=== PATIENT | male | born 1970 | race Caucasian/White ===

== ENCOUNTER 2021-01-07 09:45 | Outpatient (REF) | payer OTHER, SELFPAY ==
--- NOTE | ~2021-01-07 | XR_ITS ---
EXAMINATION: XR CHEST CLINICAL INFORMATION: Cough. R05 - Cough COMPARISON: Chest radiographs 12/25/2011 TECHNIQUE: 2 views of the chest were obtained. FINDINGS: Linear disc atelectasis right middle lobe and bibasilar disc atelectasis. The lungs otherwise clear. The vascularity is normal. There is no lobar or segmental airspace consolidation or effusion. The heart is normal in size. The costophrenic sulci are clear. The hilar and mediastinal contours and visualized bony structures are unremarkable. XR/XR chest 2V IMPRESSION: Subsegmental atelectasis right middle lobe and at both bases.
== END 2021-01-07 09:46 | disposition home or self-care (01) ==
LOC: HO.HMGCX 09:45
PROVIDERS: PCP Physician Assistant; Visit Provider Hospitalist
DX: Z20.822 Contact with and (suspected) exposure to COVID-19 (principal); R05 Cough; B34.9 Viral infection, unspecified
CPT/HCPCS: 71046; U0003; U0005

== ENCOUNTER 2021-07-05 16:06 | Outpatient (REF) | payer OTHER, SELFPAY ==
[2021-07-05 17:00] LABS: Hematocrit 45.2 % (42.0-52.0); Mean Corpuscular HGB Conc 33.2 g/dl (31.0-36.0); Mean Corpuscular Hemoglobin 30.1 pg (27.0-33.0); Mean Corpuscular Volume 90.8 fL (80.0-98.0); Mean Platelet Volume 9.4 fL (9.4-12.4); Platelet Count 375 X10*3/uL (160-400); Red Blood Count 4.98 X10*6/uL (4.60-5.80); White Blood Count 14.5 X10*3/uL (4.8-10.8)
[2021-07-05 17:04] LABS: Estimated Average Glucose 111 mg/dL; Hemoglobin A1c % 5.5 %
[2021-07-05 17:24] LABS: Alanine Aminotransferase 35 U/L (0-40); Albumin Level 4.5 g/dL (3.5-5.0); Alkaline Phosphatase 53 U/L (39-117); Anion Gap 15 (12-20); Aspartate Amino Transferase 15 U/L (5-37); Bilirubin Direct < 0.2 mg/dL (0.0-0.5); Bilirubin Total 0.4 mg/dL (0.0-1.0); Blood Urea Nitrogen 18 mg/dL (9-16); Carbon Dioxide 26 mmol/L (22-29); Chloride 105 mmol/L (96-108); Estimated Glomerular Filt Rate > 60; Glucose Random 117 mg/dL (60-115); Potassium 4.8 mmol/L (3.3-5.1); Sodium 141 mmol/L (135-145); Total Protein 7.7 g/dL (6.5-8.0)
[2021-07-05 17:29] LABS: Calcium 10.3 mg/dL (8.4-10.2)
[2021-07-05 17:40] LABS: TSH reflex Free T4 0.45 uIU/mL (0.32-4.0)
== END 2021-07-05 16:07 | disposition home or self-care (01) ==
LOC: HO.LAB 16:06
PROVIDERS: PCP Physician Assistant; Visit Provider Physician Assistant
DX: A41.9 Sepsis, unspecified organism (principal); R65.21 Severe sepsis with septic shock; J96.01 Acute respiratory failure with hypoxia; I10 Essential (primary) hypertension
CPT/HCPCS: 36415; 80048; 80076; 83036; 84443; 85027

== ENCOUNTER 2021-07-21 14:29 | Outpatient (REF) | payer OTHER, SELFPAY ==
[2021-07-21 16:04] LABS: Hematocrit 42.9 % (42.0-52.0); Hemoglobin 14.7 g/dl (14.0-18.0); Mean Corpuscular HGB Conc 34.3 g/dl (31.0-36.0); Mean Corpuscular Hemoglobin 30.6 pg (27.0-33.0); Mean Corpuscular Volume 89.4 fL (80.0-98.0); Mean Platelet Volume 9.2 fL (9.4-12.4); Platelet Count 279 X10*3/uL (160-400); Red Cell Distribution Width 15.5 % (11.0-16.0)
[2021-07-21 16:15] LABS: Estimated Average Glucose 108 mg/dL; Hemoglobin A1c % 5.4 %
[2021-07-21 16:34] LABS: Alanine Aminotransferase 38 U/L (0-40); Albumin Level 4.2 g/dL (3.5-5.0); Alkaline Phosphatase 68 U/L (39-117); Anion Gap 10 (12-20); Aspartate Amino Transferase 18 U/L (5-37); Bilirubin Total 0.8 mg/dL (0.0-1.0); Blood Urea Nitrogen 14 mg/dL (9-16); Carbon Dioxide 33 mmol/L (22-29); Chloride 105 mmol/L (96-108); Cholesterol 232 mg/dL; Estimated Glomerular Filt Rate > 60; Glucose Fasting 93 mg/dL (60-99); HDL Cholesterol 31 mg/dL; LDL Cholesterol Calculated 134 mg/dl; Potassium 4.4 mmol/L (3.3-5.1); Sodium 144 mmol/L (135-145); Total Protein 6.9 g/dL (6.5-8.0); Triglycerides 337 mg/dL
[2021-07-21 16:39] LABS: Creatinine Urine 400.11 mg/dL; Microalbum/Creatinine Ratio Ur 13.2 ug/mg cr
[2021-07-21 16:54] LABS: Prostate Specific Antigen Scr 1.12 ng/mL (<0.05-4.0); TSH reflex Free T4 0.67 uIU/mL (0.32-4.0)
== END 2021-07-21 14:30 | disposition home or self-care (01) ==
LOC: HO.LAB 14:29
PROVIDERS: Absent Provider Physician Assistant; PCP Physician Assistant; Visit Provider Internal Medicine Pulmonary Disease
DX: Z12.5 Encounter for screening for malignant neoplasm of prostate (principal); I10 Essential (primary) hypertension; R06.00 Dyspnea, unspecified; U09.9 Post COVID-19 condition, unspecified; Z99.81 Dependence on supplemental oxygen
CPT/HCPCS: 36415; 80053; 80061; 82043; 83036; 84153; 84443; 85027

== ENCOUNTER 2021-08-16 16:12 | Outpatient (REF) | payer OTHER, SELFPAY ==
--- NOTE | ~2021-08-16 | CT_ITS ---
EXAMINATION: CT CHEST WITHOUT CONTRAST CLINICAL INFORMATION: Post Covid condition COMPARISON: Previous chest x-rays most recent May 2021 from [facility] TECHNIQUE: Multidetector volumetric CT imaging of the chest was done. Axial MIP volume rendering provided. Sagittal and coronal reformatted images were obtained. This CT examination was performed using dose optimization techniques as appropriate, variously including the following: *Automated exposure control *Adjustment of mA and/or kV according to patient size (this includes techniques or standardized protocols for targeted exams where dose is matched to indication/reason for exam; i.e. extremities or head) *Use of iterative reconstruction technique DLP: 271 mGy-cm FINDINGS: MILL OPERATOR HEAD: Low lung volumes and increased reticular markings LUNGS: The lung volumes are low. There is increased groundglass attenuation, increased linear markings and denser scarring or subsegmental atelectasis seen throughout the lungs. This does not appear appreciably changed from most recent chest x-ray from May 2021. Appearance would be consistent with fibrotic changes post Covid infection. There is a 3 mm calcified right upper lobe pulmonary nodule axial image 174 series 5. No endobronchial or endotracheal lesion is seen. There does not appear to be underlying emphysema. Tracheostomy tube is no longer seen. MEDIASTINUM: The heart is slightly enlarged. There is no pericardial effusion. The thoracic aorta is upper normal in caliber. There are small mediastinal lymph nodes. No enlarged lymph nodes are seen. PLEURA: There is no pleural effusion. No pleural mass or thickening. AXILLA: There are small lateral axillary lymph nodes. No enlarged axillary lymph nodes or chest wall mass is seen. UPPER ABDOMEN: Unremarkable. OSSEOUS STRUCTURES: There are degenerative changes of the spine. CT/CT chest wo con IMPRESSION: Low lung volumes and increased groundglass attenuation, linear markings and denser scarring or subsegmental atelectasis throughout the lungs. Chest CT appearance would be consistent with post Covid fibrotic change. Findings are similar to outside chest x-ray most recent May 2021. Enlarged heart. Fleischner guidelines were followed.
== END 2021-08-16 16:13 | disposition home or self-care (01) ==
LOC: HO.CT 16:12
PROVIDERS: PCP Physician Assistant; Visit Provider Internal Medicine Pulmonary Disease
DX: U09.9 Post COVID-19 condition, unspecified (principal)
CPT/HCPCS: 71250

== ENCOUNTER 2021-08-31 15:06 | Outpatient (REF) | payer OTHER, SELFPAY ==
--- NOTE | ~2021-08-31 | XR_ITS ---
EXAMINATION: XR CHEST CLINICAL INFORMATION: Cough COMPARISON: August 19, 2021 and January 07, 2021 TECHNIQUE: 2 views of the chest were obtained. FINDINGS: There are low lung volumes. Increased interstitial markings are seen bilaterally in were evident to some degree on previous CT scan of August 16, 2021 and are much more prominent than on study of January 07, 2021. There is a more confluent region of disease seen within the mid left lung. No pneumothorax or pleural effusion appreciated. Heart upper limits of normal in size. No evidence of pulmonary edema. XR/XR chest 2V IMPRESSION: Low lung volumes with what appears be some degree of interstitial scarring bilaterally as well as a more confluent region of disease within the mid left lung.
--- NOTE | 2021-08-31 15:21 | ECG_ITS ---
Test Reason : HTN Blood Pressure : / mmHG Vent. Rate : 056 BPM Atrial Rate : 056 BPM P-R Int : 166 ms QRS Dur : 096 ms QT Int : 414 ms P-R-T Axes : 038 017 021 degrees QTc Int : 399 ms Sinus bradycardia Otherwise normal ECG No previous ECGs available Referred By: Soy Connor Electronically Signed By:LEIDY MATUTE
[2021-08-31 16:11] LABS: Cholesterol 231 mg/dL; HDL Cholesterol 36 mg/dL; LDL Cholesterol Calculated 146 mg/dl; Triglycerides 249 mg/dL
[2021-08-31 16:32] LABS: Prostate Specific Antigen Scr 1.39 ng/mL (<0.05-4.0)
== END 2021-08-31 15:07 | disposition home or self-care (01) ==
LOC: HO.XRAY 15:06
PROVIDERS: PCP Physician Assistant; Visit Provider Physician Assistant
DX: I10 Essential (primary) hypertension (principal); R07.89 Other chest pain; R05.9 Cough, unspecified; Z12.5 Encounter for screening for malignant neoplasm of prostate
CPT/HCPCS: 36415; 71046; 80061; 84153; 93005

== ENCOUNTER → 2021-09-06 13:12 | Outpatient (REF) | payer OTHER, SELFPAY ==
--- NOTE | 2021-09-06 13:16 | CA_ITS ---
Transthoracic Echocardiogram Patient (Last, First, Middle): Marksu Cannon, Gender: Male Date of : 1970 Age: 50 Procedure Date: 09/06/2021 Procedure Type: Transthoracic Echocardiogram Location: OP Height: 172.72 cm Weight: 86.18 kg BSA: 2.00 m2 Heart Rate: bpm BP: 152 / 84 mmHg Wharf Hand: VH/OT Referring MD: Pacheco Boyle MD Symptoms: R06.00 - Dyspnea, unspecified Study Quality: Fair ECG Rhythm: Sinus Conclusions: - The left ventricular systolic function is normal. The visually estimated ejection fraction is between 55-60%. - No obvious valvular pathology seen on this study. Findings Left Ventricle Normal left ventricular cavity size. There is normal left ventricular wall thickness. The left ventricular systolic function is normal. The visually estimated ejection fraction is between 55-60%. There is no evidence of regional wall motion abnormalities. E/E prime ratio is between 8 and 15 consistent with indeterminate filling pressures. Evidence suggests grade I (mild) diastolic dysfunction. Right Ventricle Normal right ventricular cavity size and systolic function. Atria Both atria are normal in size. Aortic Valve There is a normal trileaflet aortic valve. There is no aortic valve stenosis. There is no aortic valve regurgitation. Mitral Valve The mitral valve appears normal. There is trace mitral valve regurgitation. There is no mitral valve stenosis. Pulmonic Valve The pulmonic valve was not well visualized. Tricuspid Valve Normal tricuspid valve structure. There is trace tricuspid valve regurgitation. The pulmonary artery systolic pressure is normal. Great Vessels The aortic annulus, sinuses of valsalva, and asc aorta are normal in size. Venous The inferior vena cava is normal in size and collapses greater than 50% with inspiration. Pericardium/Pleural There is no evidence of pericardial effusion. Prior Study Comparison No significant change compared to prior study dated: 09/24/2012. Recommendations, Care & Conclusions No obvious valvular pathology seen on this study. Measurements 2D Linear Measurements Ao Root: 3.20 2.1-3.5 cm LVOT Diam: 2.10 3.0+(-)1.3 cm 2D Systolic Function EF 4C: 43.40 >55% EF 2C: 60.30 >55% EF BiP: 52.80 >55% Mitral Valve MV Pk E: 0.58 MV PK A: 0.71 MV Decel Time: 203.00 E/A: 0.80 E'Lateral: 6.42 E'Medial: 5.22 E/E' Med: 11.10 E/E' Lat: 9.00 PHT: 60.00 MVA PHT: 3.67 Decel Sargent: 2.85 Aortic Valve AoV Pk Oleksandr: 1.23 AoV Mn Oleksandr: 0.85 AoV VTI: 0.26 AoV Pk Grad: 6.00 Aov Mn Grad: 3.00 ANTONIO Cont.VTI: 2.77 LVOT LVOT Pk Oleksandr: 0.98 LVOT Mn Oleksandr: 0.64 LVOT VTI: 0.21 LVOT Pk Grad: 4.00 LVOT Mn Grad: 2.00 LVOT Diam: 2.10 LVOT Area: 3.46 Diastolic Function MV Pk E: 0.58 MV Pk A: 0.71 E/A: 0.80 E'Medial: 5.22 E/E' Med: 11.10 E' Laterial: 6.42 E/E' Lat: 9.00 Right Ventricle TAPSE (mm): 24.00 TVS' Oleksandr: 10.00 Tricuspid Valve TV Pk Oleksandr: 2.00 TR Pk Oleksandr: 16.00 RA Press: 3.00 RVSP: 19.00 Great Vessels Aorta Ao Root-2D: 3.20 2.0-3.7 cm Sinus of Valsalva: 3.10 2.0-3.5 cm Ao Asc: 3.20 2.1-3.4 cm Pulmonary Valve PV Pk Oleksandr: 1.05 Peak PV Grad: 4.00 Updated in Other Vendor System with Status of Final Peter Modi MD electronically signed on 09/06/2021 4:44:01 PM with status of Final
== END ==
LOC: HO.CARD 13:12
PROVIDERS: PCP Physician Assistant; Visit Provider Internal Medicine Pulmonary Disease
DX: R06.00 Dyspnea, unspecified (principal)
CPT/HCPCS: 93306

== ENCOUNTER 2021-09-16 13:52 | Outpatient (REF) | payer OTHER, SELFPAY ==
--- NOTE | 2021-09-16 10:33 | PFT_ITS ---
Forced vital capacity 29%, FEV1 32%. FEV1/FVC ratio is 89. FEF 25/75 is 62% and MVV is 41%. Postbronchodilator therapy, there is some increase in FEF 25/75, but not in other parameters. Total lung capacity 34%. Residual volume 43%. Diffusion capacity 36%. CONCLUSION: These results are consistent with rather severe degree of restrictive pulmonary disorder. No significant obstructive disorder noted. Clinical correlation recommended. MD RIGOBERTO Cameron/MODL / [id number]
== END 2021-09-16 13:53 | disposition home or self-care (01) ==
LOC: HO.RESP 13:52
PROVIDERS: PCP Physician Assistant; Visit Provider Internal Medicine Pulmonary Disease
DX: U09.9 Post COVID-19 condition, unspecified (principal)
CPT/HCPCS: 94060; 94727; 94729

== ENCOUNTER → 2021-10-26 15:14 | Outpatient (BNVA) | payer OTHER, SELFPAY | PROVIDERS: PCP Physician Assistant; Visit Provider Internal Medicine Pulmonary Disease | DX: J84.9 Interstitial pulmonary disease, unspecified (principal) ==

== ENCOUNTER 2021-12-15 15:44 | Outpatient (REF) | payer OTHER, SELFPAY ==
[2021-12-15 15:52] LABS: MANUAL DIFF FLAG NO
[2021-12-15 16:10] LABS: Basophils Percent Auto 0.2 % (0-2); Hematocrit 47.1 % (42.0-52.0); Hemoglobin 16.2 g/dl (14.0-18.0); Imm Gran Abs Auto 0.57 X10*3/uL (0.00-0.03); Imm Gran Pct Auto 2.8 % (0.0-0.4); Lymphocytes Absolute Auto 1.4 X10*3/uL (1.2-4.9); Lymphocytes Percent Auto 6.9 % (20-40); Mean Corpuscular HGB Conc 34.4 g/dl (31.0-36.0); Mean Corpuscular Hemoglobin 29.7 pg (27.0-33.0); Mean Corpuscular Volume 86.3 fL (80.0-98.0); Mean Platelet Volume 9.1 fL (9.4-12.4); Monocytes Absolute Auto 0.6 X10*3/uL (0.1-1.2); Monocytes Percent Auto 3.1 % (2-11); Neutrophils Absolute Auto 17.8 x10*3/uL (2.0-8.3); Platelet Count 304 X10*3/uL (160-400); Red Blood Count 5.46 X10*6/uL (4.60-5.80); Red Cell Distribution Width 15.3 % (11.0-16.0); White Blood Count 20.5 X10*3/uL (4.8-10.8)
[2021-12-15 16:24] LABS: Alanine Aminotransferase 90 U/L (0-40); Albumin Level 4.6 g/dL (3.5-5.0); Alkaline Phosphatase 44 U/L (39-117); Anion Gap 14 (12-20); Aspartate Amino Transferase 25 U/L (5-37); Bilirubin Total 1.2 mg/dL (0.0-1.0); Blood Urea Nitrogen 19 mg/dL (9-16); Calcium 10.2 mg/dL (8.4-10.2); Carbon Dioxide 30 mmol/L (22-29); Chloride 99 mmol/L (96-108); Estimated Glomerular Filt Rate > 60; Glucose Random 138 mg/dL (60-115); Potassium 4.2 mmol/L (3.3-5.1); Sodium 139 mmol/L (135-145); Total Protein 7.1 g/dL (6.5-8.0)
[2021-12-15 16:47] LABS: TSH reflex Free T4 0.22 uIU/mL (0.32-4.0); Vitamin D 25-OH Total 25.8 ng/mL (>30)
[2021-12-15 17:03] LABS: Appearance Urine CLEAR; Color Urine STRAW; Glucose Urine UA NEG (NEG); Leukocyte Esterase Urine NEG (NEG); Nitrite Urine NEG (NEG); PH 7.5 (5.0-8.0); Specific Gravity - Urine <= 1.005 (1.005-1.025); Urine Blood NEG (NEG); Urine Ketones NEG (NEG); Urine Protein NEG (NEG-TRACE)
[2021-12-15 18:13] LABS: Free T4 (Free Thyroxine) 1.04 ng/dL (0.71-1.85)
== END 2021-12-15 15:45 | disposition home or self-care (01) ==
LOC: HO.LAB 15:44
PROVIDERS: Visit Provider Internal Medicine
DX: R53.83 Other fatigue (principal); E55.9 Vitamin D deficiency, unspecified
CPT/HCPCS: 36415; 80053; 81003; 82306; 84439; 84443; 85025

== ENCOUNTER 2022-01-06 13:45 | Outpatient (REF) | payer OTHER, SELFPAY ==
--- NOTE | 2022-01-06 17:34 | PFT_ITS ---
INDICATION: Dyspnea. SPIROMETRY: FEV1 to FVC of 90% with an FEV1 of 1.44, which is 39% predicted, and an FVC of 1.61, which is 34% predicted. No significant response to bronchodilators noted. Maximum voluntary ventilation 52% predicted. LUNG VOLUMES: Total lung capacity 44% predicted with an expiratory reserve volume of 18% predicted. DIFFUSION CAPACITY: DLCO of 45% predicted, and it does correct to normal when corrected for the alveolar volume. COMPARISONS: None. INTERPRETATION: No obstructive ventilatory defects, no significant response to bronchodilators noted. The patient does have a moderate decrease in maximum voluntary ventilation secondary to deconditioning, although cannot rule out neuromuscular conditions. However, the patient does have a restrictive ventilatory defect consistent with severe restrictive lung disease. The etiology is not clear, although partly due to his elevated BMI, although underlying neuromuscular conditions cannot be ruled out. The patient also has a severe diffusion impairment that does correct to 112% predicted when corrected for the alveolar volume suggesting that is not an intrinsic process. Clinical correlation is warranted. MD JESS Guerra/MEL / [id number]
== END 2022-01-06 13:46 | disposition home or self-care (01) ==
LOC: HO.RESP 13:45
PROVIDERS: PCP Physician Assistant; Visit Provider Internal Medicine Pulmonary Disease
DX: J84.9 Interstitial pulmonary disease, unspecified (principal)
CPT/HCPCS: 94060; 94727; 94729

== ENCOUNTER 2022-02-21 14:56 | Outpatient (REF) | payer OTHER, SELFPAY ==
--- NOTE | ~2022-02-21 | XR_ITS ---
EXAMINATION: XR CHEST CLINICAL INFORMATION: Pleurodynia. COMPARISON: Prior chest radiographs, most recently 08/31/2021; CT chest dated 08/16/2021.. TECHNIQUE: Frontal and lateral views of the chest were obtained. FINDINGS: The heart, great vessels and mediastinum are stable. Again, there are diminished lung volumes. There is persistent bilateral increase in predominantly central interstitial markings, and there is a stable patchy opacity seen in the left perihilar region. No pleural effusion or pneumothorax is seen. There is no acute osseous abnormality. XR/XR chest 2V IMPRESSION: Stable abnormal examination. There are again diminished lung volumes with increased bilateral interstitial markings. There is a stable focal opacity in the left perihilar region. No new superimposed infiltrate or congestive heart failure is seen.
== END 2022-02-21 14:57 | disposition home or self-care (01) ==
LOC: HO.XRAY 14:56
PROVIDERS: PCP Physician Assistant; Visit Provider Physician Assistant
DX: R07.81 Pleurodynia (principal)
CPT/HCPCS: 71046

== ENCOUNTER 2022-03-10 15:53 | Outpatient (REF) | payer OTHER, SELFPAY ==
--- NOTE | ~2022-03-10 | XR_ITS ---
EXAMINATION: XR CHEST CLINICAL INFORMATION: Other nonspecific symptoms and signs involving the circulatory and respiratory system. Previous exams indicate post Covid condition. COMPARISON: Previous chest x-rays most recent August and February [address] August 2021 TECHNIQUE: 2 views of the chest were obtained. FINDINGS: The cardiac silhouette is slightly enlarged but stable. Hilar and mediastinal contours are unremarkable. The lung volumes are low. There are interstitial markings similar to previous exam. There is denser airspace disease or infiltrate in the left mid lung/perihilar region. This is similar to recent exams. There is no pleural effusion or pneumothorax. There are degenerative changes of the spine. XR/XR chest 2V IMPRESSION: Stable enlargement of the cardiac silhouette. Low lung volumes and coarse lung markings. Stable left mid lung/perihilar more dense consolidation or infiltrate.
[2022-03-10 19:09] LABS: Influenza A PCR NEGATIVE (Negative); Influenza B PCR NEGATIVE (Negative); Resp Syncy Virus RNA Qual PCR NEGATIVE (Negative); SARS COV2 PCR INHOUSE NEGATIVE (Negative)
== END 2022-03-10 15:54 | disposition home or self-care (01) ==
LOC: HO.XRAY 15:53
PROVIDERS: PCP Physician Assistant; Visit Provider Family Medicine
DX: Z20.822 Contact with and (suspected) exposure to COVID-19 (principal); R09.89 Other specified symptoms and signs involving the circulatory and respiratory systems
CPT/HCPCS: 0241U; 71046

== ENCOUNTER → 2022-03-22 20:30 | Outpatient (REF) | payer OTHER, SELFPAY | LOC: HO.SL 20:30 | PROVIDERS: Visit Provider Nurse Practitioner Family | DX: R06.83 Snoring (principal); R40.0 Somnolence | CPT/HCPCS: 95810 ==

== ENCOUNTER 2022-03-30 12:48 | Outpatient (REF) | payer OTHER, SELFPAY ==
--- NOTE | 2022-03-30 15:13 | PFT_ITS ---
INDICATION: ILD. SPIROMETRY: FEV1 to FVC of 92% with an FEV1 of 1.47 L, which is 40% predicted, FVC 1.59 L which is 34% predicted, maximum voluntary ventilation only 44% predicted. LUNG VOLUMES: Total lung capacity 38% predicted with an expiratory reserve volume of 28% predicted. DIFFUSION CAPACITY: DLCO 42% predicted. To note that it corrects to 125% predicted when correcting for the alveolar volume. COMPARISONS: PFTs from 2021. INTERPRETATION: No obstructive ventilatory defect. No significant response to bronchodilators noted. Of note, there is some evidence of small airways disease. There is also severe decrease in maximum voluntary ventilation secondary to likely deconditioning and/or neuromuscular disease. The patient does have a restrictive ventilatory defect that is consistent with severe restrictive lung disease. In addition to that, the patient does have a decrease in the expiratory reserve volume secondary to an elevated BMI. The diffusion capacity does demonstrate a moderate decrease, although, there is complete correction of the diffusion impairment, when correcting for the alveolar volume. When compared to 2021, there is no significant change in the FVC, no significant change in the FEV1, a trend increase in the total lung capacity, and no significant change in diffusion capacity. Clinical correlation warranted. MD JESS Guerra/MEL / [id number]
== END 2022-03-30 12:49 | disposition home or self-care (01) ==
LOC: HO.RESP 12:48
PROVIDERS: Visit Provider Internal Medicine Pulmonary Disease
DX: J84.9 Interstitial pulmonary disease, unspecified (principal)
CPT/HCPCS: 94060; 94727; 94729

== ENCOUNTER 2022-04-22 10:04 | Outpatient (REF) | payer OTHER, SELFPAY ==
[2022-04-22 11:17] LABS: Hematocrit 45.5 % (42.0-52.0); Hemoglobin 15.4 g/dl (14.0-18.0); Mean Corpuscular HGB Conc 33.8 g/dl (31.0-36.0); Mean Corpuscular Hemoglobin 30.5 pg (27.0-33.0); Mean Corpuscular Volume 90.1 fL (80.0-98.0); Platelet Count 271 X10*3/uL (160-400); Red Blood Count 5.05 X10*6/uL (4.60-5.80); Red Cell Distribution Width 13.4 % (11.0-16.0); White Blood Count 15.5 X10*3/uL (4.8-10.8)
[2022-04-22 11:46] LABS: Alanine Aminotransferase 130 U/L (0-40); Albumin Level 4.2 g/dL (3.5-5.0); Alkaline Phosphatase 51 U/L (39-117); Anion Gap 16 (12-20); Aspartate Amino Transferase 36 U/L (5-37); Bilirubin Total 0.8 mg/dL (0.0-1.0); Blood Urea Nitrogen 18 mg/dL (9-16); Calcium 9.7 mg/dL (8.4-10.2); Carbon Dioxide 29 mmol/L (22-29); Chloride 102 mmol/L (96-108); Cholesterol 241 mg/dL; Estimated Glomerular Filt Rate > 60; Glucose Fasting 96 mg/dL (60-99); HDL Cholesterol 39 mg/dL; LDL Cholesterol Calculated 160 mg/dl; Potassium 3.7 mmol/L (3.3-5.1); Sodium 143 mmol/L (135-145); Total Protein 6.5 g/dL (6.5-8.0); Triglycerides 214 mg/dL
== END 2022-04-22 10:05 | disposition home or self-care (01) ==
LOC: HO.LAB 10:04
PROVIDERS: PCP Physician Assistant; Visit Provider Physician Assistant
DX: J84.9 Interstitial pulmonary disease, unspecified (principal); E78.9 Disorder of lipoprotein metabolism, unspecified
CPT/HCPCS: 36415; 80053; 80061; 84443; 85027

== ENCOUNTER 2022-04-25 15:14 | Outpatient (REF) | payer OTHER, SELFPAY ==
[2022-04-25 15:40] VITALS: O2SAT 95
[2022-04-25 15:58] LABS: ABG Base Excess 3.6 mmol/L; ABG HCO3 27 mmol/L (22-26); ABG pCO2 39 mmHg (32-45); ABG pH 7.45 (7.35-7.45); ABG pO2 99 mmHg (83-108)
[2022-04-25 17:56] LABS: ABG Refer to POC result
== END 2022-04-25 15:15 | disposition home or self-care (01) ==
LOC: HO.LAB 15:14
PROVIDERS: PCP Physician Assistant; Visit Provider Internal Medicine Pulmonary Disease
DX: Z76.82 Awaiting organ transplant status (principal)
CPT/HCPCS: 36600; 82803; 94618

== ENCOUNTER 2022-05-22 15:00 | Outpatient (REF) | payer OTHER, SELFPAY ==
[2022-05-23 13:17] LABS: Influenza A PCR NEGATIVE (Negative); Influenza B PCR NEGATIVE (Negative); Resp Syncy Virus RNA Qual PCR POSITIVE (Negative); SARS COV2 PCR INHOUSE NEGATIVE (Negative)
== END 2022-05-22 15:01 | disposition home or self-care (01) ==
LOC: HO.LAB 15:00
PROVIDERS: Visit Provider Nurse Practitioner Family
DX: R09.89 Other specified symptoms and signs involving the circulatory and respiratory systems (principal); Z20.822 Contact with and (suspected) exposure to COVID-19
CPT/HCPCS: 0241U

== ENCOUNTER → 2022-08-02 14:47 | Outpatient (BNVA) | payer OTHER, SELFPAY | PROVIDERS: PCP Physician Assistant; Visit Provider Nurse Practitioner Family | DX: Z13.89 Encounter for screening for other disorder (principal) ==

== ENCOUNTER → 2022-08-24 13:36 | Outpatient (BNVA) | payer OTHER, SELFPAY | PROVIDERS: PCP Physician Assistant; Visit Provider Internal Medicine Pulmonary Disease | DX: Z13.89 Encounter for screening for other disorder (principal) ==

== ENCOUNTER → 2022-10-24 14:58 | Outpatient (BNVA) | payer OTHER, SELFPAY | PROVIDERS: PCP Physician Assistant; Visit Provider Internal Medicine Pulmonary Disease ==

== ENCOUNTER 2022-11-14 16:55 | Outpatient (REF) | payer OTHER, SELFPAY ==
[2022-11-14 18:36] LABS: Cholesterol 177 mg/dL; HDL Cholesterol 29 mg/dL; LDL Cholesterol Calculated 106 mg/dl; Triglycerides 210 mg/dL
== END 2022-11-14 16:56 | disposition home or self-care (01) ==
LOC: HO.LAB 16:55
PROVIDERS: PCP Physician Assistant; Visit Provider Nurse Practitioner Family
DX: E78.00 Pure hypercholesterolemia, unspecified (principal)
CPT/HCPCS: 36415; 80061

== ENCOUNTER 2023-03-12 11:39 | Outpatient (AMB) | payer OTHER, SELFPAY ==
[2023-03-12 12:14] VITALS: BP 140/80; PULSE 63; TEMP 36.7; O2SAT 98
--- NOTE | 2023-03-12 12:14 | MHC.OFFWIV ---
Intake Vital Signs 03/12/23 12:14 Height 5 ft 8 in Weight 9.072 kg BMI 3.0 BP 140/80 H Blood Pressure Location Rt brachial Position Sitting Pulse 63 Pulse Source Pulse Oximeter Temp 98.0 F Temp Source Temporal Artery Scan Pulse Oximetry (%) 98 Intake Visit Reasons: EST/cut on face/infection? Intake Note: pt is here for c/o cut on face possible infection Patient Tobacco Use Status: Never used Tobacco Allergies bee venom protein (honey bee) Allergy (Intermediate, Verified 03/12/23 12:15) Swelling iv dye Allergy (Unknown, Uncoded 12/13/22 15:35) rash Do you need a note to return to daycare/school/sports/work: Yes HPI EST/cut on face/infection? HPI Details Patient presents with pain and swelling on his chin after nicking himself shaving 3 days ago. Lesion started to developed clear and yellow fluid with increased surrounding erythema and edema and tenderness. He denies fevers were noted purulent drainage. He does his have history of MRSA infections in the past. [facility] Surgical History History of ear surgery History of vasectomy History of wisdom tooth extraction Family History Father No problems noted. Mother Lung cancer Paternal Uncle Diabetes Paternal Aunt Brain cancer Other Mental health disorder Substance use disorder Social History Household Members: Family Housing: House Alcohol intake: current Alcohol intake frequency: holidays/special occasions only Patient Tobacco Use Status: Never used Tobacco e-Cigarette/Vaping Use: Never Used Second Hand Smoke Exposure: Yes (Mother) service: No Current occupational status: employed Cognitive needs: No Hearing needs: No Vision needs: Yes Review of Systems Const Reports as per HPI and Reports no additional complaints Card Reports as per HPI and Reports no additional complaints Resp Reports as per HPI and Reports no additional complaints Skin/Breast Denies lesions Neuro Reports no additional complaints and Reports as per HPI Physical Exam Vital Signs: Last Vital Signs Temp 98.0 F 03/12/23 12:14 Pulse 63 03/12/23 12:14 BP 140/80 H 03/12/23 12:14 Pulse Ox 98 03/12/23 12:14 BMI result Body Mass Index 3.0 Const General: cooperative, comfortable and no acute distress Orientation/consciousness: patient oriented x3 Resp Effort & Inspection: normal respiratory effort Auscultation: clear to auscultation bilaterally Cardio Rate: regular rate Rhythm: regular rhythm Heart sounds: S1 normal heart sound present and S2 normal heart sound present Skin Lesions: lesion noted (5 mm area of scab and serosanguineous discharge) Chin just left of center tender and other (Area of erythema covers chin and below mandible) Neuro General: patient oriented x3 Assessment & Plan Assessment & Plan (1) Facial cellulitis: Code(s): L03.211 - Cellulitis of face Plan: Will treat with 10 day course of Augmentin. Patient advised to monitor return to clinic if symptoms are not improving over the next 24-48 hours or worsen in any way. He may need alternate course of antibiotics especially given his immunocompromised state. Medications: New amoxicillin-pot clavulanate 875-125 mg 1 tab PO Q12H 20 tabs 0RF 10 days Coding Level of Care Code Est Pt Level 3 (78473) Diagnoses Facial cellulitis L03.211
== END 2023-03-12 12:36 | disposition home or self-care (01) ==
PROVIDERS: Visit Provider Physician Assistant
DX: L03.211 Cellulitis of face (principal)
CPT/HCPCS: 99213

== ENCOUNTER 2023-04-05 13:00 | Outpatient (RCR) | payer OTHER, SELFPAY ==
[2022-09-14 13:05] VITALS: BP 124/78; BP 128/66
[2022-09-21 13:44] VITALS: BP 128/70; BP 146/82
[2022-09-26 14:36] VITALS: BP 150/80
[2022-09-28 14:29] VITALS: BP 120/80; BP 138/70
[2022-10-03 13:42] VITALS: BP 114/82; BP 122/80
[2022-10-05 14:34] VITALS: BP 132/90; BP 145/80
[2022-10-10 14:40] VITALS: BP 150/80
[2022-10-12 13:03] VITALS: BP 102/80; BP 122/76
[2022-10-19 13:17] VITALS: BP 126/72; BP 128/78
[2022-10-24 13:27] VITALS: BP 130/82
[2022-10-26 13:26] VITALS: BP 130/70
[2022-10-31 15:05] VITALS: BP 130/80; BP 140/80
[2022-11-02 14:59] VITALS: BP 125/70; BP 135/70
[2022-11-07 14:25] VITALS: BP 120/72; BP 120/74
[2022-11-21 14:38] VITALS: BP 126/68; BP 136/80
[2022-11-23 15:02] VITALS: BP 114/70; BP 122/80
[2022-11-28 15:06] VITALS: BP 140/84; BP 150/92
[2022-12-01 06:50] VITALS: BP 112/72; BP 132/76
[2022-12-05 13:45] VITALS: BP 126/72; BP 140/80
[2022-12-06 07:21] VITALS: BP 140/80; PULSE 64
--- NOTE | 2022-12-06 07:38 | MHC.PR.IN ---
[address] [phone] F: [phone] Pulmonary Rehabilitation Individual Treatment Plan Markus Cannon is a 52 year old (M) who was referred to the Pulmonary Rehabilitation program by Pacheco Boyle. This patient who has a primary diagnosis of Post covid will begin pulmonary rehabilitation with monitored exercise and education to optimize both physical and social performance, autonomy, increase strength and endurance, and control dypsnea. The following information was gathered from the patient: Smoking History Current smoking status: Never Smoked Years smoked: Last time smoked: Quit Date: Assistance with quitting needed: Past Medical History Medical History: Hypertension Pneumonia Anxiety Vision Problems Hearing Problems Surgeries: NO Past Pulmonary Hospitalizations # of hospitalizations in the past year: # of ER vists due to breathing troubles in the past year: Current Pulmonary Medications Allergy History Allergies: Bees/ IV dye Current Oxygen Use Supplemental Oxygen Device Used: Concentrator Cylinders Liter flow: 1L How often: With exercise only Pulmonary History Cough: No Sputum: No Sleep device: No Other pulmonary devices: Peak flow meter: Nebulizer: Suction: No Ventilator: No Secretion clearance: No PEP: No Influenza vaccine: Yes Pneumonia vaccine: No Patient Questionaire Scores MRC Dyspnea Scale (mRC): 1 CAT Score: PHQ-9 Score: 3 Pulmonary Function Test and Vital Signs Pulmonary Function Test Date of PFT FVC Actual % FVC Predicted % FEV1 Actual % FEV1 Predicted % FEV1/FVC Actual % FEV1/FVC Predicted % DLCO Vital Signs Heart Rate 64 Blood Pressure 140/80 SpO2 94% Respiratory Rate 16 Six Minute Walk Test Supplemental Oxygen O2 L/min: 1lpm FiO2: Resting Vitals SpO2: 96% BP: 110/54mmHg HR: 59 bpm Total Distance 835 Number/ Time of Rests (sec) 0 TORO 3 METS 2.22 SpO2 96 HR (bpm) 103 MPH 1.59 Meters/Minute 43 Post-walk Vitals SpO2: BP: 120/58 HR: 66 Performance Observations walked at a moderate pace. No stops. RPD 3 Pulmonary Rehabilitation Plan Topic Problem Goal Plan Comment Education Knowledge deficit of disease self management strategies Ineffective control of dyspnea Verbalize adequate disease self-management skills Effective control of dyspnea Disease overview Home exercise program Hypoxia SpO2 >90 Using oxygen as ordered Monitor oxygen saturation with rest and exercise Educate appropriate use of oxygen at rest and with activity Educate on oxygen safety Using oxygen as prescribed. Psychosocial N/A, PHQ-9 score <5 Review screening results Benefits of exercise Relaxation techniques Coping techniques Pt admits he has had anxiety and depression after rehab, but states he is feeling much better. Pt actively participates in pulmonary rehab. Activities of Daily Living Impaired ADL management ADL management and control of dyspnea ADL performance with pacing and pursed lip breathing Educate on pursed lip breathing and pacing with stairs and activity Pt educated on pursed lip and diaphragmatic breathing Nutrition & Weight Management N/A Prevent further weight gain Tobacco Managment NA never smoked Medication N/A, pt reports compliance w/ prescribed medications Pt reports compliance with prescribed medications Inhaled Medication N/A Secretion Management N/A, pt able to self manage secretions Pt able to manage self secretions. Exercise & Fitness Decreased strength & endurance Pulmonary Rehab 2-3x/week Weight or resistance training 2-3x/week Aerobic Exercise: 30-60mins x 9 weeks Review benefits & core components of exercise program TORO RPD 3-4/10 PT has participated in multiple sessions of pulmonalry rehab. Pt has great effort, and states pulmonary rehab helps him with ADL's and breathing techniques. Diabetes Management Does patient have DM?: No Diabetes Type: Current Blood Glucose Level: Current A1C Level: Self Check: Patient's Goals and Concerns Optimize breathing so that he can be more active.. Blister Rust Eradicator Review I have reviewed the outcome assessment, treatment plan, goals, and problem list. The treatment plan and goals support the patient's needs and abilities, and thereby recommend that the exercise plan be completed as documented. Special precautions or modifications to the treatment plan include:
[2022-12-26 15:54] VITALS: BP 130/82; BP 134/72
[2023-01-02 13:20] VITALS: BP 130/82; BP 132/82
[2023-01-09 14:52] VITALS: BP 138/80; BP 144/82
--- NOTE | 2023-01-10 08:41 | MHC.PR.RE ---
[address] [phone] F: [phone] Pulmonary Rehabilitation Reassessment Maruks Cannon is a 52 year old (M) who was referred to the Pulmonary Rehabilitation program by Pacheco Boyle. This patient who has a primary diagnosis of Post covid has completed 20 sessions of the pulmonary rehabilitation program thus far with monitored exercise and education to optimize both physical and social performance, autonomy, increase strength and endurance, and control dypsnea. They were evaluated on 01/10/23. Reassessment Type: 30-day reassessment Topic Education/ Progress Progress Comments Education Demonstrates disease self-management strategies Using medications as directed Mobilizes secretions successfully Demonstrates strategies for anxiety and depression management Hypoxia Current oxygen Use: Room Air Demonstrates knowledge of O2 prescription at rest & with activity Demonstrates knowledge of O2 safety Pt using per Rx 100% of time Psychosocial PHQ-9 Score: 3 Activities of Daily Living Management of ADL with Control of Dyspnea Goal Met Nutrition & Weight Management Current weight: 180 BMI: Weight change: Weight Stable Goal Met Referral to Structured Weight Management Program Tobacco Stages of Change: Pre-contemplation Tobacco Use: Cigerettes/Day: Any nicotine replacement: Any cessation medication: Smoking quit date: Smokeless tobacco use and amount: Medication Met, taking 100% of time Inhaled Medication Patient verbalizes correct technique of: MDI: Yes DPI: SMI: NEBULIZER: Secretion Management Patient provides adequate return demonstration of: Controlled cough: Yes Dao cough: Acapella/ PEP Device: Yes CPT: Yes Sputum management: No change Exercise & Fitness Aerobic Exercise Frequency: 2X weekly Target heart range: Heart rate range: SpO2 Range: TORO RPD: 3-4 Time (minutes): 65 O2 use with exercise: ra Current HEP: aerobic exercise 30-60 min X9 weeks. Box Feeder Review I have reviewed the outcome re-assessment and treatment plan. The treatment plan and goals support the patient's needs and abilities, and thereby recommend that the exercise plan be completed as documented. Special precautions or modifications to the treatment plan include:
[2023-01-23 14:40] VITALS: BP 128/78; BP 158/78
[2023-01-25 14:56] VITALS: BP 122/78; BP 152/78
--- NOTE | 2023-02-01 13:18 | MHC.PR.RE ---
[address] [phone] F: [phone] Pulmonary Rehabilitation Reassessment Markus Cannon is a 52 year old (M) who was referred to the Pulmonary Rehabilitation program by Pacheco Boyle. This patient who has a primary diagnosis of Post covid has completed 22 sessions of the pulmonary rehabilitation program thus far with monitored exercise and education to optimize both physical and social performance, autonomy, increase strength and endurance, and control dypsnea. They were evaluated on 02/01/23. Reassessment Type: 60-day reassessment Topic Education/ Progress Progress Comments Education Demonstrates disease self-management strategies Using medications as directed Mobilizes secretions successfully Demonstrates strategies for anxiety and depression management Hypoxia Current oxygen Use: RA Demonstrates knowledge of O2 prescription at rest & with activity Demonstrates knowledge of O2 safety Pt using per Rx 100% of time Met. Pt does not require the use of supplemental 02 Psychosocial PHQ-9 Score: 3 Activities of Daily Living Management of ADL with Control of Dyspnea Goal Met Pt has been on vacation for a month and a half. He has restarted his sessions and continued with the exercise time and levels that he had worked up to since the beginning. Nutrition & Weight Management Current weight: 180 BMI: Weight change: Weight Stable Goal Met Referral to Structured Weight Management Program Progressing. Pt would like to lose some weight during the program. The goal will be to increases levels as tolerated. Tobacco Stages of Change: Pre-contemplation Tobacco Use: Cigerettes/Day: Any nicotine replacement: Any cessation medication: Smoking quit date: Smokeless tobacco use and amount: PT is a non smoker Medication Met, taking 100% of time Inhaled Medication Patient verbalizes correct technique of: MDI: Yes DPI: SMI: NEBULIZER: spacer education given. Secretion Management Patient provides adequate return demonstration of: Controlled cough: Yes Dao cough: Acapella/ PEP Device: Yes CPT: Yes Sputum management: No change Exercise & Fitness Aerobic Exercise Frequency: 2X weekly Target heart range: Heart rate range: SpO2 Range: 92%-1--% TORO RPD: 3-4 Time (minutes): 60 O2 use with exercise: RA Current HEP: aerobic exercise 30-60 min X9 weeks. Pt is motivated and increased mets throughout program sessions. Visiting Housekeeper Review I have reviewed the outcome re-assessment and treatment plan. The treatment plan and goals support the patient's needs and abilities, and thereby recommend that the exercise plan be completed as documented. Special precautions or modifications to the treatment plan include:
[2023-02-08 14:58] VITALS: BP 162/79
[2023-02-13 15:03] VITALS: BP 124/80; BP 158/72
[2023-02-15 14:49] VITALS: BP 122/88
[2023-02-20 14:58] VITALS: BP 148/80; BP 164/72
--- NOTE | 2023-02-28 07:34 | MHC.PR.RE ---
[address] [phone] F: [phone] Pulmonary Rehabilitation Reassessment Markus Cannon is a 52 year old (M) who was referred to the Pulmonary Rehabilitation program by Pacheco Boyle. This patient who has a primary diagnosis of Post covid has completed 26 sessions of the pulmonary rehabilitation program thus far with monitored exercise and education to optimize both physical and social performance, autonomy, increase strength and endurance, and control dypsnea. They were evaluated on 02/28/23. Reassessment Type: 90-day reassessment Topic Education/ Progress Progress Comments Education Demonstrates disease self-management strategies Using medications as directed Mobilizes secretions successfully Demonstrates strategies for anxiety and depression management Hypoxia Current oxygen Use: Room Air Demonstrates knowledge of O2 prescription at rest & with activity Demonstrates knowledge of O2 safety Pt using per Rx 100% of time Met. Pt does not require the use of supplemental 02 Psychosocial PHQ-9 Score: 3 Activities of Daily Living Management of ADL with Control of Dyspnea Goal Met Progressing. Pt has been more active at home, and does not require supplemental 02. Nutrition & Weight Management Current weight: 180 BMI: Weight change: Weight Stable Goal Met Referral to Structured Weight Management Program Progressing. Pt would like to lose some weight during the program. The goal will be to increases levels as tolerated. Tobacco Stages of Change: Pre-contemplation Tobacco Use: Cigerettes/Day: Any nicotine replacement: Any cessation medication: Smoking quit date: Smokeless tobacco use and amount: Pt is non smoker. Medication Met, taking 100% of time Inhaled Medication Patient verbalizes correct technique of: MDI: Yes DPI: SMI: NEBULIZER: spacer education given. Secretion Management Patient provides adequate return demonstration of: Controlled cough: Yes Dao cough: Acapella/ PEP Device: Yes CPT: Yes Sputum management: No change Exercise & Fitness Aerobic Exercise Frequency: 2X weekly Target heart range: Heart rate range: SpO2 Range: 92%-1--% TORO RPD: 3-4 Time (minutes): 60 O2 use with exercise: RA Current HEP: aerobic exercise 30-60 min X12 weeks. Pt is motivated and continues to get stronger, and work through SOB diaphragmatic breathing and pursed lip breathing. Wildlife Manager Review I have reviewed the outcome re-assessment and treatment plan. The treatment plan and goals support the patient's needs and abilities, and thereby recommend that the exercise plan be completed as documented. Special precautions or modifications to the treatment plan include:
[2023-03-08 14:45] VITALS: BP 148/88
--- NOTE | 2023-03-30 08:00 | MHC.PR.RE ---
[address] [phone] F: [phone] Pulmonary Rehabilitation Reassessment Markus Cannon is a 52 year old (M) who was referred to the Pulmonary Rehabilitation program by Pacheco Boyle. This patient who has a primary diagnosis of Post covid has completed 27 sessions of the pulmonary rehabilitation program thus far with monitored exercise and education to optimize both physical and social performance, autonomy, increase strength and endurance, and control dypsnea. They were evaluated on 03/30/23. Reassessment Type: 120-day reassessment Topic Education/ Progress Progress Comments Education Demonstrates disease self-management strategies Using medications as directed Mobilizes secretions successfully Demonstrates strategies for anxiety and depression management Hypoxia Current oxygen Use: room Demonstrates knowledge of O2 prescription at rest & with activity Demonstrates knowledge of O2 safety Pt using per Rx 100% of time Met. Pt does not require the use of supplemental 02 Psychosocial PHQ-9 Score: 3 Activities of Daily Living Management of ADL with Control of Dyspnea Goal Met PRogressing. Pt has been more active at home, and does not require supplemental 02. Nutrition & Weight Management Current weight: 180 BMI: Weight change: Weight Stable Goal Met Referral to Structured Weight Management Program Progressing. Pt would like to lose some weight during the program. The goal will be to increases levels as tolerated. Tobacco Stages of Change: Pre-contemplation Tobacco Use: Cigerettes/Day: Any nicotine replacement: Any cessation medication: Smoking quit date: Smokeless tobacco use and amount: Pt is non smoker. Medication Met, taking 100% of time Inhaled Medication Patient verbalizes correct technique of: MDI: Yes DPI: SMI: NEBULIZER: spacer education given. Secretion Management Patient provides adequate return demonstration of: Controlled cough: Yes Dao cough: Acapella/ PEP Device: Yes CPT: Yes Sputum management: No change Exercise & Fitness Aerobic Exercise Frequency: 2X weekly Target heart range: Heart rate range: SpO2 Range: 92%-1--% TORO RPD: 3-4 Time (minutes): 60 O2 use with exercise: RA Current HEP: aerobic exercise 30-60 min X12 weeks. Pt is motivated and continues to get stronger, and work through SOB diaphragmatic breathing and pursed lip breathing. Yield Analyst Review I have reviewed the outcome re-assessment and treatment plan. The treatment plan and goals support the patient's needs and abilities, and thereby recommend that the exercise plan be completed as documented. Special precautions or modifications to the treatment plan include:
== END 2023-05-17 13:07 | disposition home or self-care (01) ==
LOC: HO.PR 13:00
PROVIDERS: Visit Provider Internal Medicine Pulmonary Disease
DX: U09.9 Post COVID-19 condition, unspecified (principal)
CPT/HCPCS: 94625

== ENCOUNTER 2023-06-28 15:04 | Outpatient (AMB) | payer OTHER, SELFPAY ==
[2023-06-28 15:08] VITALS: BP 154/82; PULSE 65; O2SAT 96; BMI 31.0
--- NOTE | 2023-06-28 15:08 | MHC.OFFVIS ---
Intake Vital Signs 06/28/23 15:08 Height 5 ft 8 in Weight 203 lb 14.841 oz BMI 31.0 BP 154/82 H Blood Pressure Location Lt brachial Position Sitting Pulse 65 Pulse Source Doppler Pulse Oximetry (%) 96 Oxygen Delivery Method Room Air Intake Visit Reasons: dyspnea Allergies bee venom protein (honey bee) Allergy (Intermediate, Verified 03/12/23 12:15) Swelling iv dye Allergy (Unknown, Uncoded 12/13/22 15:35) rash HPI dyspnea HPI Details 52-year-old gentleman, nonsmoker, with underlying history of severe COVID starting end of December 2020 requiring VV ECMO for 10 weeks at [facility], status post trach and PEG discharge to [facility] in March of 2021, tracheostomy decannulated end of May 2021, discharged from [facility] being June of 2021 on supplemental oxygen 3 L continuous flow with exertion and 1L at rest.? Treated with prednisone 1 milligram/kilogram with initial improvement in his lung function with improvement that has plateaued since about December of 2021.? His repeat pulmonary function test also shows no further improvement in lung function.? After the last office visit patient continues to work with pulmonary rehab. He only require supplemental oxygen at night at this time. [facility] Surgical History History of ear surgery History of vasectomy History of wisdom tooth extraction Family History Father No problems noted. Mother Lung cancer Paternal Uncle Diabetes Paternal Aunt Brain cancer Other Mental health disorder Substance use disorder Social History Household Members: Family Housing: House Alcohol intake: current Alcohol intake frequency: holidays/special occasions only Patient Tobacco Use Status: Never used Tobacco e-Cigarette/Vaping Use: Never Used Second Hand Smoke Exposure: Yes (Mother) service: No Current occupational status: employed Cognitive needs: No Hearing needs: No Vision needs: Yes Review of Systems Const Denies daytime sleepiness, Denies excessive sweating, Denies fatigue, Denies fever(s), Denies lethargy, Denies malaise, Denies night sweats, Denies snoring and Denies weight loss Eyes Denies blurry vision and Denies itchy eyes ENT Denies nasal congestion, Denies post nasal drip, Denies sinus pain, Denies sinus pressure and Denies other ( Thrush) Card Denies chest pain, Denies pedal edema, Denies dyspnea, Denies orthopnea and Denies paroxysmal nocturnal dyspnea Resp Denies cough, Denies hemoptysis, Denies excessive phlegm production, Denies dyspnea, Denies snoring and Denies wheezing GI Denies abdominal pain and Denies heartburn Musc Denies myalgias, Denies arthralgias and Denies joint swelling Skin/Breast Denies rash Neuro Denies memory loss and Denies seizure-like activity Psych Denies abnormal sleep pattern, Denies anxiety and Denies memory loss Endo Denies excessive sweating, Denies fatigue and Denies heat intolerance [place]/Lymph Denies easy bruising Aller/Immun Denies itchy eyes, Denies seasonal rhinorrhea and Denies wheezing Physical Exam Vital Signs: Last Vital Signs Pulse 65 06/28/23 15:08 BP 154/82 H 06/28/23 15:08 Pulse Ox 96 06/28/23 15:08 Oxygen Delivery Method Room Air 06/28/23 15:08 BMI result Body Mass Index 31.0 Const General: no acute distress and alert Nutritional Appearance: not obese Orientation/consciousness: Other orientation findings ( oriented) HEENT Head: Yes atraumatic Eyes General: appearance normal, both eyes and all related structures Sclerae: sclerae normal EOM: EOMs intact bilaterally Neck Neck: Yes supple Lymphatic: no lymphadenopathy noted Resp Effort & Inspection: normal respiratory effort and no use of accessory muscles Auscultation: clear to auscultation bilaterally Cardio Rate: regular rate Rhythm: regular rhythm Heart sounds: no gallops, no murmurs and no rubs Skin General skin exam: other ( warm) Extrem General: No clubbing, No cyanosis and No edema Assessment & Plan Assessment & Plan (1) ILD (interstitial lung disease): Code(s): J84.9 - Interstitial pulmonary disease, unspecified Plan: Pulmonary fibrosis post ECMO for COVID-19. Now essentially stable. Continue pulmonary rehab. 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 (3) Hypoxia: Code(s): R09.02 - Hypoxemia Plan: Continues on nocturnal oxygen. Continue to maintain O2 sat above 88% Coding Level of Care Code Est Pt Level 4 (57576) Diagnoses ILD (interstitial lung disease) J84.9 [id number]-03 syndrome U09.9 Hypoxia R09.02
== END 2023-06-28 15:25 | disposition home or self-care (01) ==
PROVIDERS: PCP Physician Assistant; Visit Provider Internal Medicine Pulmonary Disease
DX: J84.9 Interstitial pulmonary disease, unspecified (principal); U09.9 Post COVID-19 condition, unspecified; R09.02 Hypoxemia
CPT/HCPCS: 99214

== ENCOUNTER → 2023-06-28 15:04 | Outpatient (BNVA) | payer OTHER, SELFPAY | PROVIDERS: PCP Physician Assistant; Visit Provider Internal Medicine Pulmonary Disease ==

== ENCOUNTER 2023-08-07 15:28 | Outpatient (AMB) | payer OTHER, SELFPAY ==
--- OUTSIDE RECORDS SUMMARY | 2023-08-07 15:29 | XMS_ITS | Patient Health Record ---
[facility] Address [address] [place] [address] Care Team Providers Care Trolley Wire Installer Name Role Phone Soy Connor Primary Care Provider UnavailAndrea Musa Unavailable [phone] ALLERGIES Allergen (clinical drug ingredient) Drug/Non Drug Allergy documented on EMR Reaction Allergy Type Onset Date Status Iodine red blotches Drug Allergy Acti ve REASON FOR REFERRAL No Information MEDICATIONS Medication SIG (Take, Route, Frequency, Duration) Notes Start Date End Date Status Metoprolol Succinate 100 MG 1 capsule Orally Once a day for 30 day(s) Active Zolpidem Tartrate 10 MG 1 tablet at bedt mery as needed Orally prn Active Physical Therapy . . . 2-3x/week for 3- 4 weeks 07/08/2020 Active Baby Aspirin Active Lisinopril-hydroCHLOROthia zide 20-12.5 MG 1 tablet Orally Once a day for 30 day(s) Active Night Splint AFO - L1930 as directed 07/08/2020 Active amLODIPine Besylate 10 MG 1 tablet Orall y Once a day for 30 day(s) Active SOCIAL HISTORY Tobacco Use: Social History Observation Description Date Details (start date - stop date) Never Smoker NA - NA Sex Assigned At : Social History Observation Description Sex Assigned At Unknown Tobacco Use/Smoking Question Answer Notes Are you a: nonsmoker Additional Findings: Tobacco Non-User Current no n-smoker Alcohol Screen Question Answer Notes Did you have a drink containing alcohol in the p ast year? Yes Points 0 Interpretation Negative Tobacco use other than smoking: Question Answer Notes Are you an other tobacco user? No PROBLEMS Problem Type ICD Code Onset Dates Problem Status W/U Status Risk SNOMED Code Notes Problem Primary osteoarthrit is, left ankle and foot (M19.072) Active confirmed Localized, prim maddie osteoarthritis of the ankle and/or foot ([id number]) PLAN OF TREATMENT Pending Test Test Name Order Date X ray : Foot, left 3V 07/08/2020 X ray : Foot, right 3V 07/08/2020 Insurance Providers Payer Name Payer Address Payer Phone Subscriber Number Group Number Insured Name Patient Relationship to Insured Coverage Start Date Coverage End Date [facility] [id number] [address] [place] [phone] [id number] Markus Cannon Self - patient is the insured MEDICAL (GENERAL) HISTORY Medical History History ICD Code Anxiety Anxiety disorder Back,Hip,and Knee pain High blood pressure Kidney disease Scarlet fever Chicken pox Surgical History Surgery Date(Month/Year)
[2023-08-07 15:30] VITALS: BP 190/102; PULSE 63; RESP 17; O2SAT 96; BMI 29.0
--- NOTE | 2023-08-07 15:30 | MHC.PC.OV ---
Vital Signs 08/07/23 15:30 Height 5 ft 8 in Weight 190 lb 11 oz BMI 29.0 BP 190/102 H Blood Pressure Location Lt brachial Position Sitting Respiration 17 Pulse 63 Pulse Source Pulse Oximeter Pulse Oximetry (%) 96 Oxygen Delivery Method Room Air Intake Visit Reasons: high bp Intake Note: The patient is here for a same-day visit due to elevated blood pressure, as advised by the photocomposing machine operator, the last reading was 191/101 recorded today. Questioned Documents Examiner Required: No Accompanied by: Self / Same As Patient Allergies bee venom protein (honey bee) Allergy (Intermediate, Verified 08/08/23 07:24) Swelling iv dye Allergy (Unknown, Uncoded 08/07/23 15:35) rash Medication List - Last Reconciled 08/08/23 by Soy Connor PA-C albuterol sulfate 90 mcg/actuation 1 puff inhalation QID PRN ascorbic acid (vitamin C) 500 mg PO BID doxazosin 2 mg PO DAILY 30 days ferrous sulfate 325 mg PO Q OTHER DAY 90 days furosemide (Lasix) 20 mg PO DAILY hydrochlorothiazide 12.5 mg PO DAILY 30 days hydroxyzine HCl 10 mg PO BEDTIME 30 days lisinopril 40 mg PO DAILY 30 days metoprolol succinate ER 50 mg PO DAILY 90 days quetiapine (Seroquel) 50 mg PO BEDTIME 30 days quetiapine (Seroquel) 100 mg PO BEDTIME 30 days Tobacco use date assessed: 08/07/23 Dental Screening Dental Screen Date: 08/07/23 Did you have a dental visit in the last 12 months?: Yes Did you have a dental problem in the last 6 months where you did not have access to dental care?: No Was dental information given to patient?: Patient has dentist HPI high bp HPI Details Patient is a 52-year-old male here today for urgent walk-in visit. Was found to have elevated blood pressure readings at his pulmonology office and was told to follow with his PCP. Today's blood pressure 190 systolic. Has been under more stress as of lately SSI disability has been discontinued and insurance company requires him to return back to work full-time. He feels he is not able to do this due to a mental reason as he still feels somewhat in a fog in the mornings. From a pulmonary standpoint he is doing fairly well and consider stable. He has now been off of steroids, only using furosemide on an as-needed basis, currently not on supplemental O2 at the moment. We discussed her reason for his fogginess worse in the mornings and discuss Seroquel as a possible culprit. Will reduce his dose of Seroquel down to 50 mg at night and also give him the liberty to try different sleeping medication hydroxyzine 10 mg before bed. Hyperaldosteronism: Has had a long history of hypertension and was previously diagnosed with hyperaldosteronism. He required several different blood pressure medications to manage his blood pressure. He was seeing Nephrology many years back and was told he needed a procedure for vein sampling to find the adrenal secreting gland. Will refer back to Nephrology for further workup on his hyper aldosteronism. [facility] Surgical History History of ear surgery History of vasectomy History of wisdom tooth extraction Family History Father No problems noted. Mother Lung cancer Paternal Uncle Diabetes Paternal Aunt Brain cancer Other Mental health disorder Substance use disorder Social History Household Members: Family Housing: House Alcohol intake: current Alcohol intake frequency: holidays/special occasions only Patient Tobacco Use Status: Never used Tobacco e-Cigarette/Vaping Use: Never Used Second Hand Smoke Exposure: Yes (Mother) service: No Current occupational status: employed Cognitive needs: No Hearing needs: No Vision needs: Yes Questionnaire PHQ-9 Over the last 2 weeks, how often have you been bothered by any of the following problems? 1. Little interest or pleasure in doing things: not at all 2. Feeling down, depressed, or hopeless: not at all 3. Trouble falling or staying asleep, or sleeping too much: not at all 4. Feeling tired or having little energy: not at all 5. Poor appetite or overeating: not at all 6. Feeling bad about yourself - or that you are a failure or have let yourself or your family down: not at all 7. Trouble concentrating on things, such as reading the newspaper or watching television: not at all 8. Moving or speaking so slowly that other people could have noticed. Or the opposite - being so fidgety or restless that you have been moving around a lot more than usual: not at all 9. Thoughts that you would be better off or of hurting yourself in some way: not at all Total score: 0 Depression Screening Interpretation: Negative Depression Screening Done: Yes 72913 - PHQ-9 Billing: Yes Source: Developed by Drs. Ab Pool, Noreen Lucero, Milind Lundberg and colleagues, with an educational luis a from [employer]. Thrive Questionnaire Date Thrive assessed: 08/07/23 I am a: Patient What is your living situation today?: I have a steady place to live Within the past 12 months, did the food you bought not last and you didn't have the money to get more?: Never true Within the past 12 months, did you worry whether your food would run out before you got money to buy more?: Never true Do you have trouble paying for medicines?: No Do you have trouble getting transportation to medical appointments?: No Do you have trouble paying your heating and electricity bill?: No Do you have trouble taking care of your child, family member or friend?: No Do you have trouble with day-to-day activities such as bathing, preparing meals, shopping, managing finances, etc.?: No Are you currently unemployed and looking for a job?: No Are you interested in more education?: No Please select the resources that you would like help with: None Currently or been in a relationship where the following occur: no concerns reported THRIVE Score: 0 AUDIT C Alcohol Use Questionnaire (AUDIT-C) 1. How often do you have a drink containing alcohol?: Never 3. How often do you have six or more drinks on one occasion?: Never Total Score: 0 DANIELLA-7 AMB Questionnaire DANIELLA-7 Date DANIELLA - 7 assessed: 08/07/23 Feeling nervous, anxious, or on edge: 0 = Not at all Not being able to stop or control worryin = Not at all Worrying too much about different things: 0 = Not at all Trouble relaxin = Not at all Being so restless that it is hard to sit still: 0 = Not at all Becoming easily annoyed or irritable: 0 = Not at all Feeling afraid as if something awful might happen: 0 = Not at all Total DANIELLA-7 score (0-4 normal; 5-9 mild; 10-14 moderate; 15-21 severe): 0 Source: Developed by Drs. Ab Pool, Noreen Lucero, Milind Lundberg and colleagues, with an educational luis a from [employer]. DANIELLA-7 Assessment Billing DANIELLA-7 Assessment Tool: DANIELLA-7 Assessment 89507 Review of Systems Const Reports daytime sleepiness, Reports difficulty sleeping, Reports fatigue and Denies headache(s) Eyes Denies loss of vision ENT Denies vertigo, Denies dizziness, Denies headache(s) and Denies sore throat Card Denies chest pain, Denies leg edema and Denies lightheadedness Resp Denies cough, Denies hemoptysis and Denies wheezing GI Denies abdominal pain, Denies melena, Denies constipation, Denies diarrhea and Denies vomiting Denies dysuria, Denies urinary frequency and Denies urinary urgency Musc Denies arthralgias, Denies joint swelling, Denies numbness and Denies tingling Neuro Denies Abnormal speech present, Denies behavioral changes, Denies vertigo, Denies dizziness, Denies headache(s), Denies loss of vision, Denies memory loss, Denies numbness and Denies tingling Psych Denies anxiety, Denies behavioral changes, Denies depression, Denies memory loss and Denies panic attacks Endo Reports fatigue Eleno/Lymph Denies easy bleeding and Denies easy bruising Aller/Immun Denies wheezing Physical exam (Primary Care) Vital Signs: Last Vital Signs Pulse 63 08/07/23 15:30 Resp 17 08/07/23 15:30 BP 190/102 H 08/07/23 15:30 Pulse Ox 96 08/07/23 15:30 Oxygen Delivery Method Room Air 08/07/23 15:30 BMI result Body Mass Index 29.0 Tobacco/Smoking Status: Tobacco use Status Tobacco use date assessed 08/07/23 08/07/23 15:36 Patient Tobacco Use Status Never used Tobacco 08/07/23 15:36 e-Cigarette/Vaping Use Never Used 08/07/23 15:36 PHQ-9: PHQ-9 Score PHQ-9: Total score 0 08/07/23 15:43 Depression Screening Interpretation: Negative Thrive Assessment: Date of Thrive Assessment Date Thrive assessed 08/07/23 08/07/23 15:36 Currently or been in a relationship where the following occur: no concerns reported Const General: healthy appearing, no acute distress, alert and awake Nutritional Appearance: well nourished Orientation/consciousness: oriented to person, oriented to place and oriented to time HENMT Ears: TM's normal bilaterally General nose exam: Normal nasal mucous membranes and turbinates present Eyes Conjunctivae: conjunctivae normal Sclerae: sclerae normal Pupils: Equal, round and reactive pupils present Neck Neck: Yes no lymphadenopathy and Yes no JVD Thyroid: Thyroid normal Carotids: no bruits Resp Effort & Inspection: normal respiratory effort and not tachypneic Auscultation: no crackles, no rales, no rhonchi and no wheezes Cardio Rate: regular rate Rhythm: regular rhythm Heart sounds: no murmurs and normal S1 and S2 GI Palpation (GI): Soft to palpation, nontender, no hepatomegaly and no splenomegaly Auscultation: normal bowel sounds Skin General skin exam: no rashes or lesions noted and dry skin Neuro General: oriented to person, oriented to place and oriented to time Cranial nerves: Yes Equal, round and reactive pupils present Speech: No Abnormal speech present Gait exam (Neuro): Normal gait present Motor exam (neuro): no tremor noted Extrem Right upper extremity: full ROM Left upper extremity: full ROM Right lower extremity: full ROM; no edema Left lower extremity: full ROM; no edema Psych Mental Status: mental status grossly normal Speech and movement: Normal speech and movement present Affect: normal affect Attitude: cooperative Thought process: Normal thought process present Assessment and Plan Assessment & Plan (1) HTN (hypertension): Code(s): I10 - Essential (primary) hypertension Qualifiers: Hypertension type: essential hypertension Qualified Code(s): I10 - Essential (primary) hypertension Plan: Patient's blood pressure elevated today in office. This can be multifactorial due to his history of hyperaldosteronism, increased stress as of late due to returning back to work and he feels he has not ready. Will increase his lisinopril dose to 40 mg maximal dose. Will consider starting spironolactone. Will send for renal ultrasound to rule renal artery stenosis. Will refer back to Nephrology to continue workup on hyper aldosteronism. (2) Hyperaldosteronism: Code(s): E26.9 - Hyperaldosteronism, unspecified Plan: As per HPI patient does have history of hyperaldosteronism. Was diagnosed many years ago. He was told he needed vein sampling procedure though never thus this done. He is now interested in exploring this is again. Will check his renin and aldosterone. Will consider starting spironolactone. Will recheck basic metabolic panel to evaluate for hypokalemia. (3) Fatigue: Code(s): R53.83 - Other fatigue Qualifiers: Fatigue type: postviral fatigue syndrome Qualified Code(s): G93.31 - Postviral fatigue syndrome Plan: Continues to daily fatigue worse in the mornings. Thought to be secondary to his severe viral pneumonia in 2020. (4) Insomnia: Code(s): G47.00 - Insomnia, unspecified Qualifiers: Insomnia type: unspecified Qualified Code(s): G47.00 - Insomnia, unspecified Plan: Continues with the use of Seroquel 50 mg at night. He does report again feelings of tiredness during the morning time. Will try to reduce his dose of Seroquel to 25 mg to see if the morning somnolence gets better. This morning somnolence last for few hours and feels he is not able to perform his job duties. Will transition to hydroxyzine 10 mg as an alternative sleep medication Orders: Orders Lipid Panel 08/07/23 E78.00 - Pure hypercholesterolemia, unspecified Magnesium Today E26.9 - Hyperaldosteronism, unspecified Renin Today E26.9 - Hyperaldosteronism, unspecified US renal doppler 08/07/23 I10 - Essential (primary) hypertension Prostate Specific Antigen Scr 08/07/23 Z12.5 - Encounter for screening for malignant neoplasm of prostate Aldost/Renin Today E26.9 - Hyperaldosteronism, unspecified Referrals Nephrology Referral E26.9 - Hyperaldosteronism, unspecified Medications: New quetiapine (Seroquel) 50 mg PO BEDTIME 30 tabs 3RF 30 days G47.00 - Insomnia, unspecified lisinopril 40 mg PO DAILY 30 tabs 3RF 30 days I10 - Essential (primary) hypertension hydrochlorothiazide 12.5 mg PO DAILY 30 tabs 3RF 30 days I10 - Essential (primary) hypertension hydroxyzine HCl 10 mg PO BEDTIME 30 tabs 1RF 30 days F41.9 - Anxiety disorder, unspecified, G47.00 - Insomnia, unspecified Discontinued lisinopril-hydrochlorothiazide 20-12.5 mg Discontinued Reason: Doctor's Order 1 tab PO DAILY 90 tabs 2RF 90 days I10 - Essential (primary) hypertension, R05 - Cough scopolamine base Discontinued Reason: Doctor's Order 1 patch transdermal Q3D PRN 4 ea 0RF nausea and vomiting potassium chloride ER (Klor-Con M) Discontinued Reason: Doctor's Order 20 mEq PO DAILY 30 tabs 3RF I10 - Essential (primary) hypertension Coding Level of Care Code Est Pt Level 4 (13252) Diagnoses Essential hypertension I10 Hypertension type: essential hypertension Hyperaldosteronism E26.9 Postviral fatigue syndrome G93.31 Fatigue type: postviral fatigue syndrome Insomnia, unspecified type G47.00 Insomnia type: unspecified Additional Codes DANIELLA-7 Assessment Billing - DANIELLA-7 Assessment Tool: DANIELLA-7 Assessment [id number] ([id number])
== END 2023-08-07 16:13 | disposition home or self-care (01) ==
LOC: HO.HMGH 15:28
PROVIDERS: PCP Physician Assistant; Visit Provider Physician Assistant
DX: I10 Essential (primary) hypertension (principal); E26.9 Hyperaldosteronism, unspecified; G93.31 Postviral fatigue syndrome; G47.00 Insomnia, unspecified
CPT/HCPCS: 99214

== ENCOUNTER 2023-08-17 13:02 | Outpatient (REF) | payer OTHER, SELFPAY ==
[2023-08-17 13:49] LABS: Hematocrit 50.6 % (42.0-52.0); Hemoglobin 17.7 g/dl (14.0-18.0); Platelet Count 269 X10*3/uL (160-400); Red Cell Distribution Width 13.3 % (11.0-16.0); White Blood Count 10.7 X10*3/uL (4.8-10.8)
[2023-08-17 14:34] LABS: Alanine Aminotransferase 50 U/L (0-40); Albumin Level 4.3 g/dL (3.5-5.0); Alkaline Phosphatase 79 U/L (39-117); Anion Gap 13 (12-20); Aspartate Amino Transferase 22 U/L (5-37); Bilirubin Total 0.5 mg/dL (0.0-1.0); Blood Urea Nitrogen 14 mg/dL (9-16); Calcium 9.3 mg/dL (8.4-10.2); Carbon Dioxide 27 mmol/L (22-29); Chloride 108 mmol/L (96-108); Cholesterol 171 mg/dL (<200); Estimated Glomerular Filt Rate > 60; Glucose Fasting 82 mg/dL (60-99); HDL Cholesterol 30 mg/dL (>40); Iron 70 mcg/dL (45-160); LDL Cholesterol Calculated 112 mg/dL (<100); Percent Iron Saturation 23 % (15-50); Potassium 3.9 mmol/L (3.3-5.1); Sodium 144 mmol/L (135-145); Total Iron Binding Capacity 303 mcg/dL (228-428); Total Protein 7.4 g/dL (6.5-8.0); Triglycerides 149 mg/dL (<150); Unsaturated Iron Binding 233 ug/dL
[2023-08-17 14:38] LABS: Prostate Specific Antigen Scr 1.83 ng/mL (<0.05-4.0)
[2023-08-17 14:48] LABS: Creatinine Urine 169.07 mg/dL; Microalbum/Creatinine Ratio Ur 23.6 ug/mg cr (<30)
[2023-08-28 08:34] LABS: Renin 0.68 ng/mL/h (0.25-5.82)
[2023-08-28 12:28] LABS: Aldosterone/Renin Ratio 16.9 Ratio (0.9-28.9); Plasma Renin Activity 0.65 ng/mL/h (0.25-5.82)
== END 2023-08-17 13:03 | disposition home or self-care (01) ==
LOC: HO.LAB 13:02
PROVIDERS: PCP Physician Assistant; Visit Provider Physician Assistant
DX: Z12.5 Encounter for screening for malignant neoplasm of prostate (principal); E78.00 Pure hypercholesterolemia, unspecified; E26.9 Hyperaldosteronism, unspecified; G47.30 Sleep apnea, unspecified; I10 Essential (primary) hypertension; D50.9 Iron deficiency anemia, unspecified
CPT/HCPCS: 36415; 80053; 80061; 82043; 82088; 82570; 83540; 83735; 84153; 84244; 85027

== ENCOUNTER 2023-08-17 14:52 | Outpatient (AMB) | payer OTHER, SELFPAY ==
--- NOTE | 2023-08-17 14:58 | HO.NEPHOV_ITS ---
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 He has blood pressure issues for over 30 years. He does not take excessive sodium in the diet. He had edema from amlodipine. It was discontinued and the doxazosin was introduced. He also has taken hydrochlorothiazide. His potassium levels in the blood had been fluctuant and he takes potassium supplements. He had been worked up in the past for secondary etiology for hypertension. Blood work or urine studies were not supportive of aldosteronism. He had severe COVID and was on ECMO. 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 He gets pulmonary rehab. He had been referred to lung transplant team at [facility] in the past. He claimed to be going through a lot of life stressors. His renal functions are normal. He has no history of hypercalcemia, uncontrolled thyroid disorders, sweating, orthostasis, palpitation or diarrhea. He denies history of coronary artery disease, congestive heart failure, CVA, peripheral arterial disease or renal artery stenosis. His renal functions are normal.? [facility] Surgical History History of ear surgery History of vasectomy History of wisdom tooth extraction Family History Father No problems noted. Mother Lung cancer Paternal Uncle Diabetes Paternal Aunt Brain cancer Other Mental health disorder Substance use disorder Social History Household Members: Family Housing: House Alcohol intake: current Alcohol intake frequency: holidays/special occasions only Patient Tobacco Use Status: Never used Tobacco e-Cigarette/Vaping Use: Never Used Second Hand Smoke Exposure: Yes (Mother) service: No Current occupational status: employed Cognitive needs: No Hearing needs: No Vision needs: Yes Vital Signs 08/17/23 15:00 Height 5 ft 8 in Weight 200 lb 8 oz BMI 30.5 BP 162/100 H Blood Pressure Location Rt brachial Position Sitting Pulse 70 Pulse Source Pulse Oximeter Pulse Oximetry (%) 96 Oxygen Delivery Method Room Air Intake Medication List - Last Reconciled 08/17/23 by Blu Pollard MD albuterol sulfate 90 mcg/actuation 1 puff inhalation QID PRN ascorbic acid (vitamin C) 500 mg PO BID cholecalciferol (vitamin D3) 50 mcg PO DAILY doxazosin 2 mg PO DAILY 30 days ferrous sulfate 325 mg PO Q OTHER DAY 90 days furosemide (Lasix) 20 mg PO DAILY PRN hydroxyzine HCl 10 mg PO BEDTIME 30 days lisinopril 40 mg PO DAILY 30 days metoprolol succinate ER 50 mg PO DAILY 90 days quetiapine (Seroquel) 50 mg PO BEDTIME 30 days zinc gluconate 50 mg PO DAILY Physical Exam Vital Signs: Last Vital Signs Pulse 70 08/17/23 15:00 BP 162/100 H 08/17/23 15:00 Pulse Ox 96 08/17/23 15:00 Oxygen Delivery Method Room Air 08/17/23 15:00 BMI result Body Mass Index 30.5 Const General: comfortable and no acute distress Orientation/consciousness: patient oriented x3 HEENT Head: Yes normocephalic Mouth: Normal oral and palatal mucosa present Eyes EOM: EOMs intact bilaterally Neck Neck: Yes supple Resp Auscultation: clear to auscultation bilaterally Cardio Jugular venous distension: no JVD Rate: regular rate GI Palpation (GI): Soft to palpation Auscultation: normal bowel sounds General: Yes no CVA tenderness Back/Spine/Pelvis Back: no CVA tenderness Skin General skin exam: no rashes or lesions noted Neuro General: patient oriented x3 and moves all extremities Extrem General: Yes no pedal edema Assessment & Plan Assessment & Plan (1) Benign essential hypertension: Code(s): I10 - Essential (primary) hypertension Plan Mr Cannon has history of hypertension over 20 years. He had extensive workup in the past rule out secondary etiology which was on yielding at that time . He has developed edema from amlodipine. It was discontinued and was transitioned to doxazosin. I discontinued his hydrochlorothiazide and potassium chloride. He can continue on doxazosin, lisinopril and metoprolol for now. I started him on spironolactone 25 mg daily. He should maintain low-sodium diet. I intend to maximize some of his medications and discontinued doxazosin if at all possible. He is aware of the need for closely monitoring his serum potassium given initiation of spironolactone while being on lisinopril. I did not make any other medication changes today. I will check his electrolytes and renal function after next visit. All questions answered. Follow-up appointment give n. Medications: New spironolactone 25 mg PO DAILY 30 days 30 tabs 3RF Changed From ascorbic acid (vitamin C) 500 mg PO BID To ascorbic acid (vitamin C) 1 g PO DAILY Discontinued hydrochlorothiazide Discontinued Reason: Doctor's Order 12.5 mg PO DAILY 30 days 30 tabs 3RF I10 - Essential (primary) hypertension Coding Level of Care Code New Pt Level 4 (71117) Diagnoses Benign essential hypertension I10 Results Reviewed Nephrology Results: Hgb 17.7 g/dl (14.0-18.0) 08/17/23 WBC 10.7 X10*3/uL (4.8-10.8) 08/17/23 Plt Count 269 X10*3/uL (160-400) 08/17/23 Sodium 144 mmol/L (135-145) 08/17/23 Potassium 3.9 mmol/L (3.3-5.1) 08/17/23 Chloride 108 mmol/L (96-108) 08/17/23 Carbon Dioxide 27 mmol/L (22-29) 08/17/23 BUN 14 mg/dL (9-16) 08/17/23 Creatinine 0.87 mg/dL (0.5-1.4) 08/17/23 Calcium 9.3 mg/dL (8.4-10.2) 08/17/23 Urine Creatinine 169.07 mg/dL 08/17/23
[2023-08-17 15:00] VITALS: BP 162/100; PULSE 70; O2SAT 96; BMI 30.5
== END 2023-08-17 15:44 | disposition home or self-care (01) ==
PROVIDERS: PCP Physician Assistant; Visit Provider Internal Medicine Nephrology
DX: I10 Essential (primary) hypertension (principal)
CPT/HCPCS: 99204

== ENCOUNTER 2023-09-05 08:38 | Outpatient (REF) | payer OTHER, SELFPAY ==
--- NOTE | ~2023-09-05 | US_ITS ---
EXAMINATIONS: 1. ULTRASOUND RENAL BILATERAL 2. ULTRASOUND RENAL WITH DOPPLER CLINICAL INFORMATION: Essential primary hypertension. COMPARISON: None available TECHNIQUE: Real-time grayscale, color Doppler, and duplex Doppler evaluation of the kidneys and renal vasculature was performed. FINDINGS: RENAL MEASUREMENTS: Right: 10.1 x 7.2 x 5.2 cm (Sag x AP x TV) Left: 11.5 x 6.2 x 6.0 cm (Sag x AP x TV) The renal parenchyma appears normal. No hydronephrosis or nephrolithiasis. DOPPLER INTERROGATION: Aorta: 71 cm/sec Right Main Renal Artery: Proximal: 113 cm/sec Mid: 57 cm/sec Distal: 93 cm/sec Left Main Renal Artery: Proximal: 77 cm/sec Mid: 94 cm/sec Distal: 180 cm/sec Renal-Aortic Ratio (RAR): Right: 1.6 Left: 2.5 US/US renal BI IMPRESSION: -No renal calculi or hydronephrosis of either kidney. -Velocities within the distal aspect of the left Main renal artery are elevated measuring up to 180 cm/s. This may be secondary to tortuosity of the vessel or possibly a less than 60% stenosis. Further evaluation can be obtained with CTA of the abdomen. -No ultrasound evidence to suggest hemodynamically significant stenosis of the right renal artery.
--- NOTE | ~2023-09-05 | US_ITS ---
EXAMINATIONS: 1. ULTRASOUND RENAL BILATERAL 2. ULTRASOUND RENAL WITH DOPPLER CLINICAL INFORMATION: Essential primary hypertension. COMPARISON: None available TECHNIQUE: Real-time grayscale, color Doppler, and duplex Doppler evaluation of the kidneys and renal vasculature was performed. FINDINGS: RENAL MEASUREMENTS: Right: 10.1 x 7.2 x 5.2 cm (Sag x AP x TV) Left: 11.5 x 6.2 x 6.0 cm (Sag x AP x TV) The renal parenchyma appears normal. No hydronephrosis or nephrolithiasis. DOPPLER INTERROGATION: Aorta: 71 cm/sec Right Main Renal Artery: Proximal: 113 cm/sec Mid: 57 cm/sec Distal: 93 cm/sec Left Main Renal Artery: Proximal: 77 cm/sec Mid: 94 cm/sec Distal: 180 cm/sec Renal-Aortic Ratio (RAR): Right: 1.6 Left: 2.5 US/US renal doppler IMPRESSION: -No renal calculi or hydronephrosis of either kidney. -Velocities within the distal aspect of the left Main renal artery are elevated measuring up to 180 cm/s. This may be secondary to tortuosity of the vessel or possibly a less than 60% stenosis. Further evaluation can be obtained with CTA of the abdomen. -No ultrasound evidence to suggest hemodynamically significant stenosis of the right renal artery.
== END 2023-09-05 08:39 | disposition home or self-care (01) ==
LOC: HO.US 08:38
PROVIDERS: PCP Physician Assistant; Visit Provider Physician Assistant
DX: I10 Essential (primary) hypertension (principal)
CPT/HCPCS: 76775; 93975

== ENCOUNTER 2023-09-06 14:58 | Outpatient (AMB) | payer OTHER, SELFPAY ==
[2023-09-06 15:23] VITALS: BP 126/82; PULSE 66; O2SAT 96; BMI 31.0
--- NOTE | 2023-09-06 15:23 | HO.NEPHOV_ITS ---
HPI HPI Comments History of Present Illness Details Mr. 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 He has blood pressure issues for over 30 years. He does not take excessive sodium in the diet. He had edema from amlodipine. It was discontinued and the doxazosin was introduced. He also has taken hydrochlorothiazide. His potassium levels in the blood had been fluctuant and he takes potassium supplements. He had been worked up in the past for secondary etiology for hypertension. Blood work or urine studies were not supportive of aldosteronism. He had severe COVID and was on ECMO. 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 He gets pulmonary rehab. He had been referred to lung transplant team at [facility] in the past. He claimed to be going through a lot of life stressors. His renal functions are normal. He has no history of hypercalcemia, uncontrolled thyroid disorders, sweating, orthostasis, palpitation or diarrhea. He denies history of coronary artery disease, congestive heart failure, CVA, peripheral arterial disease or renal artery stenosis. His renal functions are normal. [facility] Surgical History History of ear surgery History of vasectomy History of wisdom tooth extraction Family History Father No problems noted. Mother Lung cancer Paternal Uncle Diabetes Paternal Aunt Brain cancer Other Mental health disorder Substance use disorder Social History Household Members: Family Housing: House Alcohol intake: current Alcohol intake frequency: holidays/special occasions only Patient Tobacco Use Status: Never used Tobacco e-Cigarette/Vaping Use: Never Used Second Hand Smoke Exposure: Yes (Mother) service: No Current occupational status: employed Cognitive needs: No Hearing needs: No Vision needs: Yes Vital Signs 09/06/23 15:23 Height 5 ft 8 in Weight 204 lb 2 oz BMI 31.0 BP 126/82 Blood Pressure Location Lt brachial Position Sitting Pulse 66 Pulse Source Pulse Oximeter Pulse Oximetry (%) 96 Oxygen Delivery Method Room Air Physical Exam Vital Signs: Last Vital Signs Pulse 66 09/06/23 15:23 BP 142/92 H 09/06/23 15:23 Pulse Ox 96 09/06/23 15:23 Oxygen Delivery Method Room Air 09/06/23 15:23 BMI result Body Mass Index 31.0 Const General: comfortable and no acute distress Orientation/consciousness: patient oriented x3 HEENT Head: Yes normocephalic Mouth: Normal oral and palatal mucosa present Eyes EOM: EOMs intact bilaterally Neck Neck: Yes supple Resp Auscultation: clear to auscultation bilaterally Cardio Jugular venous distension: no JVD Rate: regular rate GI Palpation (GI): Soft to palpation Auscultation: normal bowel sounds General: Yes no CVA tenderness Back/Spine/Pelvis Back: no CVA tenderness Skin General skin exam: no rashes or lesions noted Neuro General: patient oriented x3 and moves all extremities Extrem General: Yes no pedal edema Assessment & Plan Assessment & Plan (1) Benign essential hypertension: Code(s): I10 - Essential (primary) hypertension Plan Mr Cannon has history of hypertension over 20 years. He had extensive workup in the past rule out secondary etiology which was on yielding at that time . He has developed edema from amlodipine. It was discontinued and was transitioned to doxazosin. I discontinued his hydrochlorothiazide and potassium chloride. He can continue on doxazosin, lisinopril and metoprolol for now. I started him on spironolactone 25 mg daily at the last visit . He should maintain low-sodium diet. I intend to maximize some of his medications and discontinued doxazosin if at all possible. He is aware of the need for closely monitoring his serum potassium given initiation of spironolactone while being on lisinopril. I did not make any other medication changes today. I will check his electrolytes and renal function after next visit. All questions answered. Follow-up appointment given Coding Level of Care Code Est Pt Level 4 (29520) Diagnoses Benign essential hypertension I10 Results Reviewed Nephrology Results: Hgb 17.7 g/dl (14.0-18.0) 08/17/23 WBC 10.7 X10*3/uL (4.8-10.8) 08/17/23 Plt Count 269 X10*3/uL (160-400) 08/17/23 Sodium 144 mmol/L (135-145) 08/17/23 Potassium 3.9 mmol/L (3.3-5.1) 08/17/23 Chloride 108 mmol/L (96-108) 08/17/23 Carbon Dioxide 27 mmol/L (22-29) 08/17/23 BUN 14 mg/dL (9-16) 08/17/23 Creatinine 0.87 mg/dL (0.5-1.4) 08/17/23 Calcium 9.3 mg/dL (8.4-10.2) 08/17/23 Urine Creatinine 169.07 mg/dL 08/17/23 Renal US 09/05/23
== END 2023-09-06 15:49 | disposition home or self-care (01) ==
PROVIDERS: PCP Physician Assistant; Visit Provider Internal Medicine Nephrology
DX: I10 Essential (primary) hypertension (principal)
CPT/HCPCS: 99214

== ENCOUNTER → 2023-09-06 14:58 | Outpatient (BNVA) | payer OTHER, SELFPAY | PROVIDERS: PCP Physician Assistant; Visit Provider Internal Medicine Nephrology ==

== ENCOUNTER 2023-10-18 14:25 | Outpatient (AMB) | payer OTHER, SELFPAY ==
[2023-10-18 14:30] VITALS: BP 150/90; PULSE 74; O2SAT 96; BMI 30.3
--- NOTE | 2023-10-18 14:30 | A.OFFPC_ITS ---
Vital Signs 10/18/23 14:30 Height 5 ft 8 in Weight 199 lb 6 oz BMI 30.3 BP 150/90 H Blood Pressure Location Lt brachial Position Sitting Pulse 74 Pulse Source Pulse Oximeter Pulse Oximetry (%) 96 Oxygen Delivery Method Room Air Intake Visit Reasons: PE Intake Note: Patient is here today for a physical. Promotional Marketing Analyst Required: No Accompanied by: Self / Same As Patient Allergies bee venom protein (honey bee) Allergy (Intermediate, Verified 10/18/23 14:39) Swelling amlodipine Adverse Reaction (Intermediate, Verified 10/18/23 14:42) Pedal edema iv dye Allergy (Unknown, Uncoded 10/18/23 14:39) rash Medication List - Last Reconciled 10/18/23 by Soy Connor PA-C albuterol sulfate 90 mcg/actuation 1 puff inhalation QID PRN ascorbic acid (vitamin C) 1 g PO DAILY cholecalciferol (vitamin D3) 50 mcg PO DAILY doxazosin 2 mg PO DAILY ferrous sulfate 325 mg PO Q OTHER DAY 90 days hydroxyzine HCl 10 mg PO BEDTIME 30 days lisinopril 40 mg PO DAILY 30 days metoprolol succinate ER 50 mg PO DAILY 90 days quetiapine (Seroquel) 50 mg PO BEDTIME 30 days spironolactone 25 mg PO DAILY 30 days zinc gluconate 50 mg PO DAILY Tobacco use date assessed: 08/07/23 Dental Screening Dental Screen Date: 08/07/23 HPI PE HPI Details patient is a 53-year-old male here today for routine annual physical..? Patient has a past medical history significant for essential hypertension hyperlipidemia, impaired fasting blood sugar, interstitial lung disease, severe post COVID syndrome Concerns--> reports a slightly discolored and thickened having great toenails. Would like treatment for this. .. ?hypertension: patient's blood pressure acceptable today in office.. he reports that home / pulmonary rehab blood pressures have been 120s over 80s. Now seeing a mold repair technician here in [place]. Has noted pedal edema likely due to CCB has been transition to spironolactone and doxazosin. .. ?interstitial lung disease:? secondary to a severe COVID infection requiring intubation and ventilation. , patient now followed by pulmonology and continues with pulmonary rehab.? Continues on daily use of supplemental O2 via nasal. Has been referred to lung transplant team at [facility] and seems to be a candidate for lung transplant. ---> He continues to work part-time and is on short-term disability. He is often unable to complete his full 20 hours of part-time due to his continued brain fog, fatigue and bouts of shortness of breath. He does not believe he is able to work and is contemplating applying for disability .. ? Generalized anxiety disorder; he reports his generalized anxiety has been well controlled and now is off of Lexapro.? Due to personal and employment stress he has been experiencing more anxiety. He is interested in an as needed medication to help him with his stress and anxiety during this time. He continues on Seroquel 100 mg at night with decent affect on helping him sleep.? He reports he still has trouble sleeping at times and he often needs to take seroquel earlier in the afternoon for to work at night.? .. Hyperaldosteronism: Now followed by Nephrology. Has had a long history of hypertension and was previously diagnosed with hyperaldosteronism. He required several different blood pressure medications to manage his blood pressure. He was seeing Nephrology many years back and was told he needed a procedure for vein sampling to find the adrenal secreting gland. Has followed up with Nephrology and has been some adjustments in his blood pressure medication. Has been started on spironolactone and would up titrate per response. Potassium has been stable Colon cancer screening: Is willing to do colonoscopy though is unsure about his insurance going forward due to employment. Vaccines: Up-to-date with COVID vaccine, pneumonia vaccine, needs up-to-date tetanus, considering shingles vaccine. Laboratory Tests 04/22/22 11/14/22 08/17/23 10:14 17:02 13:22 RBC Hgb Creatinine ALT Cholesterol 241 177 LDL Cholesterol, C alc 160 106 PSA Screen Renin Renin Activity Aldosterone Aldosterone/Renin Ratio Urine Microalbumin 40.0 08/17/23 13:24 RBC 6.10 H D Hgb 17.7 Creatinine 0.87 ALT 50 H Cholesterol 171 LDL Cholesterol, C alc 112 H PSA Screen 1.83 Renin 0.68 Renin Activity 0.65 Aldosterone 11 Aldosterone/Renin Ratio 16.9 Urine Microalbumin [facility] Medical History (Updated 10/22/23 @ 07:34 by Soy Connor PA-C) Sepsis with acute hypoxic respiratory failure Surgical History (Updated 10/22/23 @ 07:34 by Soy Connor PA-C) History of ear surgery History of vasectomy History of wisdom tooth extraction Family History (Updated 10/18/23 @ 14:46 by Soy Connor PA-C) Father Prostate cancer Mother Lung cancer Paternal Uncle Diabetes Paternal Aunt Brain cancer Other Mental health disorder Substance use disorder Social History (Updated 10/18/23 @ 14:47 by Soy Connor PA-C) Household Members: Family Housing: House Alcohol intake: current Alcohol intake frequency: holidays/special occasions only Patient Tobacco Use Status: Never used Tobacco e-Cigarette/Vaping Use: Never Used Second Hand Smoke Exposure: Yes (Mother) service: No Current occupational status: employed Cognitive needs: No Hearing needs: No Vision needs: Yes Questionnaire PHQ-9 Over the last 2 weeks, how often have you been bothered by any of the following problems? 1. Little interest or pleasure in doing things: several days 2. Feeling down, depressed, or hopeless: more than half the days 3. Trouble falling or staying asleep, or sleeping too much: several days 4. Feeling tired or having little energy: more than half the days 5. Poor appetite or overeating: several days 6. Feeling bad about yourself - or that you are a failure or have let yourself or your family down: more than half the days 7. Trouble concentrating on things, such as reading the newspaper or watching television: nearly every day 8. Moving or speaking so slowly that other people could have noticed. Or the opposite - being so fidgety or restless that you have been moving around a lot more than usual: more than half the days 9. Thoughts that you would be better off or of hurting yourself in some way: not at all Total score: 14 Depression Screening Interpretation: Positive Depression Screening Follow-up: Existing condition Depression Screening Done: Yes 71468 - PHQ-9 Billing: Yes Source: Developed by Drs. Ab Pool, Noreen Lucero, Milind Lundberg and colleagues, with an educational luis a from [employer]. Thrive Questionnaire Date Thrive assessed: 08/07/23 DANIELLA-7 AMB Questionnaire DANIELLA-7 Date DANIELLA - 7 assessed: 10/18/23 Feeling nervous, anxious, or on edge: 2 = More than half the days Not being able to stop or control worryin = Nearly every day Worrying too much about different things: 3 = Nearly every day Trouble relaxin = Several days Being so restless that it is hard to sit still: 2 = More than half the days Becoming easily annoyed or irritable: 2 = More than half the days Feeling afraid as if something awful might happen: 2 = More than half the days Total DANIELLA-7 score (0-4 normal; 5-9 mild; 10-14 moderate; 15-21 severe): 15 Source: Developed by Drs. Ab Pool, Noreen Lucero, Milind Lundberg and colleagues, with an educational luis a from [employer]. DANIELLA-7 Assessment Billing DANIELLA-7 Assessment Tool: DANIELLA-7 Assessment [id number] Review of Systems Const Denies body aches, Denies chills, Denies excessive sweating, Denies fatigue, Denies fever(s) and Denies headache(s) Eyes Denies blurry vision ENT Denies dysphagia, Denies vertigo, Denies dizziness, Denies headache(s), Denies hearing loss and Denies tinnitus Card Denies chest pain, Denies chest pain with activity, Denies syncope, Denies irregular heart rhythm and Denies dyspnea Resp Denies chest congestion, Denies cough, Denies hemoptysis, Denies dyspnea and Denies wheezing GI Denies abdominal pain, Denies melena, Denies hematochezia, Denies coffee ground emesis, Denies dysphagia, Denies diarrhea, Denies nausea and Denies vomiting Denies difficulty urinating, Denies dysuria, Denies urinary frequency, Denies urinary hesitancy and Denies urinary urgency Musc Denies arthralgias, Denies limited range of motion, Denies muscle cramps and Denies muscle weakness Skin/Breast Denies rash and Denies skin ulcer Neuro Denies Abnormal speech present, Denies confusion, Denies vertigo, Denies dizzine ss, Denies syncope, Denies headache(s), Denies memory loss and Denies seizure- like activity Psych Denies anxiety, Denies confusion, Denies depression, Denies memory loss, Denies panic attacks and Denies paranoia Endo Denies excessive sweating, Denies fatigue, Denies flushing, Denies polydipsia and Denies polyuria Aller/Immun Denies wheezing Physical exam (Primary Care) Vital Signs: Last Vital Signs Pulse 74 10/18/23 14:30 BP 150/90 H 10/18/23 14:30 Pulse Ox 96 10/18/23 14:30 Oxygen Delivery Method Room Air 10/18/23 14:30 BMI result Body Mass Index 30.3 Tobacco/Smoking Status: Tobacco use Status Tobacco use date assessed 08/07/23 10/18/23 14:30 Patient Tobacco Use Status Never used Tobacco 10/18/23 14:47 e-Cigarette/Vaping Use Never Used 10/18/23 14:47 PHQ-9: PHQ-9 Score PHQ-9: Total score 14 10/18/23 14:57 Depression Screening Interpretation: Positive Depression Screening Follow-up: Existing condition Thrive Assessment: Date of Thrive Assessment Date Thrive assessed 08/07/23 10/18/23 14:30 Const General: cooperative, comfortable, no acute distress, alert and awake; No confusion Orientation/consciousness: oriented to person, oriented to place, patient oriented x3 and No confusion HENMT Head: Yes normocephalic Ears: external ears normal and TM's normal bilaterally Face and sinus: No sinus tenderness Mouth: Normal oral and palatal mucosa present and tongue normal Teeth and gingiva: dentition normal and gingiva normal Throat: Yes posterior oropharynx normal, Yes tonsils normal and Yes uvula midline Eyes Conjunctivae: conjunctivae normal Sclerae: sclerae normal Pupils: Equal, round and reactive pupils present EOM: EOMs intact bilaterally Direct Ophthalmoscopy: No no photophobia Neck Neck: Yes no lymphadenopathy, No tender and Yes no JVD Thyroid: Thyroid normal Carotids: no bruits Chest Chest palpation & inspection: no tenderness Resp Effort & Inspection: normal respiratory effort, no audible wheezes, not labored and no stridor Auscultation: no crackles, no rales, no rhonchi and no wheezes Cardio Jugular venous distension: no JVD Rate: regular rate, not bradycardic and not tachycardic Rhythm: regular rhythm Bruits: no carotid bruits Peripheral pulses: Peripheral pulses 2+ throughout GI Inspection: Yes normal to inspection, No abdominal wall ecchymosis and No visible herniation Palpation (GI): Soft to palpation, nontender, no guarding, not rigid and No hepatosplenomegaly present Auscultation: normoactive bowel sounds General: Yes no CVA tenderness Back/Spine/Pelvis Back: no CVA tenderness and No back tenderness Cervical Spine: cervical ROM normal Thoracic/Lumbar Spine: thoracic and lumbar spine normal to inspection, straight leg raise negative bilaterally, No thoraco-lumbar ROM limited and No lumbar spinal tenderness Skin Lesions: no lesions Rashes: no rashes Wounds: no wounds Neuro General: oriented to person, oriented to place, patient oriented x3, CN's II-XI intact bilaterally and No confusion Cranial nerves: Yes Equal, round and reactive pupils present and Yes Normal accommodation reflex present Cognition (Neuro): normal cognition Speech: No Abnormal speech present Gait exam (Neuro): Normal gait present Motor exam (neuro): 5/5 motor strength present throughout Extrem Right upper extremity: full ROM; no cyanosis Left upper extremity: full ROM; no cyanosis Right lower extremity: no edema Left lower extremity: no edema Psych Appearance: grossly normal Mental Status: mental status grossly normal Affect: normal affect Attitude: cooperative Thought process: Normal thought process present Assessment and Plan Assessment & Plan (1) Annual physical exam: Code(s): Z00.00 - Encounter for general adult medical examination without abnormal findings (2) HTN (hypertension): Code(s): I10 - Essential (primary) hypertension Qualifiers: Hypertension type: essential hypertension Qualified Code(s): I10 - Essential (primary) hypertension Plan: Patient's blood pressure elevated today in office. This can be multifactorial due to his history of hyperaldosteronism, increased stress as of late due to returning back to work and he feels he has not ready. Renin and aldosterone testing has been normal. Has followed up with Nephrology and has been started on spironolactone. Blood pressures have been much better, even readings at home have been below 140 systolic. Goal blood pressures to remain below 140/90 (3) ILD (interstitial lung disease): Code(s): J84.9 - Interstitial pulmonary disease, unspecified Plan: As above patient has secondary interstitial lung disease secondary to severe COVID infection requiring ECMO. Continues to go to pulmonary rehab which has been helpful. He was seen in [place] underwriting support specialist and is considering wound transplant. Unfortunately unable to work full-time hours due to his continued fatigue and brain fog secondary to his interstitial lung disease. He is considering applying for disability. (4) Hyperaldosteronism: Code(s): E26.9 - Hyperaldosteronism, unspecified Plan: As per HPI patient does have history of hyperaldosteronism. Was diagnosed many years ago. Now followed by [facility]. We need and aldosterone testing was normal. He has been started on spironolactone. Will watch potassium closely (5) Fatigue: Code(s): R53.83 - Other fatigue Qualifiers: Fatigue type: postviral fatigue syndrome Qualified Code(s): G93.31 - Postviral fatigue syndrome Plan: Continues to daily fatigue worse in the mornings. Thought to be secondary to his severe viral pneumonia in 2020. (6) Insomnia: Code(s): G47.00 - Insomnia, unspecified Qualifiers: Insomnia type: unspecified Qualified Code(s): G47.00 - Insomnia, unspecified Plan: Continues with the use of Seroquel 50 mg at night. He does report again fee lings of tiredness during the morning time. Will try to reduce his dose of Seroquel to 25 mg to see if the morning somnolence gets better. This morning somnolence last for few hours and feels he is not able to perform his job duties. (7) DANIELLA (generalized anxiety disorder): Code(s): F41.1 - Generalized anxiety disorder Plan: Patient's DANIELLA-7 score positive for anxiety which has been existing condition for him. Due to recent news about losing his employment he has been experiencing more anxiety due to financial issues. Considering applying for SSI. He is interested in as needed medication for his stress and anxiety. (8) Raegan onychomycosis: Code(s): B37.2 - Candidiasis of skin and nail (9) Adrenal insufficiency: Code(s): E27.40 - Unspecified adrenocortical insufficiency Plan: Now followed by Nephrology (10) Colon cancer screening: Code(s): Z12.11 - Encounter for screening for malignant neoplasm of colon Plan: Is willing to get colonoscopy though is unsure of what kind of insurance he will have this year due to possibly losing his employment this year. Orders: Orders Comprehensive [place]. Panel Fast 10/18/23 I10 - Essential (primary) hypertension Complete Blood Count no Diff 10/18/23 I10 - Essential (primary) hypertension Hemoglobin A1c 10/18/23 R73.01 - Impaired fasting glucose Lipid Panel 10/18/23 E78.9 - Disorder of lipoprotein metabolism, unspecified Medications: New lorazepam 0.5 mg PO BID PRN 14 tabs 0RF anxiety 7 days F41.1 - Generalized anxiety disorder clotrimazole 1% 1 appl topical BID 30 grams 1RF 30 days B37.2 - Candidiasis of skin and nail Patient Instructions: Goal: Blood pressure to remain below 140/90 Barriers: Adherence to medication, healthy eating habits and physical activity Coding Level of Care Code Est Pt Prev Care 40-64y(55031) Diagnoses Annual physical exam Z00.00 Essential hypertension I10 Hypertension type: essential hypertension ILD (interstitial lung disease) J84.9 Hyperaldosteronism E26.9 Postviral fatigue syndrome G93.31 Fatigue type: postviral fatigue syndrome Insomnia, unspecified type G47.00 Insomnia type: unspecified DANIELLA (generalized anxiety disorder) F41.1 Raegan onychomycosis B37.2 Adrenal insufficiency E27.40 Colon cancer screening Z12.11 Additional Codes DANIELLA-7 Assessment Billing - DANIELLA-7 Assessment Tool: DANIELLA-7 Assessment [id number] ([id number])
== END 2023-10-18 15:19 | disposition home or self-care (01) ==
PROVIDERS: PCP Physician Assistant; Visit Provider Physician Assistant
DX: Z00.00 Encounter for general adult medical examination without abnormal findings (principal); J84.9 Interstitial pulmonary disease, unspecified; E26.9 Hyperaldosteronism, unspecified; E27.40 Unspecified adrenocortical insufficiency; I10 Essential (primary) hypertension; G93.31 Postviral fatigue syndrome; G47.00 Insomnia, unspecified; F41.1 Generalized anxiety disorder; B37.2 Candidiasis of skin and nail; Z12.11 Encounter for screening for malignant neoplasm of colon
CPT/HCPCS: 99396

== ENCOUNTER 2023-10-24 16:09 | Outpatient (AMB) | payer OTHER, SELFPAY ==
[2023-10-24 16:16] VITALS: BP 130/80; PULSE 67; O2SAT 96; BMI 30.4
--- NOTE | 2023-10-24 16:16 | HO.NEPHOV ---
Vital Signs 10/24/23 16:16 Height 5 ft 8 in Weight 200 lb BMI 30.4 BP 130/80 Blood Pressure Location Lt brachial Position Sitting Pulse 67 Pulse Source Pulse Oximeter Pulse Oximetry (%) 96 Oxygen Delivery Method Room Air Intake Visit Reasons: 6 Weeks FU/ LVM Drug Safety Data Management Specialist Required: No Accompanied by: Self / Same As Patient Allergies bee venom protein (honey bee) Allergy (Intermediate, Verified 10/24/23 16:20) Swelling amlodipine Adverse Reaction (Intermediate, Verified 10/24/23 16:20) Pedal edema iv dye Allergy (Unknown, Uncoded 10/18/23 14:39) rash HPI Comments Details: Mr. 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 He has blood pressure issues for over 30 years. He does not take excessive sodium in the diet. He had edema from amlodipine. It was discontinued and the doxazosin was introduced. He also has taken hydrochlorothiazide. His potassium levels in the blood had been fluctuant and he takes potassium supplements. He had been worked up in the past for secondary etiology for hypertension. Blood work or urine studies were not supportive of aldosteronism. He had severe COVID and was on ECMO. 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 He gets pulmonary rehab. He had been referred to lung transplant team at [facility] in the past. He claimed to be going through a lot of life stressors. His renal functions are normal. He has no history of hypercalcemia, uncontrolled thyroid disorders, sweating, orthostasis, palpitation or diarrhea. He denies history of coronary artery disease, congestive heart failure, CVA, peripheral arterial disease or renal artery stenosis. His renal functions are normal. [facility] Medical History (Updated 10/22/23 @ 07:34 by Soy Connor PA-C) Sepsis with acute hypoxic respiratory failure Surgical History History of ear surgery History of vasectomy History of wisdom tooth extraction Family History Father Prostate cancer Mother Lung cancer Paternal Uncle Diabetes Paternal Aunt Brain cancer Other Mental health disorder Substance use disorder Social History Household Members: Family Housing: House Alcohol intake: current Alcohol intake frequency: holidays/special occasions only Patient Tobacco Use Status: Never used Tobacco e-Cigarette/Vaping Use: Never Used Second Hand Smoke Exposure: Yes (Mother) service: No Current occupational status: employed Cognitive needs: No Hearing needs: No Vision needs: Yes Physical Exam Vital Signs: Last Vital Signs Pulse 67 10/24/23 16:16 BP 150/96 H 10/24/23 16:16 Pulse Ox 96 10/24/23 16:16 Oxygen Delivery Method Room Air 10/24/23 16:16 BMI result Body Mass Index 30.4 Const General: comfortable and no acute distress Orientation/consciousness: patient oriented x3 HEENT Head: Yes normocephalic Mouth: Normal oral and palatal mucosa present Eyes EOM: EOMs intact bilaterally Neck Neck: Yes supple Resp Auscultation: clear to auscultation bilaterally Cardio Jugular venous distension: no JVD Rate: regular rate GI Palpation (GI): Soft to palpation Auscultation: normal bowel sounds General: Yes no CVA tenderness Back/Spine/Pelvis Back: no CVA tenderness Skin General skin exam: no rashes or lesions noted Neuro General: patient oriented x3 and moves all extremities Extrem General: Yes no pedal edema Results Reviewed Nephrology Results: Hgb 17.7 g/dl (14.0-18.0) 08/17/23 WBC 10.7 X10*3/uL (4.8-10.8) 08/17/23 Plt Count 269 X10*3/uL (160-400) 08/17/23 Sodium 144 mmol/L (135-145) 08/17/23 Potassium 3.9 mmol/L (3.3-5.1) 08/17/23 Chloride 108 mmol/L (96-108) 08/17/23 Carbon Dioxide 27 mmol/L (22-29) 08/17/23 BUN 14 mg/dL (9-16) 08/17/23 Creatinine 0.87 mg/dL (0.5-1.4) 08/17/23 Calcium 9.3 mg/dL (8.4-10.2) 08/17/23 Urine Creatinine 169.07 mg/dL 08/17/23 Renal US 09/05/23 Assessment & Plan Assessment & Plan (1) Benign essential hypertension: Code(s): I10 - Essential (primary) hypertension Category: Medical Plan Mr Cannon has history of hypertension over 20 years. He had extensive workup in the past rule out secondary etiology which was on yielding at that time . He has developed edema from amlodipine. He can continue on doxazosin, lisinopril and metoprolol for now along with spironolactone 25 mg daily . He should maintain low-sodium diet. I intend to maximize some of his medications and discontinued doxazosin if at all possible in the future .His Doppler of renal arteries showed increased velocity in left renal artery. He is aware of the need for closely monitoring his serum potassium given initiation of spironolactone while being on lisinopril. I did not make any other medication changes today. I will check his electrolytes and renal function . All questions answered. Follow-up appointment given Orders: Orders Blood Urea Nitrogen 1 Month I10 - Essential (primary) hypertension Electrolytes 1 Month I10 - Essential (primary) hypertension Blood Urea Nitrogen 4 Months I10 - Essential (primary) hypertension Calcium Today I10 - Essential (primary) hypertension Creatinine 1 Month I10 - Essential (primary) hypertension Creatinine 4 Months I10 - Essential (primary) hypertension Electrolytes 4 Months I10 - Essential (primary) hypertension Coding Level of Care Code Est Pt Level 4 (86233) Diagnoses Benign essential hypertension I10
== END 2023-10-24 17:01 | disposition home or self-care (01) ==
PROVIDERS: PCP Physician Assistant; Visit Provider Internal Medicine Nephrology
DX: I10 Essential (primary) hypertension (principal)
CPT/HCPCS: 99214

== ENCOUNTER → 2023-10-24 16:09 | Outpatient (BNVA) | payer OTHER, SELFPAY | PROVIDERS: PCP Physician Assistant; Visit Provider Internal Medicine Nephrology ==

== ENCOUNTER 2023-11-15 12:19 | Outpatient (REF) | payer OTHER, SELFPAY ==
[2023-11-15 13:41] LABS: Hematocrit 47.5 % (42.0-52.0); Hemoglobin 16.8 g/dl (14.0-18.0); Mean Corpuscular HGB Conc 35.4 g/dl (31.0-36.0); Mean Corpuscular Hemoglobin 29.6 pg (27.0-33.0); Mean Corpuscular Volume 83.6 fL (80.0-98.0); Mean Platelet Volume 10.2 fL (9.4-12.4); Platelet Count 273 X10*3/uL (160-400); Red Blood Count 5.68 X10*6/uL (4.60-5.80); Red Cell Distribution Width 13.9 % (11.0-16.0); White Blood Count 8.7 X10*3/uL (4.8-10.8)
[2023-11-15 14:14] LABS: Calcium 9.6 mg/dL (8.4-10.2)
[2023-11-15 14:15] LABS: Estimated Average Glucose 103 mg/dL; Hemoglobin A1c % 5.2 % (<6.0)
[2023-11-15 14:23] LABS: Alanine Aminotransferase 52 U/L (0-40); Albumin Level 4.2 g/dL (3.5-5.0); Alkaline Phosphatase 74 U/L (39-117); Anion Gap 13 (12-20); Aspartate Amino Transferase 29 U/L (5-37); Bilirubin Total 0.8 mg/dL (0.0-1.0); Blood Urea Nitrogen 15 mg/dL (9-16); Calcium 9.6 mg/dL (8.4-10.2); Carbon Dioxide 24 mmol/L (22-29); Chloride 109 mmol/L (96-108); Cholesterol 196 mg/dL (<200); Estimated Glomerular Filt Rate > 60; Glucose Fasting 99 mg/dL (60-99); HDL Cholesterol 31 mg/dL (>40); LDL Cholesterol Calculated 133 mg/dL (<100); Potassium 4.2 mmol/L (3.3-5.1); Sodium 142 mmol/L (135-145); Total Protein 7.2 g/dL (6.5-8.0); Triglycerides 164 mg/dL (<150)
== END 2023-11-15 12:20 | disposition home or self-care (01) ==
LOC: HO.LAB 12:19
PROVIDERS: Absent Provider Physician Assistant; PCP Physician Assistant; Visit Provider Internal Medicine Nephrology
DX: I10 Essential (primary) hypertension (principal); E78.9 Disorder of lipoprotein metabolism, unspecified; R73.01 Impaired fasting glucose
CPT/HCPCS: 36415; 80053; 80061; 82310; 83036; 85027

== ENCOUNTER 2024-01-15 15:03 | Outpatient (REF) | payer OTHER, SELFPAY ==
--- NOTE | ~2024-01-15 | US_ITS ---
EXAMINATION: US RETROPERITONEAL LIMITED (RENAL ONLY) CLINICAL INFORMATION: Unspecified abdominal pain. COMPARISON: Renal ultrasound with Doppler 09/05/2023. TECHNIQUE: Real-time imaging of the right kidney. Limited visualization due to bowel gas. FINDINGS: RIGHT KIDNEY: 12.1 x 6.4 x 5.0 cm (SAG x AP x TRV). 0.5 cm lower pole calculus. No hydronephrosis. Lobulated renal contour. Limited visualization. US/US renal RT IMPRESSION: 0.5 cm lower pole calculus. No hydronephrosis.
[2024-01-15 16:17] LABS: Anion Gap 11 (12-20); Blood Urea Nitrogen 13 mg/dL (9-16); Carbon Dioxide 25 mmol/L (22-29); Chloride 106 mmol/L (96-108); Estimated Glomerular Filt Rate > 60; Potassium 3.7 mmol/L (3.3-5.1); Sodium 138 mmol/L (135-145)
[2024-01-15 17:42] LABS: Appearance Urine Clear; Color Urine Yellow; Glucose Urine UA Negative (Negative); Leukocyte Esterase Urine Negative (Negative); Nitrite Urine Negative (Negative); PH 5.5 (5.0-9.0); Urine Blood Negative (Negative); Urine Ketones Negative (Negative); Urine Protein Negative (Neg-Trace)
== END 2024-01-15 15:04 | disposition home or self-care (01) ==
LOC: HO.US 15:03
PROVIDERS: Absent Provider Internal Medicine Nephrology; PCP Physician Assistant; Visit Provider Physician Assistant
DX: R10.9 Unspecified abdominal pain (principal); R30.0 Dysuria; I10 Essential (primary) hypertension
CPT/HCPCS: 36415; 76775; 80051; 81003; 82565; 84520

== ENCOUNTER 2024-01-21 15:34 | Outpatient (AMB) | payer OTHER, SELFPAY ==
--- NOTE | 2024-01-21 15:37 | A.OFFPC_ITS ---
Vital Signs 3 01/21/24 15:42 Height 5 ft 8 in Weight 196 lb 8 oz BMI 29.9 BP 142/90 H Blood Pressure Location Lt brachial Position Sitting Pulse 70 Pulse Source Pulse Oximeter Pulse Oximetry (%) 96 Oxygen Delivery Method Room Air Intake Visit Reasons: f/u ILD/ HTN Research Director Required: No Accompanied by: Self / Same As Patient Allergies bee venom protein (honey bee) Allergy (Intermediate, Verified 01/21/24 15:43) Swelling amlodipine Adverse Reaction (Intermediate, Verified 01/21/24 15:43) Pedal edema hydroxyzine Adverse Reaction (Intermediate, Verified 01/21/24 16:00) ineffective iv dye Allergy (Unknown, Uncoded 01/21/24 15:43) rash Medication List - Last Reconciled 01/21/24 by Soy Connor PA-C albuterol sulfate 90 mcg/actuation 1 puff inhalation QID PRN ascorbic acid (vitamin C) 1 g PO DAILY cholecalciferol (vitamin D3) 50 mcg PO DAILY clotrimazole 1% 1 appl topical BID 30 days doxazosin 2 mg PO DAILY ferrous sulfate 325 mg PO Q OTHER DAY 90 days hydroxyzine HCl 10 mg PO BEDTIME 30 days lisinopril 40 mg PO DAILY 30 days lorazepam 0.5 mg PO BID PRN 7 days metoprolol succinate ER 50 mg PO DAILY 90 days quetiapine (Seroquel) 50 mg PO BEDTIME 30 days spironolactone 25 mg PO DAILY zinc gluconate 50 mg PO DAILY Tobacco use date assessed: 08/07/23 Dental Screening Dental Screen Date: 08/07/23 HPI f/u ILD/ HTN 2 HPI0 Details patient is a 53-year-old male here today for follow-up visit? Patient has a past medical history significant for essential hypertension hyperlipidemia, impaired fasting blood sugar, interstitial lung disease, severe post COVID syndrome Concerns--> recently had symptoms of right flank pain will send for urinalysis without any significant findings for UTI or hematuria. He continues with fairly severe moderate to severe localized right flank pain. He denies any vomiting, diarrhea, constipation or fevers. He has been using ibuprofen which does reduce his pain temporarily though pain returns. He reports the flank pain is worse when lying down which does cause him disruption in his sleep. .. ?hypertension: patient's blood pressure acceptable today in office.. he reports that home / pulmonary rehab blood pressures have been 120s over 80s. Now seeing a craft manager here in [place]. He continues on doxazosin, lisinopril, Aldactone and metoprolol .. ?interstitial lung disease:? secondary to a severe COVID infection requiring intubation and ventilation. , patient now followed by pulmonology and continues with pulmonary rehab.? Continues on daily use of supplemental O2 via nasal. Has been referred to lung transplant team at [facility] and seems to be a candidate for lung transplant. ---> he now does not work as he is been laid off from his job. Was unable to work full-time due to brain fog, fatigue secondary to his severe lung disease. .. ? Generalized anxiety disorder; he reports his generalized anxiety has been well controlled and now is off of Lexapro.? Due to personal and employment stress he has been experiencing more anxiety. We have tried hydroxyzine to help him sleep though reports it was not effective on keeping him sleep the whole night. He reports Seroquel is effective though causes a hangover effect even at 50 mg. He is interested in trying a new medication to help him sleep. Willing to try trazodone 50 mg before bed ? .. Hyperaldosteronism: Now followed by Nephrology. Has had a long history of hypertension and was previously diagnosed with hyperaldosteronism. He required several different blood pressure medications to manage his blood pressure. He was seeing Nephrology many years back and was told he needed a procedure for vein sampling to find the adrenal secreting gland. Has followed up with Nephrology and has been some adjustments in his blood pressure medication. Has been started on spironolactone and would up titrate per response. Potassium has been stable [facility] Medical History (Updated 01/14/24 @ 15:32 by Soy Connor PA-C) Sepsis with acute hypoxic respiratory failure Surgical History History of ear surgery History of vasectomy History of wisdom tooth extraction Family History Father Prostate cancer Mother Lung cancer Paternal Uncle Diabetes Paternal Aunt Brain cancer Other Mental health disorder Substance use disorder Social History Household Members: Family Housing: House Alcohol intake: current Alcohol intake frequency: holidays/special occasions only Patient Tobacco Use Status: Never used Tobacco e-Cigarette/Vaping Use: Never Used Second Hand Smoke Exposure: Yes (Mother) service: No Current occupational status: employed Cognitive needs: No Hearing needs: No Vision needs: Yes Questionnaire Thrive Questionnaire Date Thrive assessed: 08/07/23 DANIELLA-7 AMB Questionnaire DANIELLA-7 Date DANIELLA - 7 assessed: 10/18/23 Source: Developed by Drs. Ab Pool, Noreen Lucero, Milind Lundberg and colleagues, with an educational luis a from [employer]. Review of Systems Const Denies headache(s) Eyes Denies loss of vision ENT Denies vertigo, Denies dizziness, Denies headache(s) and Denies sore throat Card Denies chest pain, Denies leg edema and Denies lightheadedness Resp Denies cough, Denies hemoptysis and Denies wheezing GI Denies abdominal pain, Denies melena, Denies constipation, Denies diarrhea and Denies vomiting Denies dysuria, Denies urinary frequency and Denies urinary urgency Musc Denies arthralgias, Denies joint swelling, Denies numbness and Denies tingling Neuro Denies Abnormal speech present, Denies behavioral changes, Denies vertigo, Denies dizziness, Denies headache(s), Denies loss of vision, Denies memory loss, Denies numbness and Denies tingling Psych Denies anxiety, Denies behavioral changes, Denies depression, Denies memory loss and Denies panic attacks Eleno/Lymph Denies easy bleeding and Denies easy bruising Aller/Immun Denies wheezing Physical exam (Primary Care) Vital Signs: Last Vital Signs Pulse 70 01/21/24 15:42 BP 142/90 H 01/21/24 15:42 Pulse Ox 96 01/21/24 15:42 Oxygen Delivery Method Room Air 01/21/24 15:42 BMI result Body Mass Index 29.9 Tobacco/Smoking Status: Tobacco use Status Tobacco use date assessed 08/07/23 01/21/24 15:37 Patient Tobacco Use Status Never used Tobacco 01/21/24 15:37 e-Cigarette/Vaping Use Never Used 01/21/24 15:37 Thrive Assessment: Date of Thrive Assessment Date Thrive assessed 08/07/23 01/21/24 15:37 Const General: healthy appearing, no acute distress, alert and awake Nutritional Appearance: well nourished Orientation/consciousness: oriented to person, oriented to place and oriented to time HENMT Ears: TM's normal bilaterally General nose exam: Normal nasal mucous membranes and turbinates present Eyes Conjunctivae: conjunctivae normal Sclerae: sclerae normal Pupils: Equal, round and reactive pupils present Neck Neck: Yes no lymphadenopathy and Yes no JVD Thyroid: Thyroid normal Carotids: no bruits Resp Effort & Inspection: normal respiratory effort and not tachypneic Auscultation: no crackles, no rales, no rhonchi and no wheezes Cardio Rate: regular rate Rhythm: regular rhythm Heart sounds: no murmurs and normal S1 and S2 GI Palpation (GI): Soft to palpation, nontender, no hepatomegaly and no splenomegaly Auscultation: normal bowel sounds Abdomen image: 2 1. LOCALIZE PAIN IN THE AREA OUTLINED. NO NOTABLE LUMPS OR ERYTHEMA NOTED IN THE AREA. MODERATE TENDERNESS TO DEEP PALPATION Skin General skin exam: no rashes or lesions noted and dry skin Neuro General: oriented to person, oriented to place and oriented to time Cranial nerves: Yes Equal, round and reactive pupils present Speech: No Abnormal speech present Gait exam (Neuro): Normal gait present Motor exam (neuro): no tremor noted Extrem Right upper extremity: full ROM Left upper extremity: full ROM Right lower extremity: full ROM; no edema Left lower extremity: full ROM; no edema Psych Mental Status: mental status grossly normal Speech and movement: Normal speech and movement present Affect: normal affect Attitude: cooperative Thought process: Normal thought process present Assessment and Plan Assessment & Plan (1) HTN (hypertension): Code(s): I10 - Essential (primary) hypertension Qualifiers: Hypertension type: essential hypertension Qualified Code(s): I10 - Essential (primary) hypertension Plan: Patient's blood pressure acceptable today in office. He is now followed by Nephrology and continues on a regime of antihypertensive medications. Renin and aldosterone testing has been normal. Goal blood pressures to remain below 140/90 (2) ILD (interstitial lung disease): Code(s): J84.9 - Interstitial pulmonary disease, unspecified Plan: As above patient has secondary interstitial lung disease secondary to severe COVID infection requiring ECMO. Continues to go to pulmonary rehab which has been helpful. He was seen in [place] demo event specialist and is considering wound transplant. Unfortunately unable to work full-time hours due to his continued fatigue and brain fog secondary to his interstitial lung disease. He is now laid off from work and on disability. (3) Insomnia: Code(s): G47.00 - Insomnia, unspecified Qualifiers: Insomnia type: unspecified Qualified Code(s): G47.00 - Insomnia, unspecified Plan: Continues with the use of Seroquel 50 mg at night which has been helpful though has a hangover effect in the mornings. He has tried hydroxyzine though found it not effective for sleep. He is still having difficult time staying asleep. He is willing to try trazodone 50 mg before bed to help sleep. (4) Right flank pain: Code(s): R10.9 - Unspecified abdominal pain Plan: Has a month history continued right localized flank pain worse when lying down. He reports the pain is moderate to severe at times. He did get urinalysis without any signs of UTI or hematuria. Still awaiting radiologist read out for his right renal ultrasound to evaluate for nephrolithiasis. He does report ibuprofen is helpful in reducing pain for a temporary time though pain does reoccur. Will supply patient with short-term script to pain medication to help him with his pain. Will try for CT of abdomen to evaluate for any migrating stone in the ureter or kidney mass Orders: Orders 2 CT abdomen w IV con 01/21/24 R10.9 - Unspecified abdominal pain Referrals 2 Gastroenterology Referral Z12.11 - Encounter for screening for malignant neoplasm of colon Medications: New 2 tramadol 50 mg PO BID 7 days 14 tabs 0RF pain R10.9 - Unspecified abdominal pain trazodone 50 mg PO BEDTIME 30 days 30 tabs 2RF G47.00 - Insomnia, unspecified Refilled 2 metoprolol succinate ER 50 mg PO DAILY 90 days 90 tabs 2RF I10 - Essential (primary) hypertension spironolactone 25 mg PO DAILY 90 tabs 1RF doxazosin 2 mg PO DAILY 90 tabs 2RF I10 - Essential (primary) hypertension Discontinued 2 hydroxyzine HCl Discontinued Reason: Doctor's Order 10 mg PO BEDTIME 30 days 30 tabs 1RF F41.9 - Anxiety disorder, unspecified, G47.00 - Insomnia, unspecified Coding Level of Care Code Est Pt Level 4 (37258) Diagnoses Essential hypertension I10 Hypertension type: essential hypertension ILD (interstitial lung disease) J84.9 Insomnia, unspecified type G47.00 Insomnia type: unspecified Right flank pain R10.9
[2024-01-21 15:42] VITALS: BP 142/90; PULSE 70; O2SAT 96; BMI 29.9
== END 2024-01-21 16:16 | disposition home or self-care (01) ==
PROVIDERS: PCP Physician Assistant; Visit Provider Physician Assistant
DX: I10 Essential (primary) hypertension (principal); J84.9 Interstitial pulmonary disease, unspecified; G47.00 Insomnia, unspecified; R10.9 Unspecified abdominal pain
CPT/HCPCS: 99214

== ENCOUNTER 2024-01-28 11:24 | Outpatient (REF) | payer OTHER, SELFPAY | END 2024-01-28 11:25 | disposition home or self-care (01) | LOC: HO.CT 11:24 | PROVIDERS: PCP Physician Assistant; Visit Provider Physician Assistant | DX: Z13.89 Encounter for screening for other disorder (principal) ==

== ENCOUNTER 2024-02-04 14:00 | Outpatient (REF) | payer OTHER, SELFPAY ==
--- NOTE | ~2024-02-04 | CT_ITS ---
EXAMINATION: CT ABDOMEN WITHOUT AND WITH CONTRAST CLINICAL INFORMATION: Abdominal pain. Right flank pain for 3 weeks. COMPARISON: Renal ultrasound from 01/15/2024. TECHNIQUE: Contiguous axial thin section helical images of the abdomen were performed before and after the administration of 85 mL of Omnipaque [address] examination was performed using dose optimization techniques as appropriate, variously including the following: *Automated exposure control *Adjustment of mA and/or kV according to patient size (this includes techniques or standardized protocols for targeted exams where dose is matched to indication/reason for exam; i.e. extremities or head) *Use of iterative reconstruction technique DLP: 794 mGy-cm FINDINGS: LUNG BASES: Scattered peripheral linear opacities of mild atelectasis or scarring in the visualized lung bases. HEPATOBILIARY: Mild hepatomegaly and diffuse hepatic steatosis. Gallbladder is underdistended and grossly normal. No dilated bile ducts. PANCREAS: No edema, pancreatic ductal dilatation or mass. SPLEEN: Normal. ADRENAL GLANDS: Normal. KIDNEYS AND URETERS: Kidneys are normal and enhance symmetrically. No hydronephrosis, hydroureter or perinephric edema. No solid renal masses. 1.5 cm simple cyst of the medial mid right kidney. No renal imaging follow-up is recommended for a simple cyst. There are no stones within the right kidney. A calyceal stone in the medial upper pole of the left kidney is 0.5 cm maximum dimension. It is too small for acquisition of a reliable density measurement. It has a mean density of at least 700 Hounsfield units with maximum pixel value of 1008 Hounsfield units. This stone is located approximately 9 cm deep from the skin surface at the posterior axillary line. BOWEL AND PERITONEUM: Stomach and small bowel are unremarkable. No dilated loops. The appendix is normal. No bowel wall thickening or mesenteric fat stranding. No free fluid or pneumoperitoneum. ABDOMINAL WALL: Unremarkable. VASCULATURE: Abdominal aorta is normal in caliber and its visualized branches are widely patent. Inferior vena cava and renal veins are normal. LYMPH NODES: No pathologic sized lymph nodes. MUSCULOSKELETAL: No acute or suspicious osseous abnormality. CT/CT abdomen wo/w IV con IMPRESSION: * Mild hepatomegaly and diffuse hepatic steatosis. * Simple cyst of the right kidney. No evidence of renal neoplasm. * Small stone of the upper pole of the left kidney. No evidence of ureteral stones or hydroureteronephrosis.
[2024-02-04] MEDS: iohexoL 350 MG/ML 100 ML INFUS..BTL IV (14:39)
== END 2024-02-04 14:01 | disposition home or self-care (01) ==
LOC: HO.CT 14:00
PROVIDERS: PCP Physician Assistant; Visit Provider Physician Assistant
DX: R10.9 Unspecified abdominal pain (principal)
CPT/HCPCS: 74170; Q9967

== ENCOUNTER 2024-02-08 14:33 | Outpatient (AMB) | payer OTHER, SELFPAY ==
[2024-02-08 14:34] VITALS: BP 162/100; PULSE 64; O2SAT 95; BMI 29.8
--- NOTE | 2024-02-08 14:34 | MHC.PC.OV ---
Vital Signs 02/08/24 14:34 Height 5 ft 8 in Weight 196 lb BMI 29.8 BP 162/100 H Blood Pressure Location Lt brachial Position Sitting Pulse 64 Pulse Source Pulse Oximeter Pulse Oximetry (%) 95 Oxygen Delivery Method Room Air Intake Visit Reasons: Ed f/u [facility] 01/31, stich removal rt foot Allergies bee venom protein (honey bee) Allergy (Intermediate, Verified 02/08/24 14:41) Swelling amlodipine Adverse Reaction (Intermediate, Verified 02/08/24 14:41) Pedal edema hydroxyzine Adverse Reaction (Intermediate, Verified 02/08/24 14:41) ineffective iv dye Allergy (Unknown, Uncoded 02/08/24 14:41) rash Medication List - Last Reconciled 02/08/24 by Jackeline Mosqueda PA-C albuterol sulfate 90 mcg/actuation 1 puff inhalation QID PRN ascorbic acid (vitamin C) 1 g PO DAILY cholecalciferol (vitamin D3) 50 mcg PO DAILY clotrimazole 1% 1 appl topical BID 30 days diphenhydramine HCl (Benadryl Allergy) 50 mg PO BEDTIME PRN doxazosin 2 mg PO DAILY ferrous sulfate 325 mg PO Q OTHER DAY 90 days lisinopril 40 mg PO DAILY 90 days lorazepam 0.5 mg PO BID PRN 7 days metoprolol succinate ER 50 mg PO DAILY 90 days prednisone 50 mg orally take 13 hours, 7 hours and 1 hour before the IV contrast procedure; quetiapine (Seroquel) 50 mg PO BEDTIME 30 days spironolactone 25 mg PO DAILY tramadol 50 mg PO BID 7 days trazodone 50 mg PO BEDTIME 30 days zinc gluconate 50 mg PO DAILY Tobacco use date assessed: 08/07/23 Dental Screening Dental Screen Date: 08/07/23 HPI Ed f/u [facility] 01/31, stich removal rt foot HPI Details 53-year-old male with past medical history of hyper aldosteronism, hypertension, GERD, generalized anxiety disorder, impaired glucose tolerance, hypercholesterolemia last seen by PA coming in hospital follow up.? In review of the notes, patient was seen in the [facility] ED 02/01/2024 for left foot laceration.? Patient had 13 sutures placed in left foot to be ruled moved in 7-10 days and given antibiotic. Patient states he was doing wood working in flip flops when he dropping the router on his left foot which lead to a large laceration requiring 13 stitches. X-rays were negative however he was told he had ligamentous injury. Advised to follow up with ortho in the next 2 weeks. He does still continue to have pain and tenderness but denies fevers or erythema around the wound. [facility] Medical History Sepsis with acute hypoxic respiratory failure Surgical History History of ear surgery History of vasectomy History of wisdom tooth extraction Family History Father Prostate cancer Mother Lung cancer Paternal Uncle Diabetes Paternal Aunt Brain cancer Other Mental health disorder Substance use disorder Social History Household Members: Family Housing: House Alcohol intake: current Alcohol intake frequency: holidays/special occasions only Patient Tobacco Use Status: Never used Tobacco Tobacco use type: Cigarette e-Cigarette/Vaping Use: Never Used Second Hand Smoke Exposure: Yes (Mother) service: No Current occupational status: employed Cognitive needs: No Hearing needs: No Vision needs: Yes Questionnaire PHQ-9 Over the last 2 weeks, how often have you been bothered by any of the following problems? 1. Little interest or pleasure in doing things: several days 2. Feeling down, depressed, or hopeless: more than half the days 3. Trouble falling or staying asleep, or sleeping too much: several days 4. Feeling tired or having little energy: more than half the days 5. Poor appetite or overeating: several days 6. Feeling bad about yourself - or that you are a failure or have let yourself or your family down: more than half the days 7. Trouble concentrating on things, such as reading the newspaper or watching television: nearly every day 8. Moving or speaking so slowly that other people could have noticed. Or the opposite - being so fidgety or restless that you have been moving around a lot more than usual: more than half the days 9. Thoughts that you would be better off or of hurting yourself in some way: not at all Total score: 14 Depression Screening Interpretation: Positive Depression Screening Follow-up: Existing condition Depression Screening Done: Yes [id number] - PHQ-9 Billing: Yes Source: Developed by Drs. Ab Pool, Milind Murguia and colleagues, with an educational luis a from [employer]. Thrive Questionnaire Date Thrive assessed: 08/07/23 AUDIT C Alcohol Use Questionnaire (AUDIT-C) 1. How often do you have a drink containing alcohol?: Never 3. How often do you have six or more drinks on one occasion?: Never Total Score: 0 DANIELLA-7 AMB Questionnaire DANIELLA-7 Date DANIELLA - 7 assessed: 10/18/23 Source: Developed by Drs. Ab Pool, Milind Murguia and colleagues, with an educational luis a from [employer]. Review of Systems Const Denies body aches, Denies chills, Denies fever(s) and Denies poor appetite Eyes Reports no additional complaints ENT Reports no additional complaints Card Denies chest pain and Denies dyspnea Resp Denies dyspnea GI Reports no additional complaints Reports no additional complaints Musc Reports as per HPI and Reports abnormal gait Skin/Breast Reports as per HPI Neuro Reports abnormal gait Psych Reports no additional complaints Physical exam (Primary Care) Vital Signs: Last Vital Signs Pulse 64 02/08/24 14:34 BP 162/100 H 02/08/24 14:34 Pulse Ox 95 02/08/24 14:34 Oxygen Delivery Method Room Air 02/08/24 14:34 BMI result Body Mass Index 29.8 Tobacco/Smoking Status: Tobacco use Status Tobacco use date assessed 08/07/23 02/08/24 14:34 Patient Tobacco Use Status Never used Tobacco 02/08/24 14:34 Tobacco use type Cigarette 02/08/24 14:44 e-Cigarette/Vaping Use Never Used 02/08/24 14:34 PHQ-9: PHQ-9 Score PHQ-9: Total score 14 02/08/24 14:44 Depression Screening Interpretation: Positive Depression Screening Follow-up: Existing condition Thrive Assessment: Date of Thrive Assessment Date Thrive assessed 08/07/23 02/08/24 14:34 Const General: cooperative, healthy appearing, comfortable and no acute distress Orientation/consciousness: patient oriented x3 HENMT Head: Yes normocephalic Ears: hearing grossly normal bilaterally General nose exam: Normal external nose present Eyes General: appearance normal, both eyes and all related structures Conjunctivae: conjunctivae normal Neck Neck: Yes full ROM and Yes no lymphadenopathy Resp Effort & Inspection: normal respiratory effort Auscultation: clear to auscultation bilaterally, no crackles, no rales, no rhonchi and no wheezes Cardio Rate: regular rate Rhythm: regular rhythm Skin General skin exam: no rashes or lesions noted Neuro General: patient oriented x3 Gait exam (Neuro): Normal gait present Extrem Other: Laceration is clean dry and intact with mild bruising around the laceration. No evidence of drainage, erythema or warmth. Foot is not tender to palpation except around laceration. Thirteen sutures intact. General: Yes normal to inspection, Yes full ROM and No edema Psych Affect: normal affect Attitude: cooperative Insight: Good insight present (Psych) Judgement: Good judgement present (Psych) Assessment and Plan Assessment & Plan (1) Laceration of left foot: Code(s): S91.312A - Laceration without foreign body, left foot, initial encounter Plan: Laceration is clean dry and intact with no evidence of infection. Thirteen sutures were removed today successfully without complication. Patient tolerated this well. Advised patient to follow up if he develops any signs of infection and to follow up with ortho. Referral placed for [facility] to follow up as soon as possible for ligamentous injury per hospital recommendation. Plan This note was constructed using voice recognition software. While every effort has been made to ensure accuracy and research and development chemist, still areas may have been included sometimes these areas may affect the content or meeting of the given symptoms. Total time spent caring for the patient today was 30 minutes. This includes time spent before the visit reviewing the chart, time spent during the visit, and time spent after the visit and documentation. Orders: Referrals Orthopedics Referral S91.312A - Laceration without foreign body, left foot, initial encounter Coding Level of Care Code Est Pt Level 4 (58030) Diagnoses Laceration of left foot S91.312A
== END 2024-02-08 16:04 | disposition home or self-care (01) ==
PROVIDERS: PCP Physician Assistant
DX: S91.312A Laceration without foreign body, left foot, initial encounter (principal); Z48.02 Encounter for removal of sutures
CPT/HCPCS: 15853; 99214

== ENCOUNTER 2024-02-13 10:18 | Outpatient (AMB) | payer OTHER, SELFPAY ==
[2024-02-13 10:21] VITALS: BP 124/78; PULSE 62; O2SAT 94; BMI 30.3
--- NOTE | 2024-02-13 10:21 | MHC.OFFVIS ---
Vital Signs 02/13/24 10:21 Height 5 ft 8 in Weight 199 lb 8.293 oz BMI 30.3 BP 124/78 Blood Pressure Location Rt brachial Position Sitting Pulse 62 Pulse Source Doppler Pulse Oximetry (%) 94 Oxygen Delivery Method Room Air Intake Visit Reasons: dyspnea Allergies bee venom protein (honey bee) Allergy (Intermediate, Verified 02/13/24 10:25) Swelling amlodipine Adverse Reaction (Intermediate, Verified 02/13/24 10:25) Pedal edema hydroxyzine Adverse Reaction (Intermediate, Verified 02/13/24 10:25) ineffective iv dye Allergy (Unknown, Uncoded 02/08/24 14:41) rash HPI HPI dyspnea: Details: 53-year-old gentleman, nonsmoker, with underlying history of severe COVID starting end of December 2020 requiring VV ECMO for 10 weeks at [facility], status post trach and PEG discharge to [facility] in March of 2021, tracheostomy decannulated end of May 2021, discharged from [facility] being June of 2021 on supplemental oxygen 3 L continuous flow with exertion and 1L at rest.? Treated with prednisone 1 milligram/kilogram with initial improvement in his lung function with improvement that has plateaued since about December of 2021.? Today patient complains of cough productive of small amount of whitish phlegm. His exercise tolerance improved after pulmonary rehab, however he still intermittently requires supplemental oxygen and uses supplemental oxygen at night. [facility] Medical History Sepsis with acute hypoxic respiratory failure Surgical History History of ear surgery History of vasectomy History of wisdom tooth extraction Family History Father Prostate cancer Mother Lung cancer Paternal Uncle Diabetes Paternal Aunt Brain cancer Other Mental health disorder Substance use disorder Social History Household Members: Family Housing: House Alcohol intake: current Alcohol intake frequency: holidays/special occasions only Patient Tobacco Use Status: Never used Tobacco Tobacco use type: Cigarette e-Cigarette/Vaping Use: Never Used Second Hand Smoke Exposure: Yes (Mother) service: No Current occupational status: employed Cognitive needs: No Hearing needs: No Vision needs: Yes Review of Systems Const Denies daytime sleepiness, Denies excessive sweating, Denies fatigue, Denies fever(s), Denies lethargy, Denies malaise, Denies night sweats, Denies snoring and Denies weight loss Eyes Denies blurry vision and Denies itchy eyes ENT Denies nasal congestion, Denies post nasal drip, Denies sinus pain, Denies sinus pressure and Denies other ( Thrush) Card Denies chest pain, Denies pedal edema, Denies dyspnea, Denies orthopnea and Denies paroxysmal nocturnal dyspnea Resp Denies cough, Denies hemoptysis, Denies excessive phlegm production, Denies dyspnea, Denies snoring and Denies wheezing GI Denies abdominal pain and Denies heartburn Musc Denies myalgias, Denies arthralgias and Denies joint swelling Skin/Breast Denies rash Neuro Denies memory loss and Denies seizure-like activity Psych Denies abnormal sleep pattern, Denies anxiety and Denies memory loss Endo Denies excessive sweating, Denies fatigue and Denies heat intolerance [place]/Lymph Denies easy bruising Aller/Immun Denies itchy eyes, Denies seasonal rhinorrhea and Denies wheezing Physical Exam Vital Signs: Last Vital Signs Pulse 62 02/13/24 10:21 BP 124/78 02/13/24 10:21 Pulse Ox 94 02/13/24 10:21 Oxygen Delivery Method Room Air 02/13/24 10:21 BMI result Body Mass Index 30.3 Const General: no acute distress and alert Nutritional Appearance: not obese Orientation/consciousness: Other orientation findings ( oriented) HEENT Head: Yes atraumatic Eyes General: appearance normal, both eyes and all related structures Sclerae: sclerae normal EOM: EOMs intact bilaterally Neck Neck: Yes supple Lymphatic: no lymphadenopathy noted Resp Effort & Inspection: normal respiratory effort and no use of accessory muscles Auscultation: clear to auscultation bilaterally Cardio Rate: regular rate Rhythm: regular rhythm Heart sounds: no gallops, no murmurs and no rubs Skin General skin exam: other ( warm) Extrem General: No clubbing, No cyanosis and No edema Assessment & Plan Assessment & Plan (1) ILD (interstitial lung disease): Code(s): J84.9 - Interstitial pulmonary disease, unspecified Category: Medical Plan: Secondary to prolonged hospitalization requiring ECMO and tracheostomy for COVID. Will repeat CT chest and pulmonary function test to assess for changes. (2) Supplemental oxygen dependent: Code(s): Z99.81 - Dependence on supplemental oxygen Category: Medical Plan: Continues on internal oxygen and as needed during the daytime. Will assess for portable oxygen concentrator. Orders: Orders PFT pulmonary function test Today J84.9 - Interstitial pulmonary disease, unspecified AMB 6 minute walk Today J84.9 - Interstitial pulmonary disease, unspecified CT chest wo IV con Today J84.9 - Interstitial pulmonary disease, unspecified Medications: New azithromycin For 250 mg dose pack: take 500 mg today (day 1), then 250 mg for 4 days (days 2-5) PO 6 tabs 0RF J84.9 - Interstitial pulmonary disease, unspecified Coding Level of Care Code Est Pt Level 4 (93441) Complex EM visit Add On G2211 Diagnoses ILD (interstitial lung disease) J84.9 Supplemental oxygen dependent Z99.81
== END 2024-02-13 10:36 | disposition home or self-care (01) ==
PROVIDERS: PCP Physician Assistant; Visit Provider Internal Medicine Pulmonary Disease
DX: J84.9 Interstitial pulmonary disease, unspecified (principal); Z99.81 Dependence on supplemental oxygen
CPT/HCPCS: 99214; G2211

== ENCOUNTER → 2024-02-13 10:18 | Outpatient (BNVA) | payer OTHER, SELFPAY | PROVIDERS: PCP Physician Assistant; Visit Provider Internal Medicine Pulmonary Disease | DX: J84.9 Interstitial pulmonary disease, unspecified (principal); Z99.81 Dependence on supplemental oxygen | CPT/HCPCS: 99212 ==

== ENCOUNTER 2024-02-20 11:03 | Outpatient (AMB) | payer OTHER, SELFPAY ==
--- NOTE | 2024-02-20 11:20 | MHC.OFFVIS ---
Vital Signs 02/20/24 11:23 Height 5 ft 8 in BP 158/84 H Blood Pressure Location Rt brachial Position Sitting Pulse 70 Pulse Source Pulse Oximeter Pulse Oximetry (%) 96 Oxygen Delivery Method Room Air Intake Visit Reasons: 6MW (Inogen) Allergies bee venom protein (honey bee) Allergy (Intermediate, Verified 02/20/24 11:24) Swelling amlodipine Adverse Reaction (Intermediate, Verified 02/20/24 11:24) Pedal edema hydroxyzine Adverse Reaction (Intermediate, Verified 02/20/24 11:24) ineffective iv dye Allergy (Unknown, Uncoded 02/20/24 11:24) rash Medication List - Last Reconciled 02/20/24 by Maryann Forrester LPN albuterol sulfate 90 mcg/actuation 1 puff inhalation QID PRN ascorbic acid (vitamin C) 1 g PO DAILY azithromycin For 250 mg dose pack: take 500 mg today (day 1), then 250 mg for 4 days (days 2-5) PO cholecalciferol (vitamin D3) 50 mcg PO DAILY clotrimazole 1% 1 appl topical BID 30 days diphenhydramine HCl (Benadryl Allergy) 50 mg PO BEDTIME PRN doxazosin 2 mg PO DAILY ferrous sulfate 325 mg PO Q OTHER DAY 90 days lisinopril 40 mg PO DAILY 90 days lorazepam 0.5 mg PO BID PRN 7 days metoprolol succinate ER 50 mg PO DAILY 90 days prednisone 50 mg orally take 13 hours, 7 hours and 1 hour before the IV contrast procedure; quetiapine (Seroquel) 50 mg PO BEDTIME 30 days spironolactone 25 mg PO DAILY tramadol 50 mg PO BID 7 days trazodone 50 mg PO BEDTIME 30 days zinc gluconate 50 mg PO DAILY [facility] Medical History Sepsis with acute hypoxic respiratory failure Surgical History History of ear surgery History of vasectomy History of wisdom tooth extraction Family History Father Prostate cancer Mother Lung cancer Paternal Uncle Diabetes Paternal Aunt Brain cancer Other Mental health disorder Substance use disorder Social History Household Members: Family Housing: House Alcohol intake: current Alcohol intake frequency: holidays/special occasions only Patient Tobacco Use Status: Never used Tobacco Tobacco use type: Cigarette e-Cigarette/Vaping Use: Never Used Second Hand Smoke Exposure: Yes (Mother) service: No Current occupational status: employed Cognitive needs: No Hearing needs: No Vision needs: Yes Physical Exam Vital Signs: Last Vital Signs Pulse 70 02/20/24 11:23 BP 158/84 H 02/20/24 11:23 Pulse Ox 96 02/20/24 11:23 Oxygen Delivery Method Room Air 02/20/24 11:23 Office Procedures 6 Minute Walk Time:: 11:10 SPO2 % at rest: 96 Pulse at rest: 70 SPO2 % during excercise: 87 Pulse during excercise: 80 SPO2 % after excercise: 95 Pulse after excercise: 70 Distance in yards walked: 240 Rhina Score: 3 Performance Observations:: Markus walked on level ground with out assistance, he walked on room air for 100 yards before his SPO2 decreased to 87% Pulsed O2 started at setting 2 and his SPO2 recovered to 95%. He maintained his SPO2 94-95% on pulsed O2 setting 2 for the remainder of the walk. 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 Orders: Orders AMB 6 minute walk 04/25/22 Z76.82 - Awaiting organ transplant status Coding Level of Care Code Established Pt Est Pt Level 1 (06094) Patient Type Established Diagnoses [id number] syndrome U09.9 CPT Codes Coding ([id number]) Comment NURSE VISIT ONLY
[2024-02-20 11:23] VITALS: BP 158/84; PULSE 70; O2SAT 96
== END 2024-02-20 11:17 | disposition home or self-care (01) ==
PROVIDERS: PCP Physician Assistant; Visit Provider Internal Medicine Pulmonary Disease
DX: U09.9 Post COVID-19 condition, unspecified (principal)
CPT/HCPCS: 94618

== ENCOUNTER → 2024-02-20 11:03 | Outpatient (BNVA) | payer OTHER, SELFPAY | PROVIDERS: PCP Physician Assistant; Visit Provider Internal Medicine Pulmonary Disease | DX: U09.9 Post COVID-19 condition, unspecified (principal); Z76.82 Awaiting organ transplant status | CPT/HCPCS: 94618; 99211 ==

== ENCOUNTER 2024-02-23 08:10 | Outpatient (REF) | payer OTHER, SELFPAY ==
--- NOTE | 2024-02-23 08:00 | PFT_ITS ---
Flows: FEV1: 70 % of predicted at 2.52 L FVC: 64 % of predicted at 2.92 L FEV1/FVC: 86 % Bronchodilator response: Absent Volumes: Total lung capacity: 59 % of predicted at 3.96 L Residual volume: 51 % of predicted at 0.94 L Slow vital capacity: 61 % of predicted at 3.02 L Expiratory reserve volume: 43 % of predicted at 0.55 L Diffusion capacity: Normal Impression: Moderate restrictive ventilatory defect with no bronchodilator response. MTDD
[2024-02-23 10:10] VITALS: PULSE 66; RESP 16; O2SAT 97
== END 2024-02-23 08:11 | disposition home or self-care (01) ==
LOC: HO.RESP 08:10
PROVIDERS: PCP Physician Assistant; Visit Provider Internal Medicine Pulmonary Disease
DX: J84.9 Interstitial pulmonary disease, unspecified (principal)
CPT/HCPCS: 94010; 94640; 94727; 94729

== ENCOUNTER 2024-03-14 14:25 | Outpatient (REF) | payer OTHER, SELFPAY ==
--- NOTE | ~2024-03-14 | CT_ITS ---
EXAMINATION: CT CHEST WITHOUT CONTRAST CLINICAL INFORMATION: Interstitial pulmonary disease. COMPARISON: CT chest dated August 16, 2021 TECHNIQUE: Multidetector volumetric CT imaging of the chest was done. Axial MIP volume rendering provided. Sagittal and coronal reformatted images were obtained. This CT examination was performed using dose optimization techniques as appropriate, variously including the following: *Automated exposure control *Adjustment of mA and/or kV according to patient size (this includes techniques or standardized protocols for targeted exams where dose is matched to indication/reason for exam; i.e. extremities or head) *Use of iterative reconstruction technique DLP: 291 mGy-cm FINDINGS: Submitted for interpretation on May 16, 2024. Low lung volume, bilaterally. Linear/paraseptal and interseptal attenuation with associated pulmonary groundglass involving mostly the upper lobes and to a lesser extent the lower lobes. No honeycombing. No bronchiectasis. No pleural effusion. No pneumothorax. No gross pulmonary nodules. No lymphadenopathy, mediastinum or perihilar. No axillary lymphadenopathy. No thoracic aortic aneurysm. Calcified plaques in the thoracic aortic arch and to the coronary arteries. No pericardial effusion. Decreased attenuation throughout the liver parenchyma. Gallbladder is contracted. Calcifications in the region of the thyroid isthmus. Multilevel thoracic and lower cervical spine spondylosis. No acute fracture or listhesis. No lytic or blastic lesions. CT/CT chest wo IV con IMPRESSION: Concerning interstitial lung disease involving mostly the upper lung lobes without gross acute airspace disease. Differential diagnostic considerations include sarcoidosis versus hypersensitivity pneumonitis versus pulmonary fibrosis. Fleischner guidelines were followed. Electronically signed by: Newton Frey MD 05/16/2024 01:19 PM [facility]
== END 2024-03-14 14:26 | disposition home or self-care (01) ==
LOC: HO.CT 14:25
PROVIDERS: PCP Physician Assistant; Visit Provider Internal Medicine Pulmonary Disease
DX: J84.9 Interstitial pulmonary disease, unspecified (principal)
CPT/HCPCS: 71250

== ENCOUNTER → 2024-03-14 14:27 | Outpatient (BNV) | payer OTHER, SELFPAY | PROVIDERS: PCP Physician Assistant; Visit Provider Radiology Diagnostic Radiology | DX: J84.9 Interstitial pulmonary disease, unspecified (principal) | CPT/HCPCS: 71250 ==

== ENCOUNTER 2024-03-26 14:23 | Outpatient (AMB) | payer OTHER, SELFPAY ==
[2024-03-26 14:24] VITALS: BP 138/82; PULSE 69; O2SAT 96; BMI 29.3
--- NOTE | 2024-03-26 14:24 | A.OFFVIS_ITS ---
Vital Signs 03/26/24 14:24 Height 5 ft 8 in Weight 192 lb 14.472 oz BMI 29.3 BP 138/82 Blood Pressure Location Lt brachial Position Sitting Pulse 69 Pulse Source Doppler Pulse Oximetry (%) 96 Oxygen Delivery Method Room Air Intake Visit Reasons: Dyspnea Allergies bee venom protein (honey bee) Allergy (Intermediate, Verified 02/20/24 11:24) Swelling amlodipine Adverse Reaction (Intermediate, Verified 02/20/24 11:24) Pedal edema hydroxyzine Adverse Reaction (Intermediate, Verified 02/20/24 11:24) ineffective iv dye Allergy (Unknown, Uncoded 02/20/24 11:24) rash HPI HPI Dyspnea: Details: 53-year-old gentleman, nonsmoker, with underlying history of severe COVID starting end of December 2020 requiring VV ECMO for 10 weeks at [facility], status post trach and PEG discharge to [facility] in March of 2021, tracheostomy decannulated end of May 2021, discharged from [place] being June of 2021 on supplemental oxygen 3 L continuous flow with exertion and 1L at rest.? Treated with prednisone 1 milligram/kilogram with initial improvement in his lung function with improvement that has plateaued since about December of 2021.?His exercise tolerance improved after pulmonary rehab, however he still intermittently requires supplemental oxygen and uses supplemental oxygen at night. His PFT showed improved TLC and FVC on his CT chest also shows less fibrosis. [facility] Medical History Sepsis with acute hypoxic respiratory failure Surgical History History of ear surgery History of vasectomy History of wisdom tooth extraction Family History Father Prostate cancer Mother Lung cancer Paternal Uncle Diabetes Paternal Aunt Brain cancer Other Mental health disorder Substance use disorder Social History Household Members: Family Housing: House Alcohol intake: current Alcohol intake frequency: holidays/special occasions only Patient Tobacco Use Status: Never used Tobacco Tobacco use type: Cigarette e-Cigarette/Vaping Use: Never Used Second Hand Smoke Exposure: Yes (Mother) service: No Current occupational status: employed Cognitive needs: No Hearing needs: No Vision needs: Yes Review of Systems Const Denies daytime sleepiness, Denies excessive sweating, Denies fatigue, Denies fever(s), Denies lethargy, Denies malaise, Denies night sweats, Denies snoring and Denies weight loss Eyes Denies blurry vision and Denies itchy eyes ENT Denies nasal congestion, Denies post nasal drip, Denies sinus pain, Denies sinus pressure and Denies other ( Thrush) Card Denies chest pain, Denies pedal edema, Denies dyspnea, Denies orthopnea and Denies paroxysmal nocturnal dyspnea Resp Denies cough, Denies hemoptysis, Denies excessive phlegm production, Denies dyspnea, Denies snoring and Denies wheezing GI Denies abdominal pain and Denies heartburn Musc Denies myalgias, Denies arthralgias and Denies joint swelling Skin/Breast Denies rash Neuro Denies memory loss and Denies seizure-like activity Psych Denies abnormal sleep pattern, Denies anxiety and Denies memory loss Endo Denies excessive sweating, Denies fatigue and Denies heat intolerance Eleno/Lymph Denies easy bruising Aller/Immun Denies itchy eyes, Denies seasonal rhinorrhea and Denies wheezing Physical Exam Vital Signs: Last Vital Signs Pulse 69 03/26/24 14:24 BP 138/82 03/26/24 14:24 Pulse Ox 96 03/26/24 14:24 Oxygen Delivery Method Room Air 03/26/24 14:24 BMI result Body Mass Index 29.3 Const General: no acute distress and alert Nutritional Appearance: not obese Orientation/consciousness: Other orientation findings ( oriented) HEENT Head: Yes atraumatic Eyes General: appearance normal, both eyes and all related structures Sclerae: sclerae normal EOM: EOMs intact bilaterally Neck Neck: Yes supple Lymphatic: no lymphadenopathy noted Resp Effort & Inspection: normal respiratory effort and no use of accessory muscles Auscultation: clear to auscultation bilaterally Cardio Rate: regular rate Rhythm: regular rhythm Heart sounds: no gallops, no murmurs and no rubs Skin General skin exam: other ( warm) Extrem General: No clubbing, No cyanosis and No edema Assessment & Plan Assessment & Plan (1) ILD (interstitial lung disease): Code(s): J84.9 - Interstitial pulmonary disease, unspecified Category: Medical Plan: Residual post COVID fibrosis with some improvement on PFT/CT chest. Continue to monitor clinically. (2) Supplemental oxygen dependent: Code(s): Z99.81 - Dependence on supplemental oxygen Category: Medical Plan: Continues on supplemental oxygen to maintain O2 saturation above 88%. Coding Level of Care Code Est Pt Level 4 (03846) Complex EM visit Add On G2211 Diagnoses ILD (interstitial lung disease) J84.9 Supplemental oxygen dependent Z99.81
== END 2024-03-26 14:48 | disposition home or self-care (01) ==
PROVIDERS: PCP Physician Assistant; Visit Provider Internal Medicine Pulmonary Disease
DX: J84.9 Interstitial pulmonary disease, unspecified (principal); Z99.81 Dependence on supplemental oxygen
CPT/HCPCS: 99214; G2211

== ENCOUNTER → 2024-03-26 14:23 | Outpatient (BNVA) | payer OTHER, SELFPAY | PROVIDERS: PCP Physician Assistant; Visit Provider Internal Medicine Pulmonary Disease | DX: J84.9 Interstitial pulmonary disease, unspecified (principal); Z99.81 Dependence on supplemental oxygen; Z86.16 Personal history of COVID-19 | CPT/HCPCS: 99212 ==

== ENCOUNTER 2024-04-23 10:35 | Outpatient (AMB) | payer OTHER, SELFPAY ==
--- NOTE | 2024-04-23 10:39 | HO.NEPHOV ---
Vital Signs 04/23/24 10:43 Height 5 ft 8 in Weight 192 lb 4 oz BMI 29.2 BP 130/80 Blood Pressure Location Lt brachial Position Sitting Pulse 64 Pulse Source Pulse Oximeter Pulse Oximetry (%) 96 Oxygen Delivery Method Room Air Intake Visit Reasons: Benign essential hypertension/6 MO FU Parking Station Attendant Required: No Accompanied by: Self / Same As Patient Allergies bee venom protein (honey bee) Allergy (Intermediate, Verified 04/23/24 10:43) Swelling amlodipine Adverse Reaction (Intermediate, Verified 04/23/24 10:43) Pedal edema hydroxyzine Adverse Reaction (Intermediate, Verified 04/23/24 10:43) ineffective iv dye Allergy (Unknown, Uncoded 02/20/24 11:24) rash HPI Comments Details: Mr. 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 He has blood pressure issues for over 30 years. He does not take excessive sodium in the diet. He had edema from amlodipine. It was discontinued and the doxazosin was introduced. He also has taken hydrochlorothiazide. His potassium levels in the blood had been fluctuant and he takes potassium supplements. He had been worked up in the past for secondary etiology for hypertension. Blood work or urine studies were not supportive of aldosteronism. He had severe COVID and was on ECMO. 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 He gets pulmonary rehab. He had been referred to lung transplant team [facility] in the past. He claimed to be going through a lot of life stressors. His renal functions are normal. He has no history of hypercalcemia, uncontrolled thyroid disorders, sweating, orthostasis, palpitation or diarrhea. He denies history of coronary artery disease, congestive heart failure, CVA, peripheral arterial disease or renal artery stenosis. His renal functions are normal [facility] Medical History Sepsis with acute hypoxic respiratory failure Surgical History History of ear surgery History of vasectomy History of wisdom tooth extraction Family History Father Prostate cancer Mother Lung cancer Paternal Uncle Diabetes Paternal Aunt Brain cancer Other Mental health disorder Substance use disorder Social History Household Members: Family Housing: House Alcohol intake: current Alcohol intake frequency: holidays/special occasions only Patient Tobacco Use Status: Never used Tobacco Tobacco use type: Cigarette e-Cigarette/Vaping Use: Never Used Second Hand Smoke Exposure: Yes (Mother) service: No Current occupational status: employed Cognitive needs: No Hearing needs: No Vision needs: Yes Review of Systems Const All systems reviewed & are unremarkable except as noted in HPI and below Physical Exam Const General: comfortable and no acute distress Orientation/consciousness: patient oriented x3 HEENT Head: Yes normocephalic Mouth: Normal oral and palatal mucosa present Eyes EOM: EOMs intact bilaterally Neck Neck: Yes supple Resp Auscultation: clear to auscultation bilaterally Cardio Jugular venous distension: no JVD Rate: regular rate GI Palpation (GI): Soft to palpation Auscultation: normal bowel sounds General: Yes no CVA tenderness Back/Spine/Pelvis Back: no CVA tenderness Skin General skin exam: no rashes or lesions noted Neuro General: patient oriented x3 and moves all extremities Extrem General: Yes no pedal edema Results Reviewed Nephrology Results: No Data to Display Assessment & Plan Assessment & Plan (1) HTN (hypertension): Code(s): I10 - Essential (primary) hypertension Category: Medical Qualifiers: Hypertension type: essential hypertension Qualified Code(s): I10 - Essential (primary) hypertension Plan Mr Cannon has history of hypertension over 20 years. He had extensive workup in the past rule out secondary etiology which was on yielding at that time . He has developed edema from amlodipine. He can continue on doxazosin, lisinopril and metoprolol for now along with spironolactone 25 mg daily . He should maintain low-sodium diet. I intend to maximize some of his medications and discontinued doxazosin if at all possible in the future .His Doppler of renal arteries showed increased velocity in left renal artery. He is aware of the need for closely monitoring his serum potassium given initiation of spironolactone while being on lisinopril. I did not make any other medication changes today. I will check his electrolytes and renal function . All questions answered. Follow-up appointment given Orders: Orders Creatinine 6 Months I10 - Essential (primary) hypertension Blood Urea Nitrogen 6 Months I10 - Essential (primary) hypertension Electrolytes 6 Months I10 - Essential (primary) hypertension Coding Level of Care Code Est Pt Level 4 (27670) Diagnoses Essential hypertension I10 Hypertension type: essential hypertension
[2024-04-23 10:43] VITALS: BP 130/80; PULSE 64; O2SAT 96; BMI 29.2
== END 2024-04-23 10:54 | disposition home or self-care (01) ==
LOC: HO.HKA 10:36
PROVIDERS: PCP Physician Assistant; Visit Provider Internal Medicine Nephrology
DX: I10 Essential (primary) hypertension (principal)
CPT/HCPCS: 99214

== ENCOUNTER → 2024-04-23 10:35 | Outpatient (BNVA) | payer OTHER, SELFPAY | PROVIDERS: PCP Physician Assistant; Visit Provider Internal Medicine Nephrology | DX: I10 Essential (primary) hypertension (principal); J84.9 Interstitial pulmonary disease, unspecified; M54.50 Low back pain, unspecified; E78.5 Hyperlipidemia, unspecified; Z79.899 Other long term (current) drug therapy; Z23 Encounter for immunization | CPT/HCPCS: 90471; 90656; 99212 ==

== ENCOUNTER 2024-04-23 11:06 | Outpatient (AMB) | payer OTHER, SELFPAY ==
[2024-04-23 11:50] VITALS: BP 160/72; PULSE 62; O2SAT 95; BMI 29.2
--- NOTE | 2024-04-23 11:50 | MHC.PC.OV ---
Vital Signs 04/23/24 11:50 Height 5 ft 8 in Weight 192 lb 4 oz BMI 29.2 BP 160/72 H Blood Pressure Location Lt brachial Position Sitting Pulse 62 Pulse Source Pulse Oximeter Pulse Oximetry (%) 95 Oxygen Delivery Method Room Air Intake Visit Reasons: f/u HTN Social Media Senior Associate Required: No Accompanied by: Self / Same As Patient Allergies bee venom protein (honey bee) Allergy (Intermediate, Verified 04/23/24 11:54) Swelling amlodipine Adverse Reaction (Intermediate, Verified 04/23/24 11:54) Pedal edema hydroxyzine Adverse Reaction (Intermediate, Verified 04/23/24 11:54) ineffective iv dye Allergy (Unknown, Uncoded 04/23/24 11:54) rash Medication List - Last Reconciled 04/23/24 by Soy Connor PA-C albuterol sulfate 90 mcg/actuation 1 puff inhalation QID PRN ascorbic acid (vitamin C) 1 g PO DAILY cholecalciferol (vitamin D3) 50 mcg PO DAILY diphenhydramine HCl (Benadryl Allergy) 50 mg PO BEDTIME PRN doxazosin 2 mg PO DAILY lisinopril 40 mg PO DAILY 90 days lorazepam 0.5 mg PO BID PRN 7 days metoprolol succinate ER 50 mg PO DAILY 90 days omega-3 fatty acids 1,000 mg PO DAILY potassium chloride (Klor-Con) 20 mEq PO DAILY quetiapine (Seroquel) 50 mg PO BEDTIME 30 days spironolactone 25 mg PO DAILY tramadol 50 mg PO BID PRN zinc gluconate 50 mg PO DAILY Tobacco use date assessed: 08/07/23 Dental Screening Dental Screen Date: 08/07/23 HPI f/u HTN HPI Details patient is a 53-year-old male here today for follow-up visit? Patient has a past medical history significant for essential hypertension hyperlipidemia, impaired fasting blood sugar, interstitial lung disease, severe post COVID syndrome Concerns--> has noted some lower back pain that wraps around into his abdomen over the last few weeks. He attributes this to his mattress in his saving up money to get a new mattress. He denies any trauma to his lower back. .. ?hypertension: Patient's blood pressure today in office elevated, blood pressure at Nephrology office today was normal. he reports that home / pulmonary rehab blood pressures have been 120s over 80s. He continues on doxazosin, lisinopril, Aldactone and metoprolol .. ?interstitial lung disease:? secondary to a severe COVID infection requiring intubation and ventilation. , patient now followed by pulmonology and continues with pulmonary rehab.? Still using supplemental oxygen as needed particularly on exertional activities. Has been referred to lung transplant team at [facility] and seems to be a candidate for lung transplant. ---> he now does not work as he is been laid off from his job. Was unable to work full-time due to brain fog, fatigue secondary to his severe lung disease. His recent pulmonary function testing showing improved lung capacity .. ? Generalized anxiety disorder; he reports his generalized anxiety has been well controlled and now is off of Lexapro.? Due to personal and employment stress he has been experiencing more anxiety. We have tried hydroxyzine to help him sleep though reports it was not effective on keeping him sleep the whole night. He reports Seroquel 50 mg has been working fairly decent for his sleep .. [facility] Medical History Sepsis with acute hypoxic respiratory failure Surgical History History of ear surgery History of vasectomy History of wisdom tooth extraction Family History Father Prostate cancer Mother Lung cancer Paternal Uncle Diabetes Paternal Aunt Brain cancer Other Mental health disorder Substance use disorder Social History Household Members: Family Housing: House Alcohol intake: current Alcohol intake frequency: holidays/special occasions only Patient Tobacco Use Status: Never used Tobacco Tobacco use type: Cigarette e-Cigarette/Vaping Use: Never Used Second Hand Smoke Exposure: Yes (Mother) service: No Current occupational status: employed Cognitive needs: No Hearing needs: No Vision needs: Yes Questionnaire Thrive Questionnaire Date Thrive assessed: 08/07/23 DANIELLA-7 AMB Questionnaire DANIELLA-7 Date DANIELLA - 7 assessed: 10/18/23 Source: Developed by Drs. Ab Pool, Noreen Lucero, Milind Lundberg and colleagues, with an educational luis a from [employer]. Review of Systems Const Denies headache(s) Eyes Denies loss of vision ENT Denies vertigo, Denies dizziness, Denies headache(s) and Denies sore throat Card Denies chest pain, Denies leg edema and Denies lightheadedness Resp Denies cough, Denies hemoptysis and Denies wheezing GI Denies abdominal pain, Denies melena, Denies constipation, Denies diarrhea and Denies vomiting Denies dysuria, Denies urinary frequency and Denies urinary urgency Musc Denies arthralgias, Denies joint swelling, Denies numbness and Denies tingling Neuro Denies Abnormal speech present, Denies behavioral changes, Denies vertigo, Denies dizziness, Denies headache(s), Denies loss of vision, Denies memory loss, Denies numbness and Denies tingling Psych Denies anxiety, Denies behavioral changes, Denies depression, Denies memory loss and Denies panic attacks Eleno/Lymph Denies easy bleeding and Denies easy bruising Aller/Immun Denies wheezing Physical exam (Primary Care) Vital Signs: Last Vital Signs Pulse 62 04/23/24 11:50 BP 160/72 H 04/23/24 11:50 Pulse Ox 95 04/23/24 11:50 Oxygen Delivery Method Room Air 04/23/24 11:50 BMI result Body Mass Index 29.2 Tobacco/Smoking Status: Tobacco use Status Tobacco use date assessed 08/07/23 04/23/24 11:51 Patient Tobacco Use Status Never used Tobacco 04/23/24 11:51 Tobacco use type Cigarette 04/23/24 11:51 e-Cigarette/Vaping Use Never Used 04/23/24 11:51 Thrive Assessment: Date of Thrive Assessment Date Thrive assessed 08/07/23 04/23/24 11:51 Const General: healthy appearing, no acute distress, alert and awake Nutritional Appearance: well nourished Orientation/consciousness: oriented to person, oriented to place and oriented to time HENMT Ears: TM's normal bilaterally General nose exam: Normal nasal mucous membranes and turbinates present Eyes Conjunctivae: conjunctivae normal Sclerae: sclerae normal Pupils: Equal, round and reactive pupils present Neck Neck: Yes no lymphadenopathy and Yes no JVD Thyroid: Thyroid normal Carotids: no bruits Resp Effort & Inspection: normal respiratory effort and not tachypneic Auscultation: no crackles, no rales, no rhonchi and no wheezes Cardio Rate: regular rate Rhythm: regular rhythm Heart sounds: no murmurs and normal S1 and S2 GI Palpation (GI): Soft to palpation, nontender, no hepatomegaly and no splenomegaly Auscultation: normal bowel sounds Skin General skin exam: no rashes or lesions noted and dry skin Neuro General: oriented to person, oriented to place and oriented to time Cranial nerves: Yes Equal, round and reactive pupils present Speech: No Abnormal speech present Gait exam (Neuro): Normal gait present Motor exam (neuro): no tremor noted Extrem Right upper extremity: full ROM Left upper extremity: full ROM Right lower extremity: full ROM; no edema Left lower extremity: full ROM; no edema Psych Mental Status: mental status grossly normal Speech and movement: Normal speech and movement present Affect: normal affect Attitude: cooperative Thought process: Normal thought process present Office Procedures Flu Questionnaire Does the patient have a severe egg allergy?: No Does the patient have severe life threatening allergies?: No Does the patient have a fever or illness today?: No Has the patient ever had Guillain-[place] Syndrome?: No Has the patient ever had any past reaction to a flu shot?: No Immunizations Fluarix Triv [id number] (PF) 45 mcg (15 mcg x 3)/0.5 mL IM syringe Performing Provider: Soy Connor PA-C [facility] Administered by: KELLI Quinones on 04/23/24 11:51 Dose Route Admin Location Dispensed Lot Number Expiration Date [facility] [employer] Research Analyst 0.5 mL IM Left Deltoid 0.5 mL [id number] 12/15/24 11775-583-36 [employer] VIS Given Date VIS Provided VIS Publication Date 04/23/24 Single Vaccine 21 Eligibility Eligibility Date Funding Source Not [facility] Eligible 04/23/24 Private Coding Level of Care Code Est Pt Level 4 (56148) Diagnoses Benign essential hypertension I10 ILD (interstitial lung disease) J84.9 Acute bilateral low back pain without sciatica M54.50 Chronicity: acute Back pain laterality: bilateral Sciatica presence: without sciatica Assessment & Plan Assessment & Plan (1) Benign essential hypertension: Code(s): I10 - Essential (primary) hypertension Category: Medical Plan: Patient's blood pressure slightly elevated today in office. At his Nephrology office his blood pressure stable. He reports blood pressures have been normal at home. He continues on 4 different antihypertensives and is interested in getting off of doxazosin as blood pressure continues to stabilize. (2) ILD (interstitial lung disease): Code(s): J84.9 - Interstitial pulmonary disease, unspecified Category: Medical Plan: Patient continues to follow [facility] pulmonology. Does use oxygen on an as needed basis. He has been able to be more physically active as of late. Most recent pulmonary function tests showed better pulmonary function. He is very happy and glad about this. (3) Lower back pain: Code(s): M54.50 - Low back pain, unspecified Category: Medical Qualifiers: Chronicity: acute Back pain laterality: bilateral Sciatica presence: without sciatica Qualified Code(s): M54.50 - Low back pain, unspecified Plan: Patient reporting a few weeks of lower back pain that is worse when lying down. He attributes his pain to maybe having a bad mattress. Will send for x-ray and will refer to physical therapy for treatment. Patient willing to try a muscle relaxer at night to help him relax and sleep. Orders: Orders Influenza [id number] Immunization Today Z23 - Encounter for immunization XR lumbar spine 2-3V Today M54.50 - Low back pain, unspecified PT Evaluation and Treatment Today M54.50 - Low back pain, unspecified Comprehensive [place]. Panel Fast Today I10 - Essential (primary) hypertension Lipid Panel Today E78.9 - Disorder of lipoprotein metabolism, unspecified Hemoglobin A1c Today R73.01 - Impaired fasting glucose Complete Blood Count no Diff Today I10 - Essential (primary) hypertension Medications: New cyclobenzaprine 5 mg PO BEDTIME 10 days 10 tabs 0RF M54.50 - Low back pain, unspecified
== END 2024-04-23 12:15 | disposition home or self-care (01) ==
LOC: HO.HMCH 11:06
PROVIDERS: PCP Physician Assistant; Visit Provider Physician Assistant
DX: I10 Essential (primary) hypertension (principal); J84.9 Interstitial pulmonary disease, unspecified; M54.50 Low back pain, unspecified; Z23 Encounter for immunization

== ENCOUNTER 2024-05-09 14:18 | Outpatient (REF) | payer OTHER, SELFPAY | END 2024-05-09 14:19 | disposition home or self-care (01) | LOC: HO.XRAY 14:18 | PROVIDERS: PCP Physician Assistant; Visit Provider Physician Assistant | DX: M54.50 Low back pain, unspecified (principal) | CPT/HCPCS: 72100 ==

== ENCOUNTER 2024-07-31 10:31 | Outpatient (REF) | payer OTHER, SELFPAY ==
--- OUTSIDE RECORDS SUMMARY | 2024-07-31 12:09 | XMS_ITS | Clinical Summary ---
Author Organization [facility] Address [address] [place] [address] Care Team Providers Care Spray Dry Operator Name Role Phone Unavailable Primary Care Provider [...] this topic Medical Devices Explanted Type Area Production Control Analyst Device Identifier Shelf Expiration Date Model / Serial / Lot Sealant Fibrin Vistaseal 4ml [facility]-[employer] [id number] - [id number] Explanted:Qt y: 1 on 02/16/2021 [place] [facility] [place] Hemostatic Agent Anterior: Trachea [employer] 08/31/2022 [id number] / [id number] / [id number] Advance Directives For more information, please contact: [phone] Latest Code Status on File Code Status Date Activated Date Inactivated Comments Full Code 01/31/2021 6:40 PM 04/07/2021 11:01 PM Thi s code status was ascertained in the following way: discussion with healthcare call center support representative .
--- OUTSIDE RECORDS SUMMARY | 2024-07-31 12:09 | XMS_ITS | Clinical Summary ---
Author Organization [address] Address [address] [place] [phone] Care Team Providers Care Math Teacher Name Role Phone Soy Connor Primary Care [...] patient's age to complete this topic Insurance [facility] Care Teams Math Teacher Relationship Specialty Start Date End Date Soy Connor PA PCP - General 06/01/21
--- OUTSIDE RECORDS SUMMARY | 2024-07-31 12:09 | XMS_ITS | Clinical Summary ---
Author Organization [facility] Address [address] [place] [address], [place] [address] Care Team Providers Care Valve Lapper Name Role Phone Unavailable Primary Care Provider [...] age to complete this topic Insurance ) [id number] [employer] O ([id number])
--- OUTSIDE RECORDS SUMMARY | 2024-07-31 12:09 | XMS_ITS | Clinical Summary ---
Author Organization [facility] [address] [place] [address] Care Team Providers Care Director Enterprise Sales Name Role Phone Unavailable Primary Care Provider [...] Documents on File Type Date Recorded Patient Live Games Dealer Expl anation Health Care Decision (hx) 01/15/2021 AD NILAM DIRECTIVE
[2024-07-31 12:24] LABS: Influenza A PCR NEGATIVE (Negative); Influenza B PCR NEGATIVE (Negative); Resp Syncy Virus RNA Qual PCR NEGATIVE (Negative); SARS COV2 PCR INHOUSE NEGATIVE (Negative)
== END 2024-07-31 10:32 | disposition home or self-care (01) ==
LOC: HO.LAB 10:31
PROVIDERS: PCP Physician Assistant
DX: J06.9 Acute upper respiratory infection, unspecified (principal); J84.9 Interstitial pulmonary disease, unspecified; R09.81 Nasal congestion
CPT/HCPCS: 0241U; 96127; 99212

== ENCOUNTER 2024-07-31 10:31 | Outpatient (AMB) | payer OTHER, SELFPAY ==
--- NOTE | 2024-07-31 10:44 | MHC.PC.OV ---
Vital Signs 07/31/24 10:45 Height 5 ft 8 in Weight 195 lb 6 oz BMI 29.7 BP 122/70 Blood Pressure Location Lt brachial Position Sitting Pulse 77 Pulse Source Pulse Oximeter Temp 98.8 F Temp Source Oral Pulse Oximetry (%) 96 Oxygen Delivery Method Room Air Intake Visit Reasons: pulmonary disease/lung infection Cook Helper Pastry Required: No Accompanied by: Self / Same As Patient Allergies bee venom protein (honey bee) Allergy (Intermediate, Verified 07/31/24 10:46) Swelling amlodipine Adverse Reaction (Intermediate, Verified 07/31/24 10:46) Pedal edema hydroxyzine Adverse Reaction (Intermediate, Verified 07/31/24 10:46) ineffective iv dye Allergy (Unknown, Uncoded 07/31/24 10:46) rash Medication List - Last Reconciled 07/31/24 by RASHAD Galaviz albuterol sulfate 90 mcg/actuation 1 puff inhalation QID PRN ascorbic acid (vitamin C) 1 g PO DAILY cholecalciferol (vitamin D3) 50 mcg PO DAILY cyclobenzaprine 5 mg PO BEDTIME 10 days diphenhydramine HCl (Benadryl Allergy) 50 mg PO BEDTIME PRN doxazosin 2 mg PO DAILY lisinopril 40 mg PO DAILY 90 days lorazepam 0.5 mg PO BID PRN 7 days metoprolol succinate ER 50 mg PO DAILY 90 days omega-3 fatty acids 1,000 mg PO DAILY potassium chloride (Klor-Con) 20 mEq PO DAILY quetiapine (Seroquel) 50 mg PO BEDTIME 30 days spironolactone 25 mg PO DAILY zinc gluconate 50 mg PO DAILY Tobacco use date assessed: 07/31/24 Dental Screening Dental Screen Date: 07/31/24 Did you have a dental visit in the last 12 months?: Yes Did you have a dental problem in the last 6 months where you did not have access to dental care?: No Was dental information given to patient?: Patient has dentist HPI pulmonary disease/lung infection HPI Details patient is a 53-year-old male here today for follow-up visit? Patient has a past medical history significant for essential hypertension hyperlipidemia, impaired fasting blood sugar, interstitial lung disease, severe post COVID syndrome reports that 4 days ago he had (runny nose, tiredness, itchiness in the throat, the past 2 days, coughing worse at night. Coughing yellow/green secretion, he could almost taste the bacteria from the secretion in his mouth. Reports that he has not been tested for any respiratory infection. Mild sore intermittent, denies fever, reports that his girlfriend has been sick (with runny nose and feeling tired) reports that he has not been sick in a while Patient reports that when he gets sick, he usually has to gets antibiotics due to his chronic lung condition Reports flu vaccine, reports covid vaccines, but has not taken the last 2 boasters. Reports been waking up with a sticky feeling in his eyes The patient is not taking his benadryl or hydroxyzine-discused withe patient the potential reaction [facility] Medical History Sepsis with acute hypoxic respiratory failure Surgical History History of ear surgery History of vasectomy History of wisdom tooth extraction Family History Father Prostate cancer Mother Lung cancer Paternal Uncle Diabetes Paternal Aunt Brain cancer Other Mental health disorder Substance use disorder Social History Household Members: Family Housing: House Alcohol intake: current Alcohol intake frequency: holidays/special occasions only Patient Tobacco Use Status: Never used Tobacco Tobacco use type: Cigarette e-Cigarette/Vaping Use: Never Used Second Hand Smoke Exposure: Yes (Mother) service: No Current occupational status: employed Cognitive needs: No Hearing needs: No Vision needs: Yes Questionnaire PHQ-9 Over the last 2 weeks, how often have you been bothered by any of the following problems? 1. Little interest or pleasure in doing things: several days 2. Feeling down, depressed, or hopeless: more than half the days 3. Trouble falling or staying asleep, or sleeping too much: several days 4. Feeling tired or having little energy: more than half the days 5. Poor appetite or overeating: several days 6. Feeling bad about yourself - or that you are a failure or have let yourself or your family down: more than half the days 7. Trouble concentrating on things, such as reading the newspaper or watching television: nearly every day 8. Moving or speaking so slowly that other people could have noticed. Or the opposite - being so fidgety or restless that you have been moving around a lot more than usual: more than half the days 9. Thoughts that you would be better off or of hurting yourself in some way: not at all Total score: 14 Depression Screening Interpretation: Positive Depression Screening Follow-up: Existing condition Depression Screening Done: Yes 98900 - PHQ-9 Billing: Yes Source: Developed by Drs. Ab Pool, Noreen Lucero, Milind Lundberg and colleagues, with an educational luis a from [employer]. Thrive Questionnaire Date Thrive assessed: 07/31/24 I am a: Patient What is your living situation today?: I have a steady place to live Within the past 12 months, did the food you bought not last and you didn't have the money to get more?: Never true Within the past 12 months, did you worry whether your food would run out before you got money to buy more?: Never true Do you have trouble paying for medicines?: No Do you have trouble getting transportation to medical appointments?: No Do you have trouble paying your heating and electricity bill?: No Do you have trouble taking care of your child, family member or friend?: No Do you have trouble with day-to-day activities such as bathing, preparing meals, shopping, managing finances, etc.?: No Are you currently unemployed and looking for a job?: No Are you interested in more education?: No Please select the resources that you would like help with: None Currently or been in a relationship where the following occur: No concerns reported THRIVE Score: 0 AUDIT C Alcohol Use Questionnaire (AUDIT-C) 1. How often do you have a drink containing alcohol?: Never 3. How often do you have six or more drinks on one occasion?: Never Total Score: 0 DANIELLA-7 AMB Questionnaire DANIELLA-7 Date DANIELLA - 7 assessed: 07/31/24 Feeling nervous, anxious, or on edge: 0 = Not at all Not being able to stop or control worryin = Not at all Worrying too much about different things: 0 = Not at all Trouble relaxin = Not at all Being so restless that it is hard to sit still: 0 = Not at all Becoming easily annoyed or irritable: 0 = Not at all Feeling afraid as if something awful might happen: 0 = Not at all Total DANIELLA-7 score (0-4 normal; 5-9 mild; 10-14 moderate; 15-21 severe): 0 Source: Developed by Drs. Ab Pool, Noreen Lucero, Milind Lundberg and colleagues, with an educational luis a from [employer]. DANIELLA-7 Assessment Billing DANIELLA-7 Assessment Tool: DANIELLA-7 Assessment 01490 Review of Systems Const Details: Denies chills, Denies fatigue, Denies fever(s), Denies headache(s) and Denies weakness HEENT Denies change in vision, Denies dizziness, Denies headache(s), Denies hearing loss, + nasal congestion, Denies sinus pain, Denies sinus pressure and + mild sore throat Reports watery eyes with sticky feeling in the mornings Card Denies chest pain, Denies lightheadedness, Denies dyspnea and Denies other (palpitations) Resp + productive cough yellowish-greenish secretion, Denies dyspnea and Denies wheezing GI Denies abdominal pain, Denies melena, Denies hematochezia, Denies change in bowel habits, Denies dyspepsia and Denies nausea Denies hematuria and Denies dysuria Musc Denies abnormal gait, Denies myalgias, Denies arthralgias, Denies numbness and Denies tingling Skin/Breast Denies rash, Denies unusual bruising and Denies wounds Neuro Denies abnormal gait, Denies dizziness, Denies headache(s), Denies memory loss, Denies numbness, Denies Sensory deficit (Neuro), Denies tingling and Denies weakness Psych Denies anxiety, Denies depression and Denies memory loss Endo Denies cold intolerance, Denies fatigue, Denies heat intolerance, Denies polydipsia and Denies polyuria Eleno/Lymph Denies easy bleeding and Denies easy bruising Aller/Immun Denies wheezing Physical exam (Primary Care) Vital Signs: Last Vital Signs Temp 98.8 F 07/31/24 10:45 Pulse 77 07/31/24 10:45 BP 122/70 07/31/24 10:45 Pulse Ox 96 07/31/24 10:45 Oxygen Delivery Method Room Air 07/31/24 10:45 BMI result Body Mass Index 29.7 Tobacco/Smoking Status: Tobacco use Status Tobacco use date assessed 07/31/24 07/31/24 10:49 Patient Tobacco Use Status Never used Tobacco 07/31/24 10:49 Tobacco use type Cigarette 07/31/24 10:49 e-Cigarette/Vaping Use Never Used 07/31/24 10:49 PHQ-9: PHQ-9 Score PHQ-9: Total score 14 07/31/24 10:49 Depression Screening Interpretation: Positive Depression Screening Follow-up: Existing condition Thrive Assessment: Date of Thrive Assessment Date Thrive assessed 07/31/24 07/31/24 10:49 Currently or been in a relationship where the following occur: No concerns reported Const Other: General: no acute distress, well developed, alert and awake Nutritional Appearance: well nourished Orientation/consciousness: patient oriented x3 HENMT Head: Yes normocephalic and Yes atraumatic Ears: hearing grossly normal bilaterally and TM's normal bilaterally General nose exam: Normal external nose present and bilateral nares erythema with boggy turbinates Mouth: Normal oral and palatal mucosa present and moist mucous membranes Teeth and gingiva: dentition normal Throat: Yes oropharynx normal Eyes Pupils: Equal, round and reactive pupils present and Pupil accommodation reflex normal EOM: EOMs intact bilaterally Neck Neck: Yes normal visual inspection, Yes no lymphadenopathy and Yes trachea midline Thyroid: Thyroid normal Carotids: no bruits Lymphatic: no lymphadenopathy noted Chest Chest palpation & inspection: normal inspection of the chest Resp Effort & Inspection: normal respiratory effort Auscultation: clear to auscultation bilaterally Cardio Rate: regular rate Rhythm: regular rhythm Heart sounds: S1 normal heart sound present, S2 normal heart sound present, no gallops, no murmurs and no rubs GI Palpation (GI): No Abdominal aortic bruit present, Soft to palpation, nontender, No hepatosplenomegaly present and No Rebound tenderness present Auscultation: normal bowel sounds General: Yes no CVA tenderness Skin General: warm and dry. Normal skin color. Normal skin turgor Lesions: no lesions Nails: normal Results Reviewed Results Reviewed: Laboratory Tests 07/31/24 11:39 Influenza Type A (PCR) NEGATIVE Influenza Type B (PCR) NEGATIVE RSV RNA Qual (PCR) NEGATIVE SARS-CoV-2 RNA (RT-PCR) NEGATIVE Coding Level of Care Code Est Pt Level 4 (62363) Diagnoses Upper respiratory tract infection, unspecified type J06.9 URI type: unspecified URI ILD (interstitial lung disease) J84.9 [id number] syndrome U09.9 Nasal sinus congestion R09.81 Additional Codes DANIELLA-7 Assessment Billing - DANIELLA-7 Assessment Tool: DANIELLA-7 Assessment 59041 ([id number]) PHQ-9 - 49773 - PHQ-9 Billing: Yes ([id number]) Time Spent (min) 36 Assessment & Plan Assessment & Plan (1) Upper respiratory infection: Code(s): J06.9 - Acute upper respiratory infection, unspecified Category: Medical Qualifiers: URI type: unspecified URI Qualified Code(s): J06.9 - Acute upper respiratory infection, unspecified Plan: Patient has interstitial lung disease, post COVID-19 syndrome. Patient requires intermittent oxygen. Recurrent lung infection Z-Sukh ordered. Send the patient for respiratory panel (2) ILD (interstitial lung disease): Code(s): J84.9 - Interstitial pulmonary disease, unspecified Category: Medical Plan: Supplemental oxygen dependent Continue albuterol sulfate 90 mcg/actuation 1 puff inhalation q.i.d. p.r.n. Follow up with pulmonology as scheduled (3) Adgm-ZEESE-44 syndrome: Code(s): U09.9 - Post COVID-19 condition, unspecified Category: Medical Plan: Patient has longstanding lung condition after COVID infection requiring oxygen supplementation Patient is followed by pulmonology, follow up as scheduled (4) Nasal sinus congestion: Code(s): R09.81 - Nasal congestion Category: Medical Plan: Fluticasone propionate 50 mcg/actuation intranasally and loratadine 10 mg ordered Patient has Benadryl 50 mg does with the patient that she she did take the loratadine along with the Benadryl. Patient reports that he has not been taking Benadryl, he used to use it a while back for sleep Orders: Orders SARS-CoV2/FLU/RSV 07/31/24 J06.9 - Acute upper respiratory infection, unspecified Medications: New azithromycin For 250 mg dose pack: take 500 mg today (day 1), then 250 mg for 4 days (days 2-5) PO 6 tabs 0RF fluticasone propionate 50 mcg/actuation administer into each nostril 1 spray intranasal BID 16 grams 0RF loratadine (Allergy Relief (loratadine)) 10 mg PO DAILY PRN 30 tabs 0RF allergy symptoms
[2024-07-31 10:45] VITALS: BP 122/70; PULSE 77; TEMP 37.1; O2SAT 96; BMI 29.7
--- OUTSIDE RECORDS SUMMARY | 2024-07-31 11:14 | XMS_ITS | Patient Health Record ---
[facility] Address [address] [place] [address] Care Team Providers Care Organic Search Lead Name Role Phone Soy Connor Primary Care Provider Unavailab Andrea Moran Unavailable [phone] Allergies Allergen (clinical drug ingredient) Drug/Non Drug Allergy documented on EMR Reaction Allergy Type Onset Date Status Iodine red blotches Drug Allergy Acti ve Reason For Referral No Information Medications Medication SIG (Take, Route, Frequency, Duration) Notes [...] Once a day for 30 day(s) Active Social History Tobacco Use: Social History Observation Description Date Details (start date - stop date) Never Smoker NA - NA Tobacco Use/Smoking Question Answer Notes Are you a: nonsmoker Additional Findings: Tobacco Non-User Current no n-smoker Alcohol Screen Question Answer Notes Did you have a drink containing alcohol in the p ast year? Yes Points 0 Interpretation Negative Tobacco use other than smoking: Question Answer Notes Are you an other tobacco user? No Problems Problem Type SNOMED Code ICD Code Onset Dates Problem Status W/U Status Risk Notes Problem Localized, primary osteoarthritis of the ankle and/or foot ([id number]) Primary osteoarthrit is, left ankle and foot (M19.072) Active confirmed Plan Of Treatment Pending Test Test Name Order Date X ray : Foot, left 3V 07/08/2020 X ray : Foot, right 3V 07/08/2020 Insurance Providers Payer Name Payer Address Payer Phone Subscriber Number Group Number Insured Name Patient Relationship to Insured Coverage Start Date Coverage End Date [facility] [id number] [address] [place] [phone] [id number] Markus Cannon Self - patient is the insured Medical (General) History Medical History History ICD Code Anxiety Anxiety disorder Back,Hip,and Knee pain High blood pressure Kidney disease Scarlet fever Chicken pox Surgical History Surgery Date(Month/Year)
--- OUTSIDE RECORDS SUMMARY | 2024-07-31 11:14 | XMS_ITS | Clinical Summary ---
Author Organization [facility] Address [address] [place] [address] Care Team Providers Care Roller Inspector Name Role Phone Unavailable Primary Care Provider Unavailabl e Allergies Active Allergy Reactions Criticality Noted Date Comments Iodinated Contrast Media 02/01/2021 Medications Medication Sig Dispensed Refills Start Date End Date Status acetaminophen (TYLENOL) 325 MG tablet Take 2 tablets (650 mg total) by mouth every 6 (six) hours as needed. 120 tablet 0 04/07/2021 Active bisacodyl (DULCOLAX) [address] 1 suppository (10 mg total) rectally daily as needed. 12 suppository 0 04/07/2021 Active busPIRone (BUSPAR) 10 MG tablet Take 1 tablet (10 mg total) by mouth 2 (two) times a day. 90 tablet 0 04/07/2021 Active cloNIDine (CATAPRES) tablet 0.1 mg Take 1 tablet (0.1 mg total) by mouth every 8 (eight) hours. 60 tablet 0 04/07/2021 Active diphenhydrAMINE (BENADRYL) 50 MG/ML injection Inject 0.5 mL (25 mg total) into the vein every night at bedtime as needed for sleep. 10 mL 0 04/07/2021 Active escitalopram (LEXAPRO) tablet 20 mg Take 1 tablet (20 mg total) by mouth daily. 30 tablet 0 04/08/2021 Active famotidine (PEPCID) 20 MG tablet Take 1 tablet (20 mg total) by mouth 2 (two) times a day. 60 tablet 0 04/07/2021 Active furosemide (LASIX) 10 MG/ML injection Inject 2 mL (20 mg total) into the vein 2 (two) times a day. 4 mL 0 04/07/2021 Active Heparin Sodium, Porcine, (heparin, porcine,) 5000 UNIT/ML injection Inject 1 mL (5,000 Units total) under the skin every 8 (eight) hours. 1 mL 0 04/07/2021 Active hydrALAZINE (APRESOLINE) 20 MG/ML injection Inject 1 mL (20 mg total) into the vein every 6 (six) hours as needed. 1 mL 0 04/07/2021 Active ipratropium-albut buster (DUO-NEB) 0.5-2.5 mg/mL nebulizer Inhale 3 mL into the lungs every 4 (four) hours as needed. 360 mL 0 04/07/2021 Active ipratropium-albut buster (DUO-NEB) 0.5-2.5 mg/mL nebulizer Inhale 3 mL into the lungs every 4 (four) hours. 360 mL 0 04/07/2021 Active Iron-Vitamin C 65-125 MG TABS Take 1 tablet by mouth 3 (three) times a day. 1 tablet 0 04/07/2021 Active loperamide (IMODIUM) 2 MG capsule Take 1 capsule (2 mg total) by mouth every 4 (four) hours as needed for diarrhea. 30 capsule 0 04/07/2021 Active LORazepam (ATIVAN) 0.5 MG tablet Take 1 tablet (0.5 mg total) by mouth every 8 (eight) hours. 30 tablet 0 04/07/2021 Active magnesium hydroxide (MILK OF MAGNESIA) 400 MG/5ML suspension Take 30 mL by mouth 3 (three) times a day as needed for constipation. 360 mL 0 04/07/2021 Active melatonin 3 MG TABS tablet Take 1 tablet (3 mg total) by mouth every night at bedtime as needed (sleep). 1 tablet 0 04/07/2021 Active ondansetron (ZOFRAN) 4 MG/2ML injection Inject 2 mL (4 mg total) into the vein every 6 (six) hours as needed. 20 mL 0 04/07/2021 Active QUEtiapine (SEROquel) 300 MG tablet Take 1 tablet (300 mg total) by mouth every night at bedtime. 60 tablet 0 04/07/2021 Active QUEtiapine (SEROquel) [address] 1 tablet (100 mg total) into G Tube 2 (two) times a day. 60 tablet 0 04/07/2021 Active propranolol (INDERAL) 40 MG tablet Take 1 tablet (40 mg total) by mouth 2 (two) times a day. 90 tablet 0 04/07/2021 Active predniSONE (DELTASONE) 5 mg tablet Take 2 tablets (10 mg total) by mouth daily. 1 tablet 0 04/08/2021 Active potassium chloride (KLOR-CON) 20 MEQ packet Take 20 mEq by mouth 2 (two) times a day. 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 Social History Tobacco Use Types Packs/Day Years Used Date Smoking Tobacco: Never Assessed Sex and Gender Information Value Date Recorded Sex Assigned at Male 01/31/2021 2:07 PM EDT Gender Identity Not on file Sexual Orientation Not on file Job Start Date Occupation Industry Not on file Not on file Not on file Last Filed Vital Signs Vital Sign Reading Time Taken Comments Blood Pressure 121/84 04/07/2021 3:00 PM EDT Pulse 61 04/07/2021 4:00 PM EDT Temperature 36.9 ??C (98.4 ??F) 04/07/2021 12:00 PM E DT Respiratory Rate 23 04/07/2021 4:00 PM EDT Oxygen Saturation 96% 04/07/2021 4:15 PM EDT Inhaled Oxygen Concentration - - Weight 82 kg (180 lb 12.4 oz) 04/02/2021 5:00 AM EDT Height 172.7 cm (5' 8 ) 03/10/2021 2:00 AM EDT Body Mass Index 27.49 03/10/2021 2:00 AM EDT Plan of Treatment Health Maintenance Due Date Last Done Comments Hepatitis B Vaccines (1 of 3 - 3-dose series) 1970 Hepatitis C Screening 1970 COVID-19 Vaccine (#1) 03/26/1971 Pneumococcal Vaccine (1 of 2 - PCV) 1976 Depression Screening 1982 BMI Counseling 1988 Preventative Health Evaluation 1988 DTap / Tdap / Td (1 - Tdap) 1989 Colon Cancer Screening (Colonoscopy) 09/25/2015 Shingrix-Zoster Vaccine (1 of 2) 2020 Influenza Vaccine (#1) 2024 RSV Ped < 20 months Aged Out No longe r eligible based on patient's age to complete this topic Medical Devices Explanted Type Area Order Booker Device Identifier Shelf Expiration Date Model / Serial / Lot Sealant Fibrin Vistaseal 4ml [facility] [id number] - [id number] Explanted:Qt y: 1 on 02/16/2021 by Ab Goncalves MD at [facility] [place] and Med Hemostatic Agent Anterior: Trachea [employer] 08/31/2022 [id number] / [id number] / [id number] Advance Directives For more information, please contact: [phone] Latest Code Status on File Code Status Date Activated Date Inactivated Comments Full Code 01/31/2021 6:40 PM 04/07/2021 11:01 PM Thi s code status was ascertained in the following way: discussion with healthcare agency service representative .
--- OUTSIDE RECORDS SUMMARY | 2024-07-31 11:14 | XMS_ITS | Clinical Summary ---
Author Organization [facility] Address [address] [place] [address], [place] [address] Care Team Providers Care Tree Feller Name Role Phone Unavailable Primary Care Provider Unavailabl e Allergies Active Allergy Reactions Criticality Noted Date Comments Atorvastatin Other (see comments) 08/14/2020 Iodinated Contrast Media Other (see comments) 0 08/14/2020 Medications amLODIPine (NORVASC) 10 MG tablet Take 1 tablet by mouth 1 (one) time each day 08/11/2013 Active aspirin 81 MG chewable tablet 1 tablet 1 (one) time each day Active lisinopril-hydro CHLOROthiazide (PRINZIDE,ZESTOR ETIC) 20-12.5 MG per tablet Take 1 tablet by mouth 1 (one) time each day 08/11/2013 Active metoprolol succinate XL (TOPROL-XL) 100 MG 24 hr tablet Acti ve spironolactone (ALDACTONE) 25 MG tablet Take 1 tablet by mouth 1 (one) time each day 06/22/2020 Active zolpidem (AMBIEN) 10 MG tablet Take 1 tablet by mouth every night Active Active Problems Problem Noted Date Diagnosed Date Essential hypertension 08/14/2020 Family History Medical History Relation Comments Diabetes Father Cancer Mother lung cancer Relation Status Comments Father Mother Social History Tobacco Use Types Packs/Day Years Used Date Smoking Tobacco: Never Alcohol Use Standard Drinks/Week Comments Yes 0 (1 standard drink = 0.6 oz pure alcohol) Alcoholic Drinks/day: 3 or more drinks per day Sex and Gender Information Value Date Recorded Sex Assigned at Not on file Legal Sex Male 5:09 PM EST Gender Identity Not on file Sexual Orientation Not on file Plan of Treatment Health Maintenance Due Date Last Done Comments Hepatitis B Vaccine (1 of 3 - 19+ 3-dose series) 1989 Colorectal Cancer Screening: Annual FOBT 09/25/2019 Colorectal Cancer Screening: Colonoscopy 09/25/2019 Colorectal Cancer Screening: Sigmoidoscopy 09/25/2019 Influenza Vaccine (#1) 2024 Pneumococcal Vaccine: Pediat rics (0 to 5 Years) and At-Risk Patients (6 to 64 Years) Aged Out No longer eligible b ased on patient's age to complete this topic Insurance ) [id number] [employer] O ([id number])
--- OUTSIDE RECORDS SUMMARY | 2024-07-31 11:14 | XMS_ITS | Clinical Summary ---
[facility] [address] [place] [address] Care Team Providers Care Commercial Development Manager Name Role Phone Unavailable Primary Care Provider Unavailabl e Social History Tobacco Use Types Packs/Day Years Used Date Smoking Tobacco: Never Assessed Sex and Gender Information Value Date Recorded Sex Assigned at Not on file Legal Sex Male 9:55 AM EST Gender Identity Not on file Sexual Orientation Not on file Plan of Treatment Health Maintenance Due Date Last Done Comments DTaP,Tdap,and Td Vaccines (1 - Tdap) 1989 Hepatitis B Vaccines (1 of 3 - 19+ 3-dose series) 1989 Pneumococcal Vaccine: 50+ Ye ars (1 of 1 - PCV) 2020 Zoster Vaccines (1 of 2) 2020 Cholesterol Screening (Lipid Panel) 05/16/2022 Colorectal Cancer Screening: Colonoscopy 05/16/2022 Depression Screening 05/16/2022 HIV Screening 05/16/2022 Hepatitis C Screening 05/16/2022 Social Influencers of Health Screening 05/16/2022 COVID-19 Vaccine ( - 2023-2 5 season) 2024 Influenza Vaccine (#1) 2024 HIB Vaccines Aged Out No longer eligi ble based on patient's age to complete this topic HPV Vaccines Aged Out No longer eligi ble based on patient's age to complete this topic Hepatitis A Vaccines Aged Out No long er eligible based on patient's age to complete this topic IPV Vaccines Aged Out No longer eligi ble based on patient's age to complete this topic MMR Vaccines Aged Out No longer eligi ble based on patient's age to complete this topic Meningococcal ACWY Vaccine Aged Out N o longer eligible based on patient's age to complete this topic Meningococcal B Vacine Aged Out No lo nger eligible based on patient's age to complete this topic Pneumococcal Vaccine: Pediat rics (0 to 5 Years) and At-Risk Patients (6 to 64 Years) Aged Out No longer eligible b ased on patient's age to complete this topic RSV Immunization Patients Un marlo 20 months Aged Out No longer eligible b ased on patient's age to complete this topic Varicella Vaccines Aged Out No longer eligible based on patient's age to complete this topic Advance Directives Documents on File Type Date Recorded Patient Ambulance Assistant Expl anation Health Care Decision (hx) 01/15/2021 AD NILAM DIRECTIVE
--- OUTSIDE RECORDS SUMMARY | 2024-07-31 11:14 | XMS_ITS | Clinical Summary ---
Author Organization [address] Address [address] [place] [id number] Care Team Providers Care Housing And Residence Life Director Name Role Phone Soy Connor Primary Care Provider + Social History Tobacco Use Types Packs/Day Years Used Date Smoking Tobacco: Never Assessed Sex and Gender Information Value Date Recorded Sex Assigned at Not on file Legal Sex Male 8:34 AM EST Gender Identity Not on file Sexual Orientation Not on file Plan of Treatment Health Maintenance Due Date Last Done Comments HIV screening 09/25/1983 Hepatitis C screening 1988 Tetanus adult (Td q 10,TDAP once) 1990 Lipid disorder screening 2010 Colon cancer screening, Colonoscopy 09/25/2015 Diabetes screening 09/25/2015 Shingles vaccine (Shingrix) (1 of 2 - Shingrix (RZV) 2 Dose Standard Series) 2020 Influenza vaccine 01/17/2024 Covid-19 vaccine series ( - 2023-25 season) 2024 RSV Discussion (1 - 1-dose 7 5+ series) 2045 Meningococcal Vaccine Aged Out No forrest grant eligible based on patient's age to complete this topic Pneumococcal Vaccine Aged Out No long er eligible based on patient's age to complete this topic Insurance [facility] Care Teams Housing And Residence Life Director Relationship Specialty Start Date End Date Soy Connor PA PCP - General 06/01/21
== END 2024-07-31 11:21 | disposition home or self-care (01) ==
PROVIDERS: PCP Physician Assistant
DX: J06.9 Acute upper respiratory infection, unspecified (principal); J84.9 Interstitial pulmonary disease, unspecified; U09.9 Post COVID-19 condition, unspecified; R09.81 Nasal congestion

== ENCOUNTER 2024-09-08 14:17 | Outpatient (AMB) | payer OTHER, SELFPAY ==
--- NOTE | 2024-09-08 15:14 | AM.OFFWIN_ITS ---
Intake Vital Signs 09/08/24 15:16 Height 5 ft 8 in Weight 197 lb BMI 30.0 BP 138/90 H Blood Pressure Location Lt brachial Position Sitting Pulse 55 Pulse Source Pulse Oximeter Pulse Oximetry (%) 99 Oxygen Delivery Method Room Air Intake Visit Reasons: EP Fall, pain in rt hip (WC) Intake Note: Patient here for for a fall that happened almost 2 weeks ago and is now having right sided hip pain that radiates to the ankle. Patient Tobacco Use Status: Never used Tobacco Allergies bee venom protein (honey bee) Allergy (Intermediate, Verified 09/08/24 15:17) Swelling amlodipine Adverse Reaction (Intermediate, Verified 09/08/24 15:17) Pedal edema hydroxyzine Adverse Reaction (Intermediate, Verified 09/08/24 15:17) ineffective iv dye Allergy (Unknown, Uncoded 09/08/24 15:17) rash Do you need a note to return to daycare/school/sports/work: Yes HPI HPI Comments History of Present Illness Details History of Present Illness - The patient is a 53-year-old male pres enting with right hip pain following a fall in the basement about 2 weeks ago, impacting the right buttocks and thigh. - The pain is described as sharp and jenae oting, and it is aggravated by sudden movements and coughing. - The patient experiences constant disco mfort, affecting sleep and balance upon standing quickly. - The previous sensation of tingling in the feet feels comparable to the current hip issue. - Self-treatment has included Tylenol an d ibuprofen, with a noted history of prednisone use for lung issues, usually takes 40mg per day when he is prescribed it. Physical Exam General: Cooperative, healthy appearing, comfortable, no acute distress and well developed Orientation: Patient oriented x3 Limitations: No limitations Head: Normal to inspection Ears: Hearing grossly normal bilaterally Nose: Normal External nose present Face and sinus: Normal facial exam Eyes: Appearance normal, both eyes and all related structures Neck: Normal visual inspection and Yes full ROM Respiratory: Normal respiratory effort and able to speak in complete sentences. Skin: No rashes or lesions noted Neuro: Patient oriented x3 Back/Spine: no tenderness to palpation of the cervical spine, the thoracic or lumbar spine, tenderness to palpation of the right upper buttock and right lumbar back. Extremities: Normal to inspection, positive straight leg test on the right side [facility] Medical History Sepsis with acute hypoxic respiratory failure Surgical History History of ear surgery History of vasectomy History of wisdom tooth extraction Family History Father Prostate cancer Mother Lung cancer Paternal Uncle Diabetes Paternal Aunt Brain cancer Other Mental health disorder Substance use disorder Social History Household Members: Family Housing: House Alcohol intake: current Alcohol intake frequency: holidays/special occasions only Patient Tobacco Use Status: Never used Tobacco Tobacco use type: Cigarette e-Cigarette/Vaping Use: Never Used Second Hand Smoke Exposure: Yes (Mother) service: No Current occupational status: employed Cognitive needs: No Hearing needs: No Vision needs: Yes Review of Systems Const All systems reviewed & are unremarkable except as noted in HPI and below Physical Exam Vital Signs: Last Vital Signs Pulse 55 09/08/24 15:16 BP 138/90 H 09/08/24 15:16 Pulse Ox 99 09/08/24 15:16 Oxygen Delivery Method Room Air 09/08/24 15:16 BMI result Body Mass Index 30.0 Assessment & Plan Assessment & Plan (1) Left-sided low back pain with left-sided sciatica: Code(s): M54.42 - Lumbago with sciatica, left side Qualifiers: Chronicity: acute Qualified Code(s): M54.42 - Lumbago with sciatica, left side Plan: The patient's condition is assessed as sciatica secondary to fall-related trauma. Prednisone 50 mg orally each morning will be initiated to reduce nerve inflammation. The importance of avoiding nighttime doses to prevent insomnia was discussed. Aleve may be utilized for relief this evening before prednisone initiation. The patient was cautioned against concomitant use of Aleve and prednisone due to GI bleed risk, but reported no history of GI bleeding. The need for emergency intervention should bladder or bowel incontinence develop was emphasized. Patient was informed and verbally consented to the use of an ambient scribe for clinic note documentation during this visit. Medications: New prednisone 50 mg PO QAM 5 tabs 0RF Coding Level of Care Code Est Pt Level 3 (69161) Diagnoses Acute left-sided low back pain with left-sided sciatica M54.42 Chronicity: acute
[2024-09-08 15:16] VITALS: BP 138/90; PULSE 55; O2SAT 99
== END 2024-09-08 15:46 | disposition home or self-care (01) ==
PROVIDERS: PCP Physician Assistant; Visit Provider Physician Assistant
DX: M54.42 Lumbago with sciatica, left side (principal)

== ENCOUNTER → 2024-09-08 14:17 | Outpatient (BNVA) | payer OTHER, SELFPAY | PROVIDERS: PCP Physician Assistant; Visit Provider Physician Assistant | DX: M54.42 Lumbago with sciatica, left side (principal) | CPT/HCPCS: 99212 ==

== ENCOUNTER 2024-09-09 14:36 | Outpatient (AMB) | payer OTHER, SELFPAY ==
--- NOTE | 2024-09-09 14:38 | A.OFFVIS_ITS ---
Vital Signs 09/09/24 14:52 Height 5 ft 8 in Weight 197 lb BMI 30.0 BP 132/74 Blood Pressure Location Rt brachial Position Sitting Pulse 62 Pulse Source Pulse Oximeter Pulse Oximetry (%) 96 Oxygen Delivery Method Room Air Intake Visit Reasons: [place] consult Intake Note: NEW PATIENT for repeat colo. Pt did see Dr. Smyth once in 2011. Has not seen GI since then. Recall was sent out 2021, no response from patient. Chief Complaint; Pt denies any GI concerns at this time. Ultimate Hoops Referee Required: No Accompanied by: Self / Same As Patient Allergies bee venom protein (honey bee) Allergy (Intermediate, Verified 09/09/24 14:39) Swelling Iodinated Contrast Media Allergy (Unknown, Verified 09/09/24 14:40) Rash amlodipine Adverse Reaction (Intermediate, Verified 09/09/24 14:39) Pedal edema hydroxyzine Adverse Reaction (Intermediate, Verified 09/09/24 14:39) ineffective HPI HPI [place] consult: Details: 53 year old? male with past medical history of sciatica, upper respiratory infection, respiratory distress, adrenal insufficiency, hypercholesteremia, hypertension, interstitial lung disease, respiratory failure due to COVID infection in 2020 is here today for pre colonoscopy screening.? Patient was sent to us by his PCP.? Last colonoscopy when he was 45 for symptoms of rectal bleed. Normal colonoscopy then.? Patient denies any gastrointestinal symptoms in the past or at present.? Denies any personal or family history of gastrointestinal disease, colon polyps, or CRC.? Denies history of difficulty with sedation or anesthesia in the past.? Negative for history of sleep apnea.? Denies any history of cardiac, renal or hepatic disease.?? Patient denies any shortness of breath or discomfort at this time. Currently is following up with his warehouse helper every 6 months. As mentioned above patient had respiratory failure due to COVID. Patient was trached and placed on ECMO for 3 months. Currently patient is using oxygen as needed. Occasionally uses during the day after he exerts himself and also sometimes at night time.. No history of infectious? diseases like hepatitis HIV or tuberculosis.? Patient is not on any anticoagulation [facility] Medical History Sepsis with acute hypoxic respiratory failure Surgical History (Updated 09/09/24 @ 14:53 by KELLI Dahl) Hx of colonoscopy S/P emergency tracheotomy for assistance in breathing History of ear surgery History of vasectomy History of wisdom tooth extraction Family History Father Prostate cancer Mother Lung cancer Paternal Uncle Diabetes Paternal Aunt Brain cancer Other Mental health disorder Substance use disorder Social History Household Members: Family Housing: House Alcohol intake: current Alcohol intake frequency: holidays/special occasions only Patient Tobacco Use Status: Never used Tobacco Tobacco use type: Cigarette e-Cigarette/Vaping Use: Never Used Second Hand Smoke Exposure: Yes (Mother) service: No Current occupational status: employed Cognitive needs: No Hearing needs: No Vision needs: Yes Physical Exam Vital Signs: Last Vital Signs Pulse 62 09/09/24 14:52 BP 132/74 09/09/24 14:52 Pulse Ox 96 09/09/24 14:52 Oxygen Delivery Method Room Air 09/09/24 14:52 BMI result Body Mass Index 30.0 Const General: healthy appearing, no acute distress and well developed Nutritional Appearance: well nourished and obese Orientation/consciousness: patient oriented x3 Resp Effort & Inspection: normal respiratory effort, able to speak in complete sentences, no tracheal deviation and symmetric chest movement Auscultation: clear to auscultation bilaterally Cardio Rate: regular rate GI Inspection: Yes normal to inspection, No distended and Yes obesity Palpation (GI): Soft to palpation, not firm, nontender and No hepatosplenomegaly present Auscultation: normal bowel sounds General: Yes no CVA tenderness Back/Spine/Pelvis Back: no CVA tenderness Skin General skin exam: elasticity normal, turgor normal and dry skin Neuro General: patient oriented x3 Psych Appearance: grossly normal Mental Status: mental status grossly normal Assessment & Plan Assessment & Plan (1) Colon cancer screening: Code(s): Z12.11 - Encounter for screening for malignant neoplasm of colon Category: Medical Plan Denies any issues with anesthesia in the past.? Denies any history of sleep apnea.? No history infectious diseases in the past or present.? Not on any anticoagulation therapy.? Patient had COVID in 2020, and did with respiratory failure, emergency trach. Patient was on ECMO for about 3 months. Patient reports shortness of breath with exertion. Uses p.r.n. oxygen at night time and during the day when needed. No family or personal history of colon cancer or polyps.? Patient denies melena, hematochezia, unintentional weight loss or ribbon like stools.? Discussed at length the pre-procedure,? prep, diet & medications as well as what to expect prior, during and after the procedure.?? Stressed the importance of good bowel prep.? Recommended the use of Vaseline or Calmoseptine OTC & baby wipes with bowel movements to promote comfort.? ?Patient verbalizes understanding and agrees to plan of care.? He was given the opportunity to ask questions and all questions answered.? We will see him after the procedure.? Medications: New bisacodyl (Dulcolax (bisacodyl)) take 4 tabs at noon the day before your colonoscopy 20 mg (4 x 5 mg) PO ONCE 1 day 4 tabs 0RF Z12.11 - Encounter for screening for malignant neoplasm of colon polyethylene glycol 3350 (Miralax) As directed by gastro[facility]ology department at [facility] 238 grams PO ONCE 238 grams 0RF Z12.11 - Encounter for screening for malignant neoplasm of colon Coding Level of Care Code New Pt Level 3 (75720) Diagnoses Colon cancer screening Z12.11 Time Spent (min) 40 Comment 30 minutes spent with patient and additional 10 minutes spent reviewing his records
[2024-09-09 14:52] VITALS: BP 132/74; PULSE 62; O2SAT 96
--- OUTSIDE RECORDS SUMMARY | 2024-09-09 18:20 | XMS_ITS | Patient Health Record ---
[facility] Address [address] [place] [address] Care Team Providers Care Membership Coordinator Name Role Phone Soy Connor Primary Care Provider Unavailab Andrea Moran Unavailable [phone] Allergies Allergen (clinical drug ingredient) Drug/Non Drug [...] primary osteoarthritis of the ankle and/or foot ([id number]) Primary osteoarthrit is, left ankle and foot (M19.072) Active confirmed Plan Of Treatment Pending Test Test Name Order Date X ray : Foot, left 3V 07/08/2020 X ray : Foot, right 3V 07/08/2020 Insurance Providers Payer Name Payer Address Payer Phone Subscriber Number Group Number Insured Name Patient Relationship to Insured Coverage Start Date Coverage End Date [facility] [id number] [address] [place] [address] [id number] Markus Cannon Self - patient is the insured Medical (General) History Medical History History ICD Code Anxiety Anxiety disorder Back,Hip,and Knee pain High blood pressure Kidney disease Scarlet fever Chicken pox Surgical History Surgery Date(Month/Year)
--- OUTSIDE RECORDS SUMMARY | 2024-09-09 18:20 | XMS_ITS | Clinical Summary ---
Author Organization [facility] Address [address] [place] [address] Care Team Providers Care Coordinate Measuring Machine Programmer Name Role Phone Unavailable Primary Care Provider [...] Documents on File Type Date Recorded Patient Digital Imager Expl anation Health Care Decision (hx) 01/15/2021 AD NILAM DIRECTIVE
--- OUTSIDE RECORDS SUMMARY | 2024-09-09 18:20 | XMS_ITS | Clinical Summary ---
Author Organization [facility] Address [address] [place] [address], [place] [address] Care Team Providers Care Design Painter Name Role Phone Unavailable Primary Care Provider [...] age to complete this topic Insurance ) [id number] [employer] O ([id number])
--- OUTSIDE RECORDS SUMMARY | 2024-09-09 18:20 | XMS_ITS | Clinical Summary ---
Author Organization [address] Address [address] [place] [phone] Care Team Providers Care Dye Box Operator Name Role Phone Soy Cononr Primary Care Provider + Social History Tobacco [...] 2020 Influenza vaccine 01/17/2024 Covid-19 vaccine series (1 - 2023-25 season) 2024 Pneumococcal Vaccine (50+ ye ars) (1 of 1 - PCV) 09/25/2035 RSV Immunization (1 - 1-dose 75+ series) 2045 Meningococcal Vaccine Aged Out No forrest grant eligible based on patient's age to complete this topic Pneumococcal Vaccine (2 - 49 years) Aged Out No longer eligible based on patient's age to complete this topic Insurance [facility] Care Teams Dye Box Operator Relationship Specialty Start Date End Date Soy Connor PA PCP - General 06/01/21
--- OUTSIDE RECORDS SUMMARY | 2024-09-09 18:20 | XMS_ITS | Clinical Summary ---
Author Organization [facility] Address [address] [place] [address] Care Team Providers Care Soup Person Name Role Phone Unavailable Primary Care Provider [...] this topic Medical Devices Explanted Type Area Gill Box Operator Device Identifier Shelf Expiration Date Model / Serial / Lot Sealant Fibrin Vistaseal 4ml [facility]-[employer] [id number] - [id number] Explanted:Qt y: 1 on 02/16/2021 by Ab Goncalves MD at [facility] [place] and Med Hemostatic Agent Anterior: Trachea [employer] 08/31/2022 [id number] / [id number] / [id number] Advance Directives For more information, please contact: [phone] Latest Code Status on File Code Status Date Activated Date Inactivated Comments Full Code 01/31/2021 6:40 PM 04/07/2021 11:01 PM Thi s code status was ascertained in the following way: discussion with healthcare pharmaceutical representative .
== END 2024-09-09 15:32 | disposition home or self-care (01) ==
LOC: HO.HGI 14:37
PROVIDERS: PCP Physician Assistant; Visit Provider Nurse Practitioner Family
DX: Z01.818 Encounter for other preprocedural examination (principal); Z12.11 Encounter for screening for malignant neoplasm of colon
CPT/HCPCS: 99202

== ENCOUNTER → 2024-09-09 14:36 | Outpatient (BNVA) | payer OTHER, SELFPAY | PROVIDERS: PCP Physician Assistant; Visit Provider Nurse Practitioner Family | DX: Z01.818 Encounter for other preprocedural examination (principal) | CPT/HCPCS: 99202 ==

== ENCOUNTER 2024-10-07 13:45 | Outpatient (AMB) | payer OTHER, SELFPAY ==
[2024-10-07 13:48] VITALS: BP 168/100; PULSE 65; O2SAT 95; BMI 30.4
--- NOTE | 2024-10-07 13:48 | A.OFFVIS_ITS ---
Vital Signs 10/07/24 13:48 Height 5 ft 8 in Weight 200 lb BMI 30.4 BP 168/100 H Blood Pressure Location Lt brachial Position Sitting Pulse 65 Pulse Source Doppler Pulse Oximetry (%) 95 Oxygen Delivery Method Room Air Intake Visit Reasons: dyspnea Allergies bee venom protein (honey bee) Allergy (Intermediate, Verified 09/09/24 14:39) Swelling Iodinated Contrast Media Allergy (Unknown, Verified 09/09/24 14:40) Rash amlodipine Adverse Reaction (Intermediate, Verified 09/09/24 14:39) Pedal edema hydroxyzine Adverse Reaction (Intermediate, Verified 09/09/24 14:39) ineffective HPI HPI dyspnea: Details: 54-year-old gentleman, nonsmoker, with underlying history of severe COVID starting end of December 2020 requiring VV ECMO for 10 weeks at [facility], status post trach and PEG discharge to [facility] in March of 2021, tracheostomy decannulated end of May 2021, discharged from [facility] being June of 2021 on supplemental oxygen 3 L continuous flow with exertion and 1L at rest.? Treated with prednisone 1 milligram/kilogram with initial improvement in his lung function with improvement that has plateaued since about December of 2021.?His exercise tolerance improved after pulmonary rehab, however he still intermittently requires supplemental oxygen and uses supplemental oxygen at night. He denies recent exacerbations. [facility] Medical History Sepsis with acute hypoxic respiratory failure Surgical History (Updated 09/09/24 @ 14:53 by KELLI Dahl) Hx of colonoscopy S/P emergency tracheotomy for assistance in breathing History of ear surgery History of vasectomy History of wisdom tooth extraction Family History Father Prostate cancer Mother Lung cancer Paternal Uncle Diabetes Paternal Aunt Brain cancer Other Mental health disorder Substance use disorder Social History Household Members: Family Housing: House Alcohol intake: current Alcohol intake frequency: holidays/special occasions only Patient Tobacco Use Status: Never used Tobacco Tobacco use type: Cigarette e-Cigarette/Vaping Use: Never Used Second Hand Smoke Exposure: Yes (Mother) service: No Current occupational status: employed Cognitive needs: No Hearing needs: No Vision needs: Yes Review of Systems Const Denies daytime sleepiness, Denies excessive sweating, Denies fatigue, Denies fever(s), Denies lethargy, Denies malaise, Denies night sweats, Denies snoring and Denies weight loss Eyes Denies blurry vision and Denies itchy eyes ENT Denies nasal congestion, Denies post nasal drip, Denies sinus pain, Denies sinus pressure and Denies other ( Thrush) Card Denies chest pain, Denies pedal edema, Denies dyspnea, Denies orthopnea and Denies paroxysmal nocturnal dyspnea Resp Denies cough, Denies hemoptysis, Denies excessive phlegm production, Denies dyspnea, Denies snoring and Denies wheezing GI Denies abdominal pain and Denies heartburn Musc Denies myalgias, Denies arthralgias and Denies joint swelling Skin/Breast Denies rash Neuro Denies memory loss and Denies seizure-like activity Psych Denies abnormal sleep pattern, Denies anxiety and Denies memory loss Endo Denies excessive sweating, Denies fatigue and Denies heat intolerance Eleno/Lymph Denies easy bruising Aller/Immun Denies itchy eyes, Denies seasonal rhinorrhea and Denies wheezing Physical Exam Vital Signs: Last Vital Signs Pulse 65 10/07/24 13:48 BP 168/100 H 10/07/24 13:48 Pulse Ox 95 10/07/24 13:48 Oxygen Delivery Method Room Air 10/07/24 13:48 BMI result Body Mass Index 30.4 Const General: no acute distress and alert Nutritional Appearance: not obese Orientation/consciousness: Other orientation findings ( oriented) HEENT Head: Yes atraumatic Eyes General: appearance normal, both eyes and all related structures Sclerae: sclerae normal EOM: EOMs intact bilaterally Neck Neck: Yes supple Lymphatic: no lymphadenopathy noted Resp Effort & Inspection: normal respiratory effort and no use of accessory muscles Auscultation: clear to auscultation bilaterally Cardio Rate: regular rate Rhythm: regular rhythm Heart sounds: no gallops, no murmurs and no rubs Skin General skin exam: other ( warm) Extrem General: No clubbing, No cyanosis and No edema Assessment & Plan Assessment & Plan (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 Continues to intermittently require oxygen during the day and essentially at night. Symptoms are stable at this time. Repeat PFT and CT chest in March of 2025. Orders: Orders PFT pulmonary function test 04/08/25 J84.9 - Interstitial pulmonary disease, unspecified CT chest wo IV con 04/08/25 J84.9 - Interstitial pulmonary disease, unspecified Coding Level of Care Code Est Pt Level 4 (74238) Complex EM visit Add On G2211 Diagnoses [id number] syndrome U09.9 ILD (interstitial lung disease) J84.9 Supplemental oxygen dependent Z99.81
--- OUTSIDE RECORDS SUMMARY | 2024-10-07 16:23 | XMS_ITS | Patient Health Record ---
[facility] Address [address] [place] [address] Care Team Providers Care Corporate Services Manager Name Role Phone Soy Connor Primary Care Provider Unavailab Andrea Moran Unavailable [phone] Allergies Allergen (clinical drug ingredient) Drug/Non Drug [...] primary osteoarthritis of the ankle and/or foot (830615980) Primary osteoarthrit is, left ankle and foot (M19.072) Active confirmed Plan Of Treatment Pending Test Test Name Order Date X ray : Foot, left 3V 07/08/2020 X ray : Foot, right 3V 07/08/2020 Insurance Providers Payer Name Payer Address Payer Phone Subscriber Number Group Number Insured Name Patient Relationship to Insured Coverage Start Date Coverage End Date [facility] [id number] [address] [place] [address] [id number] Markus Cannon Self - patient is the insured Medical (General) History Medical History History ICD Code Anxiety Anxiety disorder Back,Hip,and Knee pain High blood pressure Kidney disease Scarlet fever Chicken pox Surgical History Surgery Date(Month/Year)
--- OUTSIDE RECORDS SUMMARY | 2024-10-07 16:23 | XMS_ITS | Clinical Summary ---
[facility] Address [address] [place] [address] Care Team Providers Care Roll Edge Machine Operator Name Role Phone Unavailable Primary Care [...] - 2023-2 5 season) 2024 Influenza Vaccine (Season Ended) 2025 HIB Vaccines Aged Out No longer eligi [...] age to complete this topic Meningococcal B Vaccine Aged Out No l onger eligible based on patient's age to complete [...] Documents on File Type Date Recorded Patient Adjunct Instructor Expl anation Health Care Decision (hx) 01/15/2021 AD NILAM DIRECTIVE
--- OUTSIDE RECORDS SUMMARY | 2024-10-07 16:23 | XMS_ITS | Clinical Summary ---
Author Organization [address] Address [address] [place] [id number] Care Team Providers Care Pointer Helper Name Role Phone Soy Connor Primary Care [...] cancer screening, Colonoscopy 09/25/2015 Diabetes screening 09/25/2015 Pneumococcal Vaccine (50+ ye ars) (1 of 1 - PCV) 2020 Shingles vaccine (Shingrix) (1 of 2 - Shingrix (RZV) 2 Dose Standard Series) 2020 Covid-19 vaccine series (1 - 2023-25 season) 2024 Influenza vaccine 02/16/2025 RSV Immunization (1 - 1-dose 75+ series) 2045 Meningococcal Vaccine Aged Out No forrest grant eligible based on patient's age to complete this topic Pneumococcal Vaccine (2 - 49 years) Aged Out No longer eligible based on patient's age to complete this topic Insurance [facility] Care Teams Pointer Helper Relationship Specialty Start Date End Date Soy Connor PA PCP - General 06/01/21
--- OUTSIDE RECORDS SUMMARY | 2024-10-07 16:23 | XMS_ITS | Clinical Summary ---
Author Organization [facility] Address [address] [place] [address], [place] [address] Care Team Providers Care Securities Research Analyst Name Role Phone Unavailable Primary Care Provider [...] (1 of 3 - 19+ 3-dose series) 09/24 Colorectal Cancer Screening: Annual FOBT 09/25/2019 Colorectal Cancer Screening: Colonoscopy 09/25/2019 Colorectal Cancer Screening: Sigmoidoscopy 09/25/2019 Pneumococcal Vaccine: 50+ Years (1 of 1 - PCV) 021 Influenza Vaccine (Season Ended) 2025 Insurance [facility] Choice O ([id number]) [facility] Choice O ([id number])
--- OUTSIDE RECORDS SUMMARY | 2024-10-07 16:23 | XMS_ITS | Clinical Summary ---
Author Organization [facility] Address [address] [place] [address] Care Team Providers Care Test And Balance Engineer Name Role Phone Unavailable Primary Care Provider [...] this topic Medical Devices Explanted Type Area Cellar Worker Device Identifier Shelf Expiration Date Model / Serial / Lot Sealant Fibrin Vistaseal 4ml [facility] [id number] - [id number] Explanted:Qt y: 1 on 02/16/2021 by Ab Goncalves [place] [facility] Hemostatic Agent Anterior: Trachea [employer] 08/31/2022 [id number] / [id number] / [id number] Advance Directives For more information, please contact: [phone] Latest Code Status on File Code Status Date Activated Date Inactivated Comments Full Code 01/31/2021 6:40 PM 04/07/2021 11:01 PM Thi s code status was ascertained in the following way: discussion with healthcare inside sales account representative .
== END 2024-10-07 14:02 | disposition home or self-care (01) ==
LOC: HO.HPS 13:46
PROVIDERS: PCP Physician Assistant; Visit Provider Internal Medicine Pulmonary Disease
DX: U09.9 Post COVID-19 condition, unspecified (principal); J84.9 Interstitial pulmonary disease, unspecified; Z99.81 Dependence on supplemental oxygen
CPT/HCPCS: 99214; G2211

== ENCOUNTER → 2024-10-07 13:45 | Outpatient (BNVA) | payer OTHER, SELFPAY | PROVIDERS: PCP Physician Assistant; Visit Provider Internal Medicine Pulmonary Disease | DX: U09.9 Post COVID-19 condition, unspecified (principal); J84.9 Interstitial pulmonary disease, unspecified; Z99.81 Dependence on supplemental oxygen | CPT/HCPCS: 99212 ==

== ENCOUNTER 2024-10-10 10:44 | Outpatient (REF) | payer OTHER, SELFPAY ==
--- NOTE | ~2024-10-10 | XR_ITS ---
EXAMINATION: XR LUMBOSACRAL SPINE CLINICAL INFORMATION: M54.42 - Lumbago with sciatica, left side COMPARISON: 05/09/2024. TECHNIQUE: 6 views of the lumbar spine, inclusive of bilateral oblique views, were obtained. FINDINGS: There is no scoliosis. There is mild straightening of the normal lordosis. There is no subluxation. There are no compression deformities, fractures, or suspicious bone lesions. There is moderate to severe disc degeneration focally at L5-S1. There is otherwise mild disc degeneration T12-L3. There is normal facet alignment. There are mild facet degenerative changes L4-S1. Oblique views demonstrate no evidence of pars defects. The sacrum and SI joints appear normal. No soft tissue abnormalities. XR/XR lumbar spine 4V min IMPRESSION: 1. No acute bony abnormalities. 2. Mild to moderate lumbar spondylosis most significant at L5-S1. No significant interval change from 05/09/2024. Electronically signed by: Ankush Cooper MD 10/13/2024 02:40 PM EDT
--- NOTE | ~2024-10-10 | XR_ITS ---
EXAMINATION: XR HIP, RIGHT CLINICAL INFORMATION: M54.42 - Lumbago with sciatica, left side COMPARISON: 04/17/2016. TECHNIQUE: AP pelvis, and 2 views of the right hip. FINDINGS: No fracture, dislocation, or suspicious bone lesion. There is normal alignment. Preserved joint space. There is posterior acetabular over coverage in both hips, finding which can be associated with pincer-type CAMPBELL. Otherwise, there is only minimal degenerative arthritis in both hip joints. The sacrum and SI joints appear normal. The lower lumbar spine appears grossly normal. No soft tissue abnormalities. XR/XR hip RT w PEL1V IMPRESSION: No acute findings right hip. Posterior acetabular over-coverage of both hips, an incidental finding which can be associated with pincer-type CAMPBELL. Electronically signed by: Ankush Cooper MD 10/13/2024 02:33 PM EDT
--- OUTSIDE RECORDS SUMMARY | 2024-10-10 11:28 | XMS_ITS | Clinical Summary ---
Author Organization [facility] Address [address] [place] [address], [place] [address] Care Team Providers Care Risk Control Consultant Name Role Phone Unavailable Primary Care Provider [...] 021 Influenza Vaccine (Season Ended) 2025 Insurance [facility] Choice O ([id number]) [facility] Choice O ([id number])
--- OUTSIDE RECORDS SUMMARY | 2024-10-10 11:28 | XMS_ITS | Clinical Summary ---
Author Organization [address] Address [address] [place] [address] Care Team Providers Care Computer Operations Supervisor Name Role Phone Soy Connor Primary Care [...] patient's age to complete this topic Insurance [facility] Care Teams Computer Operations Supervisor Relationship Specialty Start Date End Date Soy Connor PA PCP - General 06/01/21
--- OUTSIDE RECORDS SUMMARY | 2024-10-10 11:28 | XMS_ITS | Clinical Summary ---
[facility] Address [address] [place] [address] Care Team Providers Care Director Of Market Analysis Name Role Phone Unavailable Primary Care Provider [...] Documents on File Type Date Recorded Patient Natural Resource Specialist Expl anation Health Care Decision (hx) 01/15/2021 AD NILAM DIRECTIVE
--- OUTSIDE RECORDS SUMMARY | 2024-10-10 11:28 | XMS_ITS | Clinical Summary ---
Author Organization [facility] Address [address] [place] [address] Care Team Providers Care Fitness Coordinator Name Role Phone Unavailable Primary Care Provider [...] this topic Medical Devices Explanted Type Area Vein Access Technician Device Identifier Shelf Expiration Date Model / Serial / Lot Sealant Fibrin Vistaseal 4ml [facility] [id number] - [id number] Explanted:Qt y: 1 on 02/16/2021 by Ab Goncalves MD at [facility] [place] [place] Hemostatic Agent Anterior: Trachea [employer] 08/31/2022 [id number] / [id number] / [id number] Advance Directives For more information, please contact: [phone] Latest Code Status on File Code Status Date Activated Date Inactivated Comments Full Code 01/31/2021 6:40 PM 04/07/2021 11:01 PM Thi s code status was ascertained in the following way: discussion with healthcare access services representative .
--- OUTSIDE RECORDS SUMMARY | 2024-10-10 11:29 | XMS_ITS | Patient Health Record ---
[facility] Address [address] [place] [address] Care Team Providers Care Washcloth Folder Name Role Phone Soy Connor Primary Care Provider UnavailAndrea Musa Unavailable [phone] Allergies Allergen (clinical drug ingredient) Drug/Non Drug [...] primary osteoarthritis of the ankle and/or foot (479166593) Primary osteoarthrit is, left ankle and foot (M19.072) Active confirmed Plan Of Treatment Pending Test Test Name Order Date X ray : Foot, left 3V 07/08/2020 X ray : Foot, right 3V 07/08/2020 Insurance Providers Payer Name Payer Address Payer Phone Subscriber Number Group Number Insured Name Patient Relationship to Insured Coverage Start Date Coverage End Date [facility] [id number] [address] [place] [address] [id number] Markus Cannon Self - patient is the insured Medical (General) History Medical History History ICD Code Anxiety Anxiety disorder Back,Hip,and Knee pain High blood pressure Kidney disease Scarlet fever Chicken pox Surgical History Surgery Date(Month/Year)
== END 2024-10-10 10:45 | disposition home or self-care (01) ==
LOC: HO.XRAY 10:44
PROVIDERS: PCP Physician Assistant; Visit Provider Physician Assistant
DX: M54.42 Lumbago with sciatica, left side (principal); M25.551 Pain in right hip
CPT/HCPCS: 72110; 73502

== ENCOUNTER → 2024-10-10 10:48 | Outpatient (BNV) | payer OTHER, SELFPAY | PROVIDERS: PCP Physician Assistant; Visit Provider Radiology Diagnostic Radiology | DX: M47.816 Spondylosis without myelopathy or radiculopathy, lumbar region (principal); Q65.89 Other specified congenital deformities of hip | CPT/HCPCS: 72110; 73502 ==

== ENCOUNTER 2024-10-21 16:02 | Outpatient (AMB) | payer OTHER, SELFPAY ==
[2024-10-21 16:05] VITALS: BP 152/100; PULSE 65; TEMP 36.2; O2SAT 93; BMI 30.6
--- NOTE | 2024-10-21 16:05 | A.OFFPC_ITS ---
Vital Signs 10/21/24 16:05 Height 5 ft 8 in Weight 201 lb 8 oz BMI 30.6 BP 152/100 H Blood Pressure Location Lt brachial Position Sitting Pulse 65 Pulse Source Pulse Oximeter Temp 97.1 F Temp Source Temporal Artery Scan Pulse Oximetry (%) 93 Oxygen Delivery Method Room Air Intake Visit Reasons: annual exam Relay Shop Supervisor Required: No Accompanied by: Self / Same As Patient Allergies bee venom protein (honey bee) Allergy (Intermediate, Verified 10/21/24 16:25) Swelling Iodinated Contrast Media Allergy (Unknown, Verified 10/21/24 16:25) Rash amlodipine Adverse Reaction (Intermediate, Verified 10/21/24 16:25) Pedal edema hydroxyzine Adverse Reaction (Intermediate, Verified 10/21/24 16:25) ineffective Medication List - Last Reconciled 10/21/24 by Soy Connor PA-C albuterol sulfate 90 mcg/actuation 1 puff inhalation QID PRN ascorbic acid (vitamin C) 1 g PO DAILY bisacodyl (Dulcolax (bisacodyl)) 20 mg (4 x 5 mg) PO ONCE 1 day cholecalciferol (vitamin D3) 50 mcg PO DAILY cyclobenzaprine 5 mg PO BEDTIME 10 days diphenhydramine HCl (Benadryl Allergy) 50 mg PO BEDTIME PRN doxazosin 2 mg PO DAILY fluticasone propionate 50 mcg/actuation 1 spray intranasal BID lisinopril 40 mg PO DAILY 90 days loratadine (Allergy Relief (loratadine)) 10 mg PO DAILY PRN lorazepam 0.5 mg PO BID PRN 7 days metoprolol succinate ER 50 mg PO DAILY 90 days omega-3 fatty acids 1,000 mg PO DAILY polyethylene glycol 3350 (Miralax) 238 grams PO ONCE potassium chloride (Klor-Con) 20 mEq PO DAILY quetiapine (Seroquel) 50 mg PO BEDTIME 30 days spironolactone 25 mg PO DAILY zinc gluconate 50 mg PO DAILY Tobacco use date assessed: 07/31/24 Dental Screening Dental Screen Date: 07/31/24 HPI annual exam HPI Details patient is a 54-year-old male here today for routine annual physical. ? Patient has a past medical history significant for essential hypertension hyperlipidemia, impaired fasting blood sugar, interstitial lung disease, severe post COVID syndrome Concerns--> he reports he has fallen about 6-8 weeks ago injuring his right hip. He was seen at urgent care and was given prednisone which did immediately reduce his pain and radicular symptoms down right lateral lower extremity. Fidelina rodriguez continues to have pretty debilitating right lateral hip pain, lateral thigh pain that radiates down into his foot. X-rays of his hip were essentially stable and lower back did show spondylosis of L5-S1. Signs and symptoms concerning for a disc herniation particularly in the L5-S1 region .. Chest pain: He does also report continuing to have a bit more frequent episodes of vague dull chest pain over his left upper chest. PLAN: In the setting of chronic high blood pressure will try to send for nuclear stress test to evaluate for cardiac ischemia on physical exertion. .. ?hypertension: Patient's blood pressure today in office elevated, blood pressure at Nephrology office today was normal. He reports being under some stress at this time due to financial issues. He reports normally his blood pressures at home are 130 systolic he reports that home / pulmonary rehab blood pressures have been 120s over 80s. He continues on doxazosin, lisinopril, Aldactone and metoprolol .. ?interstitial lung disease:? secondary to a severe COVID infection requiring intubation and ventilation. , patient now followed by pulmonology and continues with pulmonary rehab.? Still using supplemental oxygen as needed particularly on exertional activities. Has been referred to lung transplant team at [facility] and seems to be a candidate for lung transplant. ---> he now does not work as he is been laid off from his job. Was unable to work full-time due to brain fog, fatigue secondary to his severe lung disease. His recent pulmonary function testing showing improved lung capacity .. ? Generalized anxiety disorder; he reports his generalized anxiety has been well controlled and now is off of Lexapro.? Due to personal and employment stress he has been experiencing more anxiety. We have tried hydroxyzine to help him sleep though reports it was not effective on keeping him sleep the whole night. He reports Seroquel 50 mg has been working fairly decent for his sleep. Colon cancer screening: Has upcoming appointment for colonoscopy Vaccines: Up-to-date with COVID vaccine, pneumonia vaccine, needs up-to-date tetanus, considering shingles vaccine. [facility] Medical History Sepsis with acute hypoxic respiratory failure Surgical History Hx of colonoscopy S/P emergency tracheotomy for assistance in breathing History of ear surgery History of vasectomy History of wisdom tooth extraction Family History Father Prostate cancer Mother Lung cancer Paternal Uncle Diabetes Paternal Aunt Brain cancer Other Mental health disorder Substance use disorder Social History Household Members: Family Housing: House Alcohol intake: current Alcohol intake frequency: holidays/special occasions only Patient Tobacco Use Status: Never used Tobacco Tobacco use type: Cigarette e-Cigarette/Vaping Use: Never Used Second Hand Smoke Exposure: Yes (Mother) service: No Current occupational status: employed Cognitive needs: No Hearing needs: No Vision needs: Yes Questionnaire PHQ-9 Over the last 2 weeks, how often have you been bothered by any of the following problems? 1. Little interest or pleasure in doing things: not at all 2. Feeling down, depressed, or hopeless: not at all 3. Trouble falling or staying asleep, or sleeping too much: nearly every day 4. Feeling tired or having little energy: nearly every day 5. Poor appetite or overeating: not at all 6. Feeling bad about yourself - or that you are a failure or have let yourself or your family down: not at all 7. Trouble concentrating on things, such as reading the newspaper or watching television: nearly every day 8. Moving or speaking so slowly that other people could have noticed. Or the opposite - being so fidgety or restless that you have been moving around a lot more than usual: not at all 9. Thoughts that you would be better off or of hurting yourself in some way: not at all Total score: 9 Depression Screening Interpretation: Positive Depression Screening Follow-up: Existing condition Depression Screening Done: Yes 73728 - PHQ-9 Billing: Yes Source: Developed by Drs. Ab Pool, Noreen Lucero, Milind Lundberg and colleagues, with an educational luis a from [employer]. Thrive Questionnaire Date Thrive assessed: 10/21/24 I am a: Patient What is your living situation today?: I choose not to answer this question Within the past 12 months, did the food you bought not last and you didn't have the money to get more?: I choose not to answer this question Within the past 12 months, did you worry whether your food would run out before you got money to buy more?: I choose not to answer this question Do you have trouble paying for medicines?: I choose not to answer this question Do you have trouble getting transportation to medical appointments?: I choose not to answer this question Do you have trouble paying your heating and electricity bill?: Yes Do you have trouble taking care of your child, family member or friend?: I choose not to answer this question Do you have trouble with day-to-day activities such as bathing, preparing meals, shopping, managing finances, etc.?: I choose not to answer this question Are you currently unemployed and looking for a job?: Yes Are you interested in more education?: Yes Please select the resources that you would like help with: Utilities and Education Currently or been in a relationship where the following occur: No concerns reported THRIVE Score: 1 AUDIT C Alcohol Use Questionnaire (AUDIT-C) 1. How often do you have a drink containing alcohol?: Never 3. How often do you have six or more drinks on one occasion?: Never Total Score: 0 DANIELLA-7 AMB Questionnaire DANIELLA-7 Date DANIELLA - 7 assessed: 10/21/24 Feeling nervous, anxious, or on edge: 2 = More than half the days Not being able to stop or control worryin = More than half the days Worrying too much about different things: 2 = More than half the days Trouble relaxin = Several days Being so restless that it is hard to sit still: 1 = Several days Becoming easily annoyed or irritable: 1 = Several days Feeling afraid as if something awful might happen: 1 = Several days Total DANIELLA-7 score (0-4 normal; 5-9 mild; 10-14 moderate; 15-21 severe): 10 Source: Developed by Drs. Ab Pool, Noreen Lucero, Milind Lundberg and colleagues, with an educational luis a from [employer]. DANIELLA-7 Assessment Billing DANIELLA-7 Assessment Tool: DANIELLA-7 Assessment 20404 Review of Systems Const Denies excessive sweating, Denies fatigue and Denies headache(s) Eyes Denies loss of vision ENT Denies vertigo, Denies dizziness, Denies headache(s) and Denies sore throat Card Denies chest pain, Denies leg edema and Denies lightheadedness Resp Denies cough, Denies hemoptysis and Denies wheezing GI Denies abdominal pain, Denies melena, Denies constipation, Denies diarrhea and Denies vomiting Denies dysuria, Denies urinary frequency and Denies urinary urgency Musc Denies arthralgias, Denies joint swelling, Denies numbness and Denies tingling Skin/Breast Denies rash and Denies skin ulcer Neuro Denies Abnormal speech present, Denies behavioral changes, Denies vertigo, Denies dizziness, Denies headache(s), Denies loss of vision, Denies memory loss, Denies numbness and Denies tingling Psych Denies anxiety, Denies behavioral changes, Denies depression, Denies memory loss and Denies panic attacks Endo Denies excessive sweating, Denies fatigue, Denies flushing, Denies polydipsia and Denies polyuria Eleno/Lymph Denies easy bleeding and Denies easy bruising Aller/Immun Denies wheezing Physical exam (Primary Care) Vital Signs: Last Vital Signs Temp 97.1 F 10/21/24 16:05 Pulse 65 10/21/24 16:05 BP 152/100 H 10/21/24 16:05 Pulse Ox 93 10/21/24 16:05 Oxygen Delivery Method Room Air 10/21/24 16:05 BMI result Body Mass Index 30.6 Tobacco/Smoking Status: Tobacco use Status Tobacco use date assessed 07/31/24 10/21/24 16:07 Patient Tobacco Use Status Never used Tobacco 10/21/24 16:07 Tobacco use type Cigarette 10/21/24 16:07 e-Cigarette/Vaping Use Never Used 10/21/24 16:07 PHQ-9: PHQ-9 Score PHQ-9: Total score 9 10/21/24 16:30 Depression Screening Interpretation: Positive Depression Screening Follow-up: Existing condition Thrive Assessment: Date of Thrive Assessment Date Thrive assessed 10/21/24 10/21/24 16:07 Currently or been in a relationship where the following occur: No concerns reported Const General: healthy appearing, no acute distress, alert and awake Nutritional Appearance: well nourished Orientation/consciousness: oriented to person, oriented to place and oriented to time HENMT Head: Yes normocephalic Ears: TM's normal bilaterally General nose exam: Normal nasal mucous membranes and turbinates present Face and sinus: No sinus tenderness Mouth: Normal oral and palatal mucosa present and tongue normal Teeth and gingiva: dentition normal and gingiva normal Throat: Yes posterior oropharynx normal, Yes tonsils normal and Yes uvula midline Eyes Conjunctivae: conjunctivae normal Sclerae: sclerae normal Pupils: Equal, round and reactive pupils present EOM: EOMs intact bilaterally Direct Ophthalmoscopy: No no photophobia Neck Neck: Yes no lymphadenopathy and Yes no JVD Thyroid: Thyroid normal Carotids: no bruits Chest Chest palpation & inspection: no tenderness Resp Effort & Inspection: normal respiratory effort and not tachypneic Auscultation: no crackles, no rales, no rhonchi and no wheezes Cardio Jugular venous distension: no JVD Rate: regular rate Rhythm: regular rhythm Heart sounds: no murmurs and normal S1 and S2 Bruits: no carotid bruits Peripheral pulses: Peripheral pulses 2+ throughout GI Inspection: Yes normal to inspection, No abdominal wall ecchymosis and No v isible herniation Palpation (GI): Soft to palpation, nontender, no hepatomegaly and no splenomegaly Auscultation: normal bowel sounds General: Yes no CVA tenderness Back/Spine/Pelvis Back: no CVA tenderness and No back tenderness Cervical Spine: cervical ROM normal Thoracic/Lumbar Spine: thoracic and lumbar spine normal to inspection, straight leg raise negative bilaterally, No thoraco-lumbar ROM limited and No lumbar spinal tenderness Skin General skin exam: no rashes or lesions noted and dry skin Lesions: no lesions Rashes: no rashes Wounds: no wounds Neuro General: oriented to person, oriented to place and oriented to time Cranial nerves: Yes Equal, round and reactive pupils present Cognition (Neuro): normal cognition Speech: No Abnormal speech present Gait exam (Neuro): Normal gait present Motor exam (neuro): no tremor noted Extrem Right upper extremity: full ROM Left upper extremity: full ROM Right lower extremity: full ROM; no edema Left lower extremity: full ROM; no edema Psych Appearance: grossly normal Mental Status: mental status grossly normal Speech and movement: Normal speech and movement present Affect: normal affect Attitude: cooperative Thought process: Normal thought process present Coding Level of Care Code Est Pt Prev Care 40-64y(05905) Diagnoses Annual physical exam Z00.00 Lumbar radiculopathy M54.16 Onychomycosis B35.1 Hordeolum externum of right upper eyelid H00.011 Eyelid: upper Laterality: right Chest pain, unspecified type R07.9 Chest pain type: unspecified Benign essential hypertension I10 ILD (interstitial lung disease) J84.9 Additional Codes DANIELLA-7 Assessment Billing - DANIELLA-7 Assessment Tool: DANIELLA-7 Assessment 13452 ([id number]) PHQ-9 - 12930 - PHQ-9 Billing: Yes ([id number]) Assessment & Plan Assessment & Plan (1) Annual physical exam: Code(s): Z00.00 - Encounter for general adult medical examination without abnormal findings Category: Medical Plan: As per HPI (2) Lumbar radiculopathy: Code(s): M54.16 - Radiculopathy, lumbar region Category: Medical Plan: Undergo MRI to assess further disc complications. Initiate physical therapy and consider pain management intervention for persisting symptoms. (3) Onychomycosis: Code(s): B35.1 - Tinea unguium Category: Medical Plan: Will have patient assessed by Podiatry. (4) Hordeolum external: Code(s): H00.019 - Hordeolum externum unspecified eye, unspecified eyelid Category: Medical Qualifiers: Eyelid: upper Laterality: right Qualified Code(s): H00.011 - Hordeolum externum right upper eyelid Plan: Will supply patient with the erythromycin ointment (5) Chest pain: Code(s): R07.9 - Chest pain, unspecified Category: Medical Qualifiers: Chest pain type: unspecified Qualified Code(s): R07.9 - Chest pain, unspecified Plan: In the setting of chronic high blood pressure will try to send for nuclear str ess test to evaluate for cardiac ischemia on physical exertion. We did discuss perhaps starting additional blood pressure medication isosorbide for reports of angina though will like to hold off and work cardiac workup. (6) Benign essential hypertension: Code(s): I10 - Essential (primary) hypertension Category: Medical Plan: Patient's blood pressure slightly elevated today in office. At his Nephrology office his blood pressure stable. He reports blood pressures have been normal at home 130 systolic. He continues on 4 different antihypertensives and is interested in getting off of doxazosin as blood pressure continues to stabilize. (7) ILD (interstitial lung disease): Code(s): J84.9 - Interstitial pulmonary disease, unspecified Category: Medical Plan: Patient continues to follow [place] pulmonology. Does use oxygen on an as needed basis. still has daily fatigue secondary to his pulmonary disease. Most recent pulmonary function tests showed better pulmonary function. He is very happy and glad about this. Orders: Orders MR lumbar spine wo con 10/21/24 M54.16 - Radiculopathy, lumbar region NM cardiolite stress test 10/21/24 R07.9 - Chest pain, unspecified Prostate Specific Antigen Scr 10/21/24 Z12.5 - Encounter for screening for malignant neoplasm of prostate PT Evaluation and Treatment 10/21/24 M70.61 - Trochanteric bursitis, right hip CA lexiscan stress w joya 10/21/24 R07.9 - Chest pain, unspecified Referrals Pain Management Referral M54.16 - Radiculopathy, lumbar region Podiatry Referral B35.1 - Tinea unguium Medications: New prednisone Take 3 tablets x3 days, 2 tablets x3 days, 1 tablet x3 days 10 mg PO DIRECTED 18 tabs 0RF 9 days M54.16 - Radiculopathy, lumbar region erythromycin 1 appl ophthalmic (eye) DAILY 3.5 grams 1RF 4 weeks H00.019 - Hordeolum externum unspecified eye, unspecified eyelid Patient Instructions: Goal: Blood pressure to be below 140/90 on home readings Barriers: Adherence to physical activity and healthy eating habits
--- OUTSIDE RECORDS SUMMARY | 2024-10-21 17:01 | XMS_ITS | Patient Health Record ---
[facility] Address [address] [place] [address] Care Team Providers Care Cable Ferry Operator Name Role Phone Soy Connor Primary Care Provider Unavailab Andrea Moran Unavailable [phone] Allergies Allergen (clinical drug ingredient) Drug/Non Drug [...] primary osteoarthritis of the ankle and/or foot ([id number]) Primary osteoarthrit is, left ankle and foot (M19.072) Active confirmed Plan Of Treatment Pending Test Test Name Order Date X ray : Foot, left 3V 07/08/2020 X ray : Foot, right 3V 07/08/2020 Insurance Providers Payer Name Payer Address Payer Phone Subscriber Number Group Number Insured Name Patient Relationship to Insured Coverage Start Date Coverage End Date [facility] [id number] [address] [place] [address] [id number] Markus Cannon Self - patient is the insured Medical (General) History Medical History History ICD Code Anxiety Anxiety disorder Back,Hip,and Knee pain High blood pressure Kidney disease Scarlet fever Chicken pox Surgical History Surgery Date(Month/Year)
--- OUTSIDE RECORDS SUMMARY | 2024-10-21 17:01 | XMS_ITS | Clinical Summary ---
Author Organization [facility] Address [address] [place] [address] Care Team Providers Care Special Crimes Investigator Name Role Phone Unavailable Primary Care Provider [...] this topic Medical Devices Explanted Type Area Slaughterer Religious Ritual Device Identifier Shelf Expiration Date Model / Serial / Lot Sealant Fibrin Vistaseal 4ml [facility] [id number] - [id number] Explanted:Qt y: 1 on 02/16/2021 by Ab Goncalves MD at [facility] and Med Hemostatic Agent Anterior: Trachea [employer] 08/31/2022 [id number] / [id number] / [id number] Advance Directives For more information, please contact: [phone] Latest Code Status on File Code Status Date Activated Date Inactivated Comments Full Code 01/31/2021 6:40 PM 04/07/2021 11:01 PM Thi s code status was ascertained in the following way: discussion with healthcare quality control representative .
--- OUTSIDE RECORDS SUMMARY | 2024-10-21 17:01 | XMS_ITS | Clinical Summary ---
Author Organization [address] Address [address] [place] [id number] Care Team Providers Care Darklight Inspector Name Role Phone Soy Connor Primary Care [...] patient's age to complete this topic Insurance [facility] Care Teams Darklight Inspector Relationship Specialty Start Date End Date Soy Connor PA PCP - General 06/01/21
--- OUTSIDE RECORDS SUMMARY | 2024-10-21 17:01 | XMS_ITS | Clinical Summary ---
[facility] Address [address] [place] [address] Care Team Providers Care Tobacco Feeder Catcher Name Role Phone Unavailable Primary Care Provider [...] Documents on File Type Date Recorded Patient Data Control Assistant Expl anation Health Care Decision (hx) 01/15/2021 AD NILAM DIRECTIVE
--- OUTSIDE RECORDS SUMMARY | 2024-10-21 17:01 | XMS_ITS | Clinical Summary ---
Author Organization [facility] Address [address] [place] [address], [place] [address] Care Team Providers Care Calculus Tutor Name Role Phone Unavailable Primary Care Provider [...] 021 Influenza Vaccine (Season Ended) 2025 Insurance [facility] Choice O ([id number]) [facility] Choice O ([id number])
== END 2024-10-21 17:13 | disposition home or self-care (01) ==
LOC: HO.HMCH 16:03
PROVIDERS: PCP Physician Assistant; Visit Provider Physician Assistant
DX: Z00.00 Encounter for general adult medical examination without abnormal findings (principal); M54.16 Radiculopathy, lumbar region; J84.9 Interstitial pulmonary disease, unspecified; B35.1 Tinea unguium; H00.011 Hordeolum externum right upper eyelid; R07.9 Chest pain, unspecified; I10 Essential (primary) hypertension

== ENCOUNTER → 2024-10-21 16:02 | Outpatient (BNVA) | payer OTHER, SELFPAY | PROVIDERS: PCP Physician Assistant; Visit Provider Physician Assistant | DX: Z00.00 Encounter for general adult medical examination without abnormal findings (principal); M54.16 Radiculopathy, lumbar region; B35.1 Tinea unguium; H00.011 Hordeolum externum right upper eyelid; R07.9 Chest pain, unspecified; I10 Essential (primary) hypertension; J84.9 Interstitial pulmonary disease, unspecified | CPT/HCPCS: 96127; 99396 ==

== ENCOUNTER 2024-10-27 13:23 | Outpatient (REF) | payer OTHER, SELFPAY ==
--- NOTE | ~2024-10-27 | MR_ITS ---
EXAMINATION: MR LUMBAR SPINE WITHOUT CONTRAST CLINICAL INFORMATION: Radiculopathy, lumbar region. COMPARISON: Correlated to x-ray dated October 10, 2024. TECHNIQUE: MRI of the lumbar spine was obtained using routine sequences without contrast. FINDINGS: Last rib-bearing vertebra labeled T12. Disc desiccation, L4-5. Marginal osteophyte formation from T11-12 to L2-3. There is normal alignment. The conus medullaris ends at pedicle of L1 with normal signal. T12-L1: No herniated disc. No neuroforamina stenosis. L1-2: No herniated disc. No neuroforamina stenosis. L2-3: Bilateral facet joint hypertrophy. Broad-based disc bulging. No compression upon neural elements. L3-4: Broad-based disc bulging. Facet joint hypertrophy. No compression upon neural elements. L4-5: Right subarticular and foraminal broad-based herniated disc compressing the right L5 nerve root on its lateral recess. Facet joint hypertrophy. No neuroforamina stenosis. L5-S1: Central broad-based herniated disc abutting the S1 nerve roots on the lateral recesses. Bilateral facet joint hypertrophy resulting in bilateral neuroforamina narrowing encroaching the L5 exiting nerve roots. No prevertebral compartment hematoma, mass or fluid collection. Exophytic hyperintense T2 cystic lesion in the right kidney. MR/MR lumbar spine wo con IMPRESSION: Right subarticular and foraminal broad-based disc herniation L4-5 encroaching the right L5 nerve root. Central broad-based herniated disc at L5-S1 abutting the S1 nerve roots. Multilevel spondylosis resulting in bilateral neuroforamina stenosis L5-S1. Electronically signed by: Newton Frey MD 10/27/2024 02:21 PM EDT
--- OUTSIDE RECORDS SUMMARY | 2024-10-27 13:43 | XMS_ITS | Clinical Summary ---
Author Organization [facility] Address [address] [place] [address], [place] [address] Care Team Providers Care Fruit Packer Face And Fill Name Role Phone Unavailable Primary Care Provider [...] 021 Influenza Vaccine (Season Ended) 2025 Insurance [facility] Choice O ([id number]) [facility] Choice O ([id number])
--- OUTSIDE RECORDS SUMMARY | 2024-10-27 13:43 | XMS_ITS | Clinical Summary ---
Author Organization [facility] Address [address] [place] [address] Care Team Providers Care Financial Management Name Role Phone Unavailable Primary Care Provider [...] this topic Medical Devices Explanted Type Area Sub Acute Care Nurse Device Identifier Shelf Expiration Date Model / Serial / Lot Sealant Fibrin Vistaseal 4ml [facility]-Ethi [id number] - [id number] Explanted:Qt y: 1 on 02/16/2021 by Ab Goncalves [place] [facility] and [place] Hemostatic Agent Anterior: Trachea [employer] 08/31/2022 [id number] / [id number] / [id number] Advance Directives For more information, please contact: [phone] Latest Code Status on File Code Status Date Activated Date Inactivated Comments Full Code 01/31/2021 6:40 PM 04/07/2021 11:01 PM Thi s code status was ascertained in the following way: discussion with healthcare outbound sales representative .
--- OUTSIDE RECORDS SUMMARY | 2024-10-27 13:43 | XMS_ITS | Clinical Summary ---
Author Organization [address] Address [address] [place] [id number] Care Team Providers Care Zone Maintenance Technician Name Role Phone Soy Connor Primary Care [...] patient's age to complete this topic Insurance [facility] Care Teams Zone Maintenance Technician Relationship Specialty Start Date End Date Soy Connor PA PCP - General 06/01/21
--- OUTSIDE RECORDS SUMMARY | 2024-10-27 13:43 | XMS_ITS | Patient Health Record ---
[facility] Address [address] [place] [address] Care Team Providers Care Laminating Machine Operator Helper Name Role Phone Soy Connor Primary Care Provider UnavailAndrea Musa Unavailable [phone] Allergies Allergen (clinical drug ingredient) Drug/Non Drug [...] Problem Status W/U Status Risk Notes Problem Primary osteoarthritis , left ankle and foot (M19.072) Active confirmed Plan Of Treatment Pending Test Test Name Order Date X ray : Foot, left 3V 07/08/2020 X ray : Foot, right 3V 07/08/2020 Insurance Providers Payer Name Payer Address Payer Phone Subscriber Number Group Number Insured Name Patient Relationship to Insured Coverage Start Date Coverage End Date [facility] [id number] [address] [place] [address] [id number] Markus Cannon Self - patient is the insured Medical (General) History Medical History History ICD Code Anxiety Anxiety disorder Back,Hip,and Knee pain High blood pressure Kidney disease Scarlet fever Chicken pox Surgical History Surgery Date(Month/Year)
--- OUTSIDE RECORDS SUMMARY | 2024-10-27 13:43 | XMS_ITS | Clinical Summary ---
Author Organization [address] [place] [address] Address [address] [place] [address] Phone Care Team Providers Care Scroll Shear Operator Name Role Phone Unavailable Primary Care [...] Influencers of Health Screening 05/16/2022 COVID-19 Vaccine (2023-2 5 season) 2024 Influenza Vaccine (Season Ended) [...] patient's age to complete this topic Insurance MED[place] - [place] [facility] PLAN Advance Directives Documents on File Type Date Recorded Patient Senior Analysis Specialist Expl anation Health Care Decision (hx) 01/15/2021 AD DEMARCO DIRECTIVE
== END 2024-10-27 13:24 | disposition home or self-care (01) ==
LOC: HO.MRI 13:23
PROVIDERS: PCP Physician Assistant; Visit Provider Physician Assistant
DX: M54.16 Radiculopathy, lumbar region (principal)
CPT/HCPCS: 72148

== ENCOUNTER → 2024-10-27 13:31 | Outpatient (BNV) | payer OTHER, SELFPAY | PROVIDERS: PCP Physician Assistant; Visit Provider Radiology Diagnostic Radiology | DX: M54.16 Radiculopathy, lumbar region (principal) | CPT/HCPCS: 72148 ==

== ENCOUNTER 2024-10-29 13:11 | Outpatient (AMB) | payer OTHER, SELFPAY ==
--- OUTSIDE RECORDS SUMMARY | 2024-10-29 13:27 | XMS_ITS | Clinical Summary ---
Author Organization [facility] Facility Address [address] [place] [address], [place] [address] Care Team Providers Care Train Electronic Technician Name Role Phone Unavailable Primary Care Provider [...] 021 Influenza Vaccine (Season Ended) 2025 Insurance [facility] Choice O ([id number]) [facility] Choice O ([id number])
--- OUTSIDE RECORDS SUMMARY | 2024-10-29 13:27 | XMS_ITS | Clinical Summary ---
Author Organization [address] Address [address] [place] [id number] Care Team Providers Care Bark Press Operator Name Role Phone Soy Connor Primary [...] patient's age to complete this topic Insurance [facility] Care Teams Bark Press Operator Relationship Specialty Start Date End Date Soy Connor PA PCP - General 06/01/21
--- OUTSIDE RECORDS SUMMARY | 2024-10-29 13:27 | XMS_ITS | Clinical Summary ---
Author Organization [address] [place] [address] Address [address] [place] [address] Phone Care Team Providers Care Director Of Pupil Personnel Program Name Role Phone Unavailable Primary Care Provider [...] complete this topic Insurance MEDICAID - [place] [facility] PL[facility] Advance Directives Documents on File Type Date Recorded Patient Marketing Operations Assistant Expl anation Health Care Decision (hx) 01/15/2021 AD DEMARCO DIRECTIVE
--- OUTSIDE RECORDS SUMMARY | 2024-10-29 13:27 | XMS_ITS | Clinical Summary ---
Author Organization [facility] Address [address] [place] [address] Care Team Providers Care Furniture Assembler And Installer Name Role Phone Unavailable Primary Care Provider [...] this topic Medical Devices Explanted Type Area Business Objects Report Developer Device Identifier Shelf Expiration Date Model / Serial / Lot Sealant Fibrin Vistaseal 4ml [facility]-Ethi [id number] - [id number] Explanted:Qt y: 1 on 02/16/2021 by Ab Goncalves MD at [facility] and Med Hemostatic Agent Anterior: Trachea [employer] 08/31/2022 [id number] / [id number] / [id number] Advance Directives For more information, please contact: [phone] Latest Code Status on File Code Status Date Activated Date Inactivated Comments Full Code 01/31/2021 6:40 PM 04/07/2021 11:01 PM Thi s code status was ascertained in the following way: discussion with healthcare wholesale representative .
--- OUTSIDE RECORDS SUMMARY | 2024-10-29 13:27 | XMS_ITS | Patient Health Record ---
[facility] Address [address] [place] [address] Care Team Providers Care Auditor Internal Name Role Phone Soy Connor Primary Care Provider UnavailAndrea Musa Unavailable [phone] Allergies Allergen (clinical drug ingredient) Drug/Non Drug [...] Insured Coverage Start Date Coverage End Date [facility] [id number] [address] [place] [address] [id number] Markus Cannon Self - patient is the insured Medical (General) History Medical History History ICD Code Anxiety Anxiety disorder Back,Hip,and Knee pain High blood pressure Kidney disease Scarlet fever Chicken pox Surgical History Surgery Date(Month/Year)
[2024-10-29 13:30] VITALS: BP 148/100; PULSE 75; TEMP 36.3; O2SAT 95; BMI 30.6
--- NOTE | 2024-10-29 13:30 | MHC.PC.OV ---
Vital Signs 10/29/24 13:30 Height 5 ft 8 in Weight 201 lb 8 oz BMI 30.6 BP 148/100 H Blood Pressure Location Lt brachial Position Sitting Pulse 75 Pulse Source Pulse Oximeter Temp 97.3 F Temp Source Temporal Artery Scan Pulse Oximetry (%) 95 Oxygen Delivery Method Room Air Intake Visit Reasons: left ear cleaning Allergies bee venom protein (honey bee) Allergy (Intermediate, Verified 10/21/24 16:25) Swelling Iodinated Contrast Media Allergy (Unknown, Verified 10/21/24 16:25) Rash amlodipine Adverse Reaction (Intermediate, Verified 10/21/24 16:25) Pedal edema hydroxyzine Adverse Reaction (Intermediate, Verified 10/21/24 16:25) ineffective Tobacco use date assessed: 07/31/24 Dental Screening Dental Screen Date: 07/31/24 HPI left ear cleaning HPI Details Patient is a 54-year-old male here today for ear cleaning. He has had left ear decreased hearing in sensation of clogging for the last several weeks he does report significant drainage from the left ear quite often has to remove a lot of ear wax.. Today we performed a ear lavage which was fairly successful. Does seem to have an otitis externa which we will supply drops for Lumbar radiculopathy-- > recent MRI of lower lumbar spine showing--> Right subarticular and foraminal broad-based disc herniation L4-5 encroaching the right L5 nerve root. Central broad-based herniated disc at L5-S1 abutting the S1 nerve roots. Multilevel spondylosis resulting in bilateral neuroforamina stenosis L5-S1. PLAN: will refer patient to neurosurgery to see if there is a surgical option. He has upcoming appointment with pain management for pain reduction modality discussion. Will supply patient with a muscle relaxer to use at night to help reduce his lower lumbar spine pain [facility] Medical History Sepsis with acute hypoxic respiratory failure Surgical History Hx of colonoscopy S/P emergency tracheotomy for assistance in breathing History of ear surgery History of vasectomy History of wisdom tooth extraction Family History Father Prostate cancer Mother Lung cancer Paternal Uncle Diabetes Paternal Aunt Brain cancer Other Mental health disorder Substance use disorder Social History Household Members: Family Housing: House Alcohol intake: current Alcohol intake frequency: holidays/special occasions only Patient Tobacco Use Status: Never used Tobacco Tobacco use type: Cigarette e-Cigarette/Vaping Use: Never Used Second Hand Smoke Exposure: Yes (Mother) service: No Current occupational status: employed Cognitive needs: No Hearing needs: No Vision needs: Yes Questionnaire Thrive Questionnaire Date Thrive assessed: 10/20/24 I am a: Patient What is your living situation today?: I choose not to answer this question Within the past 12 months, did the food you bought not last and you didn't have the money to get more?: I choose not to answer this question Within the past 12 months, did you worry whether your food would run out before you got money to buy more?: I choose not to answer this question Do you have trouble paying for medicines?: I choose not to answer this question Do you have trouble getting transportation to medical appointments?: I choose not to answer this question Do you have trouble paying your heating and electricity bill?: Yes Do you have trouble taking care of your child, family member or friend?: I choose not to answer this question Do you have trouble with day-to-day activities such as bathing, preparing meals, shopping, managing finances, etc.?: I choose not to answer this question Are you currently unemployed and looking for a job?: Yes Are you interested in more education?: Yes Currently or been in a relationship where the following occur: No concerns reported THRIVE Score: 1 DANIELLA-7 AMB Questionnaire DANIELLA-7 Date DANIELLA - 7 assessed: 10/21/24 Source: Developed by Drs. Ab Pool, Noreen Lucero, Milind Lundberg and colleagues, with an educational luis a from [employer]. Review of Systems Const Denies headache(s) Eyes Denies loss of vision ENT Denies vertigo, Denies dizziness, Denies headache(s) and Denies sore throat Card Denies chest pain, Denies leg edema and Denies lightheadedness Resp Denies cough, Denies hemoptysis and Denies wheezing GI Denies abdominal pain, Denies melena, Denies constipation, Denies diarrhea and Denies vomiting Denies dysuria, Denies urinary frequency and Denies urinary urgency Musc Denies arthralgias, Denies joint swelling, Denies numbness and Denies tingling Neuro Denies Abnormal speech present, Denies behavioral changes, Denies vertigo, Denies dizziness, Denies headache(s), Denies loss of vision, Denies memory loss, Denies numbness and Denies tingling Psych Denies anxiety, Denies behavioral changes, Denies depression, Denies memory loss and Denies panic attacks Eleno/Lymph Denies easy bleeding and Denies easy bruising Aller/Immun Denies wheezing Physical exam (Primary Care) Vital Signs: Last Vital Signs Temp 97.3 F 10/29/24 13:30 Pulse 75 10/29/24 13:30 BP 148/100 H 10/29/24 13:30 Pulse Ox 95 10/29/24 13:30 Oxygen Delivery Method Room Air 10/29/24 13:30 BMI result Body Mass Index 30.6 Tobacco/Smoking Status: Tobacco use Status Tobacco use date assessed 07/31/24 10/29/24 13:35 Patient Tobacco Use Status Never used Tobacco 10/29/24 13:35 Tobacco use type Cigarette 10/29/24 13:35 e-Cigarette/Vaping Use Never Used 10/29/24 13:35 Thrive Assessment: Date of Thrive Assessment Date Thrive assessed 10/20/24 10/29/24 13:35 Currently or been in a relationship where the following occur: No concerns reported Const General: healthy appearing, no acute distress, alert and awake Nutritional Appearance: well nourished Orientation/consciousness: oriented to person, oriented to place and oriented to time [facility] Other: LEFT EAR: EXTERNAL CANAL SLIGHTLY EDEMATOUS WITH WHITISH DISCHARGE NOTED Ears: TM's normal bilaterally General nose exam: Normal nasal mucous membranes and turbinates present Eyes Conjunctivae: conjunctivae normal Sclerae: sclerae normal Pupils: Equal, round and reactive pupils present Neck Neck: Yes no lymphadenopathy and Yes no JVD Thyroid: Thyroid normal Carotids: no bruits Resp Effort & Inspection: normal respiratory effort and not tachypneic Auscultation: no crackles, no rales, no rhonchi and no wheezes Cardio Rate: regular rate Rhythm: regular rhythm Heart sounds: no murmurs and normal S1 and S2 GI Palpation (GI): Soft to palpation, nontender, no hepatomegaly and no splenomegaly Auscultation: normal bowel sounds Skin General skin exam: no rashes or lesions noted and dry skin Neuro General: oriented to person, oriented to place and oriented to time Cranial nerves: Yes Equal, round and reactive pupils present Speech: No Abnormal speech present Gait exam (Neuro): Normal gait present Motor exam (neuro): no tremor noted Extrem Right upper extremity: full ROM Left upper extremity: full ROM Right lower extremity: full ROM; no edema Left lower extremity: full ROM; no edema Psych Mental Status: mental status grossly normal Speech and movement: Normal speech and movement present Affect: normal affect Attitude: cooperative Thought process: Normal thought process present Office Procedures Cerumen Removal From which ear canal was the cerumen removed: left Removal: irrigation and otoscope w/curette Notes: patient tolerated procedure well [id number] Irrigation/Lavage Coding Level of Care Code Est Pt Level 3 (61858) Diagnoses Other infective chronic otitis externa of left ear H60.392 Chronicity: chronic Laterality: left Otitis externa type: other infective Lumbar radiculopathy M54.16 CPT Codes Office Procedure - CPT: 87983-Rjb Irrigation/Lavage ([id number]) Assessment & Plan Assessment & Plan (1) Otitis externa: Code(s): H60.90 - Unspecified otitis externa, unspecified ear Category: Medical Qualifiers: Chronicity: chronic Laterality: left Otitis externa type: other infective Qualified Code(s): H60.392 - Other infective otitis externa, left ear Plan: Patient is a ear flush today, only minimal cerumen. On otoscopic exam seems to have edematous and whitish discharge. Will supply patient with ear drops for an otitis externa (2) Lumbar radiculopathy: Code(s): M54.16 - Radiculopathy, lumbar region Category: Medical Plan: As per HPI patient does have disc herniation and lower lumbar spine likely causing his right lower extremity numbness, weakness and continued pain. Medications: New cyclobenzaprine 10 mg PO BID 10 days 20 tabs 0RF M54.16 - Radiculopathy, lumbar region clotrimazole 1% 5 drops into effected ear topically 2 times a day; 4 weeks 30 mL 0RF H60.90 - Unspecified otitis externa, unspecified ear Discontinued cyclobenzaprine Discontinued Reason: Doctor's Order 5 mg PO BEDTIME 10 days 10 tabs 0RF M54.50 - Low back pain, unspecified
== END 2024-10-29 14:21 | disposition home or self-care (01) ==
LOC: HO.HMCH 13:11
PROVIDERS: PCP Physician Assistant; Visit Provider Physician Assistant
DX: M54.16 Radiculopathy, lumbar region (principal); H60.392 Other infective otitis externa, left ear; H61.22 Impacted cerumen, left ear

== ENCOUNTER → 2024-10-29 13:11 | Outpatient (BNVA) | payer OTHER, SELFPAY | PROVIDERS: PCP Physician Assistant; Visit Provider Physician Assistant | DX: H60.392 Other infective otitis externa, left ear (principal); M54.16 Radiculopathy, lumbar region | CPT/HCPCS: 69210; 99212 ==

== ENCOUNTER 2024-11-03 13:07 | Outpatient (AMB) | payer OTHER, SELFPAY ==
--- OUTSIDE RECORDS SUMMARY | 2024-11-03 13:11 | XMS_ITS | Clinical Summary ---
Author Organization [facility] Address [address] [place] [address] Care Team Providers Care Television Analyzer Name Role Phone Unavailable Primary Care Provider [...] this topic Medical Devices Explanted Type Area Thoracic Medicine Specialist Device Identifier Shelf Expiration Date Model / Serial / Lot Sealant Fibrin Vistaseal 4ml [facility] [id number] - [id number] Explanted:Qt y: 1 on 02/16/2021 by Ab Goncalves MD at [facility] and Med Hemostatic Agent Anterior: Trachea [employer] 08/31/2022 VST04 / [id number] / [id number] Advance Directives For more information, please contact: [phone] Latest Code Status on File Code Status Date Activated Date Inactivated Comments Full Code 01/31/2021 6:40 PM 04/07/2021 11:01 PM Thi s code status was ascertained in the following way: discussion with healthcare employment program representative .
--- OUTSIDE RECORDS SUMMARY | 2024-11-03 13:11 | XMS_ITS | Patient Health Record ---
[facility] Address [address] [place] [address] Care Team Providers Care Journeyman Carpenter Name Role Phone Soy Connor Primary Care Provider Unavailab Andrea Moran Unavailable [phone] Allergies Allergen (clinical drug ingredient) Drug/Non Drug [...] primary osteoarthritis of the ankle and/or foot (409799613) Primary osteoarthrit is, left ankle and foot (M19.072) Active confirmed Plan Of Treatment Pending Test Test Name Order Date X ray : Foot, left 3V 07/08/2020 X ray : Foot, right 3V 07/08/2020 Insurance Providers Payer Name Payer Address Payer Phone Subscriber Number Group Number Insured Name Patient Relationship to Insured Coverage Start Date Coverage End Date [facility] [id number] [id number] [place] [address] [id number] Markus Cannon Self - patient is the insured Medical (General) History Medical History History ICD Code Anxiety Anxiety disorder Back,Hip,and Knee pain High blood pressure Kidney disease Scarlet fever Chicken pox Surgical History Surgery Date(Month/Year)
--- OUTSIDE RECORDS SUMMARY | 2024-11-03 13:11 | XMS_ITS | Clinical Summary ---
Author Organization [address] Address [address] [place] [address] Care Team Providers Care Patient Case Coordinator Name Role Phone Soy Connor Primary [...] to complete this topic Insurance [facility] Care Teams Patient Case Coordinator Relationship Specialty Start Date End Date Soy Connor PA PCP - General 06/01/21
--- OUTSIDE RECORDS SUMMARY | 2024-11-03 13:11 | XMS_ITS | Clinical Summary ---
Author Organization [facility] Facility Address [address] [place] [address], [place] [address] Care Team Providers Care Spare Hand Carding Name Role Phone Unavailable Primary Care Provider [...] 021 Influenza Vaccine (Season Ended) 2025 Insurance [facility] Choice O ([id number]) [facility] Choice O ([id number])
--- OUTSIDE RECORDS SUMMARY | 2024-11-03 13:11 | XMS_ITS | Clinical Summary ---
Author Organization [address] [place] [address] Address [address] [place] [address] Phone Care Team Providers Care Tube Blower Name Role Phone Unavailable Primary Care Provider [...] complete this topic Insurance [place] - [place] [facility] Advance Directives Documents on File Type Date Recorded Patient Account Manager Relief Expl anation Health Care Decision (hx) 01/15/2021 AD DEMARCO DIRECTIVE
--- NOTE | 2024-11-03 13:13 | HO.SPINEOV ---
Vital Signs 11/03/24 13:14 Height 5 ft 8 in Weight 200 lb BMI 30.4 Intake Visit Reasons: LBP Intake Note: Mr. Cannon is here today c/o low back pain that radiates down the right leg to the foot. Development Educator Required: No Allergies bee venom protein (honey bee) Allergy (Intermediate, Verified 11/03/24 14:01) Swelling Iodinated Contrast Media Allergy (Unknown, Verified 11/03/24 14:01) Rash amlodipine Adverse Reaction (Intermediate, Verified 11/03/24 14:01) Pedal edema hydroxyzine Adverse Reaction (Intermediate, Verified 11/03/24 14:01) ineffective Physical Exam Vital Signs: BMI result Body Mass Index 30.4 Assessment & Plan Assessment & Plan (1) Lumbar radiculopathy: Code(s): M54.16 - Radiculopathy, lumbar region Category: Medical Plan Dear colleague, Thank you for referring Deny to our office today. He is a pleasant 54-year-old male who comes in today with a chief complaint of right leg pain. He reports that this has been ongoing for about 2 months and can identify an inciting incident of a fall while working on a ladder in his basement. He reports that he developed fairly significant right hip pain afterwards, and began having shooting pains down his right legs 1-2 weeks after that. When describing the pain he states that it starts in his right posterior buttocks shoots over the lateral aspect of his right hip into his right lateral thigh in all the way down the lateral aspect of his right leg terminating near the right calf. He denies any significant numbness/tingling/weakness associated with the pain. He denies any bowel or bladder issues, or perineal numbness. He reports that since the incident he has tried utilizing Tylenol in the leave to help control the pain, however he has acute flare-ups of pain throughout the day which he rates at about an 8/10. He reports that lying down in his back causes him in the worst pain, and that standing up and walking around helps to alleviate some of his pain. He has not attempted physical therapy or cortisone injections as of yet, but has been doing some at-home stretching/exercise. PMH: Hx severe COVID starting end of December 2020 requiring VV ECMO for 10 weeks at [facility] (on supplemental oxygen at home), Trochanteric bursitis of the right hip, hypercholesterolemia, hypertension, interstitial lung disease, generalized anxiety disorder, insomnia, GERD. Social hx: The patient does not smoke, reports no substance use. Medications: See Taggo list. Allergies: Contrast dye. Physical exam: The patient has about 4/5 strength with right-sided iliopsoas testing which may be confounded by pain when attempting to engage this muscle. The rest of his strength in his upper and lower extremities is 5/5. He has no significant sensational deficits to light touch on examination. He ambulates well without a notably antalgic gait. He rises from a seated position without much difficulty and gets up onto the examination table without trouble. (+) right-sided straight leg raise. (-) Morris's, (-) clonus. Imaging review: MRI of the lumbar spine completed here at [facility] shows a disc herniation at L4-5 causing moderate-severe right-sided foraminal stenosis at this level. There is also a disc herniation at L5-S1, which is paracentral in nature but is causing moderate bilateral foraminal stenosis in his migrating slightly cranially along the thecal sac. Impression: Deny is a pleasant 54 year old male who comes in today with a chief complaint of right-sided leg pain. This pain has been ongoing since and identified inciting incident of a fall while working on a ladder in his basement. I believe that Deny is most likely symptomatic from the disc herniation at L4-5 causing moderate-severe right-sided foraminal stenosis. This would best match the dermatomal distribution of his pain. He has not attempted physical therapy or other conservative measures at this time, therefore I think this is a good place to start for him. I would like to send him for a course of physical therapy and have him follow up with our colleagues in pain management to consider cortisone injections at the L4-5 segment. He already has a referral to pain management and reports he will be seeing them later today. I will place an order for PT. He may come back and see us after PT / cortisone injections if his pain persists. He was also educated on red flag low back pain symptoms, and understands that he should seek emergency services if he develops any issues with bowel/bladder incontinence, severely worsening right leg pain, or perineal numbness. Thank you for allowing us to care for your patient. The total time spent with this visit with this patient was 45 minutes reviewing history, physical exam, MRI imaging review, and implementation of treatment plan or further diagnostic testing Eliezer Ruelas MD,PhD [facility] Orders: Orders PT Evaluation and Treatment Today M54.16 - Radiculopathy, lumbar region Coding Level of Care Code New Pt Level 4 (98213) Diagnoses Lumbar radiculopathy M54.16
[2024-11-03 13:14] VITALS: BMI 30.4
== END 2024-11-03 14:42 | disposition home or self-care (01) ==
LOC: HO.HNS 13:08
PROVIDERS: PCP Physician Assistant; Referring Provider Physician Assistant; Visit Provider Physician Assistant
DX: M54.16 Radiculopathy, lumbar region (principal)
CPT/HCPCS: 99204

== ENCOUNTER → 2024-11-03 13:07 | Outpatient (BNVA) | payer OTHER, SELFPAY | PROVIDERS: PCP Physician Assistant; Referring Provider Physician Assistant; Visit Provider Physician Assistant | DX: M25.551 Pain in right hip (principal); M51.16 Intervertebral disc disorders with radiculopathy, lumbar region; M54.50 Low back pain, unspecified; M79.604 Pain in right leg | CPT/HCPCS: 99202 ==

== ENCOUNTER 2024-11-03 13:44 | Outpatient (AMB) | payer OTHER, SELFPAY ==
--- OUTSIDE RECORDS SUMMARY | 2024-11-03 13:47 | XMS_ITS | Clinical Summary ---
Author Organization [facility] Address [address] [place] [address] Care Team Providers Care Financial Professional Name Role Phone Unavailable Primary Care Provider [...] this topic Medical Devices Explanted Type Area Adhesion Tester Device Identifier Shelf Expiration Date Model / Serial / Lot Sealant Fibrin Vistaseal 4ml [facility] [id number] - [id number] Explanted:Qt y: 1 on 02/16/2021 by Ab Goncalves MD at [facility] and Med Hemostatic Agent Anterior: Trachea [employer] 08/31/2022 VST04 / [id number] / [id number] Advance Directives For more information, please contact: [phone] Latest Code Status on File Code Status Date Activated Date Inactivated Comments Full Code 01/31/2021 6:40 PM 04/07/2021 11:01 PM Thi s code status was ascertained in the following way: discussion with healthcare manufacturers representative .
--- OUTSIDE RECORDS SUMMARY | 2024-11-03 13:47 | XMS_ITS | Clinical Summary ---
Author Organization [facility] Facility Address [address] [place] [address], [place] [address] Care Team Providers Care Welder Assistant Name Role Phone Unavailable Primary Care Provider [...] 021 Influenza Vaccine (Season Ended) 2025 Insurance [facility] Choice O ([id number]) [facility] Choice O ([id number])
--- OUTSIDE RECORDS SUMMARY | 2024-11-03 13:47 | XMS_ITS | Clinical Summary ---
Author Organization [address] [place] [address] Address [address] [place] [address] Phone Care Team Providers Care Dramatic Critic Name Role Phone Unavailable Primary Care Provider [...] complete this topic Insurance MEDICAID - [place] [facility] PL[facility] Advance Directives Documents on File Type Date Recorded Patient Organic Section Technical Lead Expl anation Health Care Decision (hx) 01/15/2021 AD DEMARCO DIRECTIVE
--- OUTSIDE RECORDS SUMMARY | 2024-11-03 13:47 | XMS_ITS | Clinical Summary ---
Author Organization [address] Address [address] [place] [phone] Care Team Providers Care Geological Manager Name Role Phone Soy Connor Primary [...] to complete this topic Insurance [facility] HEALTHCARE Care Teams Geological Manager Relationship Specialty Start Date End Date Soy Connor PA PCP - General 06/01/21
--- NOTE | 2024-11-03 13:57 | MHC.OFFVIS ---
Vital Signs 11/03/24 14:01 Height 5 ft 8 in Weight 202 lb 6 oz BMI 30.8 BP 169/91 H Blood Pressure Location Rt brachial Position Sitting Pulse 61 Pulse Source Pulse Oximeter Pulse Oximetry (%) 100 Oxygen Delivery Method Room Air Intake Visit Reasons: Lumbar Radiculopathy Intake Note: Pain today 11/25 Application Technical Designer Required: No Accompanied by: Self / Same As Patient Allergies bee venom protein (honey bee) Allergy (Intermediate, Verified 11/03/24 14:01) Swelling Iodinated Contrast Media Allergy (Unknown, Verified 11/03/24 14:01) Rash amlodipine Adverse Reaction (Intermediate, Verified 11/03/24 14:01) Pedal edema hydroxyzine Adverse Reaction (Intermediate, Verified 11/03/24 14:01) ineffective HPI HPI Lumbar Radiculopathy: Location: right lower back radiates down right leg Duration: 2 months Characteristics of symptom or complaint: aching Aggravating or associated factors: laying down, sitting Relieving factors: aleve, movement Treatment: aleve HPI Comments Details: The patient is a 54-year-old male presenting with acute low back pain and right-sided radiculopathy, following a fall from a ladder in his basement two months prior. Since the fall, he developed significant right hip pain radiating to the lateral thigh and right leg and ankle, with intermittent numbness in his right dorsal mid foot. The pain worsens with movement and evaluation is sought due to its impact on daily activities and quality of life. MRI findings indicate a right subarticular and foraminal disc herniation at L4-L5 with right L5 nerve root compression, and an additional bulging disc centrally at L5-S1 affecting the S1 nerve roots. Multilevel spondylosis with neuroforaminal stenosis at L5-S1 is also noted. Denies previous spine surgery or injections. Patient was seen by [facility] [place] [place] [facility] today and they recommend injection at L4-L5 level and physical therapy. The patient has a history of chronic fatigue and pulmonary fibrosis post ECMO for severe COVID-19 in 2020 which required over 2 months hospitalization and tracheostomy and PEG tube with reversal and continued requirement of supplemental O2, h/o previous kidney stones, and mild degenerative arthritis in both hips. His elevated blood pressure remains unchecked and may exacerbate under stress. - Onset: 2 months ago, post-fall - Quality: Sharp, shooting, pinching, dull, sore, hurting, aching, heavy pain - Primary Location: Right low back - Radiation: Shoots down right leg, lateral thigh, side of calf, ankle; stops at top of the right foot - Severity: 8-9/10 in morning, 6-8/10 midday - Exacerbating factors: Movements, bending, twisting, prolonged sitting or walking, sleeping, changing positions, lying down - Alleviating factors: Some relief with Tylenol, Aleve, and heat - Interference: Sleep, lifting, walking - Affect: Pain significantly affects sleep and function - Analgesia: Using Tylenol, Aleve, and Prednisone; moderate pain relief; current pain levels 810 reducing to - Adverse Effects: Not explicitly discussed - Activities of Daily Living: Difficulty with lifting, disrupted sleep, limited walking due to pain - Aberrant Drug Related Behaviors: None reported Oswestry Low Back Pain Disability Score=19 [facility] Medical History (Updated 11/03/24 @ 15:52 by MARY Pettit) ILD (interstitial lung disease) Fatigue Daytime somnolence Restless legs syndrome [id number] syndrome GERD (gastroesophageal reflux disease) Left SNHL Impaired fasting glucose Pure hypercholesterolemia Borderline high cholesterol Chest pain HTN (hypertension) DANIELLA (generalized anxiety disorder) Sepsis with acute hypoxic respiratory failure Surgical History Hx of colonoscopy S/P emergency tracheotomy for assistance in breathing History of ear surgery History of vasectomy History of wisdom tooth extraction Family History Father Prostate cancer Mother Lung cancer Paternal Uncle Diabetes Paternal Aunt Brain cancer Other Mental health disorder Substance use disorder Social History Household Members: Family Housing: House Alcohol intake: current Alcohol intake frequency: holidays/special occasions only Patient Tobacco Use Status: Never used Tobacco Tobacco use type: Cigarette e-Cigarette/Vaping Use: Never Used Second Hand Smoke Exposure: Yes (Mother) service: No Current occupational status: employed Cognitive needs: No Hearing needs: No Vision needs: Yes Review of Systems Const Details: - Musculoskeletal: Reports acute low back pain, right-sided radiculopathy, leg pain - Neurological: Reports intermittent right ankle and foot numbness; denies weakness; fatigue post-COVID - Genitourinary: Denies urinary or bowel incontinence, saddle anesthesia or foot drop - Constitutional: Reports chronic fatigue All systems reviewed & are unremarkable except as noted in HPI and below Physical Exam Vital Signs: Last Vital Signs Pulse 61 11/03/24 14:01 BP 169/91 H 11/03/24 14:01 Pulse Ox 100 11/03/24 14:01 Oxygen Delivery Method Room Air 11/03/24 14:01 BMI result Body Mass Index 30.8 General: Appears afebrile. Alert and oriented. Mood and affect appropriate. Follows and participates in conversation appropriately. Respiratory effort is unlabored. No cough. Able to transition from sit to stand unassisted. Ambulates with bilaterally normal heel strike and toe off, increased pain with heel/toe standing on the right. General: Yes no CVA tenderness Back/Spine/Pelvis Other: Patient is able to walk and stand on heels and tip toes with mild difficulty on the right otherwise demonstrating good motor tone. Mildly antalgic gait with limping. Lumbar flexion and bending reproduces moderate-severe pain, lumbar extension reproduces mild pain. Demonstrates 5/5 left and 4/5 right strength of quadriceps bilaterally as well as flexion/dorsiflexion of bilateral feet against resistance. 2+ pedal pulses bilaterally. Straight leg rise with dorsiflexion positive on the right. +2 left +1 right patellar and achilles reflexes bilaterally. Facet loading test positive bilaterally. Drew sign, Del?s, Gaenslen, Pelvic compression and Stinchfield tests are positive on the right. No groin pain with I/E hip rotations. Valsalva maneuver positive. Back: no CVA tenderness Cervical Spine: cervical ROM normal, cervical muscular tenderness, No Cervical spine tenderness and No step off deformity Thoracic/Lumbar Spine: thoracic and lumbar spine normal to inspection, No Thoracic/lumbar spine scar(s), Lasegue's sign positive on the right and localized, pain with thoraco-lumbar ROM, paraspinal muscle tenderness, thoraco-lumbar ROM limited, No thoracic spinal tenderness and lumbar spinal tenderness (L4-S1) Pelvis: buttock tenderness on the right Sacroiliac joints: bilaterally tender to palpation Extrem General: Yes capillary refill normal, Yes no clubbing, cyanosis or edema and Yes no calf tenderness Results Reviewed Results Reviewed: MR LUMBAR SPINE WITHOUT CONTRAST 10/27/24 CLINICAL INFORMATION: Radiculopathy, lumbar region. COMPARISON: Correlated to x-ray dated October 10, 2024. TECHNIQUE: MRI of the lumbar spine was obtained using routine sequences without contrast. FINDINGS: Last rib-bearing vertebra labeled T12. Disc desiccation, L4-5. Marginal osteophyte formation from T11-12 to L2-3. There is normal alignment. The conus medullaris ends at pedicle of L1 with normal signal. T12-L1: No herniated disc. No neuroforamina stenosis. L1-2: No herniated disc. No neuroforamina stenosis. L2-3: Bilateral facet joint hypertrophy. Broad-based disc bulging. No compression upon neural elements. L3-4: Broad-based disc bulging. Facet joint hypertrophy. No compression upon neural elements. L4-5: Right subarticular and foraminal broad-based herniated disc compressing the right L5 nerve root on its lateral recess. Facet joint hypertrophy. No neuroforamina stenosis. L5-S1: Central broad-based herniated disc abutting the S1 nerve roots on the lateral recesses. Bilateral facet joint hypertrophy resulting in bilateral neuroforamina narrowing encroaching the L5 exiting nerve roots. No prevertebral compartment hematoma, mass or fluid collection. Exophytic hyperintense T2 cystic lesion in the right kidney. IMPRESSION: Right subarticular and foraminal broad-based disc herniation L4-5 encroaching the right L5 nerve root. Central broad-based herniated disc at L5-S1 abutting the S1 nerve roots. Multilevel spondylosis resulting in bilateral neuroforamina stenosis L5-S1. XR HIP, RIGHT 10/10/24 CLINICAL INFORMATION: M54.42 - Lumbago with sciatica, left side COMPARISON: 04/17/2016. TECHNIQUE: AP pelvis, and 2 views of the right hip. FINDINGS: No fracture, dislocation, or suspicious bone lesion. There is normal alignment. Preserved joint space. There is posterior acetabular over coverage in both hips, finding which can be associated with pincer-type CAMPBELL. Otherwise, there is only minimal degenerative arthritis in both hip joints. The sacrum and SI joints appear normal. The lower lumbar spine appears grossly normal. No soft tissue abnormalities. IMPRESSION: No acute findings right hip. Posterior acetabular over-coverage of both hips, an incidental finding which can be associated with pincer-type CAMPBELL. XR LUMBOSACRAL SPINE 10/10/24 CLINICAL INFORMATION: M54.42 - Lumbago with sciatica, left side COMPARISON: 05/09/2024. TECHNIQUE: 6 views of the lumbar spine, inclusive of bilateral oblique views, were obtained. FINDINGS: There is no scoliosis. There is mild straightening of the normal lordosis. There is no subluxation. There are no compression deformities, fractures, or suspicious bone lesions. There is moderate to severe disc degeneration focally at L5-S1. There is otherwise mild disc degeneration T12-L3. There is normal facet alignment. There are mild facet degenerative changes L4-S1. Oblique views demonstrate no evidence of pars defects. The sacrum and SI joints appear normal. No soft tissue abnormalities. IMPRESSION: 1. No acute bony abnormalities. 2. Mild to moderate lumbar spondylosis most significant at L5-S1. No significant interval change from 05/09/2024. Assessment & Plan Assessment & Plan (1) Right hip pain: Code(s): M25.551 - Pain in right hip Category: Medical (2) Lumbar radiculopathy: Code(s): M54.16 - Radiculopathy, lumbar region Category: Medical (3) Lumbar disc herniation with radiculopathy: Code(s): M51.16 - Intervertebral disc disorders with radiculopathy, lumbar region Category: Medical (4) Low back pain radiating to right leg: Code(s): M54.50 - Low back pain, unspecified; M79.604 - Pain in right leg Category: Medical Plan The patient's acute low back pain and radicular symptoms will be managed with a multimodal approach, integrating physical therapy and pharmacotherapy including NSAIDs and therapeutic injection to maximize pain relief and improve functioning. We will be scheduling a right L4-L5 TFESI injection with local anesthesia at local OR (h/o iodinated contrast media allergery), under fluoroscopic guidance and oral Ativan, contingent upon insurance approval, to alleviate nerve root compression symptoms due to disc herniation. Patient is aware to call if pain worsens or if he develops any red flag symptoms to seek emergency care. Patient denies any cauda equina syndrome symptoms at this time. All questions and concerns have been answered and patient agreed with the plan. Follow up after injection to evaluate treatment efficacy and adjustment needs. Patient was informed and verbally consented to the use of an ambient scribe for clinic note documentation during this visit. Patient Instructions: I discussed with the patient the findings from his MRI, indicating disc herniation at L4-L5 consistent with his symptoms. Management options include physical therapy, oral and topical medications, and interventional procedures like therapeutic PEYTON injections. I explained the procedural benefits, risks, and alternatives, emphasizing conservative measures initially, followed by injections under fluoroscopy. Follow-up for a post-injection evaluation is planned in one month, with further diagnostics or surgical consultations considered if significant relief is not achieved. - Attend physical therapy sessions as planned. - Take prescribed medications such as Tylenol and Aleve for pain relief. - Stay active but avoid activities that exacerbate pain, like heavy lifting. - Monitor blood pressure regularly; reduce dietary salt and stress. - Follow up within a month to assess treatment progress. - Seek medical care if symptoms noticeably worsen or new symptoms develop. Coding Level of Care Code New Pt Level 4 (55650) Diagnoses Right hip pain M25.551 Lumbar radiculopathy M54.16 Lumbar disc herniation with radiculopathy M51.16 Low back pain radiating to right leg M54.50; M79.604
[2024-11-03 14:01] VITALS: BP 169/91; PULSE 61; O2SAT 100; BMI 30.8
== END 2024-11-03 14:38 | disposition home or self-care (01) ==
LOC: HO.PMC 13:45
PROVIDERS: PCP Physician Assistant; Referring Provider Physician Assistant; Visit Provider Nurse Practitioner Family
DX: M25.551 Pain in right hip (principal); M51.16 Intervertebral disc disorders with radiculopathy, lumbar region; M54.50 Low back pain, unspecified; M79.604 Pain in right leg
CPT/HCPCS: 99204

== ENCOUNTER 2024-11-04 10:52 | Outpatient (REF) | payer OTHER, SELFPAY ==
--- OUTSIDE RECORDS SUMMARY | 2024-11-04 12:09 | XMS_ITS | Clinical Summary ---
Author Organization [address] Address [address] [place] [id number] Care Team Providers Care Spd Manager Name Role Phone Soy Connor Primary [...] patient's age to complete this topic Insurance [facility] HEALTHCARE Care Teams Spd Manager Relationship Specialty Start Date End Date Soy Connor PA PCP - General 06/01/21
--- OUTSIDE RECORDS SUMMARY | 2024-11-04 12:09 | XMS_ITS | Clinical Summary ---
Author Organization [address] [place] [address] Address [address] [place] [address] Phone Care Team Providers Care Commercial Mortgage Broker Name Role Phone Unavailable Primary Care Provider [...] complete this topic Insurance [place] - [place] [facility] Advance Directives Documents on File Type Date Recorded Patient State Fire Marshal Expl anation Health Care Decision (hx) 01/15/2021 AD DEMARCO DIRECTIVE
--- OUTSIDE RECORDS SUMMARY | 2024-11-04 12:09 | XMS_ITS | Clinical Summary ---
Author Organization [facility] Address [address] [place] [address], [place] [address] Care Team Providers Care Manufacturing Business Analyst Name Role Phone Unavailable Primary Care [...] 021 Influenza Vaccine (Season Ended) 2025 Insurance [facility] Choice O ([id number]) [facility] Choice O ([id number])
--- OUTSIDE RECORDS SUMMARY | 2024-11-04 12:09 | XMS_ITS | Clinical Summary ---
Author Organization [facility] Address [address] [place] [address] Care Team Providers Care Rope Maker Name Role Phone Unavailable Primary Care Provider [...] this topic Medical Devices Explanted Type Area Records Management Director Device Identifier Shelf Expiration Date Model / Serial / Lot Sealant Fibrin Vistaseal 4ml [facility]-Ethi [id number] - [id number] Explanted:Qt y: 1 on 02/16/2021 by Ab Goncalves MD at [facility] Med Hemostatic Agent Anterior: Trachea [employer] 08/31/2022 [id number] / [id number] / [id number] Advance Directives For more information, please contact: [phone] Latest Code Status on File Code Status Date Activated Date Inactivated Comments Full Code 01/31/2021 6:40 PM 04/07/2021 11:01 PM Thi s code status was ascertained in the following way: discussion with healthcare sales representative printing .
--- OUTSIDE RECORDS SUMMARY | 2024-11-04 12:09 | XMS_ITS | Patient Health Record ---
[facility] Address [address] [place] [address] Care Team Providers Care Athletic Turf Worker Name Role Phone Soy Connor Primary Care Provider UnavailAndrea Musa Unavailable [phone] Allergies Allergen (clinical drug ingredient) Drug/Non Drug [...] Insured Coverage Start Date Coverage End Date [employer] re-[id number] [address] [place] [address] [id number] Markus Cannon Self - patient is the insured Medical (General) History Medical History History ICD Code Anxiety Anxiety disorder Back,Hip,and Knee pain High blood pressure Kidney disease Scarlet fever Chicken pox Surgical History Surgery Date(Month/Year)
[2024-11-04 12:10] LABS: Hemoglobin 16.8 g/dl (14.0-18.0); Mean Corpuscular HGB Conc 33.6 g/dl (31.0-36.0); Mean Corpuscular Hemoglobin 29.6 pg (27.0-33.0); Mean Corpuscular Volume 88.2 fL (80.0-98.0); Platelet Count 239 X10*3/uL (160-400); Red Blood Count 5.67 X10*6/uL (4.60-5.80); Red Cell Distribution Width 13.8 % (11.0-16.0); White Blood Count 8.3 X10*3/uL (4.8-10.8)
[2024-11-04 12:12] LABS: Estimated Average Glucose 105 mg/dL; Hemoglobin A1C 149.0818 umol/L; Hemoglobin A1c % 5.3 % (<6.0); Total Hemoglobin (HGBA1C) 4286.0986 umol/L
[2024-11-04 12:59] LABS: Alanine Aminotransferase 77 U/L (0-40); Albumin Level 4.3 g/dL (3.5-5.0); Alkaline Phosphatase 61 U/L (39-117); Anion Gap 8 (12-20); Aspartate Amino Transferase 32 U/L (5-37); Bilirubin Total 0.7 mg/dL (0.0-1.0); Blood Urea Nitrogen 14 mg/dL (9-16); Calcium 9.2 mg/dL (8.4-10.2); Carbon Dioxide 26 mmol/L (22-29); Chloride 108 mmol/L (96-108); Cholesterol 219 mg/dL (<200); Estimated Glomerular Filt Rate > 60; Glucose Fasting 96 mg/dL (60-99); HDL Cholesterol 28 mg/dL (>40); LDL Cholesterol Calculated 119 mg/dL (<100); Potassium 4.2 mmol/L (3.3-5.1); Sodium 138 mmol/L (135-145); Triglycerides 361 mg/dL (<150)
[2024-11-04 13:08] LABS: Prostate Specific Antigen Scr 2.91 ng/mL (<0.05-4.0)
== END 2024-11-04 10:53 | disposition home or self-care (01) ==
LOC: HO.LAB 10:52
PROVIDERS: Absent Provider Internal Medicine Nephrology; PCP Physician Assistant; Visit Provider Physician Assistant
DX: I10 Essential (primary) hypertension (principal); Z12.5 Encounter for screening for malignant neoplasm of prostate; E78.9 Disorder of lipoprotein metabolism, unspecified; R73.01 Impaired fasting glucose
CPT/HCPCS: 36415; 80053; 80061; 83036; 84153; 85027

== ENCOUNTER 2024-11-07 11:07 | Outpatient (AMB) | payer OTHER, SELFPAY ==
--- NOTE | 2024-11-07 11:23 | HO.NEPHOV ---
Vital Signs 11/07/24 11:24 Height 5 ft 8 in Weight 202 lb 6 oz BMI 30.8 BP 110/70 Blood Pressure Location Lt brachial Position Sitting Pulse 65 Pulse Source Pulse Oximeter Pulse Oximetry (%) 96 Oxygen Delivery Method Room Air Intake Visit Reasons: 6mon follow up-[facility] Optimization Engineer Required: No Accompanied by: Self / Same As Patient Allergies bee venom protein (honey bee) Allergy (Intermediate, Verified 11/07/24 11:24) Swelling Iodinated Contrast Media Allergy (Unknown, Verified 11/07/24 11:24) Rash amlodipine Adverse Reaction (Intermediate, Verified 11/07/24 11:24) Pedal edema hydroxyzine Adverse Reaction (Intermediate, Verified 11/07/24 11:24) ineffective HPI Comments Details: Mr. 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 He has blood pressure issues for over 30 years. He does not take excessive sodium in the diet. He had edema from amlodipine. It was discontinued and the doxazosin was introduced. He also has taken hydrochlorothiazide. His potassium levels in the blood had been fluctuant and he takes potassium supplements. He had been worked up in the past for secondary etiology for hypertension. Blood work or urine studies were not supportive of aldosteronism. He had severe COVID and was on ECMO. 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 He gets pulmonary rehab. He had been referred to lung transplant team at [facility] in the past. He claimed to be going through a lot of life stressors. His renal functions are normal. He has no history of hypercalcemia, uncontrolled thyroid disorders, sweating, orthostasis, palpitation or diarrhea. He denies history of coronary artery disease, congestive heart failure, CVA, peripheral arterial disease or renal artery stenosis. His renal functions are normal [facility] Medical History (Updated 11/03/24 @ 15:52 by MARY Pettit) ILD (interstitial lung disease) Fatigue Daytime somnolence Restless legs syndrome [id number] syndrome GERD (gastroesophageal reflux disease) Left SNHL Impaired fasting glucose Pure hypercholesterolemia Borderline high cholesterol Chest pain HTN (hypertension) DANIELLA (generalized anxiety disorder) Sepsis with acute hypoxic respiratory failure Surgical History Hx of colonoscopy S/P emergency tracheotomy for assistance in breathing History of ear surgery History of vasectomy History of wisdom tooth extraction Family History Father Prostate cancer Mother Lung cancer Paternal Uncle Diabetes Paternal Aunt Brain cancer Other Mental health disorder Substance use disorder Social History Household Members: Family Housing: House Alcohol intake: current Alcohol intake frequency: holidays/special occasions only Patient Tobacco Use Status: Never used Tobacco Tobacco use type: Cigarette e-Cigarette/Vaping Use: Never Used Second Hand Smoke Exposure: Yes (Mother) service: No Current occupational status: employed Cognitive needs: No Hearing needs: No Vision needs: Yes Review of Systems Const All systems reviewed & are unremarkable except as noted in HPI and below Physical Exam Vital Signs: Last Vital Signs Pulse 65 11/07/24 11:24 BP 110/70 11/07/24 11:24 Pulse Ox 96 11/07/24 11:24 Oxygen Delivery Method Room Air 11/07/24 11:24 BMI result Body Mass Index 30.8 Const General: comfortable and no acute distress Orientation/consciousness: patient oriented x3 HEENT Head: Yes normocephalic Mouth: Normal oral and palatal mucosa present Eyes EOM: EOMs intact bilaterally Neck Neck: Yes supple Resp Auscultation: clear to auscultation bilaterally Cardio Jugular venous distension: no JVD Rate: regular rate GI Palpation (GI): Soft to palpation Auscultation: normal bowel sounds General: Yes no CVA tenderness Back/Spine/Pelvis Back: no CVA tenderness Skin General skin exam: no rashes or lesions noted Neuro General: patient oriented x3 and moves all extremities Extrem General: Yes no pedal edema Results Reviewed Nephrology Results: Hgb 16.8 g/dl (14.0-18.0) 11/04/24 WBC 8.3 X10*3/uL (4.8-10.8) 11/04/24 Plt Count 239 X10*3/uL (160-400) 11/04/24 Sodium 138 mmol/L (135-145) 11/04/24 Potassium 4.2 mmol/L (3.3-5.1) 11/04/24 Chloride 108 mmol/L (96-108) 11/04/24 Carbon Dioxide 26 mmol/L (22-29) 11/04/24 BUN 14 mg/dL (9-16) 11/04/24 Creatinine 0.88 mg/dL (0.5-1.4) 11/04/24 Calcium 9.2 mg/dL (8.4-10.2) 11/04/24 Assessment & Plan Assessment & Plan (1) HTN (hypertension): Code(s): I10 - Essential (primary) hypertension Category: Medical Qualifiers: Hypertension type: essential hypertension Qualified Code(s): I10 - Essential (primary) hypertension Plan Mr Cannon has history of hypertension over 20 years. He had extensive workup in the past rule out secondary etiology which was on yielding at that time . He has developed edema from amlodipine. He can continue on doxazosin, lisinopril and metoprolol for now along with spironolactone 25 mg daily . He should maintain low-sodium diet. I intend to maximize some of his medications and discontinued doxazosin if at all possible in the future .His Doppler of renal arteries showed increased velocity in left renal artery. He is aware of the need for closely monitoring his serum potassium given initiation of spironolactone while being on lisinopril. I did not make any other medication changes today. All questions answered. Follow-up appointment given Orders: Orders Electrolytes 10 Months I10 - Essential (primary) hypertension Creatinine 10 Months I10 - Essential (primary) hypertension Blood Urea Nitrogen 10 Months I10 - Essential (primary) hypertension Coding Level of Care Code Est Pt Level 4 (97621) Diagnoses Essential hypertension I10 Hypertension type: essential hypertension
[2024-11-07 11:24] VITALS: BP 110/70; PULSE 65; O2SAT 96; BMI 30.8
== END 2024-11-07 11:49 | disposition home or self-care (01) ==
LOC: HO.HKA 11:07
PROVIDERS: PCP Physician Assistant; Visit Provider Internal Medicine Nephrology
DX: I10 Essential (primary) hypertension (principal)
CPT/HCPCS: 99214

== ENCOUNTER → 2024-11-07 11:07 | Outpatient (BNVA) | payer OTHER, SELFPAY | PROVIDERS: PCP Physician Assistant; Visit Provider Internal Medicine Nephrology | DX: I10 Essential (primary) hypertension (principal) | CPT/HCPCS: 99212 ==

== ENCOUNTER 2024-11-21 08:51 | Day surgery (SDC) | payer OTHER, SELFPAY ==
[2024-11-19 14:15] VITALS: BMI 30.7
--- NOTE | 2024-11-20 10:54 | HO.ANESPROP2 ---
HPI - Anesthesia Eval Consult details Narrative: 54yo M for Right L4-L5 Transformainal Epidural Steroid Injection PMFSH Active Problems Active Problems: All Active Problems Low back pain radiating to right leg (Acute) Lumbar disc herniation with radiculopathy (Acute) Otitis externa (Acute) Hordeolum external (Acute) Onychomycosis (Acute) Lumbar radiculopathy (Acute) Greater trochanteric bursitis of right hip (Acute) Right hip pain (Acute) Left-sided low back pain with left-sided sciatica (Acute) Nasal sinus congestion (Acute) Upper respiratory infection (Acute) Respiratory distress (Acute) Lower back pain (Acute) Laceration of left foot (Acute) Right flank pain (Acute) Annual physical exam (Acute) Raegan onychomycosis (Acute) Left otitis media (Acute) Otalgia (Acute) Hepatitis B immune (Acute) Need for MMR vaccine (Acute) Lung transplant candidate (Acute) Abnormal lung sounds (Acute) Chest congestion (Acute) Pleuritic pain (Acute) Snoring (Acute) long-term (current) use of systemic steroids (Acute) Obesity (BMI 30-39.9) (Acute) Benign essential hypertension (Acute) Sleep-disordered breathing (Acute) Chest discomfort (Acute) Supplemental oxygen dependent (Acute) Dyspnea on exertion (Acute) Hypoxia (Acute) Folliculitis barbae (Acute) Physical deconditioning (Acute) Viral syndrome (Acute) Cough (Acute) Colon cancer screening (Acute) Insomnia (Acute) Insomnia (Acute) Chest pain (Acute) Restless legs syndrome (Acute) Pure hypercholesterolemia (Acute) Impaired fasting glucose (Acute) Fatigue (Acute) Daytime somnolence (Acute) ILD (interstitial lung disease) (Acute) Borderline high cholesterol (Acute) 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) Left SNHL (Acute) DANIELLA (generalized anxiety disorder) (Acute) GERD (gastroesophageal reflux disease) (Acute) HTN (hypertension) (Acute) Past Medical History Medical History (Updated 11/19/24 @ 14:18 by Florecita Guzman RN) History of home oxygen therapy Chest pain Restless legs syndrome Pure hypercholesterolemia Impaired fasting glucose Fatigue Daytime somnolence ILD (interstitial lung disease) Borderline high cholesterol 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 DANIELLA (generalized anxiety disorder) Sepsis with acute hypoxic respiratory failure GERD (gastroesophageal reflux disease) HTN (hypertension) Family History Family History Father Prostate cancer Mother Lung cancer Paternal Uncle Diabetes Paternal Aunt Brain cancer Other Mental health disorder Substance use disorder Surgical History Surgical History Hx of colonoscopy S/P emergency tracheotomy for assistance in breathing History of ear surgery History of vasectomy History of wisdom tooth extraction Social History Social History Household Members: Family Housing: House Alcohol intake: current Alcohol intake frequency: holidays/special occasions only Patient Tobacco Use Status: Never used Tobacco Tobacco use type: Cigarette e-Cigarette/Vaping Use: Never Used Second Hand Smoke Exposure: Yes (Mother) service: No Current occupational status: employed Cognitive needs: No Hearing needs: No Vision needs: Yes Meds Allergies Allergy/AdvReac Type Severity Reaction Status Date / Time bee venom protein (honey bee) Allergy Intermediate Swelling Verified 11/07/24 11:24 Iodinated Contrast Media Allergy Unknown Rash Verified 11/07/24 11:24 amlodipine AdvReac Intermediate Pedal edema Verified 11/07/24 11:24 hydroxyzine AdvReac Intermediate ineffective Verified 11/07/24 11:24 Home Medications ?Medication ?Instructions ?Recorded ?Confirmed ?Last Taken ?Type ascorbic acid (vitamin C) 1,000 mg 1 g PO DAILY 08/17/23 10/21/24 Unknown History tablet cholecalciferol (vitamin D3) 50 50 mcg PO DAILY 08/17/23 10/21/24 Unknown History mcg (2,000 unit) capsule zinc gluconate 50 mg tablet 50 mg PO DAILY 08/17/23 10/21/24 Unknown History omega-3 fatty acids 1,000 mg 1,000 mg PO DAILY 04/23/24 10/21/24 Unknown History capsule potassium chloride 20 mEq oral 20 meq PO DAILY 04/23/24 10/21/24 Unknown History packet (Jannette-Brannon) Exam Height,Weight and Vital Signs: Height 5 ft 8 in Weight 91.626 kg
--- NOTE | ~2024-11-21 | FL_ITS ---
EXAMINATION: XR FLUOROSCOPY WITH IMAGES CLINICAL INFORMATION: L4-5 right transforaminal epidural steroid injection. COMPARISON: None available. TECHNIQUE: Fluoroscopy provided to: Dr. Camacho Fluoroscopy time: 20.3 seconds DAP: 2.6779 Gycm2 Images: 3 FINDINGS: 3 fluoroscopic spot images of the lower lumbar spine during L4-5 right transforaminal epidural steroid injection. Please refer to the full procedural report for details. FL/FL guidance in OR IMPRESSION: Fluoroscopic guidance. Electronically signed by: Ankush Cooper MD 11/21/2024 12:35 PM EDT
[2024-11-21 09:16] VITALS: BMI 29.8
--- NOTE | 2024-11-21 10:55 | MHC.SHP ---
Pre-Procedural Eval Section A - 24 Hr Update-Section A only Date of Service: 11/21/24 The patient is an INPATIENT: No Changes since office visit: Yes Patient answered all questions The patient has been examined within 24 hours of the surgical procedure. The History & Physical has been completed within 30 days and I have reviewed it.: No Section B - Complete if H&P > 30 days Chief Complaint: Intervertebral disc disorders with radiculopathy, Details of Present Illness: as above Relevant Family History (Specify if Yes): No Relevant Social History: None Present Medications: see Short Stay Collaborative assessment Medical History: No relevant PMH History of Previous Operations: No relevant previous surgery Allergies: Allergies Allergy/AdvReac Type Severity Reaction Status Date / Time bee venom protein (honey bee) Allergy Intermediate Swelling Verified 11/07/24 11:24 Iodinated Contrast Media Allergy Unknown Rash Verified 11/07/24 11:24 amlodipine AdvReac Intermediate Pedal edema Verified 11/07/24 11:24 hydroxyzine AdvReac Intermediate ineffective Verified 11/07/24 11:24 Review of Systems Sugical H&P ROS: Negative: Cardiovascular, Respiratory, Psychiatric, Hem-Onc, Allergic/Immunologic, Gastrointestinal, Genitourinary, Integumentary, Endocrine and Eyes/Ears/Nose/Throat and Yes, Specify: Constitution (obesity), Neurological (restless legs syndrome) and Musculoskeletal (disc degeneration lumbar, ) Exam Surgical H&P Exam: Normal: HEENT, Normal: Heart, Normal: Lungs, Normal: Extremities, Normal: Abdomen, Normal: Skin and Normal: Neurological Plan Diagnosis/Plan: Unchanged I have reviewed the history and physical and performed a pertinent physical examination on my patient. No changes have occurred unless specified. Time Spent With Patient Time: Total time managing care of this patient today __10__ minutes.
[2024-11-21] MEDS: Lactated Ringers 1,000 ML 50 ML IVCONT (11:03)
[2024-11-21] MEDS: dexAMETHasone sod phosphate 4 MG/ML VIAL IVPUSH (11:06)
[2024-11-21] MEDS: diphenhydrAMINE HCL 50 MG/ML VIAL 25 MG IVPUSH (11:09)
--- NOTE | 2024-11-21 11:38 | P.BOP_ITS ---
Brief Operative Note Date of Service: 11/21/24 Pre-op diagnosis: radiculopathy lumbar Post-op diagnosis: same Procedure: Right L4- L5 transforaminal epidural steroid injection. Surgeon: Casey Camacho MD Anesthesia: local Was an Reducing Salon Attendant used for this Procedure?: No Estimated blood loss (mL): 0 Condition: stable Disposition: PACU
[2024-11-21 11:40] VITALS: BP 125/66; PULSE 50; RESP 16; TEMP 37.1
--- NOTE | 2024-11-21 11:42 | W.PM.OPN ---
Operative Note Operative Note Date of Service: 11/21/24 Narrative: Right L4-5 transforaminal epidural steroid injection Informed consent was thoroughly explained to the patient before the procedure.? he reported allergy to IV contrast dye. The allergic response was full body rash. He preoperatively was administered intravenously 25 mg of Benadryl and 4 mg of Decadron. After that the patient came to the operating room.? He was positioned prone on operating table with a pillow under his abdomen.? Time-out was performed delineating correct site and side of the procedure, nature of the injection, name and date of of the patient. The lower back of the patient was prepped with ChloraPrep and draped with sterile utility towels.? C-arm was brought over the operating field and sq picture of L4 vertebra was demonstrated on the screen.? The right side was chosen as the side of the injection.? Tilting machine ipsilateral to the left at the level of L4 the most prominent picture of the right pedicle was obtained on the screen.? 3 mm below the level of the lowest point of the pedicle projection to the skin small amount of lidocaine 1% 3-4 cc was injected to anesthetize the skin.? After that 5 in 22 gauge Quincke point needle was inserted through the skin wheal and was advanced toward L4-5 foramina on the right under anterior posterior , lateral and oblique views intermittently.? Injection of the Isovue M contrast not more than 0.1 mL was performed demonstrating epidural spread of the contrast mostly in anterior epidural space on the lateral view. No intravascular nor intrathecal spread of the contrast was noted. After that preservative-free lidocaine 1% 4 mL mixed with Kenalog 40 mg was injected into the needle. Upon completion of the injection needle was withdrawn sterile Band-Aid was applied. Patient tolerated procedure well he was taken outside of the operating room where he recovered uneventfully.? He went home without immediate complications.
== END 2024-11-21 11:57 | disposition home or self-care (01) ==
PROVIDERS: PCP Physician Assistant; Visit Provider Anesthesiology
PROC: 3E0R33Z Introduction of Anti-inflammatory into Spinal Canal, Percutaneous Approach (ICD-10-PCS; CPT 64483; principal; 2024-11-21 12:00)
DX: M51.16 Intervertebral disc disorders with radiculopathy, lumbar region (principal); M79.604 Pain in right leg; M25.551 Pain in right hip; R20.0 Anesthesia of skin; Z91.81 History of falling; G25.81 Restless legs syndrome; R26.2 Difficulty in walking, not elsewhere classified; R53.82 Chronic fatigue, unspecified; J84.9 Interstitial pulmonary disease, unspecified; J84.10 Pulmonary fibrosis, unspecified; R73.01 Impaired fasting glucose; I10 Essential (primary) hypertension; E78.00 Pure hypercholesterolemia, unspecified; F41.1 Generalized anxiety disorder; H90.42 Sensorineural hearing loss, unilateral, left ear, with unrestricted hearing on the contralateral side; Z79.51 Long term (current) use of inhaled steroids; Z79.899 Other long term (current) drug therapy; Z88.8 Allergy status to other drugs, medicaments and biological substances; Z91.041 Radiographic dye allergy status; Z98.890 Other specified postprocedural states; Z87.891 Personal history of nicotine dependence
CPT/HCPCS: 64483; J1100; J1200; J2003; J2795; J3301; Q9967

== ENCOUNTER → 2024-11-21 08:51 | Outpatient (BNV) | payer OTHER, SELFPAY | PROVIDERS: PCP Physician Assistant; Visit Provider Anesthesiology | DX: M54.16 Radiculopathy, lumbar region (principal) | CPT/HCPCS: 64483 ==

== ENCOUNTER → 2024-12-16 09:29 | Outpatient (REF) | payer OTHER, SELFPAY ==
--- NOTE | ~2024-12-16 | NM_ITS ---
Lexiscan Myocardial perfusion study Indication: Chest pain to evaluate for myocardial ischemia Technique: The patient was brought in for a Lexiscan perfusion study on December 16, 2024 and was injected 0.4 mg of Lexiscan intravenously. Within a minute of this injection 30 mCi of sestamibi was given intravenously. Images were obtained using the SPECT gamma camera interlaced with the gating device. Images were obtained in supine position. Resting perfusion study was performed on December 23, 2024. Patient was administered 30 mCi of sestamibi intravenously at rest. Images were then obtained in supine position. Images obtained without without CT attenuation. Total DLP 180 mGy-cm. Images were processed with the software and compared side to side in short axis, horizontal long axis and vertical long axis views. Findings: The stress perfusion study showed nonattenuated images show large area of mildly to moderately reduced uptake in the anterior, lateral as well as inferolateral wall of the LV myocardium. Remainder of the LV myocardium is normally perfused. Attenuated corrected images show mildly reduced uptake in the distal anterior and apical wall of the LV myocardium.. The gated study shows normal LV systolic function with calculated LVEF of 66%. LV cavity is mildly dilated in size. The gated study shows normal wall thickening and contraction of segments. Resting study shows attenuated corrected images show normal uptake of radiotracer in all segments of the LV myocardium. Attenuated corrected images show mildly reduced uptake in the distal anterior and apical wall of the LV myocardium.. Gating at rest reveals normal systolic wall motion with ejection fraction at 62%. The findings are consistent with discrepant findings on nonattenuated images show a large area of reversible defect of mild to moderate intensity pain to left distribution and LAD and circumflex territory. Attenuated corrected images prior shows normalized uptake. Discrepant finding could be due to shifting arm attenuation artifact between stress and rest imaging, although this is difficult to see on raw images. NM/NM cardiolite stress test Impression: 1. Myocardial perfusion imaging study shows possible large area of mild to moderate intensity ischemia in the LAD and circumflex territory. Clinical correlation suggested 2. Gated LVEF is 66% 3. Transient ischemic dilatation present Nondiagnostic changes on EKG. Electronically signed by: Nahum Miller MD 12/24/2024 03:29 PM EDT
--- NOTE | 2024-12-16 09:31 | CA_ITS ---
Acquisition Time: 2024-12-16 09:41:18 Total Exercise Time: 00:02:00 Test Indications: CP Medications: SEE H&P Protocol: LEXISCAN Max HR: 100 BPM 60% of Pred: 166 BPM Max BP: 138/82 mmHG Max Work Load: 1.6 METS Pharmacological stress test with Lexiscan while pt walked slowly on treadmill, with reports of SOB, fatigue and lightheadedness, without any arrythmias, with normotensive response to injection. Nondiagnostic EKG for ischemia. In recovery, pt treated with Aminophylline 75 mg to reverse Lexiscan after which pt feeling back to baseline. Nuclear images pending. Test reviewed with Dr. Miller. Referred By: Soy Connor Electronically Signed By: Amol Rowland
--- OUTSIDE RECORDS SUMMARY | 2024-12-16 10:09 | XMS_ITS | Clinical Summary ---
Author Organization [facility] Facility Address [address] [place] [address], [place] [address] Care Team Providers Care Army Helicopter Pilot Name Role Phone Unavailable Primary Care Provider [...] 021 Influenza Vaccine (Season Ended) [address] [facility] Choice O ([id number]) [facility] Choice O ([id number])
--- OUTSIDE RECORDS SUMMARY | 2024-12-16 10:09 | XMS_ITS ---
Author Name [facility] Organization Unknown Care Team Organization Name Specialty Phone Email Start Date End [facility] 05/09/2021 05/09/2021
--- OUTSIDE RECORDS SUMMARY | 2024-12-16 10:09 | XMS_ITS | Clinical Summary ---
Author Organization [address] [place] [address] Address [address] [place] [address] Phone Care Team Providers Care Senior Controls Analyst Name Role Phone Unavailable Primary Care Provider Unavailabl e Social History Tobacco Use Types Packs/Day Years Used Date Smoking Tobacco: Never Assessed Sex and Gender Information Value Date Recorded Sex Assigned at Not on file Legal Sex Male 9:55 AM EST Gender Identity Not on file Sexual Orientation Not on file Plan of Treatment Upcoming Encounters Date Type Department Care Team ([facility] Contact Info) Description 01/26/2025 10:30 AM EDT Office Visit Orthopedic Surgery [place] [address] [address] Buck Wong, DPM [address] [address] Health Maintenance Due Date Last Done Comments [...] Influencers of Health Screening 05/16/2022 COVID-19 Vaccine (1 - 2023-2 5 season) 2024 Influenza Vaccine [...] complete this topic Insurance MEDICA[place] - [place] [facility] Advance Directives Documents on File Type Date Recorded Patient Handstitching Machine Armhole Feller Expl anation Health Care Decision (hx) 01/15/2021 AD DEMARCO DIRECTIVE
--- OUTSIDE RECORDS SUMMARY | 2024-12-16 10:09 | XMS_ITS | Clinical Summary ---
Author Organization [facility] Address [address] [place] [address] Care Team Providers Care Office Communication Professor Name Role Phone Unavailable Primary Care Provider [...] 61 04/07/2021 4:00 PM EDT Temperature 36.9 C (98.4 F) 04/07/2021 12:00 PM EDT Respiratory Rate 23 04/07/2021 4:00 PM EDT [...] Vaccine (1 of 2) 2020 Influenza Vaccine (Season Ended) 2025 RSV Ped < 20 months Aged Out No longe r eligible based on patient's age to complete this topic Medical Devices Explanted Type Area Vp Home Health Device Identifier Shelf Expiration Date Model / Serial / Lot Sealant Fibrin Vistaseal 4ml [facility] [id number] - [id number] Explanted:Qt y: 1 on 02/16/2021 by Ab Goncalves MD at [facility] [place] [facility] and Med Hemostatic Agent Anterior: Trachea [facility] [employer] 08/31/2022 [id number] / [id number] / [id number] Advance Directives For more information, please contact: [phone] Latest Code Status on File Code Status Date Activated Date Inactivated Comments Full Code 01/31/2021 6:40 PM 04/07/2021 11:01 PM Thi s code status was ascertained in the following way: discussion with healthcare sales account representative .
--- OUTSIDE RECORDS SUMMARY | 2024-12-16 10:09 | XMS_ITS | Patient Health Record ---
[facility] Address [address] [place] [address] Care Team Providers Care Sternman Name Role Phone Soy Connor Primary Care Provider Unavailab Andrea Moran Unavailable [phone] Allergies Allergen (clinical drug ingredient) Drug/Non Drug Allergy documented on EMR Reaction Allergy Type Onset Date Status Information temporarily unavailable Iodine red blotches Drug Allergy Active Reason For Referral No Information Medications Medication SIG (Take, Route, Frequency, Duration) Notes Start Date End Date Status Metoprolol Succinate 100 MG 1 capsule Orally Once a day; Duration: 30 day(s) Active Zolpidem Tartrate 10 MG 1 tablet at bedt mery as needed Orally prn Active Physical Therapy . . . 2-3x/week; Durat ion: 3-4 weeks 07/08/2020 Active Baby Aspirin Active Lisinopril-hydroCHLOROthia zide 20-12.5 MG 1 tablet Orally Once a day; Duration: 30 day(s) Active Night Splint AFO - L1930 as directed 07/08/2020 Active amLODIPine Besylate 10 MG 1 tablet Orall y Once a day; Duration: 30 day(s) Active Social History Tobacco Use: [...] Insured Coverage Start Date Coverage End Date [facility] [id number] [place] [address] [id number] Markus Cannon Self - patient is the insured Medical (General) History Medical History History ICD Code Anxiety Anxiety disorder Back,Hip,and Knee pain High blood pressure Kidney disease Scarlet fever Chicken pox Surgical History Surgery Date(Month/Year)
--- OUTSIDE RECORDS SUMMARY | 2024-12-16 10:09 | XMS_ITS | Patient Health Record ---
Author Organization [facility] Address [address] [place] [id number] Care Team Providers Care Grey Percher Name Role Phone Akhil (RETIRED) Mike BENNETT Primary Care Provide Ab Bales Unavailable [phone] Allergies Allergen (clinical drug ingredient) Drug/Non Drug Allergy documented on EMR Reaction Allergy Type Onset Date Status IVP Dye (uncoded) Unknown Allergy Ac tive Reason For Referral No Information Medications Medication SIG (Take, Route, Fr equency, Duration) Notes Start Date End Date Status Ambien 06/18/2024 06/18/2024 Active Zoloft 06/18/2024 06/18/2024 Active hydroCHLOROthiazide 06/18/2024 1 Active Problems Problem Type SNOMED Code ICD Code Onset Dates Problem Status W/U Status Risk Notes Problem Blood in stool (183670705) Blood in stool (578.1) Active confirmed Problem Elevated liver enzymes level (964853825) Elevated liver function tests (790.6) Active confirmed Plan Of Treatment Pending Test Test Name Order Date LIVER PROFILE 04/05/2012 Future Test Test Name Order Date COLONOSCOPY 04/05/2012 Insurance Providers Payer Name Payer Address Payer Phone Subscriber Number Group Number Insured Name Patient Relationship to Insured Coverage Start Date Coverage End Date [facility] [address] [place], [place] [id number] [phone] [id number] DAV[address] SINAN) Self - patient is the insured Medical (General) History Medical History History ICD Code hypertension Denies ID,DM,CVA,Lung disease,renal dise ase Anxiety
--- OUTSIDE RECORDS SUMMARY | 2024-12-16 10:09 | XMS_ITS | Clinical Summary ---
Author Organization [address] Address [address] [place] [phone] Care Team Providers Care Agricultural Equipment Design Engineer Name Role Phone Soy Connor Primary Care [...] age to complete this topic Insurance [facility] Care Teams Agricultural Equipment Design Engineer Relationship Specialty Start Date End Date Soy Connor PA PCP - General 06/01/21
== END ==
LOC: HO.CARD 09:29
PROVIDERS: PCP Physician Assistant; Visit Provider Physician Assistant
DX: R07.9 Chest pain, unspecified (principal)
CPT/HCPCS: 78452; 93017; A9500; J0280; J2785

== ENCOUNTER → 2024-12-16 09:31 | Outpatient (BNV) | payer OTHER, SELFPAY | PROVIDERS: PCP Physician Assistant | DX: R06.02 Shortness of breath (principal); R42 Dizziness and giddiness | CPT/HCPCS: 78452; 93016; 93018 ==

== ENCOUNTER 2024-12-29 10:26 | Outpatient (AMB) | payer OTHER, SELFPAY ==
--- NOTE | 2024-12-29 10:28 | MHC.OFFVIS ---
Vital Signs 12/29/24 10:33 Height 5 ft 8 in Weight 194 lb 6 oz BMI 29.6 BP 153/83 H Blood Pressure Location Rt brachial Position Sitting Pulse 55 Pulse Source Pulse Oximeter Pulse Oximetry (%) 100 Oxygen Delivery Method Room Air Intake Visit Reasons: S/p (R) L4-L5 TFESI 11/21/24 Intake Note: Pain today 3/10 [facility] Administrator Required: No Accompanied by: Self / Same As Patient Allergies bee venom protein (honey bee) Allergy (Intermediate, Verified 12/29/24 10:34) Swelling Iodinated Contrast Media Allergy (Unknown, Verified 12/29/24 10:34) Rash amlodipine Adverse Reaction (Intermediate, Verified 12/29/24 10:34) Pedal edema hydroxyzine Adverse Reaction (Intermediate, Verified 12/29/24 10:34) ineffective HPI Comments Details: The patient is a 54-year-old male presenting with lumbar radiculopathy. He received an L4-L5 transforaminal steroid injection on 11/21/[address] Camacho. Post-injection, he experienced significant pain relief, with pain levels reducing to 3/10, and reported an 80% improvement for the first two weeks, followed by a 70% improvement thereafter. He reports persistent muscle tightness and tingling in the foot, primarily affecting the right leg and hip. He is currently undergoing physical therapy and prefers to avoid surgical intervention, although it remains a consideration if symptoms worsen. Patient reports post injections he notes partial improvement in his daily functioning, mobility and sleep. Denies any recent cough, cold, infection, fever or any significant changes in medical history since last office visit. Past Procedures: 11/21/24: Right L4-L5 TFESI-70% ongoing pain relief PRIOR: The patient is a 54-year-old male presenting with acute low back pain and right-sided radiculopathy, following a fall from a ladder in his basement two months prior. Since the fall, he developed significant right hip pain radiating to the lateral thigh and right leg and ankle, with intermittent numbness in his right dorsal mid foot. The pain worsens with movement and evaluation is sought due to its impact on daily activities and quality of life. MRI findings indicate a right subarticular and foraminal disc herniation at L4-L5 with right L5 nerve root compression, and an additional bulging disc centrally at L5-S1 affecting the S1 nerve roots. Multilevel spondylosis with neuroforaminal stenosis at L5-S1 is also noted. Denies previous spine surgery or injections. Patient was seen by [facility] today and they recommend injection at L4-L5 level and physical therapy. The patient has a history of chronic fatigue and pulmonary fibrosis post ECMO for severe COVID-19 in 2020 which required over 2 months hospitalization and tracheostomy and PEG tube with reversal and continued requirement of supplemental O2, h/o previous kidney stones, and mild degenerative arthritis in both hips. His elevated blood pressure remains unchecked and may exacerbate under stress. - Onset: 2 months ago, post-fall - Quality: Sharp, shooting, pinching, dull, sore, hurting, aching, heavy pain - Primary Location: Right low back - Radiation: Shoots down right leg, lateral thigh, side of calf, ankle; stops at top of the right foot - Severity: 8-9/10 in morning, 6-8/10 midday - Exacerbating factors: Movements, bending, twisting, prolonged sitting or walking, sleeping, changing positions, lying down - Alleviating factors: Some relief with Tylenol, Aleve, and heat - Interference: Sleep, lifting, walking - Affect: Pain significantly affects sleep and function - Analgesia: Using Tylenol, Aleve, and Prednisone; moderate pain relief; current pain levels 8-9/10 reducing to 6-8/10 - Adverse Effects: Not explicitly discussed - Activities of Daily Living: Difficulty with lifting, disrupted sleep, limited walking due to pain - Aberrant Drug Related Behaviors: None reported Oswestry Low Back Pain Disability Score=19 PFSH Medical History Feeding by G-tube History of home oxygen therapy Chest pain Restless legs syndrome Pure hypercholesterolemia Impaired fasting glucose Fatigue Daytime somnolence ILD (interstitial lung disease) Borderline high cholesterol 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 Left SNHL DANIELLA (generalized anxiety disorder) Sepsis with acute hypoxic respiratory failure GERD (gastroesophageal reflux disease) HTN (hypertension) Surgical History Hx of colonoscopy S/P emergency tracheotomy for assistance in breathing History of ear surgery History of vasectomy History of wisdom tooth extraction Family History Father Prostate cancer Mother Lung cancer Paternal Uncle Diabetes Paternal Aunt Brain cancer Other Mental health disorder Substance use disorder Social History Household Members: Family Housing: House Alcohol intake: current Alcohol intake frequency: holidays/special occasions only Comment: tolerable Patient Tobacco Use Status: Former Tobacco user Tobacco use type: Cigarette e-Cigarette/Vaping Use: Never Used Second Hand Smoke Exposure: Yes (Mother) service: No Current occupational status: employed Cognitive needs: No Hearing needs: No Vision needs: Yes Review of Systems Const All systems reviewed & are unremarkable except as noted in HPI and below Physical Exam Vital Signs: Last Vital Signs Pulse 55 12/29/24 10:33 BP 153/83 H 12/29/24 10:33 Pulse Ox 100 12/29/24 10:33 Oxygen Delivery Method Room Air 12/29/24 10:33 BMI result Body Mass Index 29.6 General: Appears afebrile. Alert and oriented. Mood and affect appropriate. Follows and participates in conversation appropriately. Respiratory effort is unlabored. No cough. Able to transition from sit to stand unassisted. Ambulates with bilaterally normal heel strike and toe off, increased pain with heel/toe standing on the right. Back/Spine/Pelvis Other: Lumbar flexion and bending reproduces mild pain. Demonstrates 5/5 left and 4/5 right strength of quadriceps bilaterally as well as flexion/dorsiflexion of bilateral feet against resistance. 2+ pedal pulses bilaterally. Straight leg rise with dorsiflexion positive on the right. +2 left +1 right patellar and achilles reflexes bilaterally. Facet loading test positive bilaterally. No groin pain with I/E hip rotations. Cervical Spine: cervical ROM normal, cervical muscular tenderness and No Cervical spine tenderness Thoracic/Lumbar Spine: thoracic and lumbar spine normal to inspection, No Thoracic/lumbar spine scar(s), Lasegue's sign positive on the right and localized, pain with thoraco-lumbar ROM, paraspinal muscle tenderness, thoraco-lumbar ROM limited, No thoracic spinal tenderness and lumbar spinal tenderness (L4-S1) Sacroiliac joints: bilaterally tender to palpation Results Reviewed Results Reviewed: MR LUMBAR SPINE WITHOUT CONTRAST 10/27/24 CLINICAL INFORMATION: Radiculopathy, lumbar region. COMPARISON: Correlated to x-ray dated October 10, 2024. TECHNIQUE: MRI of the lumbar spine was obtained using routine sequences without contrast. FINDINGS: Last rib-bearing vertebra labeled T12. Disc desiccation, L4-5. Marginal osteophyte formation from T11-12 to L2-3. There is normal alignment. The conus medullaris ends at pedicle of L1 with normal signal. T12-L1: No herniated disc. No neuroforamina stenosis. L1-2: No herniated disc. No neuroforamina stenosis. L2-3: Bilateral facet joint hypertrophy. Broad-based disc bulging. No compression upon neural elements. L3-4: Broad-based disc bulging. Facet joint hypertrophy. No compression upon neural elements. L4-5: Right subarticular and foraminal broad-based herniated disc compressing the right L5 nerve root on its lateral recess. Facet joint hypertrophy. No neuroforamina stenosis. L5-S1: Central broad-based herniated disc abutting the S1 nerve roots on the lateral recesses. Bilateral facet joint hypertrophy resulting in bilateral neuroforamina narrowing encroaching the L5 exiting nerve roots. No prevertebral compartment hematoma, mass or fluid collection. Exophytic hyperintense T2 cystic lesion in the right kidney. IMPRESSION: Right subarticular and foraminal broad-based disc herniation L4-5 encroaching the right L5 nerve root. Central broad-based herniated disc at L5-S1 abutting the S1 nerve roots. Multilevel spondylosis resulting in bilateral neuroforamina stenosis L5-S1. XR HIP, RIGHT 10/10/24 CLINICAL INFORMATION: M54.42 - Lumbago with sciatica, left side COMPARISON: 04/17/2016. TECHNIQUE: AP pelvis, and 2 views of the right hip. FINDINGS: No fracture, dislocation, or suspicious bone lesion. There is normal alignment. Preserved joint space. There is posterior acetabular over coverage in both hips, finding which can be associated with pincer-type CAMPBELL. Otherwise, there is only minimal degenerative arthritis in both hip joints. The sacrum and SI joints appear normal. The lower lumbar spine appears grossly normal. No soft tissue abnormalities. IMPRESSION: No acute findings right hip. Posterior acetabular over-coverage of both hips, an incidental finding which can be associated with pincer-type CAMPBELL. XR LUMBOSACRAL SPINE 10/10/24 CLINICAL INFORMATION: M54.42 - Lumbago with sciatica, left side COMPARISON: 05/09/2024. TECHNIQUE: 6 views of the lumbar spine, inclusive of bilateral oblique views, were obtained. FINDINGS: There is no scoliosis. There is mild straightening of the normal lordosis. There is no subluxation. There are no compression deformities, fractures, or suspicious bone lesions. There is moderate to severe disc degeneration focally at L5-S1. There is otherwise mild disc degeneration T12-L3. There is normal facet alignment. There are mild facet degenerative changes L4-S1. Oblique views demonstrate no evidence of pars defects. The sacrum and SI joints appear normal. No soft tissue abnormalities. IMPRESSION: 1. No acute bony abnormalities. 2. Mild to moderate lumbar spondylosis most significant at L5-S1. No significant interval change from 05/09/2024. Assessment & Plan Assessment & Plan (1) Lumbar radiculopathy: Code(s): M54.16 - Radiculopathy, lumbar region Category: Medical (2) Lumbar disc herniation with radiculopathy: Code(s): M51.16 - Intervertebral disc disorders with radiculopathy, lumbar region Category: Medical (3) Low back pain radiating to right leg: Code(s): M54.50 - Low back pain, unspecified; M79.604 - Pain in right leg Category: Medical Plan The patient will continue with physical therapy to manage lumbar radiculopathy and muscle tightness, aiming to avoid surgical intervention if possible. If pain levels increase to baseline or become unmanageable, a second steroid injection may be considered. The patient is encouraged to use Tylenol Arthritis for pain management, and to avoid NSAIDs due to potential cardiovascular risks. Magnesium glycinate is recommended for muscle spasms. Patient is aware to call if pain worsens or if he develops any red flag symptoms to seek emergency care. Patient denies any cauda equina syndrome symptoms at this time. All questions and concerns have been answered and patient agreed with the plan. Follow up as needed. Patient was informed and verbally consented to the use of an ambient scribe for clinic note documentation during this visit. Patient Instructions: - Continue physical therapy sessions. - Monitor pain levels and contact the clinic if pain returns to baseline. - Follow a low-sodium diet and avoid strenuous activities. - Use Tylenol Arthritis for pain relief, especially at bedtime. - Take magnesium glycinate for muscle spasms. Coding Level of Care Code Est Pt Level 3 (64050) Complex EM visit Add On G2211 Diagnoses Lumbar radiculopathy M54.16 Lumbar disc herniation with radiculopathy M51.16 Low back pain radiating to right leg M54.50; M79.604
[2024-12-29 10:33] VITALS: BP 153/83; PULSE 55; O2SAT 100; BMI 29.6
--- OUTSIDE RECORDS SUMMARY | 2024-12-29 11:11 | XMS_ITS | Clinical Summary ---
Author Organization [facility] Address [address] [place] [address] Care Team Providers Care Head Of Marketing Analytics Name Role Phone Unavailable Primary Care Provider [...] (1 of 2) 2020 Influenza Vaccine (#1) 2025 RSV Ped < 20 months Aged Out No longe r eligible based on patient's age to complete this topic Medical Devices Explanted Type Area Fire Extinguisher Sprinkler Inspector Device Identifier Shelf Expiration Date Model / Serial / Lot Sealant Fibrin Vistaseal 4ml [facility] [id number] - [id number] Explanted:Qt y: 1 on 02/16/2021 by Ab Goncalves MD at [facility] and Med Hemostatic Agent Anterior: Trachea [facility] [employer] 08/31/2022 [id number] / [id number] / [id number] Advance Directives For more information, please contact: [phone] Latest Code Status on File Code Status Date Activated Date Inactivated Comments Full Code 01/31/2021 6:40 PM 04/07/2021 11:01 PM Thi s code status was ascertained in the following way: discussion with healthcare assistance representative .
--- OUTSIDE RECORDS SUMMARY | 2024-12-29 11:11 | XMS_ITS | Clinical Summary ---
Author Organization [address] Address [address] [place] [id number] Care Team Providers Care Disintegrator Feeder Name Role Phone Soy Connor Primary Care [...] patient's age to complete this topic Insurance [facility] Care Teams Disintegrator Feeder Relationship Specialty Start Date End Date Soy Connor PA PCP - General 06/01/21
--- OUTSIDE RECORDS SUMMARY | 2024-12-29 11:11 | XMS_ITS | Patient Health Record ---
Author Organization [facility] Address [address] [place] [id number] Care Team Providers Care Tanker Truck Driver Name Role Phone Akhil (RETIRED) Mike BENNETT Primary Care Provide Ab Bales Unavailable [phone] Allergies Allergen (clinical drug ingredient) Drug/Non Drug [...] Status Risk Notes Problem Blood in stool (759442604) Blood in stool (578.1) Active confirmed Problem Elevated liver enzymes level (298359250) Elevated liver function tests (790.6) Active confirmed Plan Of Treatment Pending Test Test Name Order Date LIVER PROFILE 04/05/2012 Future Test Test Name Order Date COLONOSCOPY 04/05/2012 Insurance Providers Payer Name Payer Address Payer Phone Subscriber Number Group Number Insured Name Patient Relationship to Insured Coverage Start Date Coverage End Date [facility] [address] [place], [place] [id number] SINAN) Self - patient is the insured Medical (General) History Medical History History ICD Code hypertension Denies HI,DM,CVA,Lung disease,renal dise ase Anxiety
--- OUTSIDE RECORDS SUMMARY | 2024-12-29 11:12 | XMS_ITS | Clinical Summary ---
Author Organization [facility] Address [address] [place] [address], [place] [address] Care Team Providers Care Operational Risk Manager Name Role Phone Unavailable Primary Care [...] of 1 - PCV) 021 Influenza Vaccine (#1) 2025 Insurance ) [facility] Choice O ([id number])
--- OUTSIDE RECORDS SUMMARY | 2024-12-29 11:12 | XMS_ITS | Clinical Summary ---
Author Organization [address] [place] [address] Address [address] [place] [address] Phone Care Team Providers Care Service Sprinkler Helper Name Role Phone Unavailable Primary Care Provider Unavailabl e Social History Tobacco Use Types Packs/Day Years Used Date Smoking Tobacco: Never Assessed Sex and Gender Information Value Date Recorded Sex Assigned at Not on file Legal Sex Male 9:55 AM EST Gender Identity Not on file Sexual Orientation Not on file Plan of Treatment Upcoming Encounters Date Type Department Care Team ([facility] Contact Info) Description 01/26/2025 10:30 AM EDT Office Visit Orthopedic Surgery [place] [id number] [address] Buck Wong, DPM [address] [address] Health Maintenance Due Date Last Done Comments [...] 2023-2 5 season) 2024 Influenza Vaccine (#1) 2025 HIB Vaccines Aged Out No longer [...] complete this topic Insurance [place] - [place] [facility] Advance Directives Documents on File Type Date Recorded Patient Brain Wave Technician Expl anation Health Care Decision (hx) 01/15/2021 AD NILAM DIRECTIVE
--- OUTSIDE RECORDS SUMMARY | 2024-12-29 11:13 | XMS_ITS | Patient Health Record ---
Author Organization [facility] Address [address] [place] [address] Care Team Providers Care Viscose Department Worker Name Role Phone Soy Connor Primary Care Provider Unavailab Andrea Moran Unavailable [phone] Allergies Allergen (clinical drug ingredient) Drug/Non Drug [...] primary osteoarthritis of the ankle and/or foot (004520548) Primary osteoarthrit is, left ankle and foot (M19.072) Active confirmed Plan Of Treatment Pending Test Test Name Order Date X ray : Foot, left 3V 07/08/2020 X ray : Foot, right 3V 07/08/2020 Insurance Providers Payer Name Payer Address Payer Phone Subscriber Number Group Number Insured Name Patient Relationship to Insured Coverage Start Date Coverage End Date [facility] [id number] [address] [place] [phone] [id number] Markus Cannon Self - patient is the insured Medical (General) History Medical History History ICD Code Anxiety Anxiety disorder Back,Hip,and Knee pain High blood pressure Kidney disease Scarlet fever Chicken pox Surgical History Surgery Date(Month/Year)
== END 2024-12-29 10:44 | disposition home or self-care (01) ==
LOC: HO.PMC 10:27
PROVIDERS: PCP Physician Assistant; Visit Provider Nurse Practitioner Family
DX: M51.16 Intervertebral disc disorders with radiculopathy, lumbar region (principal); M54.50 Low back pain, unspecified; M79.604 Pain in right leg
CPT/HCPCS: 99213; G2211

== ENCOUNTER → 2024-12-29 10:26 | Outpatient (BNVA) | payer OTHER, SELFPAY | PROVIDERS: PCP Physician Assistant; Visit Provider Nurse Practitioner Family | DX: M51.16 Intervertebral disc disorders with radiculopathy, lumbar region (principal); M54.50 Low back pain, unspecified; M79.604 Pain in right leg | CPT/HCPCS: 99212 ==

== ENCOUNTER 2025-01-02 08:40 | Outpatient (AMB) | payer OTHER, SELFPAY ==
[2025-01-02 08:42] VITALS: BP 128/76; PULSE 58; BMI 29.2
--- NOTE | 2025-01-02 08:42 | MHC.OFFVIS ---
Vital Signs 01/02/25 08:42 Height 5 ft 8 in Weight 191 lb 12.835 oz BMI 29.2 BP 128/76 Blood Pressure Location Lt brachial Position Sitting Pulse 58 Intake Visit Reasons: new abnormal test results Intake Note: New patient dx chest stress test Back Filler Operator Required: No Allergies bee venom protein (honey bee) Allergy (Intermediate, Verified 12/29/24 10:34) Swelling Iodinated Contrast Media Allergy (Unknown, Verified 12/29/24 10:34) Rash amlodipine Adverse Reaction (Intermediate, Verified 12/29/24 10:34) Pedal edema hydroxyzine Adverse Reaction (Intermediate, Verified 12/29/24 10:34) ineffective Medication List - Last Reconciled 01/02/25 by Nahum Miller MD albuterol sulfate 90 mcg/actuation 1 puff inhalation QID PRN ascorbic acid (vitamin C) 1 g PO DAILY cholecalciferol (vitamin D3) 50 mcg PO DAILY clotrimazole 1% 5 drops into effected ear topically 2 times a day; 4 weeks cyclobenzaprine 10 mg PO BID 10 days diphenhydramine HCl (Benadryl Allergy) 50 mg PO BEDTIME PRN doxazosin 2 mg PO DAILY fluticasone propionate 50 mcg/actuation 1 spray intranasal BID lisinopril 40 mg PO DAILY 90 days loratadine (Allergy Relief (loratadine)) 10 mg PO DAILY PRN lorazepam 0.5 mg PO BID PRN 7 days metoprolol succinate ER 50 mg PO DAILY 90 days omega-3 fatty acids 1,000 mg PO DAILY potassium chloride (Klor-Con) 20 mEq PO DAILY rosuvastatin (Crestor) 10 mg PO DAILY 30 days spironolactone 25 mg PO DAILY zinc gluconate 50 mg PO DAILY HPI Comments Details: Thank you for referring Deny in his cardiology consultation today for chest pain. 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 He does have exertional shortness of breath. However he also complains of precordial chest pain which she describes as pressure radiating left arm. This is present almost constantly. He says symptoms can get worse with stress and also with some kind of woman like getting out of bed. There was no reproducible nature to the chest pain. His main concern currently is exertional shortness of breath. Because of recurrent chest pain he underwent a myocardial perfusion imaging recently we just suggestive of two-vessel ischemia. Says highly concerning although he does not have clear exertional chest pain. In the recent past he has had significant issues with elevated blood pressure and this has been managed by Nephrology team and now his blood pressure is much better controlled on current regimen with systolic blood pressure between 120 and 130 mm Hg with diastolic blood pressure of 80 mm Hg. He denies any prolonged palpitation irregular heartbeat. Denies any clear orthopnea, PND, leg edema. He was recently started on rosuvastatin therapy after the myocardial perfusion imaging testing and mildly elevated LDL in the 117 range. He is currently not on aspirin therapy. He said he has mild chest pressure today and EKGs with mild chest pressure is completely within normal limits. He said he is very anxious and a lot of stress given his medical issues as well as his personal issues. 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 Left SNHL DANIELLA (generalized anxiety disorder) Sepsis with acute hypoxic respiratory failure GERD (gastroesophageal reflux disease) HTN (hypertension) Surgical History Hx of colonoscopy S/P emergency tracheotomy for assistance in breathing History of ear surgery History of vasectomy History of wisdom tooth extraction Family History Father Prostate cancer Mother Lung cancer Paternal Uncle Diabetes Paternal Aunt Brain cancer Other Mental health disorder Substance use disorder Social History Household Members: Family Housing: House Alcohol intake: current Alcohol intake frequency: holidays/special occasions only Comment: tolerable Patient Tobacco Use Status: Former Tobacco user Tobacco use type: Cigarette e-Cigarette/Vaping Use: Never Used Second Hand Smoke Exposure: Yes (Mother) service: No Current occupational status: employed Cognitive needs: No Hearing needs: No Vision needs: Yes Review of Systems Const Denies chills, Denies daytime sleepiness, Denies fatigue, Denies fever(s), Denies frequent falls, Denies poor appetite, Denies snoring, Denies stops breathing during sleep, Denies weakness, Denies weight gain and Denies weight loss Eyes Denies loss of vision ENT Denies dizziness and Denies hearing loss Card Reports chest pain, Denies claudication, Denies leg edema, Denies lightheadedness, Denies palpitations, Denies dyspnea, Denies dyspnea on exertion and Denies orthopnea Resp Denies cough, Denies excessive phlegm production, Denies dyspnea, Denies dyspnea on exertion, Denies snoring and Denies wheezing GI Denies abdominal pain, Denies hematochezia, Denies change in bowel habits, Denies nausea and Denies vomiting Denies dysuria and Denies urinary frequency Musc Denies arthralgias, Denies muscle weakness, Denies numbness and Denies other (frequent falls) Skin/Breast Denies nail changes and Denies rash Neuro Denies Abnormal speech present, Denies dizziness, Denies frequent falls, Denies loss of vision, Denies memory loss, Denies numbness and Denies weakness Psych Denies depression and Denies memory loss Endo Denies fatigue and Denies palpitations Eleno/Lymph Reports easy bruising and Reports other (anemia) Aller/Immun Denies wheezing Physical Exam Vital Signs: Last Vital Signs Pulse 58 01/02/25 08:42 BP 128/76 01/02/25 08:42 BMI result Body Mass Index 29.2 Const General: cooperative, comfortable, no acute distress, alert, awake and anxious Nutritional Appearance: overweight Orientation/consciousness: patient oriented x3 Limitations: no limitations HEENT Head: Yes normocephalic and Yes atraumatic Neck Neck: Yes trachea midline, Yes supple and Yes no JVD Resp Effort & Inspection: normal respiratory effort Auscultation: clear to auscultation bilaterally Cardio Jugular venous distension: no JVD Rate: regular rate Rhythm: regular rhythm Heart sounds: S1 normal heart sound present, S2 normal heart sound present, no click, no gallops, no murmurs and no rubs GI Auscultation: normal bowel sounds Skin General skin exam: no rashes or lesions noted Neuro General: patient oriented x3 and no focal motor deficits Speech: No Abnormal speech present Extrem General: Yes no clubbing, cyanosis or edema Psych Appearance: grossly normal Office Procedures EKG Details: EKG shows sinus bradycardia at 58 beats per minute [id number], Complete Assessment & Plan Assessment & Plan (1) Atypical chest pain: Code(s): R07.89 - Other chest pain Category: Medical Plan: Patient is referred here for chest pain which is fairly atypical given constant nature of the chest pain although it gets worse under stressful situation. He does have abnormal looking stress test with two-vessel ischemia and could represent left main disease. His risk factors include mild hyperlipidemia and hypertension. Although his EKGs with chest pain is within normal limits. It is possible the stress test could be false-positive. He needs further evaluation with coronary anatomic evaluation. This needs to be done soon given the amount of ischemia on the myocardial perfusion imaging. This was discussed with him. We discussed 2 approaches including noninvasive coronary CTA as well as invasive cardiac catheterization. Pros and cons of each approach were discussed in details with him. We discussed in details given the length of time that requires to get a noninvasive coronary CTA to pursue invasive cardiac catheterization. We discussed the procedure of cardiac catheterization details including risks, benefits, alternatives. He understands agrees. Will also obtain echocardiogram to evaluate for other potential etiology of chest pain although less likely including hypertensive heart disease and pulmonary hypertension. Will follow up in the clinic after above-mentioned test. Thank you for allowing me to partake in his care Orders: Orders CT Cardiac Coronary Angio 1 Week R07.89 - Other chest pain, R94.39 - Abnormal result of other cardiovascular function study Cardiac Cath LT w PCI 1 Week R07.89 - Other chest pain, R94.39 - Abnormal result of other cardiovascular function study Prothrombin Time INR Today R07.89 - Other chest pain Complete Blood Count no Diff Today R07.89 - Other chest pain CA echo transthoracic complete Today R07.89 - Other chest pain Basic Metabolic Panel Today R07.89 - Other chest pain Coding Level of Care Code New Pt Level 4 (36614) Complex EM visit Add On G2211 Diagnoses Atypical chest pain R07.89 CPT Codes EKG - CPT: 02096-[id number], Complete ([id number])
--- OUTSIDE RECORDS SUMMARY | 2025-01-02 08:44 | XMS_ITS | Clinical Summary ---
Author Organization [facility] Address [address] [place] [address], [place] [address] Care Team Providers Care Mobility Developer Name Role Phone Unavailable Primary Care Provider [...] 021 Influenza Vaccine (#1) 2025 Insurance ) [facility] Choice O ([id number])
--- OUTSIDE RECORDS SUMMARY | 2025-01-02 08:44 | XMS_ITS | Patient Health Record ---
Author Organization [facility] Address [address] [place] [address] Care Team Providers Care Liquid Waste Treatment Plant Operator Name Role Phone Akhil (RETIRED) Mike BENNETT Primary Care Provide Ab Bales Unavailable [phone] Allergies Allergen (clinical drug ingredient) Drug/Non Drug [...] Status Risk Notes Problem Blood in stool (883283683) Blood in stool (578.1) Active confirmed Problem Elevated liver enzymes level (611875943) Elevated liver function tests (790.6) Active confirmed Plan Of Treatment Pending Test Test Name Order Date LIVER PROFILE 04/05/2012 Future Test Test Name Order Date COLONOSCOPY 04/05/2012 Insurance Providers Payer Name Payer Address Payer Phone Subscriber Number Group Number Insured Name Patient Relationship to Insured Coverage Start Date Coverage End Date [facility] [address] [place], [place] [id number] [phone] [id number] JUAN DAVID SINAN) Self - patient is the insured Medical (General) History Medical History History ICD Code hypertension Denies [place],DM,CVA,Lung disease,renal dise ase Anxiety
--- OUTSIDE RECORDS SUMMARY | 2025-01-02 08:44 | XMS_ITS | Clinical Summary ---
Author Organization [facility] Address [address] [place] [address] Care Team Providers Care Biology Specialist Name Role Phone Unavailable Primary Care Provider [...] this topic Medical Devices Explanted Type Area Pipeline Welder Device Identifier Shelf Expiration Date Model / Serial / Lot Sealant Fibrin Vistaseal 4ml [facility]i [id number] - [id number] Explanted:Qt y: 1 on 02/16/2021 by Ab Goncalves MD at [facility] [place] and Med Hemostatic Agent Anterior: Trachea [facility] [employer] 08/31/2022 [id number] / [id number] / [id number] Advance Directives For more information, please contact: [phone] Latest Code Status on File Code Status Date Activated Date Inactivated Comments Full Code 01/31/2021 6:40 PM 04/07/2021 11:01 PM Thi s code status was ascertained in the following way: discussion with healthcare outside industrial sales representative .
--- OUTSIDE RECORDS SUMMARY | 2025-01-02 08:44 | XMS_ITS | Clinical Summary ---
Author Organization [address] [place] [address] Address [address] [place] [address] Phone Care Team Providers Care Wheelman Name Role Phone Unavailable Primary Care Provider Unavailabl e Social History Tobacco Use Types Packs/Day Years Used Date Smoking Tobacco: Never Assessed Sex and Gender Information Value Date Recorded Sex Assigned at Not on file Legal Sex Male 9:55 AM EST Gender Identity Not on file Sexual Orientation Not on file Plan of Treatment Upcoming Encounters Date Type Department Care Team ([facility] Contact Info) Description 01/26/2025 10:30 AM EDT Office Visit Orthopedic Surgery [place] [phone] [address] Buck Wong, DPM [address] [address] Health Maintenance Due Date Last Done Comments [...] complete this topic Insurance [place] - [place] [facility] Advance Directives Documents on File Type Date Recorded Patient Senior Analyst Market Intelligence Expl anation Health Care Decision (hx) 01/15/2021 AD NILAM DIRECTIVE
--- OUTSIDE RECORDS SUMMARY | 2025-01-02 08:44 | XMS_ITS | Patient Health Record ---
Author Organization [facility] Address [address] [place] [address] Care Team Providers Care Second Mate Name Role Phone Soy Connor Primary Care Provider Unavailab Andrea Moran Unavailable [phone] Allergies Allergen (clinical drug ingredient) Drug/Non Drug [...] Insured Coverage Start Date Coverage End Date [facility] [id number] [address] [place] [phone] [id number] Markus Cannon Self - patient is the insured Medical (General) History Medical History History ICD Code Anxiety Anxiety disorder Back,Hip,and Knee pain High blood pressure Kidney disease Scarlet fever Chicken pox Surgical History Surgery Date(Month/Year)
--- OUTSIDE RECORDS SUMMARY | 2025-01-02 08:44 | XMS_ITS | Encounter Summary ---
Author Organization [facility] Address [address] [place] [address] Phone Care Team Providers Care Ground Equipment Mechanic Name Role Phone Soy Connor Primary Care Provider + Pacheco Boyle MD Unavailable Unavailable Encounter Details Date Type Department Care Team (Late st Contact Info) Description 07/13/2022 Procedure Pass [facility] Cardiac Cocoa Milling Machine Operator [address] [place] [address] Social History Tobacco Use Types Packs/Day Years Used Date Smoking Tobacco: Never Assessed Sex and Gender Information Value Date Recorded Sex Assigned at Male 05/01/2022 4:22 PM EST Legal Sex Male 4:10 PM EST Gender Identity Male 05/01/2022 4:22 PM EST Sexual Orientation Straight 05/01/2022 4: 22 PM EST documented as of this encounter Plan of Treatment Not on file documented as of this encounter Visit Diagnoses Not on filedocumented in this encounter Additional Health Concerns Assessment Noted Time PHQ-2 Depression Total Score: 0 05/15/20 22 11:12 AM EST documented as of this encounter Care Teams Ground Equipment Mechanic Relationship Specialty Start Date End Date Soy Connor PA [address] [place] [address] PCP - General 05/01/22 Pacheco Boyle MD [address] [place] [address] Referring Physician Intensive Care 05/03/22 documented as of this encounter Additional Source Comments The information contained in this document represents components of the legal health record. It is not the complete legal health record.[facility]
--- OUTSIDE RECORDS SUMMARY | 2025-01-02 08:44 | XMS_ITS | Clinical Summary ---
Author Organization [address] Address [address] [place] [address] Care Team Providers Care Business Banker Name Role Phone Soy Connor Primary Care [...] patient's age to complete this topic Insurance [facility] Care Teams Business Banker Relationship Specialty Start Date End Date Soy Connor PA PCP - General 06/01/21
== END 2025-01-02 09:36 | disposition home or self-care (01) ==
LOC: HO.HCS 08:41
PROVIDERS: PCP Physician Assistant; Visit Provider Internal Medicine Cardiovascular Disease
DX: R07.89 Other chest pain (principal)
CPT/HCPCS: 93010; 99214; G2211

== ENCOUNTER → 2025-01-02 08:40 | Outpatient (BNVA) | payer OTHER, SELFPAY | PROVIDERS: PCP Physician Assistant; Visit Provider Internal Medicine Cardiovascular Disease | DX: R07.89 Other chest pain (principal) | CPT/HCPCS: 93005; 99212 ==

== ENCOUNTER 2025-01-07 12:05 | Outpatient (REF) | payer OTHER, SELFPAY ==
--- OUTSIDE RECORDS SUMMARY | 2025-01-07 12:44 | XMS_ITS | Patient Health Record ---
Author [facility] Address [address] [place] [address] Care Team Providers Care Craps Manager Name Role Phone Soy Connor Primary Care Provider Unavailab Andrea Moran Unavailable [phone] Allergies Allergen (clinical drug ingredient) Drug/Non Drug [...] Insured Coverage Start Date Coverage End Date [facility] [id number] [address] [place] [id number] Markus Cannon Self - patient is the insured Medical (General) History Medical History History ICD Code Anxiety Anxiety disorder Back,Hip,and Knee pain High blood pressure Kidney disease Scarlet fever Chicken pox Surgical History Surgery Date(Month/Year)
--- OUTSIDE RECORDS SUMMARY | 2025-01-07 12:44 | XMS_ITS | Clinical Summary ---
Author Organization [address] [place] [address] Address [address] [place] [address] Phone Care Team Providers Care Live In Caregiver Name Role Phone Unavailable Primary Care Provider Unavailabl e Social History Tobacco Use Types Packs/Day Years Used Date Smoking Tobacco: Never Assessed Sex and Gender Information Value Date Recorded Sex Assigned at Not on file Legal Sex Male 9:55 AM EST Gender Identity Not on file Sexual Orientation Not on file Plan of Treatment Upcoming Encounters Date Type Department Care Team ([facility] Contact Info) Description 01/26/2025 10:30 AM EDT Office Visit Orthopedic Surgery [place] [address] [address] Buck Wong, DPM [address] [address] Health Maintenance Due Date Last Done Comments DTaP,Tdap,and Td Vaccines (1 - Tdap) 1989 Hepatitis B Vaccines (1 of 3 - 19+ 3-dose series) 1989 Pneumococcal Vaccine: 50+ Ye ars (1 of 1 - PCV) 2020 Zoster Vaccines (1 of 2) 2020 Cholesterol Screening (Lipid Panel) 05/16/2022 Colorectal Cancer Screening: Colonoscopy 05/16/2022 HIV Screening 05/16/2022 Hepatitis C Screening 05/16/2022 Social Influencers of Health Screening 05/16/2022 COVID-19 Vaccine (1 - 2023-2 5 season) 2024 Depression Screening 06/18/2024 Influenza Vaccine (#1) 2025 HIB Vaccines Aged [...] complete this topic Insurance [place] - [place] [facility] Advance Directives Documents on File Type Date Recorded Patient Bar Machine Operator Production Expl anation Health Care Decision (hx) 01/15/2021 AD NILAM DIRECTIVE
--- OUTSIDE RECORDS SUMMARY | 2025-01-07 12:44 | XMS_ITS | Encounter Summary ---
Author Organization [facility] Address [address] [place] [address] Phone Care Team Providers Care Heel Nail Rasper Name Role Phone Soy Connor Primary Care Provider + Pacheco Boyle MD Unavailable [phone] Encounter Details Date Type Department Care Team (Late st Contact Info) Description 07/13/2022 Procedure Pass [facility] Cardiac Mock Up Builder [address] [place] [address] Social History Tobacco Use Types Packs/Day Years [...] documented as of this encounter Care Teams Heel Nail Rasper Relationship Specialty Start Date End Date Soy Connor PA [address] [place] [address] PCP - General 05/01/22 Pacheco Boyle MD [address] [place] [address] Referring Physician Intensive Care 05/03/22 documented as of this encounter Additional Source Comments The information contained in this document represents components of the legal health record. It is not the complete legal health record.[facility]
--- OUTSIDE RECORDS SUMMARY | 2025-01-07 12:44 | XMS_ITS | Clinical Summary ---
Author Organization [facility] Address [address] [place] [address], [place] [address] Care Team Providers Care Restaurant Kitchen And Service Manager Name Role Phone Unavailable Primary Care [...] 021 Influenza Vaccine (#1) 2025 Insurance ) [facility] Choice O ([id number])
--- OUTSIDE RECORDS SUMMARY | 2025-01-07 12:44 | XMS_ITS | Patient Health Record ---
Author Organization [facility] Address [address] [place] [address] Care Team Providers Care Erosion Control Coordinator Name Role Phone Akhil (RETIRED) Mike BENNETT Primary Care Provide Ab Bales Unavailable [phone] Allergies Allergen (clinical drug ingredient) Drug/Non Drug [...] Status Risk Notes Problem Blood in stool (262475093) Blood in stool (578.1) Active confirmed Problem Elevated liver enzymes level (529934345) Elevated liver function tests (790.6) Active confirmed Plan Of Treatment Pending Test Test Name Order Date LIVER PROFILE 04/05/2012 Future Test Test Name Order Date COLONOSCOPY 04/05/2012 Insurance Providers Payer Name Payer Address Payer Phone Subscriber Number Group Number Insured Name Patient Relationship to Insured Coverage Start Date Coverage End Date [facility] [address] [place], [place] [id number] JU[address] DAVID SINAN) Self - patient is the insured Medical (General) History Medical History History ICD Code hypertension Denies [place],DM,CVA,Lung disease,renal dise ase Anxiety
--- OUTSIDE RECORDS SUMMARY | 2025-01-07 12:44 | XMS_ITS | Clinical Summary ---
Author Organization [facility] Address [address] [place] [address] Care Team Providers Care Steam Tank Operator Name Role Phone Unavailable Primary Care [...] this topic Medical Devices Explanted Type Area Turbo Operator Device Identifier Shelf Expiration Date Model / Serial / Lot Sealant Fibrin Vistaseal 4ml [facility] [id number] - [id number] Explanted:Qt y: 1 on 02/16/2021 by Ab Goncalves MD at [facility] and Med Hemostatic Agent Anterior: Trachea [facility] [employer] 08/31/2022 [id number] / [id number] / [id number] Advance Directives For more information, please contact: [phone] Latest Code Status on File Code Status Date Activated Date Inactivated Comments Full Code 01/31/2021 6:40 PM 04/07/2021 11:01 PM Thi s code status was ascertained in the following way: discussion with healthcare telecommunications sales representative .
--- OUTSIDE RECORDS SUMMARY | 2025-01-07 12:44 | XMS_ITS | Clinical Summary ---
Author Organization [address] Address [address] [place] [address] Care Team Providers Care Discharge Rn Name Role Phone Soy Connor Primary Care [...] patient's age to complete this topic Insurance [facility] Care Teams Discharge Rn Relationship Specialty Start Date End Date Soy Connor PA PCP - General 06/01/21
[2025-01-07 12:55] LABS: Hematocrit 45.3 % (42.0-52.0); Hemoglobin 16.0 g/dl (14.0-18.0); Mean Corpuscular HGB Conc 35.3 g/dl (31.0-36.0); Mean Corpuscular Hemoglobin 29.8 pg (27.0-33.0); Mean Corpuscular Volume 84.4 fL (80.0-98.0); NRBC Abs Auto 0.000 X10*3/uL (0.0-0.012); NRBC Pct Auto 0.0 /100WBC (0.0-0.2); Platelet Count 249 X10*3/uL (160-400); Red Blood Count 5.37 X10*6/uL (4.60-5.80); White Blood Count 8.9 X10*3/uL (4.8-10.8)
[2025-01-07 13:05] LABS: INTERNATIONAL NORM RATIO 1.1 (0.9-1.1); Prothrombin Time 12.2 SEC (10.9-12.4)
[2025-01-07 14:08] LABS: Anion Gap 10 (12-20); Blood Urea Nitrogen 19 mg/dL (9-16); Carbon Dioxide 24 mmol/L (22-29); Chloride 109 mmol/L (96-108); Estimated Glomerular Filt Rate > 60; Potassium 3.9 mmol/L (3.3-5.1); Sodium 139 mmol/L (135-145)
[2025-01-07 14:23] LABS: Anion Gap 13 (12-20); Blood Urea Nitrogen 19 mg/dL (9-16); Calcium 9.3 mg/dL (8.4-10.2); Carbon Dioxide 24 mmol/L (22-29); Chloride 107 mmol/L (96-108); Estimated Glomerular Filt Rate > 60; Potassium 4.0 mmol/L (3.3-5.1); Sodium 140 mmol/L (135-145)
== END 2025-01-07 12:06 | disposition home or self-care (01) ==
LOC: HO.LAB 12:05
PROVIDERS: Internal Medicine Nephrology; PCP Physician Assistant; Visit Provider Internal Medicine Cardiovascular Disease
DX: R07.89 Other chest pain (principal); I10 Essential (primary) hypertension
CPT/HCPCS: 36415; 80048; 80051; 82565; 84520; 85027; 85610

== ENCOUNTER 2025-01-19 13:00 | Outpatient (RCR) | payer OTHER, SELFPAY ==
[2024-11-28 13:04] VITALS: BP 119/68; PULSE 65
--- NOTE | 2024-11-28 13:55 | MHC.PT.EP ---
[facility] [place] Office [place] Office [place] Office [address] Anthony Luong [address] [phone] F: [phone] F: [phone] F: [phone] F: [phone] Physical Therapy Plan of Care Date of Evaluation: 11/28/24 Date of Surgery: NA Diagnosis: Radiculopathy, lumbar region Assessment: Markus Faust) is a 54 year old male who is referred to PT for radiculopathy, lumbar region . He reports of having sudden onset of back pain about 3 months back. Per Deny he thinks this could be secondary to fall on R hip at home. He had a steroid injection for the same 1 week back. On PT examination he presented with no TTP, 6/10 pain in R buttock which radiates down to R ankle with bending, sitting and supine lying, decreased lumbar ROM, decreases muscle strength, altered posture and gait. He is independent with all ADLS but has pain with dressing lower body and activities requiring him to bend. He is currently unemployed. He would benefit from skilled PT to address the aforementioned impairments and improve tolerance to functional activities. Frequency and Duration: The patient will be seen 2/week for 5 weeks Short Term Goals: 1. Pt will demonstrate good awareness of posture and will be able assess and self correct posture every 30 minutes in 2 weeks 2. Pt will present with centralized symptoms in 3 weeks Care Home Goals: 1. Pt will be able to move trunk through all planes of motion without pain which will enable him to dress his lower body in 4 weeks 2. Pt will demonstrate an increase in muscle strength by 1 grade which will enable him to perform all ADLS without pain in 5 weeks 3. Pt will be independent with all HEP for symptom management and maintenance following d/c in 5 weeks Treatment Plan: Modalities to reduce pain, spasms and effusion. Manual therapy to restore motion and function. Therapeutic exercise to improve strength and flexibility. Neuromuscular re-education for posture and balance. Therapeutic activities to return to functional activities of daily living. Electronically signed by: Tatianna Newby PT DPT Please sign and return to therapist. Thank you for your referral.
--- NOTE | 2025-02-09 08:15 | MHC.PT.DC ---
[facility] [place] [facility] [place] [facility] [place] Office [address] Anthony Luong [address] [phone] F: [phone] F: [phone] F: [phone] F: [phone] Physical Therapy Discharge Report Diagnosis: Radiculopathy, lumbar region Date of Surgery: NA Date of Evaluation: 11/28/24 Date of Discharge: 02/09/25 Treatments to Date: 8 Cancellations to Date: 2 No Shows to Date: 0 Discharge Status: Achieved Goals Improved Function Independent with HEP Discharge Summary: Deny attended 8 PT visits and made significant improvements with PT. He is independent with all HEP and has achieved all goals set for him. He is therefore being d/c from PT. Electronically signed by: Tatianna Newby, PT DPT Please sign and return to therapist. Thank you for your referral.
== END 2025-02-09 08:16 | disposition home or self-care (01) ==
LOC: HO.PT 13:00
PROVIDERS: PCP Physician Assistant; Visit Provider Physician Assistant
DX: M54.16 Radiculopathy, lumbar region (principal)
CPT/HCPCS: 97110; 97112; 97140; 97161; 97530

== ENCOUNTER → 2025-02-09 13:49 | Outpatient (REF) | payer OTHER, SELFPAY ==
--- OUTSIDE RECORDS SUMMARY | 2025-02-07 23:59 | XMS_ITS | Continuity of Care Document ---
Author Organization [facility] ter Address [address] [place] [id number]- Care Team Providers Care Clutch Rebuilder Name Role Phone Soy Slater Primary Care Physician [phone] [facility] [place]/05/25 - 02/07/[address] [address] Attending Physician: Nahum Miller MD Admitting Physician: Nahum Miller MD Referring Physician: Nahum Miller MD Encounter Type: Pre-Outpt Allergies, Adverse Reactions, Alerts Substance Criticality Severity Reaction Reaction Severity Status Bee Stings Hydroxyzine Amlodipine Active Contrast Dye Unable to assess criticality Persistent Moderate Active Immunizations Given and Recorded Vaccine Date Status Refusal Reason tetanus/diphtheria/pertussis, acel(Tdap) 02/01/24 Given Medications Ambien 10 mg oral tablet 1 tablet = 10 mg, By Mouth, Daily at bedtime, PRN for sleep, # 15 tablet, 0 Refills, Maintenance, 10/04/10 12:29:12 PM EDT, Tablet Start Date: 10/04/10 Status: Ordered Quantity: 15.0 Unit: tablet Repeat number: 1 amlodipine 5 mg oral tablet 1 tablet = 5 mg, By Mouth, Daily, # 30 tablet, 3 Refills, Maintenance, 10/04/10 12:28:26 PM EDT, Tablet, [facility]/pharmacy #[id number] Start Date: 10/04/10 Status: Ordered Quantity: 30.0 Unit: tablet Repeat number: 4 Home Blood Pressure Monitor See Instructions, # 1 each, Maintenance, as directed, 10/04/10 12:32:45 PM EDT Start Date: 10/04/10 Status: Ordered Quantity: 1.0 Unit: each Repeat number: 1 ibuprofen 400 mg oral tablet 400 mg, 1, tablet, By Mouth, Every 6 hours, PRN, # 60 tablet, Refills 0, Tot. Refills 0, Maintenance, for pain, 02/02/24 12:02:00 AM EDT, Route to Pharmacy Electronically, [id number], Partial fill upon patient request if the prescription is for a schedule II opioid drug., 174, cm, 02/01/24 17:43:00 EDT, Height, 90, kg, 02/01/24 17:43:00 EDT, Dry Weight Start Date: 02/02/24 Status: Ordered Quantity: 60.0 Unit: tablet Repeat number: 1 ibuprofen 800 mg oral tablet 1 tablet = 800 mg, By Mouth, 3 times a day, PRN Pain, # 30 tablet, 0 Refills, Maintenance, 08/10/10 1:53:24 PM EST, Tablet, [id number] Start Date: 08/10/10 Status: Ordered Quantity: 30.0 Unit: tablet Repeat number: 1 Tylenol 325 mg oral tablet 650 mg, 2, tablet, By Mouth, Every 6 hours, PRN, # 50 tablet, Refills 0, Tot. Refills 0, Maintenance, for pain, 02/02/24 12:02:00 AM EDT, Route to Pharmacy Electronically, [id number], Partial fill upon patient request if the prescription is for a schedule II opioid drug., 174, cm, 02/01/24 17:43:00 EDT, Height, 90, kg, 02/01/24 17:43:00 EDT, Dry Weight Start Date: 02/02/24 Status: Ordered Quantity: 50.0 Unit: tablet Repeat number: 1 Xylocaine Viscous 2% solution 1 application, Topically, 4 times a day, PRN for mouth sore pain, # 100 mL, 0 Refills, Maintenance,10/04/10 12:27:24 PM EDT, Solution, [id number] Start Date: 10/04/10 Status: Ordered Quantity: 100.0 Unit: mL Repeat number: 1 Problem List Condition Confirmation Course Effective Dates Status Health St atus Informant Renal stone(Spontaneousl y passed) Confirmed Active Patient Care team information Care Team Personnel Name: Bobby Dsouza MD Position: [facility] Renal MD Member Role: Lifetime Consulting Physician Address: [address] [facility] [place] [address]- Telecom: Name: Soy Slater Position: Reference Physician Member Role: PCP Address: [address] [place] [address]- Telecom: Care Team Related Persons Name: REESE GEORGE Name: EDWARDO RUGGIERO Insurance Providers Guarantor name: JUAN DAVID [facility] IIIMOBI Plan Information #: 1 Payer: [employer] Payer Identifier: NA Member Number: [id number] Group Number: [id number] Subscriber Identifier: [id number] Relationship to Subscriber: self Coverage Type: NA Coverage Verification Date: NA Telecom: NA Address: NA
--- NOTE | 2025-02-09 13:52 | CA_ITS ---
Transthoracic Echocardiogram Patient (Last, First, Middle): Markus Cannon, Gender: M Date of : 1970 Age: 54 Procedure Date: 02/09/2025 Procedure Type: Transthoracic Echocardiogram Location: OP Height: 172.72 cm Weight: 86.64 kg BSA: 2.00 m2 Heart Rate: bpm BP: 128 / 76 mmHg Record Changer Assembler: OKSANA Referring MD: Nahum Miller MD Symptoms: R07.89 - Other chest pain Study Quality: Adequate ECG Rhythm: Sinus Conclusions: - The left ventricular systolic function is normal. The calculated ejection fraction is 63% by biplane method. - No obvious valvular pathology seen on this study. Findings Left Ventricle Normal left ventricular cavity size. The left ventricular systolic function is normal. The calculated ejection fraction is 63% by biplane method. There is no evidence of regional wall motion abnormalities. Diastolic function is normal for age. There is mild septal and mild basal asymmetric hypertrophy. Right Ventricle Mildly increased right ventricular cavity size. There is normal right ventricular systolic function. Atria Both atria are normal in size. Aortic Valve There is a normal trileaflet aortic valve. There is mild calcification of the aortic valve. There is no aortic valve stenosis. There is no aortic valve regurgitation. Mitral Valve The mitral valve appears normal. There is no mitral valve regurgitation. There is no mitral valve stenosis. Pulmonic Valve The pulmonic valve is likely normal. Tricuspid Valve There is trace tricuspid valve regurgitation. There is no evidence of pulmonary hypertension. Great Vessels The asc aorta is normal in size. Venous The inferior vena cava is normal in size and collapses greater than 50% with inspiration. Pericardium/Pleural There is no evidence of pericardial effusion. Prior Study Comparison No significant change compared to prior study dated: 09/06/2021. Recommendations, Care & Conclusions No obvious valvular pathology seen on this study. Measurements 2D Linear Measurements IVSd: 1.10 0.6-0.9/0.6-1.0 cm LVIDd: 4.95 3.9-5.3/4.2-5.9 cm LVIDd Index: 2.48 2.4-3.2/2.2-3.1 cm/m2 LVIDs: 3.00 2.0-3.6 cm LVPWd: 0.89 0.7-1.1 cm LA Diam: 3.90 2.7-3.8/3.0-4.0 cm LAIDs Index: 1.95 1.5-2.3 cm/m2 LV Mass: 221.34 67-162/88-224 g LV Mass Index: 110.67 43-95/49-115 g/m2 LVOT Diam: 2.20 3.0+(-)1.3 cm 2D Systolic Function EF 4C: 60.70 >55% EF 2C: 65.10 >55% EF BiP: 62.70 >55% Mitral Valve MV Pk E: 0.83 MV PK A: 0.53 MV Decel Time: 233.00 E/A: 1.60 E'Lateral: 11.20 E'Medial: 7.51 E/E' Med: 11.10 E/E' Lat: 7.40 PHT: 68.00 MVA PHT: 3.24 Decel Glasscock: 3.56 Aortic Valve AoV Pk Oleksandr: 1.54 AoV Mn Oleksandr: 0.97 AoV VTI: 0.35 AoV Pk Grad: 9.00 Aov Mn Grad: 5.00 ANTONIO Cont.VTI: 2.97 LVOT LVOT Pk Oleksandr: 1.32 LVOT Mn Oleksandr: 0.77 LVOT VTI: 0.27 LVOT Pk Grad: 7.00 LVOT Mn Grad: 3.00 LVOT Diam: 2.20 LVOT Area: 3.80 Diastolic Function MV Pk E: 0.83 MV Pk A: 0.53 E/A: 1.60 E'Medial: 7.51 E/E' Med: 11.10 E' Laterial: 11.20 E/E' Lat: 7.40 Right Ventricle TAPSE (mm): 26.50 TVS' Oleksandr: 11.50 Tricuspid Valve RA Press: 3.00 Great Vessels Aorta Sinus of Valsalva: 3.31 2.0-3.[address] Ridge: 2.61 1.7-3.4 cm Ao Asc: 3.20 2.1-3.4 cm Pulmonary Veins Pulm Vein S/D 0.90 Updated in Other Vendor System with Status of Final Peter Modi MD electronically signed on 02/10/2025 11:36:59 AM with status of Final
--- OUTSIDE RECORDS SUMMARY | 2025-02-09 15:07 | XMS_ITS | Encounter Summary ---
Author Organization [facility] Address [address] [address] Phone Care Team Providers Care Call Center Recruiter Name Role Phone Soy Connor Primary Care Provider + Pacheco Boyle MD Unavailable [phone] Encounter Details Date Type Department Care Team (Late st Contact Info) Description 07/13/2022 Procedure Pass [facility] Endoscopy Department [address] [place] [address] Social History Tobacco Use Types Packs/Day Years [...] documented as of this encounter Care Teams Call Center Recruiter Relationship Specialty Start Date End Date Soy Connor PA [address] [place] [address] PCP - General 05/01/22 Pacheco Boyle MD [address] [place] [address] Referring Physician Intensive Care 05/03/22 documented as of this encounter Additional Source Comments The information contained in this document represents components of the legal health record. It is not the complete legal health record.[facility]
--- OUTSIDE RECORDS SUMMARY | 2025-02-09 15:07 | XMS_ITS | Clinical Summary ---
Author Organization [address] [place] [address] Address [address] [place] [address] Phone Care Team Providers Care It Training Specialist Name Role Phone Unavailable Primary Care Provider Unavailabl e Medications ciclopirox (LOPROX) 0.77 % gelIndications: Tinea unguium Apply topically 2 (two) times a day. 45 g 5 04/26/20 25 Active clotrimazole (LOTRIMIN) 1 % cream Apply topically 2 (two) times a day. 30 g 3 5 02/26/20 25 Active Encounters Date Type Department Care Team Description 01/26/2025 10:30 AM EDT Office Visit [facility] [place] [address] [phone] Buck Wong DPM Dermatophytosis of nail (Primary Dx); Tinea unguium; Tinea pedis of both feet from Last 3 Months Social History Tobacco Use Types Packs/Day Years Used Date Smoking Tobacco: Never Assessed Sex and Gender Information Value Date Recorded Sex Assigned at Not on file Legal Sex Male 9:55 AM EST Gender Identity Not on file Sexual Orientation Not on file Plan of Treatment Upcoming Encounters Date Type Department Care Team ([facility] st Contact Info) Description 03/17/2025 8:15 AM EDT Office Visit [facility] [address] [phone] Buck Wong DPM [address] [address] Health Maintenance Due Date Last Done Comments Hepatitis B Vaccines (1 of 3 - 19+ 3-dose series) 1989 Zoster Vaccines (1 of 2) 2020 Cholesterol Screening (Lipid Panel) 05/16/2022 Colorectal Cancer Screening: Colonoscopy 05/16/2022 HIV Screening 05/16/2022 Hepatitis C Screening 05/16/2022 Social Influencers of Health Screening 05/16/2022 COVID-19 Vaccine ( season) 2024 01/20/2022, 07/22/2021 Depression Screening 06/18/2024 Influenza Vaccine (#1) 2025 , 04/05/2022, 04/11/2017, Additional history exists DTaP,Tdap,and Td Vaccines (2 - Td or Tdap) 01/31/2034 02/01/2024 Pneumococcal Vaccine: 50+ Years Completed 06/08/2022 HIB Vaccines Aged Out No longer eligi [...] to complete this topic RSV Immunization Patients Under 20 months Aged Out No longer eligible based on patient's age to complete this topic Varicella Vaccines Aged Out No longer eligible based on patient's age to complete this topic Insurance [place] - [place] [facility] PLAN Advance Directives Documents on File Type Date Recorded Patient District Loss Prevention Manager Expl [facility] Care Decision (hx) 01/15/2021 MATT DEMARCO DIRECTIVE
--- OUTSIDE RECORDS SUMMARY | 2025-02-09 15:07 | XMS_ITS | Clinical Summary ---
Author Organization [facility] Address [address] [address] Phone Care Team Providers Care Nurse General Duty Name Role Phone Soy Connor Primary Care Provider + Pacheco Boyle MD Unavailable [phone] Allergies Active Allergy Reactions Criticality Noted Date Comments Atorvastatin Other (See Comments) 08/14/2020 Iodine 05/16/2022 Other reaction(s): red blotches Other Other (See Comments) 08/14/2020 Medications acetaminophen (TYLENOL) 325 mg tablet Take 650 mg by mouth every 6 (six) hours as needed. 1 Active albuterol 90 mcg/actuation inhaler INHALE 1 PUFF 4 TIMES A DAY NEEDED FOR SHORTNESS OF BREATH OR WHEEZING FOR 30 DAYS 2 Active amLODIPine (NORVASC) 5 MG tablet TAKE 1 TABLET ORALLY DAILY FOR 90 DAYS 2 Active aspirin 81 mg chewable tablet 1 tablet. Acti ve furosemide (LASIX) 20 MG tablet Take 20 mg by mouth daily. 2 Active lisinopril-hydr oCHLOROthiazide (PRINZIDE,ZESTO RETIC) 20-12.5 mg per tablet TAKE 1 TAB ORALLY DAILY FOR 90 DAYS 2 Active metoprolol succinate (TOPROL-XL) 50 MG 24 hr tablet TAKE 1 TABLET ORALLY DAILY FOR 90 DAYS 2 Active KLOR-CON M20 20 mEq ER tablet Take 20 mEq by mouth daily. 2 Active simvastatin (ZOCOR) 10 MG tablet TALE 1 TABLETY ORALLY DAILY 2 Active QUEtiapine (SEROQUEL) 100 MG tablet TAKE 1 TAB BY MOUTH AT BEDTIME 2 Active predniSONE (DELTASONE) 50 MG tablet Take 1 tablet (50 mg total) by mouth as directed. Take 1 tablet 13, 7 and 1 hour before procedure 3 tablet 3 Active Active Problems Problem Noted Date Diagnosed Date High blood pressure 05/16/2022 Acute respiratory distress s yndrome (ARDS) due to COVID-19 virus 01/31/2021 Essential hypertension 08/14/2020 Encounters Date Type Department Care Team Description 01/23/2025 10:34 AM EDT - 01/23/2025 11:59 PM EDT Hospital Encounter [facility] Radiology [address] [place] [address] Nahum Miller MD Discharge Disposition: Home or Self Care 01/02/2025 Procedure Pass [facility] Radiology [address] [place] [address] 01/02/2025 Transcribe Orders [facility] Radiology Department [address] [facility] [id number] [place] [address] Nahum Miller MD Other chest pain (Primary Dx); Abnormal result of other cardiovascular function study from Last 3 Months Social History Tobacco Use Types Packs/Day Years Used Date Smoking Tobacco: Never Assessed Education Answer Date Recorded Are you interested in more education? Not on cirilo e 10/14/2022 Are you concerned about learning? Not on file 10/14/2022 No 10/14/2022 No 10/14/2022 Digital Access Answer Date Recorded No 11/12/2022 No 11/12/2022 No 11/12/2022 Reliable internet access at home? Not on file 11/12/2022 Device with a working camera? Not on file Sex and Gender Information Value Date Recorded Sex Assigned at Male 05/01/2022 4:22 PM EST Legal Sex Male 4:10 PM EST Gender Identity Male 05/01/2022 4:22 PM EST Sexual Orientation Straight 05/01/2022 4: 22 PM EST Last Filed Vital Signs Vital Sign Reading Time Taken Comments Blood Pressure 147/96 05/15/2022 11:13 AM EST Pulse 64 05/15/2022 11:13 AM EST Temperature 35.8 C (96.5 F) 05/15/2022 11:13 AM EST Respiratory Rate 20 05/15/2022 11:13 AM EST Oxygen Saturation 98% 05/15/2022 11:13 AM EST Inhaled Oxygen Concentration - - Weight 97.3 kg (214 lb 9.6 oz) 05/15/2022 11:13 AM EST Height 169.5 cm (5' 6.73 ) 05/15/2022 11:[address] Body Mass Index 33.88 05/15/2022 11:13 AM EST Plan of Treatment Health Maintenance Due Date Last Done Comments BLOOD PRESSURE 1970 CREATININE LEVEL 1970 LIPID PANEL 1970 POTASSIUM LEVEL 1970 SMOKING Hx and SMOKELESS TOBACCO SCREENING 09/25/1983 HEPATITIS C SCREENING 1988 HIV ONE-TIME SCREENING (18-65 YEARS) 1988 SCREENING FOR DIABETES 2005 COLOGUARD 09/25/2015 COLONOSCOPY 09/25/2015 COLORECTAL CANCER SCREENING 09/25/2015 FIT TEST 09/25/2015 FOBT 09/25/2015 SIGMOIDOSCOPY 09/25/2015 VIRTUAL COLONOSCOPY 09/25/2015 ZOSTER VACCINES (1 of 2) 2020 DEPRESSION SCREENING 05/15/2023 05/15/2022 COVID-19 VACCINE ( season) 2024 01/20/2022, 07/22/2021 INFLUENZA VACCINE (#1) 2025 , 04/05/2022, 04/11/2017, Additional history exists Adult Td,Tdap Booster 01/31/2034 02/01/2024 PNEUMOCOCCAL VACCINES (50+ years) Completed 06/08/2022 HEPATITIS A VACCINES Aged Out No long er eligible based on patient's age to complete this topic HIB VACCINES Aged Out No longer eligi ble based on patient's age to complete this topic MENINGOCOCCAL VACCINES (ACWY) Aged Out No longer eligible based on patient's age to complete this topic MENINGOCOCCAL VACCINES (B) Aged Out N o longer eligible based on patient's age to complete this topic Medical Devices Not on file Procedures Procedure Name Priority Date/Time Associated Diagnosis Comments CT ANGIO CORONARY ARTERIES WITH CONTRAST Routine 01/23/2025 12:35 PM EDT Other chest pain Abnormal result of other cardiovascular function study from Last 3 Months Results * CT ANGIO CORONARY ARTERIES WITH CONTRAST (01/23/2025 12:35 PM EDT) Anatomical Region Laterality Modality Heart Computed Tomogra phy 01/23/2025 4:29 PM EDT Impressions 01/23/2025 5:41 PM EDT * Mild amount of total coronary plaque.. * Minimal (1-24%) stenosis of the LAD, LCX, and RCA. RECOMMENDATIONS: * CAD-RADS 1/P 2: Consider non-atherosclerotic causes of symptoms. Risk factor modification and preventive pharmacotherapy. ATTESTATION: Allen Bolton, as teaching physician have reviewed the images, if any, for this patient's exam, and if necessary, have edited the report originally created by Jc Millard. Narrative 01/23/2025 5:[address] ANGIO CORONARY ARTERIES WITH CONTRAST Referring clinician's provided indication for this examination in Epic: Outside Radiology Order TECHNIQUE: Contrast enhanced ECG-synchronized CT angiography of the heart and coronary arteries was performed, including 3D image postprocessing. Multiphase data was acquired at multiple phases of the R-R interval: mid- to late-diastole. Multiplanar post processing and 3D volume rendering were performed and interpreted. A maximum width full field of view was also reconstructed and reviewed. COMPARISON: CT CHEST OUTSIDE WITH INTERPRETATION OR CONSULT FINDINGS: Coronary CTA: The quality of the exam is excellent. The left and right coronaries have normal origins. The coronary circulation is right dominant. Left Main: The left main coronary artery bifurcates into the LAD and LCx Small amount of mostly calcified plaque resulting in minimal (1-24%) stenosis of the distal LM. Left Anterior Descending (LAD): The LAD wraps around the apex and gives rise to 3 diagonal (D) branches. Small amount of mostly calcified plaque resulting in minimal (1-24%) stenosis of the proximal LAD. Left Circumflex (LCX): The left circumflex is a medium sized vessel that gives rise to 1 obtuse marginal (OM) branches. Small amount of mostly calcified plaque resulting in minimal (1-24%) stenosis of the proximal LCx, and proximal OM1. Right Coronary Artery (RCA): The RCA is a dominant vessel that gives rise to the PDA and PLV branches. Small amount of mostly calcified plaque resulting in minimal (1-24%) stenosis of the proximal and mid RCA. Total Coronary Plaque [place]: Moderate amount of coronary plaque (P2). NON-CORONARY CARDIAC FINDINGS: Chambers: The left atrium is normal in size. The right atrium is normal in size. The right ventricle is normal in size. The left ventricle is normal in size. There is no evidence of left ventricle or left atrial appendage thrombus. Myocardium: Normal left ventricular thickness. Valves: Aortic valve without calcifications. Normal mitral valve. Pericardium: No pericardial effusion, calcification or thickening. Aorta: Normal size. Pulmonary arteries: Main pulmonary artery is 31 mm, unchanged. INCIDENTAL FINDINGS: Mild degenerative changes of the spine. Persistent diffuse peribronchial and subpleural reticulations consistent with known fibrotic interstitial lung disease. Procedure Note Allen Serna MD - 01/23/2025 CT ANGIO CORONARY ARTERIES WITH CONTRAST Referring clinician's provided indication for this examination in Epic:Outside Radiology Order TECHNIQUE: Contrast enhanced ECG-synchronized CT angiography of the heartand coronary arteries was performed, including 3D image postprocessing.Multiphase data was acquired at multiple phases of the R-R interval: mid-to late-diastole. Multiplanar post processing and 3D volume rendering wereperformed and interpreted. A maximum width full field of view was alsoreconstructed and reviewed. COMPARISON: CT CHEST OUTSIDE WITH INTERPRETATION OR CONSULT FINDINGS: Coronary CTA: The quality of the exam is excellent. The left and right coronaries have normal origins. The coronary circulation is right dominant. Left Main: The left main coronary artery bifurcates into the LAD and LCx Small amount of mostly calcified plaque resulting in minimal (1-24%)stenosis of the distal LM. Left Anterior Descending (LAD): The LAD wraps around the apex and gives rise to 3 diagonal (D) branches. Small amount of mostly calcified plaque resulting in minimal (1-24%)stenosis of the proximal LAD. Left Circumflex (LCX): The left circumflex is a medium sized vessel that gives rise to 1 obtusemarginal (OM) branches. Small amount of mostly calcified plaque resulting in minimal (1-24%)stenosis of the proximal LCx, and proximal OM1. Right Coronary Artery (RCA): The RCA is a dominant vessel that gives rise to the PDA and PLVbranches. Small amount of mostly calcified plaque resulting in minimal (1-24%)stenosis of the proximal and mid RCA. Total Coronary Plaque [place]: Moderate amount of coronary plaque (P2). NON-CORONARY CARDIAC FINDINGS: Chambers: The left atrium is normal in size. The right atrium is normal insize. The right ventricle is normal in size. The left ventricle is normalin size. There is no evidence of left ventricle or left atrial appendagethrombus. Myocardium: Normal left ventricular thickness. Valves: Aortic valve without calcifications. Normal mitral valve. Pericardium: No pericardial effusion, calcification or thickening. Aorta: Normal size. Pulmonary arteries: Main pulmonary artery is 31 mm, unchanged. INCIDENTAL FINDINGS: Mild degenerative changes of the spine. Persistentdiffuse peribronchial and subpleural reticulations consistent with knownfibrotic interstitial lung disease. IMPRESSION: * Mild amount of total coronary plaque.. * Minimal (1-24%) stenosis of the LAD, LCX, and RCA. RECOMMENDATIONS: * CAD-RADS 1/P 2: Consider non-atherosclerotic causes of symptoms. Riskfactor modification and preventive pharmacotherapy. ATTESTATION: Allen Bolton, as teaching physician have reviewed theimages, if any, for this patient's exam, and if necessary, have edited thereport originally created by Jc Millard. Nahum Miller MD IMG CT CARDIAC Final R esult from Last 3 Months Insurance [facility] A[employer] [place] [address] [place] [address] [place] [address] [place] [address] [place] [address] [place] [address] ACO Member Subscriber Plan / Payer (Ef fective 2023-Present) Name:Markus Cannon Relation to Subscriber:Self Name:Kassandra Markus Payer ID:[id number] Group ID:[id number] Type:Medicaid Address: [place] [id number] Care Teams Nurse General Duty Relationship Specialty Start Date End Date Soy Connor PA [address] [place] [address] PCP - General 05/01/22 Pacheco Boyle MD [address] [place] [address] Referring Physician Intensive Care 05/03/22 Additional Source Comments The information contained in this document represents components of the legal health record. It is not the complete legal health record.[facility]
--- OUTSIDE RECORDS SUMMARY | 2025-02-09 15:07 | XMS_ITS | Encounter Summary ---
Author Organization [facility] Address [address] [address] Phone Care Team Providers Care Supervisor Tubing Name Role Phone Soy Connor Primary Care Provider + Pacheco Boyle MD Unavailable [phone] Encounter Details Date Type Department Care Team (Late st Contact Info) Description 01/02/2025 Procedure Pass [facility] [address] [place] [address] Social History Tobacco Use Types Packs/Day Years [...] documented as of this encounter Care Teams Supervisor Tubing Relationship Specialty Start Date End Date Soy Connor PA [address] [place] [address] PCP - General 05/01/22 [place] [address] [place] [address] Referring Physician Intensive Care 05/03/22 documented as of this encounter Additional Source Comments The information contained in this document represents components of the legal health record. It is not the complete legal health record.[facility]
--- OUTSIDE RECORDS SUMMARY | 2025-02-09 15:07 | XMS_ITS | Encounter Summary ---
Author Organization [facility] Address [address] [address] Phone Care Team Providers Care Reliability Engineer Name Role Phone Soy Connor Primary Care Provider + Pacheco Boyle MD Unavailable [phone] Encounter Details Date Type Department Care Team (Late st Contact Info) Description 07/13/2022 Procedure Pass [facility] Cardiac Federal Agent [address] [place] [address] Social History Tobacco Use Types Packs/Day Years [...] documented as of this encounter Care Teams Reliability Engineer Relationship Specialty Start Date End Date Soy Connor PA [address] [place] [address] PCP - General 05/01/22 Pacheco Boyle MD [address] [place] [address] Referring Physician Intensive Care 05/03/22 documented as of this encounter Additional Source Comments The information contained in this document represents components of the legal health record. It is not the complete legal health record.[facility]
--- OUTSIDE RECORDS SUMMARY | 2025-02-09 15:07 | XMS_ITS | Patient Health Record ---
Author Organization [facility] Address [address] [place] [address] Care Team Providers Care Floor Grinder Name Role Phone Akhil (RETIRED) Mike BENNETT Primary Care Provide Ab Bales Unavailable [phone] Allergies Allergen (clinical drug ingredient) Drug/Non Drug [...] Status Risk Notes Problem Blood in stool (395303706) Blood in stool (578.1) Active confirmed Problem Elevated liver function tests (790.6) Active confirmed Plan Of Treatment Pending Test Test Name Order Date LIVER PROFILE 04/05/2012 Future Test Test Name Order Date COLONOSCOPY 04/05/2012 Insurance Providers Payer Name Payer Address Payer Phone Subscriber Number Group Number Insured Name Patient Relationship to Insured Coverage Start Date Coverage End Date [facility] [address] [place], [place] [id number] JUAN DAVID GEORGE SINAN) Self - patient is the insured Medical (General) History Medical History History ICD Code hypertension Denies [place],DM,CVA,Lung disease,renal dise ase Anxiety
--- OUTSIDE RECORDS SUMMARY | 2025-02-09 15:07 | XMS_ITS | Clinical Summary ---
Author Organization [address] Address [address] [place] [address] Care Team Providers Care Hedis Registered Nurse Rn Name Role Phone Soy Connor Primary [...] patient's age to complete this topic Insurance [facility] Care Teams Hedis Registered Nurse Rn Relationship Specialty Start Date End Date Soy Connor PA PCP - General 06/01/21
--- OUTSIDE RECORDS SUMMARY | 2025-02-09 15:08 | XMS_ITS | Clinical Summary ---
Author Organization [facility] Address [address] [place] [address], [place] [address] Care Team Providers Care Flower Stripper Name Role Phone Unavailable Primary Care Provider [...] Influenza Vaccine (#1) 2025 Insurance ) [facility] Choice O ([id number])
--- OUTSIDE RECORDS SUMMARY | 2025-02-09 15:08 | XMS_ITS | Clinical Summary ---
Author Organization [facility] Address [address] [place] [address] Care Team Providers Care Radio Tester Name Role Phone Unavailable Primary Care Provider [...] this topic Medical Devices Explanted Type Area New Car Driver Device Identifier Shelf Expiration Date Model / Serial / Lot Sealant Fibrin Vistaseal 4ml [facility] [id number] - [id number] Explanted:Qt y: 1 on 02/16/2021 by Ab Goncalves MD at [facility] and Med Hemostatic Agent Anterior: Trachea [facility] [employer] 08/31/2022 [id number] / [id number] / [id number] Advance Directives For more information, please contact: [phone] Latest Code Status on File Code Status Date Activated Date Inactivated Comments Full Code 01/31/2021 6:40 PM 04/07/2021 11:01 PM Thi s code status was ascertained in the following way: discussion with healthcare telephone service representative .
--- OUTSIDE RECORDS SUMMARY | 2025-02-09 15:08 | XMS_ITS | Patient Health Record ---
Author Organization [facility] Address [address] [place] [address] Care Team Providers Care Fleet Manager Name Role Phone Soy Connor Primary Care Provider Unavailab Andrea Moran Unavailable [phone] Allergies Allergen (clinical drug ingredient) Drug/Non Drug [...] Insured Coverage Start Date Coverage End Date [facility] [id number] [address] [place] [id number] Markus Cannon Self - patient is the insured Medical (General) History Medical History History ICD Code Anxiety Anxiety disorder Back,Hip,and Knee pain High blood pressure Kidney disease Scarlet fever Chicken pox Surgical History Surgery Date(Month/Year)
== END ==
LOC: HO.CARD 13:49
PROVIDERS: PCP Physician Assistant; Visit Provider Internal Medicine Cardiovascular Disease
DX: R07.89 Other chest pain (principal)
CPT/HCPCS: 93306

== ENCOUNTER → 2025-02-09 13:52 | Outpatient (BNV) | payer OTHER, SELFPAY | PROVIDERS: PCP Physician Assistant; Visit Provider Internal Medicine | DX: I42.2 Other hypertrophic cardiomyopathy (principal); I35.8 Other nonrheumatic aortic valve disorders | CPT/HCPCS: 93306 ==

== ENCOUNTER 2025-03-10 16:05 | Outpatient (REF) | payer OTHER, SELFPAY ==
--- NOTE | 2025-03-10 16:07 | PFT_ITS ---
Flows: FEV1: 77 % of predicted at 2.72 L FVC: 69 % of predicted at 3.12 L FEV1/FVC: 87 % Bronchodilator response: Present in small to medium airways only Volumes: Total lung capacity: 66 % of predicted at 4.46 L Residual volume: 65 % of predicted at 1.23 L Slow vital capacity: 66 % of predicted at 3.23 L Expiratory reserve volume: 56 % of predicted at 0.71 L Diffusion capacity: Normal Impression: Moderate restrictive ventilatory defect with bronchodilator response present in small to medium airways only. Decreased expiratory reserve volume suggests extrathoracic restriction likely secondary to abdominal obesity. MTDD
[2025-03-10 16:56] VITALS: PULSE 57; O2SAT 98
--- OUTSIDE RECORDS SUMMARY | 2025-03-10 18:35 | XMS_ITS | Encounter Summary ---
Author Organization [facility] Address [address] [address] Phone Care Team Providers Care Geomagnetician Name Role Phone Soy Connor Primary Care Provider + Pacheco Boyle MD Unavailable [phone] Encounter Details Date Type Department Care Team (Late st Contact Info) Description 01/02/2025 Procedure Pass [facility]iology [address] [place] [address] Social History Tobacco Use Types Packs/Day Years [...] documented as of this encounter Care Teams Geomagnetician Relationship Specialty Start Date End Date Soy Connor PA [address] [place] [address] PCP - General 05/01/22 [place] [address] [place] [address] Referring Physician Intensive Care 05/03/22 documented as of this encounter Additional Source Comments The information contained in this document represents components of the legal health record. It is not the complete legal health record.[facility]
--- OUTSIDE RECORDS SUMMARY | 2025-03-10 18:35 | XMS_ITS | Clinical Summary ---
Author Organization [address] [place] [address] Address [address] [place] [address] Phone Care Team Providers Care Cotton Weigher Name Role Phone Unavailable Primary Care Provider Unavailabl e Medications ciclopirox (LOPROX) 0.77 % gelIndications: Tinea unguium Apply topically 2 (two) times a day. 45 g 5 04/26/20 25 Active clotrimazole (LOTRIMIN) 1 % cream Apply topically 2 (two) times a day. 30 g 3 5 02/26/20 25 Encounters Date Type Department Care Team Description 01/26/2025 10:30 AM EDT Office Visit Orthopedic [place] [address] [phone] Buck Wong DPM Dermatophytosis of nail (Primary [...] Upcoming Encounters Date Type Department Care Team ([facility] st Contact Info) Description 03/17/2025 8:15 AM EDT Office Visit [facility] [address] [phone] Buck Wong DPM [address] [phone] Health Maintenance Due Date Last Done Comments Hepatitis B Vaccines (1 of 3 - 19+ 3-dose series) 1989 Zoster Vaccines (1 of 2) 2020 Cholesterol Screening (Lipid Panel) 05/16/2022 Colorectal Cancer Screening: Colonoscopy 05/16/2022 HIV Screening 05/16/2022 Hepatitis C Screening 05/16/2022 Social Influencers of Health Screening 05/16/2022 Depression Screening 06/18/2024 COVID-19 Vaccine (3 - season) 2025 01/20/2022, 07/22/2021 Influenza Vaccine (#1) 2025 , 04/05/2022, 04/11/2017, [...] Insurance MEDICAID - [place] [facility] PLAN Advance Directives Documents on File Type Date Recorded Patient Wheat Inspector Expl [facility] Health Care Decision (hx) 01/15/2021 MATT DEMARCO DIRECTIVE
--- OUTSIDE RECORDS SUMMARY | 2025-03-10 18:35 | XMS_ITS | Clinical Summary ---
Author Organization [facility] Address [address] [place] [address], [place] [address] Care Team Providers Care Band Edger Name Role Phone Unavailable Primary Care Provider [...] 021 Influenza Vaccine (#1) 2025 Insurance ) [facility] Choice O ([id number])
--- OUTSIDE RECORDS SUMMARY | 2025-03-10 18:35 | XMS_ITS | Patient Health Record ---
Author Organization [facility] Address [address] [place] [address] Care Team Providers Care Atg Java Developer Name Role Phone Soy Connor Primary Care Provider Unavailab Andrea oMran Unavailable [phone] Allergies Allergen (clinical drug ingredient) Drug/Non Drug [...] primary osteoarthritis of the ankle and/or foot (091427809) Primary osteoarthrit is, left ankle and foot (M19.072) Active confirmed Plan Of Treatment Pending Test Test Name Order Date X ray : Foot, left 3V 07/08/2020 X ray : Foot, right 3V 07/08/2020 Insurance Providers Payer Name Payer Address Payer Phone Subscriber Number Group Number Insured Name Patient Relationship to Insured Coverage Start Date Coverage End Date [facility] [id number] [address] [place] [id number] Markus Cannon Self - patient is the insured Medical (General) History Medical History History ICD Code Anxiety Anxiety disorder Back,Hip,and Knee pain High blood pressure Kidney disease Scarlet fever Chicken pox Surgical History Surgery Date(Month/Year)
--- OUTSIDE RECORDS SUMMARY | 2025-03-10 18:35 | XMS_ITS | Clinical Summary ---
Author Organization [facility] Address [address] [address] Phone Care Team Providers Care Aircraft Ordnance Systems Mechanic Name Role Phone Soy Connor Primary Care Provider + Pacheco Boyle MD Unavailable [phone] Allergies Active Allergy Reactions Criticality Noted [...] - 01/23/2025 11:59 PM EDT Hospital Encounter [facility] Radiology [address] [place] [address] Nahum Miller MD Discharge Disposition: Home or Self Care 01/02/2025 Procedure Pass [facility] Radiology [address] [place] [address] 01/02/2025 Transcribe Orders [facility] Radiology Department 75 [facility] OBC-3-010 [place] [address] Nahum Miller MD Other chest pain (Primary [...] of 2) 2020 DEPRESSION SCREENING 05/15/2023 05/15/2022 INFLUENZA VACCINE (#1) 2025 , 04/05/2022, 04/11/2017, Additional history exists COVID-19 VACCINE ( season) 2025 01/20/2022, 07/22/2021 Adult Td,Tdap Booster 01/31/2034 02/01/2024 PNEUMOCOCCAL VACCINES [...] proximal and mid RCA. Total Coronary Plaque [place]: Moderate amount of coronary plaque (P2). NON-CORONARY [...] proximal and mid RCA. Total Coronary Plaque [place]: Moderate amount of coronary plaque (P2). NON-CORONARY [...] R esult from Last 3 Months Insurance [facility] ACO [place] [address] [address] [address] [place] [place] [address] ACO Member Subscriber Plan / Payer (Ef fective 2023-Present) Name:Markus Cannon Relation to Subscriber:Self Name:Kassandra Markus Payer ID:[id number] Group ID:[id number] Type:Medicaid Address: [place] [id number] Care Teams Aircraft Ordnance Systems Mechanic Relationship Specialty Start Date End Date Soy Connor PA [address] [place] [address] PCP - General 05/01/22 Pacheco Boyle MD [address] [place] [address] Referring Physician Intensive Care 05/03/22 Additional Source Comments The information contained in this document represents components of the legal health record. It is not the complete legal health record.[facility]
--- OUTSIDE RECORDS SUMMARY | 2025-03-10 18:35 | XMS_ITS | Patient Health Record ---
Author Organization [facility] Address [address] [place] [address] Care Team Providers Care Retail Center Receptionist Name Role Phone Akhil (RETIRED) Mike BENNETT Primary Care Provide Ab Bales Unavailable [phone] Allergies Allergen (clinical drug ingredient) Drug/Non Drug [...] Status Risk Notes Problem Blood in stool (094032943) Blood in stool (578.1) Active confirmed Problem Elevated liver enzymes level (217242886) Elevated liver function tests (790.6) Active confirmed Plan Of Treatment Pending Test Test Name Order Date LIVER PROFILE 04/05/2012 Future Test Test Name Order Date COLONOSCOPY 04/05/2012 Insurance Providers Payer Name Payer Address Payer Phone Subscriber Number Group Number Insured Name Patient Relationship to Insured Coverage Start Date Coverage End Date [facility] [address] [place], [place] [id number] [address] JUAN DAVID SINAN) Self - patient is the insured Medical (General) History Medical History History ICD Code hypertension Denies [place],DM,CVA,Lung disease,renal dise ase Anxiety
--- OUTSIDE RECORDS SUMMARY | 2025-03-10 18:35 | XMS_ITS | Encounter Summary ---
Author Organization [facility] Address [address] [address] Phone Care Team Providers Care Psychiatrist Name Role Phone Soy Connor Primary Care Provider + Pacheco Boyle MD Unavailable [phone] Encounter Details Date Type Department Care Team (Late st Contact Info) Description 07/13/2022 Procedure Pass [facility] Cardiac Account Services Associate [address] [place] [address] Social History Tobacco Use Types Packs/Day Years [...] documented as of this encounter Care Teams Psychiatrist Relationship Specialty Start Date End Date Soy Connor PA [address] [place] [address] PCP - General 05/01/22 Pacheco Boyle MD [address] [place] [address] Referring Physician Intensive Care 05/03/22 documented as of this encounter Additional Source Comments The information contained in this document represents components of the legal health record. It is not the complete legal health record.[facility]
--- OUTSIDE RECORDS SUMMARY | 2025-03-10 18:35 | XMS_ITS | Clinical Summary ---
Author Organization [facility] Address [address] [place] [address] Care Team Providers Care Coding Support Specialist Name Role Phone Unavailable Primary Care [...] this topic Medical Devices Explanted Type Area Regional Engagement Consultant Device Identifier Shelf Expiration Date Model / Serial / Lot Sealant Fibrin Vistaseal 4ml [facility] [id number] - [id number] Explanted:Qt y: 1 on 02/16/2021 by Ab Goncalves [place] [facility] and Med Hemostatic Agent Anterior: Trachea [facility] [employer] 08/31/2022 [id number] / [id number] / [id number] Advance Directives For more information, please contact: [phone] Latest Code Status on File Code Status Date Activated Date Inactivated Comments Full Code 01/31/2021 6:40 PM 04/07/2021 11:01 PM Thi s code status was ascertained in the following way: discussion with healthcare statement services representative .
--- OUTSIDE RECORDS SUMMARY | 2025-03-10 18:35 | XMS_ITS | Clinical Summary ---
Author Organization [address] Address [address] [place] [address] Care Team Providers Care Medication Coordinator Name Role Phone Soy Connor Primary [...] 2 Dose Standard Series) 2020 Influenza vaccine 01/16/2025 Covid-19 vaccine series (1 - 2023-25 season) 2025 RSV Immunization (1 - 1-dose 75+ series) 2045 Meningococcal B Vaccine Aged Out No l onger eligible based on patient's age to complete this topic Meningococcal Vaccine Aged Out No forrest grant eligible based on patient's age to complete this topic Insurance [facility] Care Teams Medication Coordinator Relationship Specialty Start Date End Date Soy Connor PA PCP - General 06/01/21
--- OUTSIDE RECORDS SUMMARY | 2025-03-10 18:35 | XMS_ITS | Encounter Summary ---
Author Organization [facility] Address [address] [address] Phone Care Team Providers Care Postal Service Clerk Name Role Phone Soy Connor Primary Care Provider + Pacheco Boyle MD Unavailable [phone] Encounter Details Date Type Department Care Team (Late st Contact Info) Description 07/13/2022 Procedure Pass [facility] Endoscopy Department [address] [place] [address] Social History Tobacco Use Types Packs/Day Years [...] documented as of this encounter Care Teams Postal Service Clerk Relationship Specialty Start Date End Date Soy Connor PA [address] [place] [address] PCP - General 05/01/22 Pacheco Boyle MD [address] [place] [address] Referring Physician Intensive Care 05/03/22 documented as of this encounter Additional Source Comments The information contained in this document represents components of the legal health record. It is not the complete legal health record.[facility]
== END 2025-03-10 16:06 | disposition home or self-care (01) ==
LOC: HO.RESP 16:05
PROVIDERS: PCP Physician Assistant; Visit Provider Internal Medicine Pulmonary Disease
DX: J84.9 Interstitial pulmonary disease, unspecified (principal)
CPT/HCPCS: 94010; 94640; 94727; 94729

== ENCOUNTER → 2025-03-10 16:07 | Outpatient (BNV) | payer OTHER, SELFPAY | PROVIDERS: PCP Physician Assistant; Visit Provider Internal Medicine Pulmonary Disease | DX: J98.4 Other disorders of lung (principal) | CPT/HCPCS: 94060; 94727; 94729 ==

== ENCOUNTER 2025-04-01 13:00 | Outpatient (REF) | payer OTHER, SELFPAY ==
--- NOTE | ~2025-04-01 | CT_ITS ---
CLINICAL HISTORY: J84.9 - Interstitial pulmonary disease, unspecified CT chest without contrast Comparison: 03/14/24 Findings: No mediastinal mass or lymphadenopathy. Postsurgical change of the thyroid isthmus. No cardiomegaly. Trace calcified coronary artery disease. Normal size thoracic aorta with trace calcified atherosclerotic disease. There is a moderate amount of bilateral reticulation and linear scarring which is greatest in the upper lobes with a mild amount of associated ground-glass opacity. The appearance is similar to the prior study. No bronchiectasis or honeycombing. No pneumothorax or pleural effusion. No acute osseous or soft tissue abnormality. No acute pathology in the imaged portion of the upper abdomen. Hepatic steatosis. Impression: Stable examination. Bilateral reticulation and linear scarring with a mild amount of associated ground-glass opacity which is greatest in the upper lobes. 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 Follow up with pulmonology. This document has been electronically signed by: Isidra Rose MD on 04/02/2025 16:36:42
--- OUTSIDE RECORDS SUMMARY | 2025-04-01 16:36 | XMS_ITS | Encounter Summary ---
Author Organization [facility] Address [address] [address] Phone Care Team Providers Care Curriculum Writer Name Role Phone Soy Connor Primary Care Provider + Pacheco Boyle MD Unavailable [phone] Encounter Details Date Type Department Care Team (Late st Contact Info) Description 07/13/2022 Procedure Pass [facility] Endoscopy Department [address] [place] [address] Social History Tobacco Use Types Packs/Day Years [...] documented as of this encounter Care Teams Curriculum Writer Relationship Specialty Start Date End Date Soy Connor PA [address] [place] [address] PCP - General 05/01/22 Pacheco Boyle MD [address] [place] [address] Referring Physician Intensive Care 05/03/22 documented as of this encounter Additional Source Comments The information contained in this document represents components of the legal health record. It is not the complete legal health record.[facility]
--- OUTSIDE RECORDS SUMMARY | 2025-04-01 16:36 | XMS_ITS | Encounter Summary ---
Author Organization [facility] Address [address] [address] Phone Care Team Providers Care Margarine Maker Name Role Phone Soy Connor Primary Care Provider + Pacheco Boyle MD Unavailable [phone] Encounter Details Date Type Department Care Team (Late st Contact Info) Description 07/13/2022 Procedure Pass [facility] Cardiac Cnc Machine Setter [address] [place] [address] Social History Tobacco Use Types Packs/Day Years [...] documented as of this encounter Care Teams Margarine Maker Relationship Specialty Start Date End Date Soy Connor PA [address] [place] [address] PCP - General 05/01/22 Pacheco Boyle MD [address] [place] [address] Referring Physician Intensive Care 05/03/22 documented as of this encounter Additional Source Comments The information contained in this document represents components of the legal health record. It is not the complete legal health record.[facility]
--- OUTSIDE RECORDS SUMMARY | 2025-04-01 16:36 | XMS_ITS | Encounter Summary ---
Author Organization [facility] Address [address] [address] Phone Care Team Providers Care Blood Bank Coordinator Name Role Phone Soy Connor Primary Care Provider + Pacheco Boyle MD Unavailable [phone] Encounter Details Date Type Department Care Team (Late st Contact Info) Description 01/02/2025 Procedure Pass [facility] and Women's Radiology [address] [place] [address] Social History Tobacco Use Types Packs/Day Years [...] documented as of this encounter Care Teams Blood Bank Coordinator Relationship Specialty Start Date End Date Soy Connor PA [address] [place] [address] PCP - General 05/01/22 [place] [address] [place] [address] Referring Physician Intensive Care 05/03/22 documented as of this encounter Additional Source Comments The information contained in this document represents components of the legal health record. It is not the complete legal health record.[facility]
--- OUTSIDE RECORDS SUMMARY | 2025-04-01 16:36 | XMS_ITS | Clinical Summary ---
Author Organization [address] [place] [address] Address [address] [place] [address] Phone Care Team Providers Care Accountant Helper Name Role Phone Unavailable Primary Care Provider Unavailabl e Allergies Active Allergy Reactions Criticality Noted Date Comments Atorvastatin Other 08/14/2020 Iodinated Contrast Media Other 08/14/2020 Iodine 05/16/2022 Other reaction(s): red blotches Medications ciclopirox (LOPROX) 0.77 % gelIndications: Tinea unguium Apply topically 2 (two) times a day. 45 g 5 04/26/20 25 Active clotrimazole (LOTRIMIN) 1 % cream Apply topically 2 (two) times a day. 30 g 3 5 04/16/20 25 Active clotrimazole-be tamethasone (LOTRISONE) 1-0.05 % cream Apply topically 2 (two) times a day for 28 days. 30 g 3 5 04/14/20 25 Active Encounters Date Type Department Care Team Description 03/17/2025 8:15 AM EDT Office Visit Orthopedic Surgery [facility] [address] [phone] Buck Wong DPM Tinea unguium (Primary Dx); Dermatophytosis of nail; Tinea pedis of both feet 01/26/2025 10:30 AM EDT Office Visit [facility] [address] [phone] Buck Wong DPM Dermatophytosis of nail (Primary [...] Upcoming Encounters Date Type Department Care Team ([facility] st Contact Info) Description 05/18/2025 8:15 AM EST Office Visit Orthopedic Surgery - [place] [address] [phone] Buck Wong, DPM [address] [phone] Health Maintenance Due Date Last Done Comments Colorectal Cancer Screening: Colonoscopy 1970 Hepatitis B Vaccines (1 of 3 - 19+ 3-dose series) 1989 Zoster Vaccines (1 of 2) 2020 Cholesterol Screening (Lipid Panel) 05/16/2022 HIV Screening 05/16/2022 Hepatitis C Screening 05/16/2022 Social Influencers of Health Screening 05/16/2022 Depression Screening 06/18/2024 COVID-19 Vaccine ( season) 2025 01/20/2022, 07/22/2021 Influenza Vaccine (#1) 2025 , 04/05/2022, 04/11/2017, Additional history exists Hypertension/CHF/CAD Annual BMP Blood Test 03/17/2025 04/07/2021, 04/06/2021, 04/05/2021, Additional history exists DTaP,Tdap,and Td Vaccines (2 - Td or Tdap) 01/31/2034 02/01/2024 RSV Immunization Adult Patients (1 - 1-dose 75+ series) 2045 Pneumococcal Vaccine: 50+ Years Completed 06/08/2022 HIB [...] complete this topic Insurance MEDICAID - [place] [facility] [id number] PL[employer] Advance Directives Documents on File Type Date Recorded Patient Upper Lining Cementer Expl anation Health Care Decision (hx) 01/15/2021 AD DEMARCO DIRECTIVE
--- OUTSIDE RECORDS SUMMARY | 2025-04-01 16:36 | XMS_ITS | Clinical Summary ---
Author Organization [address] Address [address] [place] [phone] Care Team Providers Care Warp Knitter Helper Name Role Phone Soy Connor Primary [...] to complete this topic Insurance [facility] Care Teams Warp Knitter Helper Relationship Specialty Start Date End Date Soy Connor PA PCP - General 06/01/21
--- OUTSIDE RECORDS SUMMARY | 2025-04-01 16:36 | XMS_ITS | Clinical Summary ---
Author Organization [facility] Address [address] [address] Phone Care Team Providers Care Motor Installer Name Role Phone Soy Connor Primary Care Provider + Pacheco Boyle MD Unavailable [phone] Allergies Active Allergy Reactions Criticality Noted [...] - 01/23/2025 11:59 PM EDT Hospital Encounter [facility] Radiology [address] [place] [address] Nahum Miller MD Discharge Disposition: Home or Self Care 01/02/2025 Procedure Pass [facility] Radiology [address] [place] [address] 01/02/2025 Transcribe Orders [facility] Radiology Department [address] [facility] OBC-3-[address] [place] [address] Nahum Miller MD Other chest pain (Primary [...] FOBT 09/25/2015 SIGMOIDOSCOPY 09/25/2015 VIRTUAL COLONOSCOPY 09/25/2015 RSV VACCINE (1 - Risk 50-74 years 1-dose series) 2020 ZOSTER VACCINES (1 of 2) 2020 DEPRESSION SCREENING 05/15/2023 05/15/2022 INFLUENZA VACCINE (#1) 2025 , 04/05/2022, 04/11/2017, Additional history exists COVID-19 VACCINE ( - 2024- season) 2025 01/20/2022, 07/22/2021 Adult Td,Tdap Booster [...] proximal and mid RCA. Total Coronary Plaque [place]: Moderate amount of coronary plaque (P2). NON-CORONARY [...] proximal and mid RCA. Total Coronary Plaque [place]: Moderate amount of coronary plaque (P2). NON-CORONARY [...] necessary, have edited thereport originally created by cJ Millard. Nahum Miller MD IMG CT CARDIAC Final R esult from Last 3 Months Insurance [place] [address] [place] [address] [place] [address] [place] [address] [place] [address] Care Teams Motor Installer Relationship Specialty Start Date End Date Soy Connor PA [facility] [place] [address] PCP - General 05/01/22 [place] [address] [place] [address] Referring Physician Intensive Care 05/03/22 Additional Source Comments The information contained in this document represents components of the legal health record. It is not the complete legal health record.[facility]
--- OUTSIDE RECORDS SUMMARY | 2025-04-01 16:37 | XMS_ITS | Clinical Summary ---
Author Organization [facility] Address [address] [place] [address] Care Team Providers Care Net Lead Architect Name Role Phone Unavailable Primary Care Provider [...] this topic Medical Devices Explanted Type Area Marketing Content Coordinator Device Identifier Shelf Expiration Date Model / Serial / Lot Sealant Fibrin Vistaseal 4ml [facility] [id number] - [id number] Explanted:Qt y: 1 on 02/16/2021 by Ab Goncalves MD at [facility] and Med Hemostatic Agent Anterior: Trachea [facility] [employer] 08/31/2022 [id number] / [id number] / [id number] Advance Directives For more information, please contact: [phone] Latest Code Status on File Code Status Date Activated Date Inactivated Comments Full Code 01/31/2021 6:40 PM 04/07/2021 11:01 PM Thi s code status was ascertained in the following way: discussion with healthcare registered representative .
--- OUTSIDE RECORDS SUMMARY | 2025-04-01 16:37 | XMS_ITS | Patient Health Record ---
Author Organization [facility] Address [address] [place] [address] Care Team Providers Care Fish Technologist Name Role Phone Akhil (RETIRED) Mike [place] Primary Care Provide Ab Bales Unavailable [phone] Allergies Allergen (clinical drug ingredient) Drug/Non Drug [...] Status Risk Notes Problem Blood in stool (270605327) Blood in stool (578.1) Active confirmed Problem Elevated liver enzymes level (234467008) Elevated liver function tests (790.6) Active confirmed Plan Of Treatment Pending Test Test Name Order Date LIVER PROFILE 04/05/2012 Future Test Test Name Order Date COLONOSCOPY 04/05/2012 Insurance Providers Payer Name Payer Address Payer Phone Subscriber Number Group Number Insured Name Patient Relationship to Insured Coverage Start Date Coverage End Date [facility] [address] [place], [place] [id number] [phone] [id number] 100 ARIEL JUAN DAVID SINAN) Self - patient is the insured Medical (General) History Medical History History ICD Code hypertension Denies IA,DM,CVA,Lung disease,renal dise ase Anxiety
--- OUTSIDE RECORDS SUMMARY | 2025-04-01 16:37 | XMS_ITS | Patient Health Record ---
[facility] Address [address] [place] [address] Care Team Providers Care Burner Shaft Name Role Phone Soy Connor Primary Care Provider Unavailab Andrea Whaley Unavailable [phone] Allergies Allergen (clinical drug ingredient) Drug/Non Drug [...] primary osteoarthritis of the ankle and/or foot (956473001) Primary osteoarthrit is, left ankle and foot (M19.072) Active confirmed Plan Of Treatment Pending Test Test Name Order Date X ray : Foot, left 3V 07/08/2020 X ray : Foot, right 3V 07/08/2020 Insurance Providers Payer Name Payer Address Payer Phone Subscriber Number Group Number Insured Name Patient Relationship to Insured Coverage Start Date Coverage End Date [facility] re-[id number] [address] [place] [address] [id number] Markus Cannon Self - patient is the insured Medical (General) History Medical History History ICD Code Anxiety Anxiety disorder Back,Hip,and Knee pain High blood pressure Kidney disease Scarlet fever Chicken pox Surgical History Surgery Date(Month/Year)
== END 2025-04-01 13:01 | disposition home or self-care (01) ==
LOC: HO.CT 13:00
PROVIDERS: PCP Physician Assistant; Visit Provider Internal Medicine Pulmonary Disease
DX: J84.9 Interstitial pulmonary disease, unspecified (principal)
CPT/HCPCS: 71250

== ENCOUNTER → 2025-04-01 13:01 | Outpatient (BNV) | payer OTHER, SELFPAY | PROVIDERS: PCP Physician Assistant; Visit Provider Radiology Diagnostic Radiology | DX: J64 Unspecified pneumoconiosis (principal); J98.4 Other disorders of lung; R91.8 Other nonspecific abnormal finding of lung field | CPT/HCPCS: 71250 ==

== ENCOUNTER 2025-04-13 16:42 | Outpatient (REF) | payer OTHER, SELFPAY ==
[2025-04-13 18:38] LABS: Appearance Urine Clear; Glucose Urine UA Negative (Negative); PH 5.0 (5.0-9.0); Specific Gravity - Urine 1.020 (1.005-1.025); UMIC TRIGGER UACC YES
--- OUTSIDE RECORDS SUMMARY | 2025-04-13 19:20 | XMS_ITS | Encounter Summary ---
Author Organization [facility] Address [address] [address] Phone Care Team Providers Care Regrader Name Role Phone Soy Connor Primary Care Provider + Pacheco Boyle MD Unavailable [phone] Encounter Details Date Type Department Care Team (Late st Contact Info) Description 01/02/2025 Procedure Pass [facility] Radiology [address] [place] [address] Social History Tobacco Use Types Packs/Day Years [...] documented as of this encounter Care Teams Regrader Relationship Specialty Start Date End Date Soy Connor PA [address] [place] [address] PCP - General 05/01/22 [place] [address] [place] [address] Referring Physician Intensive Care 05/03/22 documented as of this encounter Additional Source Comments The information contained in this document represents components of the legal health record. It is not the complete legal health record.[facility]
--- OUTSIDE RECORDS SUMMARY | 2025-04-13 19:20 | XMS_ITS | Patient Health Record ---
[facility] Address [address] [place] [address] Care Team Providers Care Stenotypist Name Role Phone Soy Connor Primary Care Provider Unavailab Andrea Whaley Unavailable [phone] Allergies Allergen (clinical drug ingredient) Drug/Non Drug [...] primary osteoarthritis of the ankle and/or foot (839678679) Primary osteoarthrit is, left ankle and foot (M19.072) Active confirmed Plan Of Treatment Pending Test Test Name Order Date X ray : Foot, left 3V 07/08/2020 X ray : Foot, right 3V 07/08/2020 Insurance Providers Payer Name Payer Address Payer Phone Subscriber Number Group Number Insured Name Patient Relationship to Insured Coverage Start Date Coverage End Date [facility] re-[id number] [address] [place] [id number] Markus Cannon Self - patient is the insured Medical (General) History Medical History History ICD Code Anxiety Anxiety disorder Back,Hip,and Knee pain High blood pressure Kidney disease Scarlet fever Chicken pox Surgical History Surgery Date(Month/Year)
--- OUTSIDE RECORDS SUMMARY | 2025-04-13 19:20 | XMS_ITS | Encounter Summary ---
Author Organization [facility] Address [address] [address] Phone Care Team Providers Care Medical Hospital Sales Name Role Phone Soy Connor Primary Care Provider + Pacheco Boyle MD Unavailable [phone] Encounter Details Date Type Department Care Team (Late st Contact Info) Description 07/13/2022 Procedure Pass [facility] Endoscopy Department [address] [place] [address] Social History Tobacco Use Types Packs/Day Years [...] documented as of this encounter Care Teams Medical Hospital Sales Relationship Specialty Start Date End Date Soy Connor PA [address] [place] [address] PCP - General 05/01/22 Pacheco Boyle MD [address] [place] [address] Referring Physician Intensive Care 05/03/22 documented as of this encounter Additional Source Comments The information contained in this document represents components of the legal health record. It is not the complete legal health record.[facility]
--- OUTSIDE RECORDS SUMMARY | 2025-04-13 19:20 | XMS_ITS | Clinical Summary ---
Author Organization [facility] Address [address] [address] Phone Care Team Providers Care Retail Pharmacist Name Role Phone Soy Connor Primary Care Provider + Pacheco Boyle MD Unavailable [phone] Allergies Active Allergy Reactions Criticality Noted [...] - 01/23/2025 11:59 PM EDT Hospital Encounter [facility] Radiology [address] [place] [address] Nahum Miller MD Discharge Disposition: Home or Self Care 01/02/2025 Procedure Pass [facility] Radiology [address] [place] [address] from Last 3 Months Social History Tobacco [...] proximal and mid RCA. Total Coronary Plaque [place]: Moderate amount of coronary plaque (P2). NON-CORONARY [...] proximal and mid RCA. Total Coronary Plaque [place]: Moderate amount of coronary plaque (P2). NON-CORONARY [...] created by Jc Millard. Nahum Miller MD IM CT CARDIAC Final R esult from Last 3 Months Insurance [place] [place] [address] ACO Care Teams Retail Pharmacist Relationship Specialty Start Date End Date Soy Connor PA [address] [place] [address] PCP - General 11/14/22 Pacheco Boyle MD [address] [place] [address] Referring Physician Intensive Care 05/03/22 Additional Source Comments The information contained in this document represents components of the legal health record. It is not the complete legal health record.[facility]
--- OUTSIDE RECORDS SUMMARY | 2025-04-13 19:20 | XMS_ITS | Clinical Summary ---
Author Organization [address] Address [address] [place] [address] Care Team Providers Care Industrial Accountant Name Role Phone Soy Connor Primary Care [...] vaccine 01/16/2025 Covid-19 vaccine series (1 - 2024-26 season) 2025 RSV Immunization (1 - 1-dose 75+ series) 2045 Meningococcal B Vaccine Aged Out No l onger eligible based on patient's age to complete this topic Meningococcal Vaccine Aged Out No forrest grant eligible based on patient's age to complete this topic Insurance [facility] HEALTHCARE Care Teams Industrial Accountant Relationship Specialty Start Date End Date Soy Connor PA PCP - General 06/01/21
--- OUTSIDE RECORDS SUMMARY | 2025-04-13 19:20 | XMS_ITS | Clinical Summary ---
Author Organization [facility] Address [address] [place] [address] Care Team Providers Care Real Estate Coordinator Name Role Phone Unavailable Primary Care [...] this topic Medical Devices Explanted Type Area Washer Engineer Helper Device Identifier Shelf Expiration Date Model / Serial / Lot Sealant Fibrin Vistaseal 4ml [facility] [id number] - [id number] Explanted:Qt y: 1 on 02/16/2021 by Ab Goncalves MD at [facility] and Med Hemostatic Agent Anterior: Trachea [facility] [employer] 08/31/2022 VST04 / [id number] / [id number] Advance Directives For more information, please contact: [phone] Latest Code Status on File Code Status Date Activated Date Inactivated Comments Full Code 01/31/2021 6:40 PM 04/07/2021 11:01 PM Thi s code status was ascertained in the following way: discussion with healthcare security representative .
--- OUTSIDE RECORDS SUMMARY | 2025-04-13 19:20 | XMS_ITS | Clinical Summary ---
Author Organization [facility] Address [address] [place] [address], [place] [address] Care Team Providers Care Campground Attendant Name Role Phone Unavailable Primary Care Provider [...] 021 Influenza Vaccine (#1) 2025 Insurance ) [facility] Choice O ([id number])
--- OUTSIDE RECORDS SUMMARY | 2025-04-13 19:20 | XMS_ITS | Encounter Summary ---
Author Organization [facility] Address [address] [address] Phone Care Team Providers Care Circle Edger Name Role Phone Soy Connor Primary Care Provider + Pacheco Boyle MD Unavailable [phone] Encounter Details Date Type Department Care Team (Late st Contact Info) Description 07/13/2022 Procedure Pass [facility] Cardiac Condenser Tube Tender [address] [place] [address] Social History Tobacco Use Types Packs/Day Years [...] documented as of this encounter Care Teams Circle Edger Relationship Specialty Start Date End Date Soy Connor PA [address] [place] [address] PCP - General 05/01/22 Pacheco Boyle MD [address] [place] [address] Referring Physician Intensive Care 05/03/22 documented as of this encounter Additional Source Comments The information contained in this document represents components of the legal health record. It is not the complete legal health record.[facility]
--- OUTSIDE RECORDS SUMMARY | 2025-04-13 19:20 | XMS_ITS | Clinical Summary ---
Author Organization [address] [place] [address] Address [address] [place] [address] Phone Care Team Providers Care Metal Cutter Name Role Phone Unavailable Primary Care Provider [...] 8:15 AM EDT Office Visit Orthopedic Surgery [facility] [address] [address] Buck Wong DPM Tinea unguium (Primary Dx); Dermatophytosis of nail; Tinea pedis of both feet 01/26/2025 10:30 AM EDT Office Visit [facility] [address] [phone] Buck Wong DPM Dermatophytosis of nail (Primary [...] Upcoming Encounters Date Type Department Care Team ([facility] st Contact Info) Description 05/18/2025 8:15 AM EST Office Visit Orthopedic Surgery - [place] [address] [place] [address] Buck Wong, DPM [address] [place] [phone] Health Maintenance Due Date Last Done Comments [...] complete this topic Insurance MEDICA[place] - [place] [facility] Advance Directives Documents on File Type Date Recorded Patient Airplane Tube Builder Expl anation Health Care Decision (hx) 01/15/2021 AD DEMARCO DIRECTIVE
--- OUTSIDE RECORDS SUMMARY | 2025-04-13 19:20 | XMS_ITS | Patient Health Record ---
Author Organization [facility] Address [address] [place] [address] Care Team Providers Care Food Preparer Name Role Phone Akhil (RETIRED) Mike BENNETT Primary Care Provide Ab Bales Unavailable [phone] Allergies Allergen (clinical drug ingredient) Drug/Non Drug [...] Status Risk Notes Problem Blood in stool (265834585) Blood in stool (578.1) Active confirmed Problem Elevated liver enzymes level (320110160) Elevated liver function tests (790.6) Active confirmed Plan Of Treatment Pending Test Test Name Order Date LIVER PROFILE 04/05/2012 Future Test Test Name Order Date COLONOSCOPY 04/05/2012 Insurance Providers Payer Name Payer Address Payer Phone Subscriber Number Group Number Insured Name Patient Relationship to Insured Coverage Start Date Coverage End Date [facility] [address] [place], [place] [id number] ARIEL JUAN DAVID SINAN) Self - patient is the insured Medical (General) History Medical History History ICD Code hypertension Denies HI,DM,CVA,Lung disease,renal dise ase Anxiety
[2025-04-13 21:12] LABS: UACC Culture Trigger YES
== END 2025-04-13 16:43 | disposition home or self-care (01) ==
LOC: HO.LAB 16:42
PROVIDERS: PCP Physician Assistant; Visit Provider Physician Assistant
DX: R39.9 Unspecified symptoms and signs involving the genitourinary system (principal)
CPT/HCPCS: 81001; 87086

== ENCOUNTER 2025-04-15 14:01 | Outpatient (REF) | payer OTHER, SELFPAY ==
--- NOTE | ~2025-04-15 | XR_ITS ---
EXAMINATION: XR ABDOMEN KUB CLINICAL INDICATION: R10.9 - Unspecified abdominal pain COMPARISON: Felt Hat Steamer from CT February 04, 2024 TECHNIQUE: AP view of the abdomen. FINDINGS: There is moderate stomach, small and large bowel gas without clear distention of small bowel. There is moderate stool within the right colon. There is acetabular over coverage of both femoral heads, right greater than left. XR/XR KUB IMPRESSION: Nonspecific bowel gas pattern with moderate right chronic stool. Coxa profunda, right greater than left. Electronically signed by: Catarino Robert MD 04/15/2025 04:41 PM EDT
[2025-04-15 17:44] LABS: Appearance Urine Clear; Glucose Urine UA Negative (Negative); PH 6.0 (5.0-9.0); Specific Gravity - Urine 1.025 (1.005-1.025)
[2025-04-15 17:51] LABS: Potassium 4.0 mmol/L (3.3-5.1)
== END 2025-04-15 14:02 | disposition home or self-care (01) ==
LOC: HO.XRAY 14:01
PROVIDERS: Absent Provider Physician Assistant; PCP Physician Assistant; Visit Provider Internal Medicine Pulmonary Disease
DX: Z01.811 Encounter for preprocedural respiratory examination (principal); R31.0 Gross hematuria; N20.0 Calculus of kidney; R10.A1 Flank pain, right side; J84.9 Interstitial pulmonary disease, unspecified; Z99.81 Dependence on supplemental oxygen; Z79.82 Long term (current) use of aspirin
CPT/HCPCS: 36415; 74018; 81003; 84132; 88112; 99212

== ENCOUNTER 2025-04-15 14:01 | Outpatient (AMB) | payer OTHER, SELFPAY ==
--- OUTSIDE RECORDS SUMMARY | 2025-04-10 23:59 | XMS_ITS | Continuity of Care Document ---
Author Organization [facility] Address [address] [place] [address]- Care Team Providers Care Job Training Specialist Name Role Phone Soy Slater Primary Care Physician Encounter [facility] Date(s): 01/09/25 - 04/10/[address] [address] Attending Physician: Nahum Miller MD Admitting Physician: [...] EDT, Tablet Start Date: 10/04/10 Status: Ordered Medication Dispense Status: Completed Quantity: 15.0 Unit: tablet Total Allowed Fills: 1 Fills Dispensed: 0 amlodipine 5 mg oral tablet 1 tablet = 5 mg, By Mouth, Daily, # 30 tablet, 3 Refills, Maintenance, 10/04/10 12:28:26 PM EDT, Tablet, [id number] Start Date: 10/04/10 Status: Ordered Medication Dispense Status: Completed Quantity: 30.0 Unit: tablet Total Allowed Fills: 4 Fills Dispensed: 0 Home Blood Pressure Monitor See Instructions, # 1 each, Maintenance, as directed, 10/04/10 12:32:45 PM EDT Start Date: 10/04/10 Status: Ordered Medication Dispense Status: Completed Quantity: 1.0 Unit: each Total Allowed Fills: 1 Fills Dispensed: 0 ibuprofen 400 mg oral tablet 400 mg, 1, tablet, By Mouth, Every 6 hours, PRN, # 60 tablet, Refills 0, Tot. Refills 0, Maintenance, for pain, 02/02/24 12:02:00 AM EDT, Route to Pharmacy Electronically, [facility][id number], Partial fill upon patient request if the prescription is for a schedule II opioid drug., 174, cm, 02/01/24 17:43:00 EDT, Height, 90, kg, 02/01/24 17:43:00 EDT, Dry Weight Start Date: 02/02/24 Status: Ordered Medication Dispense Status: Completed Quantity: 60.0 Unit: tablet Total Allowed Fills: 1 Fills Dispensed: 0 ibuprofen 800 mg oral tablet 1 tablet = 800 mg, By Mouth, 3 times a day, PRN Pain, # 30 tablet, 0 Refills, Maintenance, 08/10/10 1:53:24 PM EST, Tablet, [facility][id number] Start Date: 08/10/10 Status: Ordered Medication Dispense Status: Completed Quantity: 30.0 Unit: tablet Total Allowed Fills: 1 Fills Dispensed: 0 Tylenol 325 mg oral tablet 650 mg, 2, tablet, By Mouth, Every 6 hours, PRN, # 50 tablet, Refills 0, Tot. Refills 0, Maintenance, for pain, 02/02/24 12:02:00 AM EDT, Route to Pharmacy Electronically, [facility] #[id number], Partial fill upon patient request if the prescription is for a schedule II opioid drug., 174, cm, 02/01/24 17:43:00 EDT, Height, 90, kg, 02/01/24 17:43:00 EDT, Dry Weight Start Date: 02/02/24 Status: Ordered Medication Dispense Status: Completed Quantity: 50.0 Unit: tablet Total Allowed Fills: 1 Fills Dispensed: 0 Xylocaine Viscous 2% solution 1 application, Topically, 4 times a day, PRN for mouth sore pain, # 100 mL, 0 Refills, Maintenance,10/04/10 12:27:24 PM EDT, Solution, [facility] #[id number] Start Date: 10/04/10 Status: Ordered Medication Dispense Status: Completed Quantity: 100.0 Unit: mL Total Allowed Fills: 1 Fills Dispensed: 0 Problem List Condition Confirmation Course Effective Dates Status Health St atus Informant Renal stone(Spontaneousl y passed) Confirmed Active Social History Social History Type Response Sex Sex Representation Male (finding) Patient Care team information Care Team Personnel Name: Bobby Dsouza MD Position: S Renal MD Member Role: Lifetime Consulting Physician Address: [address] [facility] [address] [facility] [place] [address]- Telecom: Name: Soy Slater Position: Reference Physician Member Role: PCP Address: [address] [place] [address]- Telecom: Care Team Related Persons Name: REESE GEORGE Name: EDWARDO RUGGIERO Insurance Providers Guarantor name: JUAN DAVID GEORGE Health Plan Information #: 1 Payer: [employer] Payer Identifier: NA Member Number: [id number] Group Number: [id number] Subscriber Identifier: [id number] Relationship to Subscriber: self Coverage Type: NA Coverage Verification Date: NA Telecom: NA Address:
[2025-04-15 14:04] VITALS: BP 138/67; PULSE 62; O2SAT 96; BMI 30.1
--- NOTE | 2025-04-15 14:04 | A.OFFVIS_ITS ---
Vital Signs 04/15/25 14:04 Height 5 ft 8 in Weight 198 lb BMI 30.1 BP 138/67 Blood Pressure Location Lt brachial Position Sitting Pulse 62 Pulse Source Pulse Oximeter Pulse Oximetry (%) 96 Oxygen Delivery Method Room Air Intake Visit Reasons: Dyspnea Allergies bee venom protein (honey bee) Allergy (Intermediate, Verified 04/15/25 14:09) Swelling Iodinated Contrast Media Allergy (Unknown, Verified 04/15/25 14:09) Rash amlodipine Adverse Reaction (Intermediate, Verified 04/15/25 14:09) Pedal edema hydroxyzine Adverse Reaction (Intermediate, Verified 04/15/25 14:09) ineffective HPI HPI Dyspnea: Details: 54-year-old gentleman, nonsmoker, with underlying history of severe COVID starting end of December 2020 requiring VV ECMO for [address] [facility], status post trach and PEG discharge to [facility] in March of 2021, tracheostomy decannulated end of May 2021, discharged from [facility] being June of 2021 on supplemental oxygen 3 L continuous flow with exertion and 1L at rest.? Treated with prednisone 1 milligram/kilogram with initial improvement in his lung function with improvement that has plateaued since about December of 2021.?His exercise tolerance improved after pulmonary rehab, however he still intermittently requires supplemental oxygen with exertion and at night. He denies recent exacerbations. His pulmonary function studies are slowly improving. 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 DANIELLA (generalized anxiety disorder) Sepsis with acute hypoxic respiratory failure GERD (gastroesophageal reflux disease) HTN (hypertension) Surgical History Hx of colonoscopy S/P emergency tracheotomy for assistance in breathing History of ear surgery History of vasectomy History of wisdom tooth extraction Family History Father Prostate cancer Mother Lung cancer Paternal Uncle Diabetes Paternal Aunt Brain cancer Other Mental health disorder Substance use disorder Social History Household Members: Family Housing: House Alcohol intake: current Alcohol intake frequency: holidays/special occasions only Comment: tolerable Patient Tobacco Use Status: Former Tobacco user Tobacco use type: Cigarette e-Cigarette/Vaping Use: Never Used Second Hand Smoke Exposure: Yes (Mother) service: No Current occupational status: employed Cognitive needs: No Hearing needs: No Vision needs: Yes Review of Systems Const Denies daytime sleepiness, Denies excessive sweating, Denies fatigue, Denies fever(s), Denies lethargy, Denies malaise, Denies night sweats, Denies snoring and Denies weight loss Eyes Denies blurry vision and Denies itchy eyes ENT Denies nasal congestion, Denies post nasal drip, Denies sinus pain, Denies sinus pressure and Denies other ( Thrush) Card Denies chest pain, Denies pedal edema, Denies dyspnea, Denies orthopnea and Denies paroxysmal nocturnal dyspnea Resp Denies cough, Denies hemoptysis, Denies excessive phlegm production, Denies dyspnea, Denies snoring and Denies wheezing GI Denies abdominal pain and Denies heartburn Musc Denies myalgias, Denies arthralgias and Denies joint swelling Skin/Breast Denies rash Neuro Denies memory loss and Denies seizure-like activity Psych Denies abnormal sleep pattern, Denies anxiety and Denies memory loss Endo Denies excessive sweating, Denies fatigue and Denies heat intolerance Eleno/Lymph Denies easy bruising Aller/Immun Denies itchy eyes, Denies seasonal rhinorrhea and Denies wheezing Physical Exam Vital Signs: Last Vital Signs Pulse 62 04/15/25 14:04 BP 138/67 04/15/25 14:04 Pulse Ox 96 04/15/25 14:04 Oxygen Delivery Method Room Air 04/15/25 14:04 BMI result Body Mass Index 30.1 Const General: no acute distress and alert Nutritional Appearance: not obese Orientation/consciousness: Other orientation findings ( oriented) HEENT Head: Yes atraumatic Eyes General: appearance normal, both eyes and all related structures Sclerae: sclerae normal EOM: EOMs intact bilaterally Neck Neck: Yes supple Lymphatic: no lymphadenopathy noted Resp Effort & Inspection: normal respiratory effort and no use of accessory muscles Auscultation: clear to auscultation bilaterally Cardio Rate: regular rate Rhythm: regular rhythm Heart sounds: no gallops, no murmurs and no rubs Skin General skin exam: other ( warm) Extrem General: No clubbing, No cyanosis and No edema Assessment & Plan Assessment & Plan (1) ILD (interstitial lung disease): Code(s): J84.9 - Interstitial pulmonary disease, unspecified Category: Medical Plan: Post COVID ARDS fibrosis. Radiologic stable, pulmonary function studies improvi ng. (2) Supplemental oxygen dependent: Code(s): Z99.81 - Dependence on supplemental oxygen Category: Medical Plan: Continue supplemental oxygen at night and with exertion as needed. (3) Encounter for preoperative pulmonary examination: Code(s): Z01.811 - Encounter for preprocedural respiratory examination Category: Medical Plan: At this time patient is at low risk for pulmonary perioperative complications for the proposed colonoscopy either under general anesthesia, or monitored anesthesia care. Coding Level of Care Code Est Pt Level 4 (06177) Complex EM visit Add On G2211 Diagnoses ILD (interstitial lung disease) J84.9 Supplemental oxygen dependent Z99.81 Encounter for preoperative pulmonary examination Z01.811
--- OUTSIDE RECORDS SUMMARY | 2025-04-15 18:00 | XMS_ITS | Patient Health Record ---
Author Organization [facility] Address [address] [place] [phone] Care Team Providers Care Felt Washing Machine Tender Name Role Phone Akhil (RETIRED) Mike BENNETT Primary Care Provide Ab Bales Unavailable [phone] Allergies Allergen (clinical drug ingredient) Drug/Non Drug [...] Status Risk Notes Problem Blood in stool (991057429) Blood in stool (578.1) Active confirmed Problem Elevated liver enzymes level (697212636) Elevated liver function tests (790.6) Active confirmed Plan Of Treatment Pending Test Test Name Order Date LIVER PROFILE 04/05/2012 Future Test Test Name Order Date COLONOSCOPY 04/05/2012 Insurance Providers Payer Name Payer Address Payer Phone Subscriber Number Group Number Insured Name Patient Relationship to Insured Coverage Start Date Coverage End Date [facility] [address] [place], [place] [id number] [address] JUAN DAVID SINAN) Self - patient is the insured Medical (General) History Medical History History ICD Code hypertension Denies OR,DM,CVA,Lung disease,renal dise ase Anxiety
--- OUTSIDE RECORDS SUMMARY | 2025-04-15 18:00 | XMS_ITS | Encounter Summary ---
Author Organization [facility] Address [address] [address] Phone Care Team Providers Care Physicist Light And Optics Name Role Phone Soy Connor Primary Care Provider + Pacheco Boyle MD Unavailable [phone] Encounter Details Date Type Department Care Team (Late st Contact Info) Description 01/02/2025 Procedure Pass [facility] [address] [place] [address] Social History Tobacco Use Types Packs/Day Years [...] documented as of this encounter Care Teams Physicist Light And Optics Relationship Specialty Start Date End Date Soy Connor PA [address] [place] [address] PCP - General 05/01/22 [place] [address] [place] [phone] Referring Physician Intensive Care 05/03/22 documented as of this encounter Additional Source Comments The information contained in this document represents components of the legal health record. It is not the complete legal health record.[facility]
--- OUTSIDE RECORDS SUMMARY | 2025-04-15 18:00 | XMS_ITS | Encounter Summary ---
Author Organization [facility] Address [address] [address] Phone Care Team Providers Care Clinical Social Work Therapist Name Role Phone Soy Connor Primary Care Provider + Pacheco Boyle MD Unavailable [phone] Encounter Details Date Type Department Care Team (Late st Contact Info) Description 07/13/2022 Procedure Pass [facility] Endoscopy Department [address] [place] [address] Social History Tobacco Use Types Packs/Day Years [...] documented as of this encounter Care Teams Clinical Social Work Therapist Relationship Specialty Start Date End Date Soy Connor PA [address] [place] [phone] PCP - General 05/01/22 Pacheco Boyle MD [address] [place] [address] Referring Physician Intensive Care 05/03/22 documented as of this encounter Additional Source Comments The information contained in this document represents components of the legal health record. It is not the complete legal health record.[facility]
--- OUTSIDE RECORDS SUMMARY | 2025-04-15 18:00 | XMS_ITS | Clinical Summary ---
Author Organization [address] Address [address] [place] [phone] Care Team Providers Care Lead Solutions Architect Name Role Phone Soy Connor Primary Care [...] patient's age to complete this topic Insurance [facility] Care Teams Lead Solutions Architect Relationship Specialty Start Date End Date Soy Connor PA PCP - General 06/01/21
--- OUTSIDE RECORDS SUMMARY | 2025-04-15 18:00 | XMS_ITS | Clinical Summary ---
Author Organization [address] [place] [address] Address [address] [place] [address] Phone Care Team Providers Care Computer Numerical Control Grinder Name Role Phone Unavailable Primary Care Provider [...] days. 30 g 3 5 04/14/20 25 Encounters Date Type Department Care Team Description 03/17/2025 8:15 AM EDT Office Visit Orthopedic Surgery [facility] [address] [phone] Buck Wong DPM Tinea unguium (Primary Dx); Dermatophytosis of nail; Tinea pedis of both feet 01/26/2025 10:30 AM EDT Office Visit [facility] [address] [phone] Buck Wong DPM Dermatophytosis of nail (Primary [...] Upcoming Encounters Date Type Department Care Team ([facility] st Contact Info) Description 05/18/2025 8:15 AM EST Office Visit Orthopedic Surgery [facility] [address] [place] [phone] Buck Wong, DPM [address] [place] [phone] Health Maintenance Due Date Last Done Comments [...] complete this topic Insurance MEDICAID - [place] [facility] Advance Directives Documents on File Type Date Recorded Patient Director Supply Expl anation Health Care Decision (hx) 01/15/2021 AD DEMARCO DIRECTIVE
--- OUTSIDE RECORDS SUMMARY | 2025-04-15 18:00 | XMS_ITS | Clinical Summary ---
Author Organization [facility] Address [address] [address] Phone Care Team Providers Care Streetcar Repairer Helper Name Role Phone Soy Connor Primary Care Provider + Pacheco Boyle MD Unavailable [phone] Allergies Active Allergy Reactions Criticality Noted [...] - 01/23/2025 11:59 PM EDT Hospital Encounter [facility] Radiology [address] [place] [address] Nahum Miller MD Discharge Disposition: Home or Self Care 01/02/2025 Procedure Pass [facility] [address] [place] [address] from Last 3 Months Social History Tobacco [...] proximal and mid RCA. Total Coronary Plaque [place]: Moderate amount of coronary plaque (P2). NON-CORONARY [...] proximal and mid RCA. Total Coronary Plaque [place]: Moderate amount of coronary plaque (P2). NON-CORONARY [...] from Last 3 Months Insurance [place] [address] [address] [place] [address] ACO Care Teams Streetcar Repairer Helper Relationship Specialty Start Date End Date Soy Connor PA [address] [place] [id number] PCP - General 11/14/22 Pacheco Boyle MD [address] [place] [address] Referring Physician Intensive Care 05/03/22 Additional Source Comments The information contained in this document represents components of the legal health record. It is not the complete legal health record.[facility]
--- OUTSIDE RECORDS SUMMARY | 2025-04-15 18:00 | XMS_ITS | Encounter Summary ---
Author Organization [facility] Address [address] [address] Phone Care Team Providers Care Ski Maker Name Role Phone Soy Connor Primary Care Provider + Pacheco Boyle MD Unavailable [phone] Encounter Details Date Type Department Care Team (Late st Contact Info) Description 07/13/2022 Procedure Pass [facility] Cardiac Painter Foreman [address] [place] [address] Social History Tobacco Use Types Packs/Day Years [...] documented as of this encounter Care Teams Ski Maker Relationship Specialty Start Date End Date Soy Connor PA [address] [place] [id number] PCP - General 05/01/22 Pacheco Boyle MD [address] [place] [address] Referring Physician Intensive Care 05/03/22 documented as of this encounter Additional Source Comments The information contained in this document represents components of the legal health record. It is not the complete legal health record.[facility]
--- OUTSIDE RECORDS SUMMARY | 2025-04-15 18:01 | XMS_ITS | Clinical Summary ---
Author Organization [facility] Address [address] [place] [address] Care Team Providers Care Electrical Wirer Name Role Phone Unavailable Primary Care Provider [...] this topic Medical Devices Explanted Type Area Superintendent Drilling And Production Device Identifier Shelf Expiration Date Model / Serial / Lot Sealant Fibrin Vistaseal 4ml [facility] [id number] - [id number] Explanted:Qt y: 1 on 02/16/2021 by Ab Goncalves MD at [facility] and Med Hemostatic Agent Anterior: Trachea [facility] [employer] 08/31/2022 [id number] / [id number] / [id number] Advance Directives For more information, please contact: [phone] Latest Code Status on File Code Status Date Activated Date Inactivated Comments Full Code 01/31/2021 6:40 PM 04/07/2021 11:01 PM Thi s code status was ascertained in the following way: discussion with healthcare traveling representative .
--- OUTSIDE RECORDS SUMMARY | 2025-04-15 18:01 | XMS_ITS | Patient Health Record ---
[facility] Address [address] [place] [address] Care Team Providers Care Supervisor Melt [facility] Name Role Phone Soy Connor Primary Care Provider Unavailab Andrea Whaley Unavailable [phone] Allergies Allergen (clinical drug ingredient) Drug/Non Drug [...] primary osteoarthritis of the ankle and/or foot ([id number]) Primary osteoarthrit is, left ankle and foot (M19.072) Active confirmed Plan Of Treatment Pending Test Test Name Order Date X ray : Foot, left 3V 07/08/2020 X ray : Foot, right 3V 07/08/2020 Insurance Providers Payer Name Payer Address Payer Phone Subscriber Number Group Number Insured Name Patient Relationship to Insured Coverage Start Date Coverage End Date [facility] [id number] [id number] [place] [phone] [id number] Markus Cannon Self - patient is the insured Medical (General) History Medical History History ICD Code Anxiety Anxiety disorder Back,Hip,and Knee pain High blood pressure Kidney disease Scarlet fever Chicken pox Surgical History Surgery Date(Month/Year)
--- OUTSIDE RECORDS SUMMARY | 2025-04-15 18:01 | XMS_ITS | Clinical Summary ---
Author Organization [facility] Facility Address [address] [place] [address], [place] [address] Care Team Providers Care Monomer Recovery Supervisor Name Role Phone Unavailable Primary Care Provider [...] 021 Influenza Vaccine (#1) 2025 Insurance ) [facility] Choice O ([id number])
== END 2025-04-15 14:49 | disposition home or self-care (01) ==
LOC: HO.HPS 14:02
PROVIDERS: PCP Physician Assistant; Visit Provider Internal Medicine Pulmonary Disease
DX: J84.9 Interstitial pulmonary disease, unspecified (principal); Z99.81 Dependence on supplemental oxygen; Z01.811 Encounter for preprocedural respiratory examination
CPT/HCPCS: 99214

== ENCOUNTER 2025-04-15 14:48 | Outpatient (AMB) | payer OTHER, SELFPAY ==
[2025-04-15 15:16] VITALS: BP 130/76; PULSE 65; RESP 18; TEMP 36.2; O2SAT 96; BMI 30.2
--- NOTE | 2025-04-15 15:16 | A.OFFPC_ITS ---
Vital Signs 04/15/25 15:16 Height 5 ft 8 in Weight 198 lb 8 oz BMI 30.2 BP 130/76 Blood Pressure Location Lt brachial Position Sitting Respiration 18 Pulse 65 Pulse Source Pulse Oximeter Temp 97.1 F Temp Source Temporal Artery Scan Pulse Oximetry (%) 96 Oxygen Delivery Method Room Air Intake Visit Reasons: Blood pee Associate Drafter Required: No Accompanied by: Self / Same As Patient Allergies bee venom protein (honey bee) Allergy (Intermediate, Verified 04/15/25 15:27) Swelling Iodinated Contrast Media Allergy (Unknown, Verified 04/15/25 15:27) Rash amlodipine Adverse Reaction (Intermediate, Verified 04/15/25 15:27) Pedal edema hydroxyzine Adverse Reaction (Intermediate, Verified 04/15/25 15:27) ineffective Medication List - Last Reconciled 04/15/25 by Soy Connor PA-C albuterol sulfate 90 mcg/actuation 1 puff inhalation QID PRN ascorbic acid (vitamin C) 1 g PO DAILY cholecalciferol (vitamin D3) 50 mcg PO DAILY clotrimazole 1% 5 drops into effected ear topically 2 times a day; 4 weeks diphenhydramine HCl (Benadryl Allergy) 50 mg PO BEDTIME PRN doxazosin 2 mg PO DAILY lisinopril 40 mg PO DAILY 90 days metoprolol succinate ER 50 mg PO DAILY 90 days omega-3 fatty acids 1,000 mg PO DAILY potassium chloride (Klor-Con) 20 mEq PO DAILY prednisone 20 mg PO BID rosuvastatin (Crestor) 10 mg PO DAILY 30 days spironolactone 25 mg PO DAILY tramadol 50 mg PO BID PRN 5 days zinc gluconate 50 mg PO DAILY Tobacco use date assessed: 04/15/25 Dental Screening Dental Screen Date: 04/15/25 Did you have a dental visit in the last 12 months?: Yes Did you have a dental problem in the last 6 months where you did not have access to dental care?: No Was dental information given to patient?: Patient has dentist HPI Blood pee HPI Details The patient is a 54-year-old male presenting with hematuria. He noticed discoloration in his urine and a urinalysis confirmed a large amount of blood cells. The urinalysis showed no bacteria. The patient reports having a kidney stone before in the same (right) kidney. He describes the current pain as a constant pressure pain that comes and goes in intensity, and at times feels like a sharp stabbing sensation, particularly when getting out of bed. An ultrasound from December 2023 noted a 0.5 cm kidney stone in the right kidney. The patient takes low-dose aspirin daily, which he believes was initiated for hi gh blood pressure, but is unsure who prescribed it. He also reports a history of hip pain that has significantly improved with an injection and exercises, to the point where he no longer has difficulty walking. 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 DANIELLA (generalized anxiety disorder) Sepsis with acute hypoxic respiratory failure GERD (gastroesophageal reflux disease) HTN (hypertension) Surgical History Hx of colonoscopy S/P emergency tracheotomy for assistance in breathing History of ear surgery History of vasectomy History of wisdom tooth extraction Family History Father Prostate cancer Mother Lung cancer Paternal Uncle Diabetes Paternal Aunt Brain cancer Other Mental health disorder Substance use disorder Social History Household Members: Family Housing: House Alcohol intake: current Alcohol intake frequency: holidays/special occasions only Comment: tolerable Patient Tobacco Use Status: Former Tobacco user Tobacco use type: Cigarette e-Cigarette/Vaping Use: Never Used Second Hand Smoke Exposure: Yes (Mother) service: No Current occupational status: employed Cognitive needs: No Hearing needs: No Vision needs: Yes Questionnaire Thrive Questionnaire Date Thrive assessed: 10/20/24 I am a: Patient What is your living situation today?: I choose not to answer this question Within the past 12 months, did the food you bought not last and you didn't have the money to get more?: I choose not to answer this question Within the past 12 months, did you worry whether your food would run out before you got money to buy more?: I choose not to answer this question Do you have trouble paying for medicines?: I choose not to answer this question Do you have trouble getting transportation to medical appointments?: I choose not to answer this question Do you have trouble paying your heating and electricity bill?: Yes Do you have trouble taking care of your child, family member or friend?: I choose not to answer this question Do you have trouble with day-to-day activities such as bathing, preparing meals, shopping, managing finances, etc.?: I choose not to answer this question Are you currently unemployed and looking for a job?: Yes Are you interested in more education?: Yes Currently or been in a relationship where the following occur: No concerns reported THRIVE Score: 1 DANIELLA-7 AMB Questionnaire DANIELLA-7 Date DANIELLA - 7 assessed: 10/21/24 Source: Developed by Drs. Ab Pool, Noreen uLcero, Milind Lundberg and colleagues, with an educational luis a from [employer]). Review of Systems Const Denies headache(s) Eyes Denies loss of vision ENT Denies vertigo, Denies dizziness, Denies headache(s) and Denies sore throat Card Denies chest pain, Denies leg edema and Denies lightheadedness Resp Denies cough, Denies hemoptysis and Denies wheezing GI Denies abdominal pain, Denies melena, Denies constipation, Denies diarrhea and Denies vomiting Denies dysuria, Denies urinary frequency and Denies urinary urgency Musc Denies arthralgias, Denies joint swelling, Denies numbness and Denies tingling Neuro Denies Abnormal speech present, Denies behavioral changes, Denies vertigo, Denies dizziness, Denies headache(s), Denies loss of vision, Denies memory loss, Denies numbness and Denies tingling Psych Denies anxiety, Denies behavioral changes, Denies depression, Denies memory loss and Denies panic attacks Eleno/Lymph Denies easy bleeding and Denies easy bruising Aller/Immun Denies wheezing Physical exam (Primary Care) Vital Signs: Last Vital Signs Temp 97.1 F 04/15/25 15:16 Pulse 65 04/15/25 15:16 Resp 18 04/15/25 15:16 BP 130/76 04/15/25 15:16 Pulse Ox 96 04/15/25 15:16 Oxygen Delivery Method Room Air 04/15/25 15:16 BMI result Body Mass Index 30.2 Tobacco/Smoking Status: Tobacco use Status Tobacco use date assessed 04/15/25 04/15/25 15:24 Patient Tobacco Use Status Former Tobacco user 04/15/25 15:24 Tobacco use type Cigarette 04/15/25 15:24 e-Cigarette/Vaping Use Never Used 04/15/25 15:24 Thrive Assessment: Date of Thrive Assessment Date Thrive assessed 10/20/24 04/15/25 15:24 Currently or been in a relationship where the following occur: No concerns reported Const General: healthy appearing, no acute distress, alert and awake Nutritional Appearance: well nourished Orientation/consciousness: oriented to person, oriented to place and oriented to time HENMT Ears: TM's normal bilaterally General nose exam: Normal nasal mucous membranes and turbinates present Eyes Conjunctivae: conjunctivae normal Sclerae: sclerae normal Pupils: Equal, round and reactive pupils present Neck Neck: Yes no lymphadenopathy and Yes no JVD Thyroid: Thyroid normal Carotids: no bruits Resp Effort & Inspection: normal respiratory effort and not tachypneic Auscultation: no crackles, no rales, no rhonchi and no wheezes Cardio Rate: regular rate Rhythm: regular rhythm Heart sounds: no murmurs and normal S1 and S2 GI Palpation (GI): Soft to palpation, nontender, no hepatomegaly and no splenomegaly Auscultation: normal bowel sounds Skin General skin exam: no rashes or lesions noted and dry skin Neuro General: oriented to person, oriented to place and oriented to time Cranial nerves: Yes Equal, round and reactive pupils present Speech: No Abnormal speech present Gait exam (Neuro): Normal gait present Motor exam (neuro): no tremor noted Extrem Right upper extremity: full ROM Left upper extremity: full ROM Right lower extremity: full ROM; no edema Left lower extremity: full ROM; no edema Psych Mental Status: mental status grossly normal Speech and movement: Normal speech and movement present Affect: normal affect Attitude: cooperative Thought process: Normal thought process present Coding Level of Care Code Est Pt Level 4 (39575) Diagnoses Right flank pain R10.9 Gross hematuria R31.0 Assessment & Plan Assessment & Plan (1) Right flank pain: Code(s): R10.9 - Unspecified abdominal pain Category: Medical Plan: Patient having right flank pain quite chronically. He reports over the last few weeks his right flank pain has gotten worse and he has noted some gross hematuria. Urinalysis showing 3+ red blood cells. Will send for x-ray KUB to evaluate for stone. (2) Gross hematuria: Code(s): R31.0 - Gross hematuria Category: Medical Plan: As above A referral will be placed to Urology for further evaluation and management, which could include procedural interventions like lithotripsy if the stone does not pass. Additionally, a urine cytology test has been ordered to evaluate for abnormal cells as an alternative cause for the hematuria. Orders: Orders Urine Cytology 04/15/25 R31.0 - Gross hematuria Potassium 04/15/25 N20.0 - Calculus of kidney Referrals Urology Referral R31.0 - Gross hematuria
== END 2025-04-15 15:52 | disposition home or self-care (01) ==
LOC: HO.HMCH 14:50
PROVIDERS: PCP Physician Assistant; Visit Provider Physician Assistant
DX: R10.9 Unspecified abdominal pain (principal); R31.0 Gross hematuria

== ENCOUNTER → 2025-04-15 16:26 | Outpatient (BNV) | payer OTHER, SELFPAY | PROVIDERS: Absent Provider Physician Assistant; PCP Physician Assistant; Visit Provider Radiology Diagnostic Radiology | DX: R10.9 Unspecified abdominal pain (principal) | CPT/HCPCS: 74018 ==